=== PATIENT | female | born 1965 | race Caucasian/White ===

== ENCOUNTER 2019-10-27 09:45 | Emergency (ER) | payer MEDICARE, SELFPAY ==
--- NOTE | ~2019-10-27 | XR_ITS ---
EXAMINATION: XR hip LT 2V w AP pelvis DATE: 10/27/2019 11:31 INDICATION: Left hip pain TECHNIQUE: Anteroposterior view of the pelvis and anteroposterior, frog leg and cross-table lateral v iews of the left hip were obtained. COMPARISON: CT dated 04/16/2019 FINDINGS: Normal alignment and joint space at the bilateral hips. No fracture or suspected avascular necrosis. Bone island at the right femoral neck. Postoperative change of prior L4-S1 anterior and posterior spi nal fusion with interbody fusion devices at both levels anteriorly and with right-sided vertical diane and pedicle screw fixation. Severe bilateral sacroiliitis. Bowel anastomotic suture lines at the rect um in the central pelvis as well as in the right lower quadrant of the abdomen. IMPRESSION: 1. No acute osseous abnormality. Normal left hip. 2. Bilateral sacroiliitis as well as bowel anastomotic suture lines in the pelvis and right lower dyana drant likely related to given history of Crohn's disease. 3. Combined instrumented anterior and posterior L4-S1 spinal fusion. Reviewed, dictated and finalized at location A. PHONE CLEANER IMPRESSION: 1. No acute osseous abnormality. Normal left hip. 2. Bilateral sacroiliitis as well as bowel anastomotic suture lines in the pelv is and right lower quadrant likely related to given history of Crohn's disease. 3. Combined instrumented anterior and posterior L4-S1 spinal fusion.
--- NOTE | ~2019-10-27 | US_ITS ---
US venous doppler [facility] DATE: 10/27/2019 11:14 INDICATION: Left thigh pain. History of deep venous thrombosis. TECHNIQUE: Real-time and color flow imaging and Doppler analysis of the veins of the left lower extre mity COMPARISON: None FINDINGS: The left greater saphenous vein is patent. There is spontaneous and phasic flow and normal augmentation and color flow signal and normal compression of the deep veins of the left lower extremi ty. IMPRESSION: No evidence of deep venous thrombosis of the left leg Reviewed, dictated and finalized at Location [facility]. Reviewed, dictated and finalized at location B. UMED CHARACTER ENTERTAINER
--- NOTE | ~2019-10-27 | XR_ITS ---
EXAMINATION: XR knee LT min 4V EXAM DATE: 10/27/2019 11:31 INDICATION: No known recent injury provided at this time. Pain of the left knee. History of nerve da mage. TECHNIQUE: Left knee frontal, crosstable lateral, orthogonal oblique projections for interpretation. There is no prior study for comparison. FINDINGS: No evidence osteochondral defect or joint body in the left knee joint. No bony productive changes. There are no acute fractures or dislocations identified. There is no subcutaneous gas. The soft tissue is unremarkable. There are no radiopaque foreign bodies. No joint effusion. IMPRESSION: 1. Unremarkable XR knee LT min 4V exam. Reviewed, dictated and finalized at location A. IAL INSPECTOR
[2019-10-27 09:49] VITALS: BP 133/74; PULSE 72; RESP 18; TEMP 36.1; O2SAT 99
--- NOTE | 2019-10-27 10:24 | ED.LOWEXIN ---
HPI - Extremity Injury (Lower) General Chief Complaint: Extremity Injury, Lower Stated Complaint: left leg pain Time Seen by Provider: 10/27/19 10:23 Source: patient and RN notes reviewed Mode of arrival: other Limitations: no limitations History of Present Illness HPI Narrative: Pt is a 54 y/o female who presents to the ED with c/o constant achy left thigh pain. Patient states pain started in left hip and radiates to thigh and down her leg. Pt states that her pain began a week ago. She believes that her pain might be caused by sciatica. Pt has been taking Ibuprofen 600mg and Percocet, but with no relief. Pt has a hx of DVT in 2006. Pt denies a recent fall or injury. Pt also reports SOB intermittent, chest tightness pain intermittent, chronic vomiting, and chronic nausea, but denies lightheadedness, dizziness, and increased numbness. complaint: other (leg pain) Onset (ago): week(s) (1) Relieving factors: nothing Associated symptoms: other (achy) Other symptoms: chest pain (tightness), SOB and nausea/vomiting (chronic) Treatments prior to arrival: NSAIDS (Ibuprofen 600mg) and other (Percocet) Related Data Allergies Allergy/AdvReac Type Severity Reaction Status Date / Time Sulfa (Sulfonamide Allergy Unknown Verified 01/22/12 10:41 Antibiotics) prednisone AdvReac Unknown NOT TO Verified 12/13/18 12:46 TAKE R/T MEDS Review of Systems Review of Systems: All systems reviewed & are unremarkable except as noted in HPI and below Cardiovascular: Cardiovascular: Reports chest pain (tightness) and Denies lightheadedness Respiratory: Respiratory: Reports dyspnea Gastrointestinal: Gastrointestinal: Reports nausea (chronic) and Reports vomiting (chronic) Musculoskeletal: Musculoskeletal: Reports other (left thigh pain that radiates to her groin and into her lower leg) Neurologic: Denies dizziness and Denies numbness (increased) [facility] Past Medical History Medical History (Updated 10/27/19 @ 12:31 by Patience Rowell MD) Anxiety Bronchitis Carpal tunnel syndrome Cervical cancer CVA (cerebrovascular accident) DDD (degenerative disc disease) Depression DVT (deep venous thrombosis) 2007 Finger fracture GERD (gastroesophageal reflux disease) Glaucoma Headache History of angina HTN (hypertension) Hyperlipidemia Inguinal hernia Kidney stone Left ovarian cyst Osteopenia Pacemaker SSS Pancreatitis Peptic ulcer Peripheral neuropathy Pneumonia Seasonal allergies Thyroid nodule Tonsillitis Ulcerative colitis Surgical History Surgical History (Updated 10/27/19 @ 11:02 by Trice Austin) H/O cervical spine surgery H/O inguinal hernia repair H/O resection of large bowel History of carpal tunnel release History of hysterectomy History of orthopedic surgery bilateral feet History of removal of ovarian cyst left History of spinal surgery x2 Hx of cholecystectomy Hx of tonsillectomy Family History Family History (Updated 05/06/14 @ 07:13 by DOCTOR UNKNOWN) Grandparent Carcinoma of colon Family history of lung cancer Father Family history of lymphoma Social History Social History (Updated 10/27/19 @ 11:02 by Trice Austin) Smoking packs per day: 0.5 Smoking cigarettes per day: 10.0 Smoking status: Current every day smoker Tobacco type: cigarettes Alcohol intake: never Exam Narrative: Exam Narrative: GENERAL: Well-appearing, well-nourished, and in no acute distress. HEAD: Normocephalic, atraumatic EYES: PERRLA and EOMI, conjunctiva clear without discharge THROAT:Mucous membranes moist, Oropharynx normal without erythema, exudate, peritonsillar swelling or fluctuance NECK: Supple, without lymphadenopathy or mass RESPIRATORY: No respiratory distress, Airway patent, Respirations non-labored, Clear to auscultation without rales, rhonchi or wheeze, although diminished HEART: Regular rate and rhythm. No murmur heard. Normal peripheral pulses. ABDOMEN: Soft, n
--- NOTE | 2019-10-27 10:35 | ECG_ITS ---
Measurements Intervals [place] Rate: 63 P: 15 MT: 193 QRS: 46 QRSD: 88 T: 27 QT: 409 QTc: 420 Interpretive Statements SINUS RHYTHM NORMAL ECG Electronically Signed On 10-27-2019 11:03:38 DIRECTOR FEDERAL by Car Tirado D.O.
[2019-10-27 10:58] LABS: Basophils Absolute Auto 0.1 K/mm3 (0.0-0.1); Basophils Percent Auto 1.2 % (0.2-1.2); Eosinophils Absolute Auto 0.1 K/mm3 (0-0.3); Hematocrit 32.7 % (37.0-47.0); Hemoglobin 10.5 g/dL (12.0-15.0); Immature Granulocyte Absolute 0.01 K/mm3 (0.00-0.031); Immature Granulocyte Percent A 0.2 % (0-0.5); Immature Platelet Fraction Pct 3.6 % (0.9-11.2); Lymphocytes Absolute Auto 1.47 K/mm3 (0.9-3.2); Lymphocytes Percent Auto 36.4 % (18.3-44.2); Mean Corpuscular HGB Conc 32.1 g/dl (32-36); Mean Corpuscular Hemoglobin 29.7 pg (26-34); Mean Corpuscular Volume 92.4 fl (80-100); Mean Platelet Volume 10.7 fl (7.4-10.4); Monocytes Absolute Auto 0.5 K/mm3 (0.1-0.6); Monocytes Percent Auto 11.1 % (2.6-8.5); Neutrophils Absolute Auto 1.9 K/mm3 (1.3-6.7); Neutrophils Percent Auto 48.1 % (45.5-73.1); Platelet Count Result 208 k/mm3 (150-375); Red Blood Count 3.54 M/mm3 (4.2-5.4)
[2019-10-27] MEDS: ONDANSETRON INJ 4 MG/2 ML VIAL IV PUSH (10:59)
[2019-10-27] MEDS: HYDROMORPHONE HCL 1 MG/ML INJ 0.5 MG IV PUSH (11:02)
[2019-10-27 11:57] LABS: Prothrombin Time 12.6 Seconds (11.1-14.7)
[2019-10-27 11:58] LABS: Partial Thromboplastin Time 26.1 SECONDS (22.3-36.8)
[2019-10-27 12:01] LABS: Alanine Aminotransferase 10 U/L (4-35); Albumin Level 3.9 g/dL (3.5-5.1); Alkaline Phosphatase 65 U/L (38-126); Aspartate Amino Transferase 37 U/L (14-36); Bilirubin,Total 0.4 mg/dL (0.2-1.3); Blood Urea Nitrogen 22 mg/dL (7-17); Calcium 8.7 mg/dL (8.4-10.2); Carbon Dioxide 22 mmol/L (22-30); Chloride 107 mmol/L (98-107); D Dimer 0.27 ug/mL (<0.48); Estimated Glomerular Filt Rate 52; Glucose 96 mg/dL (65-105); Potassium 3.4 mmol/L (3.4-5.0); Sodium 139 mmol/L (137-145)
[2019-10-27 12:13] LABS: Troponin I < 0.012 ng/mL (0.000-0.034)
[2019-10-27 12:40] VITALS: BP 133/82; PULSE 68; RESP 16; O2SAT 97
== END 2019-10-27 12:43 | disposition home or self-care (01) ==
PROVIDERS: Emergency Provider General Practice; PCP Family Medicine Adolescent Medicine
DX: M46.1 Sacroiliitis, not elsewhere classified (principal); M79.652 Pain in left thigh; F41.9 Anxiety disorder, unspecified; F32.9 Major depressive disorder, single episode, unspecified; K21.9 Gastro-esophageal reflux disease without esophagitis; I10 Essential (primary) hypertension; E78.5 Hyperlipidemia, unspecified; Z98.1 Arthrodesis status
CPT/HCPCS: 36415; 73502; 73521; 73564; 80053; 84484; 85025; 85055; 85380; 85610; 85730; 93005; 93971; 96374; 96375; 99284; J1170; J2405

== ENCOUNTER → 2020-03-28 09:05 | Outpatient (CLI) | payer MEDICARE, SELFPAY ==
--- NOTE | ~2020-03-28 | CT_ITS ---
EXAMINATION: CT abdomen w con DATE: 03/28/2020 09:51 INDICATION: Chronic pancreatitis. Colon resection (history of ulcerative colitis), cholecystectomy an d hysterectomy TECHNIQUE: Computed tomography (CT) of the abdomen was performed with 100 cc Omnipaque 350 intravenou s contrast. Automated exposure control and iterative reconstruction technique were employed. Exam dos e: 223.65 mGy-cm total exam DLP. COMPARISON: 04/16/2019 CT abdomen pelvis 10/10/2018 CT abdomen pelvis 05/06/2018 CT abdomen pelvis FINDINGS: The lung bases are clear of infiltrate or consolidation. There is mild discoid atelectasis or scarring at the lung bases. Normal heart size. Right ventricular pacemaker lead. No pericardial or pleural effusion. Status post cholecystectomy. There is air within the intrahepatic and extrahepatic bile ducts. The co mmon bile duct measures up to approximately 12 mm maximal diameter, possibly due to post-cholecystect pedro state. The distal common bile duct measures approximately 6 mm diameter. Recommend correlation wi th serum bilirubin level. No hepatic, splenic, pancreatic, and adrenal space-occupying mass lesion is evident. No pancreatic ca lcification or ductal dilatation. 6 mm 9 mm left renal cortical cysts and 13 mm right renal cortical cyst. No renal calculus or hydroureteronephrosis. Normal caliber of the abdominal aorta. No intraperitoneal or retroperitoneal mass lesion or adenopath y or ascites. There is a small sliding hiatal hernia. There is borderline small bowel dilatation, measuring up to 3.1 cm diameter, with small bowel air-flu id levels. Status post colectomy. No pneumatosis or intraperitoneal free air. Leads are noted entering the thoracic spinal canal the upper images. Status post right posterior and interbody spinal fusion at L4-5 and L5-S1. No suspicious osteolytic or osteoblastic lesions are noted. IMPRESSION: Status post cholecystectomy; pneumobilia Common bile duct measures up to 12 mm; consider correlation with serum bilirubin level Bilateral renal cysts Small sliding hiatal hernia Status post colectomy; borderline small bowel dilatation with air-fluid levels. Clinical correlation is advised. Consider obstructive series as clinically appropriate. Reviewed, dictated and finalized at Location A. Reviewed, dictated and finalized at location B. IMPRESSION: Status post cholecystectomy; pneumobilia Common bile duct measures up to 12 mm; consider correlation with serum bilirubi n level Bilateral renal cysts Small sliding hiatal hernia Status post colectomy; borderline small bowel dilatation with air-fluid levels. Clinical correlation is advised. Consider obstructive series as clinically estephanie ropriate.
[2020-03-28 09:39] LABS: Estimated Glomerular Filt Rate 52
== END ==
DX: K86.0 Alcohol-induced chronic pancreatitis (principal); Z90.49 Acquired absence of other specified parts of digestive tract; N28.1 Cyst of kidney, acquired; K44.9 Diaphragmatic hernia without obstruction or gangrene
CPT/HCPCS: 36415; 74160; Q9967

== ENCOUNTER 2020-04-05 00:38 | Outpatient (CLI) | payer MEDICARE, SELFPAY ==
[2020-04-05 17:56] LABS: SARS-CoV-2 RNA PCR Negative
== END 2020-04-05 00:39 | disposition home or self-care (01) ==
LOC: ANHCOVIDDT 00:38
PROVIDERS: Visit Provider Internal Medicine Gastroenterology
DX: Z01.818 Encounter for other preprocedural examination (principal); Z11.59 Encounter for screening for other viral diseases
CPT/HCPCS: 87635; C9803; U0003

== ENCOUNTER 2020-04-07 02:08 | Day surgery (SDC) | payer MEDICARE, SELFPAY ==
[2020-03-31 12:42] VITALS: BMI 23.5
[2020-04-07] MEDS: LACTATED RINGERS 1,000 ML 150 ML IV CONT (09:06)
[2020-04-07 09:14] VITALS: BP 130/74; PULSE 65; RESP 16; O2SAT 100
--- NOTE | 2020-04-07 09:38 | WPDANESEPPF ---
Anes - Initial Pre Proc Eval Procedure: Operation Date: 04/07/20 09:30 Proposed Procedures p Flexible Sigmoidoscopy - Travis Mcgill DO Date/Time: 04/07/20 09:38 Surgeon: Travis Mcgill DO Pre Op Diagnosis: Hx Ulcerative Colitis/ Pouchitis Patient Data Age: 54 Gender: F Height: 5 ft 6 in Weight: 66 kg Last Vital Signs Pulse 65 04/07/20 09:14 Resp 16 04/07/20 09:14 BP 130/74 04/07/20 09:14 Pulse Ox 100 04/07/20 09:14 Allergies Allergy/AdvReac Type Severity Reaction Status Date / Time Sulfa (Sulfonamide Allergy Severe Swelling Verified 04/07/20 09:08 Antibiotics) of Lip/Tongue/Throat prednisone AdvReac Unknown NOT TO Verified 04/07/20 09:08 TAKE R/T MEDS Home Medications Medication Instructions Recorded Confirmed Type alendronate 70 mg PO DAILY 03/31/20 04/07/20 History amlodipine 5 mg PO AC 03/31/20 04/07/20 History atenolol 50 mg PO DAILY 03/31/20 04/07/20 History atorvastatin 40 mg PO DAILY 03/31/20 04/07/20 History ergocalciferol (vitamin D2) 1,250 mcg PO WEEKLY 03/31/20 04/07/20 History lansoprazole 30 mg PO BID 03/31/20 04/07/20 History lorazepam 2 mg PO DAILY 03/31/20 04/07/20 History pantoprazole 40 mg PO DAILY 03/31/20 04/07/20 History sertraline 100 mg PO DAILY 03/31/20 04/07/20 History Patient hx anesthesia problems: none Family hx anesthesia problems: none [facility] Past Medical History Medical History (Updated 10/28/19 @ 00:00 by Kiera Chino) Anxiety Bronchitis Carpal tunnel syndrome Cervical cancer CVA (cerebrovascular accident) DDD (degenerative disc disease) Depression DVT (deep venous thrombosis) 2007 Finger fracture GERD (gastroesophageal reflux disease) Glaucoma Headache History of angina HTN (hypertension) Hyperlipidemia Inguinal hernia Kidney stone Left ovarian cyst Osteopenia Pacemaker SSS Pancreatitis Peptic ulcer Peripheral neuropathy Pneumonia Seasonal allergies Thyroid nodule Tonsillitis Ulcerative colitis Surgical History Surgical History (Updated 10/27/19 @ 11:02 by Trice Austin) H/O cervical spine surgery H/O inguinal hernia repair H/O resection of large bowel History of carpal tunnel release History of hysterectomy History of orthopedic surgery bilateral feet History of removal of ovarian cyst left History of spinal surgery x2 Hx of cholecystectomy Hx of tonsillectomy Family History Family History (Updated 05/06/14 @ 07:13 by DOCTOR UNKNOWN) Grandparent Carcinoma of colon Family history of lung cancer Father Family history of lymphoma Social History Social History (Updated 10/27/19 @ 11:02 by Trice Austin) Smoking packs per day: 0.5 Smoking cigarettes per day: 10.0 Smoking status: Current every day smoker Tobacco type: cigarettes Alcohol intake: never Anes - Eval Final PreProcedure Day of Procedure 04/07/20 09:38 Patient weight: normal Heart: regular rate and rhythm Lungs: clear to auscultation Airway: Mallampati scale class II Neurological: alert and oriented Last oral intake: >/= 8 hours ASA classification: III Emergent: no Anesthetic plan: proceed Anesthesia type and monitoring: general GIVS and standard monitoring Informed Consent: The patient's anesthetic plan and its attendant risks and benefits were discussed with the patient/family/POA. Questions were solicited and answers provided to the satisfaction of the patient/family/POA.
--- NOTE | 2020-04-07 09:51 | PM.IMHP ---
H&P: HPI History of Present Illness Chief complaint: Hx Ulcerative Colitis/ Pouchitis Narrative: Reason for visit ileal pouch endoscopy. This very pleasant lady seen consultation at the request of the primary physician. Impression: Here we have a very pleasant lady with a history of ulcerative colitis. She is status post ileal anal anastomosis. She has had difficulty with chronic pouchitis. She is here for follow-up endoscopy to assess for healing. GERD. History peptic ulcer disease. History of Pancreatitis. Please refer to past medical history. Recommendation: Pouch endoscopy. History: This very pleasant lady has a history of ulcerative colitis. She is status post ileal anal anastomosis after total colectomy. The patient has developed recurrent and chronic pouchitis. She is on biological therapy. She is here for follow-up endoscopy to assess for healing. Patient does have chronic abdominal pain. She suffers from peripheral neuropathy and chronic back pain. Physical examination: General: very pleasant patient in no acute distress. HEENT: Head was normocephalic sclerae is clear mouth without masses neck was supple. Heart: Rate rhythm regular without S3 or S4. Lungs: CTA. Abdomen: Soft with no guarding or rigidity. Bowel sounds were active. Neurologic: Cranial nerves 2 through 12 intact. No focal defects. No clonus. Musculoskeletal system: Revealed no joint tenderness or swelling no muscle atrophy. Extremities: Reveal no significant edema. Skin: Warm and dry with normal turgor. Mental status: intact. Patient is alert and oriented. Review of Systems Review of Systems: All systems reviewed & are unremarkable except as noted in HPI and below PMFSH Past Medical History Medical History (Updated 04/07/20 @ 09:51 by Travis Mcgill DO) Anxiety Bronchitis Cervical cancer CVA (cerebrovascular accident) DDD (degenerative disc disease) Depression DVT (deep venous thrombosis) 2007 Finger fracture GERD (gastroesophageal reflux disease) Glaucoma HTN (hypertension) Hyperlipidemia Kidney stone Osteopenia Pacemaker SSS Pancreatitis Peptic ulcer Peripheral neuropathy Pneumonia Seasonal allergies Thyroid nodule Tonsillitis Ulcerative colitis Surgical History Surgical History (Updated 10/27/19 @ 11:02 by Trice Austin) H/O cervical spine surgery H/O inguinal hernia repair H/O resection of large bowel History of carpal tunnel release History of hysterectomy History of orthopedic surgery bilateral feet History of removal of ovarian cyst left History of spinal surgery x2 Hx of cholecystectomy Hx of tonsillectomy Family History Family History (Updated 08/28/14 @ 07:13 by DOCTOR UNKNOWN) Grandparent Carcinoma of colon Family history of lung cancer Father Family history of lymphoma Social History Social History (Updated 10/27/19 @ 11:02 by Trice Austin) Smoking packs per day: 0.5 Smoking cigarettes per day: 10.0 Smoking status: Current every day smoker Tobacco type: cigarettes Alcohol intake: never Meds Home Medications and Allergies Home Medications Medication Instructions Recorded Confirmed Type alendronate 70 mg PO DAILY 03/31/20 04/07/20 History amlodipine 5 mg PO AC 03/31/20 04/07/20 History atenolol 50 mg PO DAILY 03/31/20 04/07/20 History atorvastatin 40 mg PO DAILY 03/31/20 04/07/20 History ergocalciferol (vitamin D2) 1,250 mcg PO WEEKLY 03/31/20 04/07/20 History lansoprazole 30 mg PO BID 03/31/20 04/07/20 History lorazepam 2 mg PO DAILY 03/31/20 04/07/20 History pantoprazole 40 mg PO DAILY 03/31/20 04/07/20 History sertraline 100 mg PO DAILY 03/31/20 04/07/20 History Allergies Allergy/AdvReac Type Severity Reaction Status Date / Time Sulfa (Sulfonamide Allergy Severe Swelling Verified 04/07/20 09:08 Antibiotics) of Lip/Tongue/Throat prednisone AdvReac Unknown NOT TO Verified 04/07/20 09:08 TA
[2020-04-07 10:16] VITALS: BP 89/59; PULSE 64; RESP 11; O2SAT 97
[2020-04-07 10:26] VITALS: BP 97/70; PULSE 61; RESP 10; O2SAT 95
[2020-04-07 10:36] VITALS: BP 102/68; PULSE 60; RESP 11; O2SAT 97
== END 2020-04-07 10:55 | disposition home or self-care (01) ==
PROVIDERS: PCP Family Medicine Adolescent Medicine; Visit Provider Internal Medicine Gastroenterology
PROC: 0DJD8ZZ Inspection of Lower Intestinal Tract, Via Natural or Artificial Opening Endoscopic (ICD-10-PCS; CPT 45330; principal; 2020-04-07 09:30)
DX: Z09 Encounter for follow-up examination after completed treatment for conditions other than malignant neoplasm (principal); K51.90 Ulcerative colitis, unspecified, without complications; Z90.49 Acquired absence of other specified parts of digestive tract; Z98.0 Intestinal bypass and anastomosis status; I10 Essential (primary) hypertension; E78.5 Hyperlipidemia, unspecified; G62.9 Polyneuropathy, unspecified; K21.9 Gastro-esophageal reflux disease without esophagitis; F41.8 Other specified anxiety disorders; Z86.73 Personal history of transient ischemic attack (TIA), and cerebral infarction without residual deficits; Z95.0 Presence of cardiac pacemaker; Z85.41 Personal history of malignant neoplasm of cervix uteri; F17.210 Nicotine dependence, cigarettes, uncomplicated
CPT/HCPCS: 44386; 87635; 88305; C9803; J2704; J7120; U0003

== ENCOUNTER 2020-04-11 21:10 | Observation (INO) | payer MEDICARE, SELFPAY ==
--- NOTE | ~2020-04-11 | CT_ITS ---
EXAMINATION: CT abdomen pelvis w con EXAM DATE: 04/11/2020 22:43 INDICATION: Low abdominal pain, hematochezia. History of Crohn's disease. TECHNIQUE: Spiral CT of the abdomen and pelvis was performed following intravenous injection of 100 m L Omnipaque 350. Axial, coronal and sagittal images were reviewed. The dose-length product (DLP) fo r this examination was 349.92 mGy-cm. The exposure was tailored according to patient size (auto mA e xposure control), and iterative reconstruction (ASIR) was used as additional dose reduction technique . Comparison is made to prior examination from 03/28/2020. FINDINGS: The liver, spleen, adrenal glands and pancreas are unremarkable. Status post cholecystecto my with some pneumobilia, not uncommon following cholecystectomy. Portal and splenic veins are paten t. Kidneys enhance symmetrically. There is no hydronephrosis. Small bilateral renal cysts up to 1.4 cm on the right. The uterus is not identified and has likely been surgically resected. The bladder is unremarkable. There is no retroperitoneal or pelvic lymphadenopathy. There is right-sided ileocolic anastomosis site. There is a rectosigmoid anastomosis site, patient greer s had partial colectomy. Correlate with surgical history. No colonic wall thickening. The appendix is normal. Small paraesophageal hiatal hernia. No free intraperitoneal gas. The hea rt is normal in size. There are no pericardial or pleural effusions. The lung bases are unremarkabl e. There are no osteoblastic or osteolytic lesions identified. Spine stimulator device. Cardiac pac emaker leads. Lower lumbar fusion hardware. IMPRESSION: 1. No acute intra-abdominal findings. 2. Surgical changes. Reviewed, dictated and finalized at location G.
[2020-04-11 21:12] VITALS: BP 136/88; PULSE 85; RESP 16; TEMP 37.2; O2SAT 97
--- NOTE | 2020-04-11 21:23 | PC.NURSE ---
CROW Aguero at bedside for assessment.
--- NOTE | 2020-04-11 21:27 | ED.ABDPAIN ---
HPI - Abdominal Pain General Chief Complaint: Abdominal Pain <Ronny Aguero MD - Last Filed: 04/14/20 02:59> Stated Complaint: post op bleeding <Ronny Aguero MD - Last Filed: 04/14/20 02:59> Time Seen by Provider: 04/11/20 21:22 <Ronny Aguero MD - Last Filed: 04/14/20 02:59> History of Present Illness HPI narrative: 54 year old female with distant h/o large bowel resection present with abdominal pain. She reports that she had a sigmoidoscopy done by Dr. Mcgill on . She has been having lower abdominal pain since that time. Then more recnetly she began passing bright red blood per rectum . It is not clear exactly when this started. She also reported poor appetite, light headedness. She takes an aspirin daily. <Ronny Aguero MD - Last Filed: 04/14/20 02:59> Related Data Home Medications: Home Medications Medication Instructions Recorded Confirmed alendronate 70 mg PO WEEKLY 03/31/20 04/12/20 amlodipine 5 mg PO DAILY 03/31/20 04/12/20 atenolol 50 mg PO HS 03/31/20 04/12/20 atorvastatin 40 mg PO HS 03/31/20 04/12/20 ergocalciferol (vitamin D2) 1,250 mcg PO WEEKLY 03/31/20 04/12/20 lansoprazole 30 mg PO DAILY 03/31/20 04/12/20 lorazepam 2 mg PO TID PRN 03/31/20 04/12/20 sertraline 100 mg PO DAILY 03/31/20 04/12/20 Otezla 30 mg PO BID 04/12/20 04/12/20 aspirin 325 mg PO DAILY 04/12/20 04/12/20 mecobalamin (vitamin B12) 1,000 mcg SUBLINGUAL Q48H 04/12/20 04/12/20 oxycodone-acetaminophen 1 tablet PO Q4H PRN 04/12/20 04/12/20 <Ronny Aguero MD - Last Filed: 04/14/20 02:59> Allergies/Adverse Reactions: Allergies Allergy/AdvReac Type Severity Reaction Status Date / Time Sulfa (Sulfonamide Allergy Severe Swelling Verified 04/12/20 00:02 Antibiotics) of Lip/Tongue/Throat prednisone AdvReac Unknown NOT TO Verified 04/12/20 00:02 TAKE R/T MEDS <Ronny Aguero MD - Last Filed: 04/14/20 02:59> Review of Systems Review of Systems: All systems reviewed & are unremarkable except as noted in HPI and below <Ronny Aguero MD - Last Filed: 04/14/20 02:59> Constitutional: Constitutional: Denies chills and Denies fever(s) <Ronny Aguero MD - Last Filed: 04/14/20 02:59> ENT: Denies sore throat <Ronny Aguero MD - Last Filed: 04/14/20 02:59> Cardiovascular: Cardiovascular: Denies chest pain <Ronny Aguero MD - Last Filed: 04/14/20 02:59> Respiratory: Respiratory: Denies dyspnea <Ronny Aguero MD - Last Filed: 04/14/20 02:59> Gastrointestinal: Gastrointestinal: Reports abdominal pain, Reports diarrhea and Reports nausea <Ronny Aguero MD - Last Filed: 04/14/20 02:59> Neurologic: Reports dizziness and Denies numbness <Ronny Aguero MD - Last Filed: 04/14/20 02:59> PMF Past Medical History Medical History: Medical History (Updated 04/12/20 @ 17:47 by Eliana Cruz PA-C) Anxiety Cervical cancer S/p hysterectomy 1996 Chronic pancreatitis CVA (cerebrovascular accident) 2016, no residual deficits DDD (degenerative disc disease) Depression DVT (deep venous thrombosis) 2006 GERD (gastroesophageal reflux disease) HLD (hyperlipidemia) HTN (hypertension) Osteoporosis Pacemaker SSS - 2013 Peptic ulcer Peripheral neuropathy Seasonal allergies Thyroid nodule Ulcerative colitis <Ronny Aguero MD - Last Filed: 04/14/20 02:59> Surgical History Surgical History: Surgical History (Updated 04/12/20 @ 11:33 by Eliana Cruz PA-C) H/O cervical spine surgery H/O inguinal hernia repair H/O resection of large bowel 2000 History of carpal tunnel release History of hysterectomy History of orthopedic surgery bilateral feet History of removal of ovarian cyst left History of spinal fusion 2000 & 2001. L5-S1 Hx of cholecystectomy Hx of tonsillectomy <Ronny Aguero MD - Last Filed: 04/14/20 02:59> Family History Family History: Family Hi
[2020-04-11] MEDS: SODIUM CHLORIDE 0.9% IV 1,000 ML 999 ML IV CONT (21:54)
[2020-04-11 22:02] LABS: Basophils Percent Auto 0.7 % (0.2-1.2); Eosinophils Absolute Auto 0.1 K/mm3 (0-0.3); Eosinophils Percent Auto 1.8 % (0-4.4); Hematocrit 34.7 % (37.0-47.0); Hemoglobin 11.1 g/dL (12.0-15.0); Immature Granulocyte Absolute 0.02 K/mm3 (0.00-0.031); Immature Granulocyte Percent A 0.3 % (0-0.5); Lymphocytes Absolute Auto 1.24 K/mm3 (0.9-3.2); Lymphocytes Percent Auto 20.5 % (18.3-44.2); Mean Corpuscular Hemoglobin 28.9 pg (26-34); Mean Corpuscular Volume 90.4 fl (80-100); Mean Platelet Volume 9.8 fl (7.4-10.4); Monocytes Absolute Auto 0.7 K/mm3 (0.1-0.6); Monocytes Percent Auto 12.1 % (2.6-8.5); Neutrophils Absolute Auto 3.9 K/mm3 (1.3-6.7); Neutrophils Percent Auto 64.6 % (45.5-73.1); Platelet Count Result 279 k/mm3 (150-375); Red Blood Count 3.84 M/mm3 (4.2-5.4); Red Cell Distribution Width 15.6 % (11.5-14.5)
[2020-04-11 22:11] LABS: INR 0.9; Prothrombin Time 12.2 Seconds (11.1-14.7)
[2020-04-11 22:12] LABS: Partial Thromboplastin Time 28.9 SECONDS (22.3-36.8)
[2020-04-11 22:16] LABS: Alanine Aminotransferase 17 U/L (4-35); Albumin Level 4.3 g/dL (3.5-5.1); Alkaline Phosphatase 91 U/L (38-126); Anion Gap 15.4 mmol/L (7-16); Aspartate Amino Transferase 59 U/L (14-36); Bilirubin,Total 0.2 mg/dL (0.2-1.3); Blood Urea Nitrogen 31 mg/dL (7-17); Calcium 9.4 mg/dL (8.4-10.2); Carbon Dioxide 17 mmol/L (22-30); Chloride 109 mmol/L (98-107); Estimated CRCL calculation 49 ml/min; Estimated Glomerular Filt Rate 52; Glucose 106 mg/dL (65-105); Lipase 441 U/L (23-300); Potassium 3.4 mmol/L (3.4-5.0); Sodium 138 mmol/L (137-145)
[2020-04-11] MEDS: MORPHINE SULFATE 4 MG/ML INJ IV PUSH ×2 (22:23→23:40)
[2020-04-11] MEDS: ONDANSETRON INJ 4 MG/2 ML VIAL IV PUSH (22:23)
[2020-04-11 22:54] VITALS: BP 133/84; PULSE 101; RESP 22; O2SAT 94
--- NOTE | 2020-04-11 23:12 | PC.NURSE ---
RN Report given to Ambika.
[2020-04-11 23:50] LABS: Add Urine Microscopic? YES; Appearance Urine Clear (Clear); Bilirubin Urine Negative (Negative); Blood Urine Negative (Negative); Color Urine Straw (Yellow); Glucose Urine UA Negative (Negative); Ketones Urine Negative (Negative); Leukocyte Esterase Ur Trace LEU/UL (Negative); Mucus Urine Rare /lpf; Nitrate Urine Negative (Negative); Protein Urine 1+ mg/dL (Negative); RBC Urine 0-2 /hpf (0-2); Squamous Epithelial Cell Urine Many /hpf (Few); Urobilinogen Urine Negative mg/dL (<2.0); WBC Urine 0-3 /hpf
[2020-04-12 00:01] VITALS: BP 116/67; PULSE 87; RESP 18; O2SAT 95
[2020-04-12 00:35] VITALS: BMI 23.3
--- NOTE | 2020-04-12 00:35 | ADMGEN ---
This patient, Dior Roebrt, was admitted to Medical Room 341-01. Patient/family oriented to hospital policies and general routines including ID bracelet, bed and alarms, visiting hours, pain management, procedures, bathroom and other care routines, personal items, smoking policy, room service/diet, and visiting hours. Valuables list has been completed. Information on how to activate the Rapid Response Team has been discussed. Patient/Family are encouraged to report perceived risks to care and to ask questions if they do not understand what they are told or what they should do.
[2020-04-12 00:37] VITALS: BMI 23.3
[2020-04-12 00:38] VITALS: BP 116/65; PULSE 83; RESP 18; TEMP 37.2; O2SAT 92
[2020-04-12] MEDS: MORPHINE SULFATE 4 MG/ML INJ IV PUSH ×4 (01:13→14:26)
[2020-04-12] MEDS: SODIUM CHLORIDE 0.9% IV 1,000 ML 125 ML IV CONT ×3 (01:13→18:00)
[2020-04-12] MEDS: ONDANSETRON INJ 4 MG/2 ML VIAL IV PUSH ×5 (01:14→22:37)
[2020-04-12 05:10] VITALS: BP 102/56; PULSE 69; RESP 18; TEMP 36.7; O2SAT 92
[2020-04-12 09:30] LABS: Hematocrit 31.4 % (37.0-47.0); Hemoglobin 9.8 g/dL (12.0-15.0); Mean Corpuscular HGB Conc 31.2 g/dl (32-36); Mean Corpuscular Hemoglobin 28.8 pg (26-34); Mean Corpuscular Volume 92.4 fl (80-100); Mean Platelet Volume 10.1 fl (7.4-10.4); Platelet Count Result 229 k/mm3 (150-375); Red Cell Distribution Width 15.8 % (11.5-14.5); White Blood Count 4.7 K/mm3 (4.5-10.0)
[2020-04-12 09:44] LABS: Anion Gap 8.5 mmol/L (7-16); Blood Urea Nitrogen 26 mg/dL (7-17); Calcium 8.1 mg/dL (8.4-10.2); Carbon Dioxide 21 mmol/L (22-30); Chloride 114 mmol/L (98-107); Estimated CRCL calculation 53 ml/min; Estimated Glomerular Filt Rate 58; Glucose 81 mg/dL (65-105); Lipase 321 U/L (23-300); Potassium 3.5 mmol/L (3.4-5.0); Sodium 140 mmol/L (137-145)
[2020-04-12] MEDS: PANTOPRAZOLE SODIUM IV 40 MG VIAL IV PUSH (09:52)
--- NOTE | 2020-04-12 10:56 | PM.IMHP ---
H&P: HPI History of Present Illness Date/Time: 04/12/20 10:56 Chief complaint: lower abdominal pain, chronic pancreatitis Narrative: Date of admission: 04/11/2020 Date of service: 04/12/2020 Dior Robert is a 54 year old female with a history of chronic idiopathic pancreatitis established with specialist, peptic ulcers, ulcerative colitis s/p distant partial colon resection, and multiple medical comorbidites who presented to the emergency department via private vehicle on 04/11/2020 with complaints abdominal pain and rectal bleeding. Regarding her rectal bleeding, she underwent an annual sigmoidoscopy with biopsies for UC surveillance by Dr. Mcgill on 04/07. she tolerated it well but noticed that on 04/10 she began having very mild rectal bleeding. She was having bright red blood on her tissue paper and small drips of blood in the commode. She estimates that she had 3-4 episodes of rectal bleeding. This morning she again noted a small amount of bright red blood on her tissue. She had a loose stool at that time. Additionally, approximately 2 days ago, the same day that she began having rectal bleeding, she also noted abdominal tenderness in epigastric region that radiated to the back. She has a long history of pancreatitis and felt that this pain was similar. She felt nauseous but did not have any episodes of vomiting. She has not attempted to eat anything since the onset. She has been able to tolerate water intake. At this time, she rates her pain as 7/10. She would like to attempt to try clear liquids. She had a CT a/p on 04/11 that showed unremarkable pancreas and no other findings that correlate with the symptoms. She reports that she had a CT several weeks ago and was informed that she might require another ERCP. She feels weak but denies dizziness or lightheadedness. She denies any GERD symptoms or dysphagia. Review of Systems Review of Systems: Narrative: A 12 point review of systems was reviewed with pertinent positives and negatives as per HPI and below. She complains of occasional dry cough and shortness of breath. She is to have an echo soon ordered by her drag car racer for shortness of breath. She also complains of numbness and tingling in her lower extremities which is chronic. She has chronic back and neck pain. She denies any other myalgias or arthralgias. She denies headache or confusion. She has a history of anxiety and depression but her mood is stable currently. She denies any visual changes, speech changes, or difficulty hearing. No bleeding or bruising. [facility] Past Medical History Medical History (Updated 04/12/20 @ 17:47 by Eliana Cruz PA-C) Anxiety Cervical cancer S/p hysterectomy 1996 Chronic pancreatitis CVA (cerebrovascular accident) 2017, no residual deficits DDD (degenerative disc disease) Depression DVT (deep venous thrombosis) 2006 GERD (gastroesophageal reflux disease) HLD (hyperlipidemia) HTN (hypertension) Osteoporosis Pacemaker SSS - 2013 Peptic ulcer Peripheral neuropathy Seasonal allergies Thyroid nodule Ulcerative colitis Surgical History Surgical History (Updated 04/12/20 @ 11:33 by Eliana Cruz PA-C) H/O cervical spine surgery H/O inguinal hernia repair H/O resection of large bowel 1999 History of carpal tunnel release History of hysterectomy History of orthopedic surgery bilateral feet History of removal of ovarian cyst left History of spinal fusion 2000 & 2001. L5-S1 Hx of cholecystectomy Hx of tonsillectomy Family History Family History (Updated 04/12/20 @ 11:34 by Eliana Cruz PA-C) Grandparent Carcinoma of colon Father Family history of lymphoma Diabetes mellitus Hypertension Mother Hypertension Grandparent Family history of lung cancer Social History Social History (Updated 04/12/20 @ 11:39 by Eliana Cruz PA-C) Social History: Ms. Robert lives at home with her sister, Radha, whom she designates as her surrogat
[2020-04-12 14:00] VITALS: BP 112/66; PULSE 70; RESP 16; TEMP 36.8; O2SAT 92
[2020-04-12 18:40] LABS: Hematocrit 32.7 % (37.0-47.0); Hemoglobin 10.2 g/dL (12.0-15.0)
[2020-04-12] MEDS: MORPHINE SULFATE 2 MG/ML INJ IV PUSH (19:40)
[2020-04-12 20:06] VITALS: BP 128/60; PULSE 73; RESP 16; TEMP 36.8; O2SAT 95
[2020-04-13] MEDS: MORPHINE SULFATE 2 MG/ML INJ IV PUSH ×2 (00:10→05:35)
[2020-04-13] MEDS: SODIUM CHLORIDE 0.9% IV 1,000 ML 125 ML IV CONT ×2 (02:13→09:48)
[2020-04-13 05:30] LABS: Hematocrit 30.8 % (37.0-47.0); Hemoglobin 9.5 g/dL (12.0-15.0); Mean Corpuscular HGB Conc 30.8 g/dl (32-36); Mean Corpuscular Hemoglobin 28.6 pg (26-34); Mean Corpuscular Volume 92.8 fl (80-100); Mean Platelet Volume 9.5 fl (7.4-10.4); Platelet Count Result 225 k/mm3 (150-375); Red Blood Count 3.32 M/mm3 (4.2-5.4); Red Cell Distribution Width 15.7 % (11.5-14.5); White Blood Count 4.4 K/mm3 (4.5-10.0)
[2020-04-13] MEDS: ONDANSETRON INJ 4 MG/2 ML VIAL IV PUSH ×2 (05:35→09:49)
[2020-04-13 05:54] LABS: Iron 27 ug/dL (37-170)
[2020-04-13 05:58] LABS: Anion Gap 11.7 mmol/L (7-16); Blood Urea Nitrogen 15 mg/dL (7-17); Calcium 7.7 mg/dL (8.4-10.2); Carbon Dioxide 17 mmol/L (22-30); Chloride 115 mmol/L (98-107); Estimated CRCL calculation 59 ml/min; Estimated Glomerular Filt Rate > 60; Glucose 64 mg/dL (65-105); Lipase 206 U/L (23-300); Potassium 3.7 mmol/L (3.4-5.0); Sodium 140 mmol/L (137-145)
[2020-04-13 06:03] LABS: Percent Iron Saturation 7 % (20-50)
[2020-04-13 06:13] VITALS: BP 137/68; PULSE 78; RESP 18; TEMP 36.7; O2SAT 96
[2020-04-13] MEDS: ASPIRIN 325 MG TABLET PO (08:55)
[2020-04-13] MEDS: PANTOPRAZOLE SODIUM IV 40 MG VIAL IV PUSH (08:55)
[2020-04-13] MEDS: LIPASE/AMYLASE/PROTEASE 12,000 UNITS CAP 1 CAP PO (13:27)
[2020-04-13 14:34] VITALS: BP 130/65; PULSE 74; RESP 18; TEMP 36.7; O2SAT 98
--- NOTE | 2020-04-15 09:16 | PM.DS ---
DS: Admitting Diagnosis Admitting Diagnosis Admitting Diagnosis: Other chronic pancreatitis DS: Discharge Diagnosis Discharge Diagnosis (1) Chronic pancreatitis: Qualifiers: Pancreatitis type: idiopathic Qualified Code(s): K86.1 - Other chronic pancreatitis Code(s): K86.1 - Other chronic pancreatitis Status: Acute Assessment and Plan: Idiopathic. She is established with specialist in [place]. Her CT a/p showed unremarkable pancreas. Lipase was mildly elevated but declined to normal limits. She was given he had epigastric pain which improved and she was able to slowly advance from NPO to low fat diet. She has been instructed to follow up with her specialist in [place] for ERCP, which had been previously discussed with her by Dr. Mcgill. (2) Rectal bleeding: Code(s): K62.5 - Hemorrhage of anus and rectum Status: Acute Assessment and Plan: She underwent sigmoidoscopy on 04/[address] Mcgill and several biopsies were performed. She has had minimal bright red bleeding per rectum on tissue paper. Discussed case with Dr. Mcgill and bleeding was felt to be related to recent biopsies. Aspirin was held during her stay and her bleeding stopped. She will follow up with Dr. Mcgill as scheduled. (3) Normocytic anemia: Code(s): D64.9 - Anemia, unspecified Status: Acute Assessment and Plan: Appears chronic on review of prior labs. H&H declined from presentation but remained stable. Suspect this decline was related to rectal bleeding with dilutional component as well given IV fluids. Vitals remained stable and she was asymptomatic. H&H remained stable and she will repeat H&H in 5 days. Iron panel revealed iron deficiency and she was started on oral iron supplementation. (4) Ulcerative colitis: Qualifiers: Ulcerative colitis location: unspecified ulcerative colitis location Digestive disease complication type: unspecified complication Qualified Code(s): K51.919 - Ulcerative colitis, unspecified with unspecified complications Code(s): K51.90 - Ulcerative colitis, unspecified, without complications Status: Acute Assessment and Plan: S/p partial colon resection. She is established with Dr. Mcgill and recently underwent sigmoidoscopy with biopsies. She has recently been receiving Inflectra injections every 2 months. Follow up with Dr. Mcgill as scheduled. (5) HTN (hypertension): Qualifiers: Hypertension type: essential hypertension Qualified Code(s): I10 - Essential (primary) hypertension Code(s): I10 - Essential (primary) hypertension Status: Acute Assessment and Plan: Blood pressures remained well controlled. Antihypertensives were held while she was NPO but were resumed. Continue atenolol and amlodipine. (6) Nicotine abuse: Code(s): Z72.0 - Tobacco use Status: Acute Assessment and Plan: She smokes 6-7 cigarettes per day and has smoked for 30 years. She declined a nicotine patch during her stay. I counseled her on smoking cessation for 5 minutes, and she is not interested in quitting at this time. DS: Summary Hospital Course Reason for hospitalization: Abdominal pain and rectal bleeding Hospital Course: Date of admission: 04/11/2020 Date of discharge: 04/13/2020 Dior Robert is a 54 year old female with a history of chronic idiopathic pancreatitis established with specialist, peptic ulcers, ulcerative colitis s/p distant partial colon resection, and multiple medical comorbidites who presented to the emergency department via private vehicle on 04/11/2020 with complaints abdominal pain and rectal bleeding. Regarding her rectal bleeding, she underwent an annual sigmoidoscopy with biopsies for UC surveillance by Dr. Mcgill on 04/07. She tolerated it well but noticed that on 04/10 she began having very mild rectal bleeding. She also noted abdominal tenderness in epigastric region that r
== END 2020-04-13 17:03 | disposition home or self-care (01) ==
LOC: ANHED 23:29 → ANH3MED 23:51
PROVIDERS: Emergency Medicine; Physician Assistant; Admitting Provider Family Medicine; Emergency Provider Emergency Medicine; PCP Family Medicine Adolescent Medicine; Visit Provider Family Medicine
DX: K86.1 Other chronic pancreatitis (principal); K62.5 Hemorrhage of anus and rectum; Z98.890 Other specified postprocedural states; D64.9 Anemia, unspecified; K51.919 Ulcerative colitis, unspecified with unspecified complications; I10 Essential (primary) hypertension; F17.210 Nicotine dependence, cigarettes, uncomplicated; E87.2 Acidosis; K21.9 Gastro-esophageal reflux disease without esophagitis; E78.2 Mixed hyperlipidemia; Z79.82 Long term (current) use of aspirin; Z79.899 Other long term (current) drug therapy; Z95.0 Presence of cardiac pacemaker; Z86.73 Personal history of transient ischemic attack (TIA), and cerebral infarction without residual deficits
CPT/HCPCS: 36415; 74177; 80048; 80053; 81001; 82728; 83540; 83550; 83690; 85014; 85018; 85025; 85027; 85610; 85730; 86850; 86900; 86901; 96361; 96374; 96375; 96376; 99285; A9270; C9113; G0378; J2270; J2405; J7030; Q9967

== ENCOUNTER → 2020-11-24 09:49 | Outpatient (CLI) | payer MEDICARE, SELFPAY ==
--- NOTE | ~2020-11-24 | CT_ITS ---
EXAMINATION: CT abdomen pelvis w con DATE: 11/24/2020 10:27 INDICATION: Idiopathic chronic pancreatitis with left upper quadrant abdominal pain. TECHNIQUE: Computed tomography (CT) of the abdomen and pelvis was performed with 100 mL Omnipaque-350 intravenous contrast. Automated exposure control and iterative reconstruction technique were employe d. The dose-length product was 455.33 mGy-cm. COMPARISON: 04/11/2020 FINDINGS: Lung bases are clear. Heart size is normal. No pericardial or pleural effusion. Dual-lead cardiac pac emaker with lead tips at the right atrial appendage and at the apex of the right ventricle. Status po st Fercho fundoplication. Persistent pneumobilia in the nondependent left hepatic lobe likely related to prior cholecystectomy and sphincterotomy with surgical clips at the gallbladder fossa. A couple s ubcentimeter low-attenuation likely hepatic cysts, the larger measuring 5 mm. Spleen, pancreas and bi lateral adrenal glands are normal. Bilateral renal cysts, the largest measuring 1.3 similar at the [facility] kidney. Decompressed bladder is normal. The uterus is not identified and has likely been surgical ly resected. Postoperative changes along the bowels suggesting prior partial colectomy with ileocolic anastomosis in the deep pelvis as well as an additional likely small bowel anastomosis in the right abdomen. Ther e is wall thickening with fatty infiltration along portions of the remaining sigmoid colon likely rel ated to Crohn's disease and chronic inflammation. There is additional edematous-appearing wall thicke kat with mucosal enhancement in the small bowel proximal to the anastomosis suspicious for ileitis r elated to Crohn's flare. No bowel obstruction. Small amount of ascites in the pelvis. Likely reactive mild perirectal and mesenteric lymphadenopathy in the pelvis which appears improved compared to 2018. L4 S1. Instrumented anterior and posterior spinal fusion with interbody bone graft cages at bot h levels and with right-sided vertical diane and pedicle screw fixation. There is a disconnected spinal stimulator leads which extends cephalad into the posterior aspect of the lower thoracic central thea l with distal tip seen on the forge shop machine repairer topogram at the level of T9. IMPRESSION: 1. Status post partial colectomy with wall thickening and mucosal enhancement along a segment of smal l bowel proximal to a pelvic ileocolic anastomosis and small amount of likely reactive ascites in the pelvis which is suspicious for flare of known Crohn's disease. 2. Chronic pneumobilia likely related to prior cholecystectomy and sphincterotomy. 3. Additional postoperative change of prior Fercho fundoplication, hysterectomy and combined instrume nted anterior and posterior L4 S1 spinal fusion. Reviewed, dictated and finalized at location B. IMPRESSION: 1. Status post partial colectomy with wall thickening and mucosal enhancement a long a segment of small bowel proximal to a pelvic ileocolic anastomosis and sm all amount of likely reactive ascites in the pelvis which is suspicious for fla re of known Crohn's disease. 2. Chronic pneumobilia likely related to prior cholecystectomy and sphincteroto my. 3. Additional postoperative change of prior Fercho fundoplication, hysterectomy and combined instrumented anterior and posterior L4 S1 spinal fusion.
[2020-11-24 10:17] LABS: Estimated Glomerular Filt Rate 47
== END ==
PROVIDERS: PCP Family Medicine Adolescent Medicine; Visit Provider Physician Assistant Medical
DX: K86.1 Other chronic pancreatitis (principal); R10.12 Left upper quadrant pain; Z98.1 Arthrodesis status
CPT/HCPCS: 74177; Q9967

== ENCOUNTER → 2020-11-25 02:25 | Outpatient (CLI) | payer MEDICARE, SELFPAY ==
[2020-11-25 19:28] LABS: SARS-CoV-2 RNA PCR Negative
== END ==
PROVIDERS: PCP Family Medicine Adolescent Medicine; Visit Provider Internal Medicine Gastroenterology
DX: Z01.812 Encounter for preprocedural laboratory examination (principal); Z20.822 Contact with and (suspected) exposure to COVID-19
CPT/HCPCS: C9803; U0003; U0005

== ENCOUNTER 2020-11-28 02:09 | Day surgery (SDC) | payer MEDICARE, SELFPAY ==
[2020-11-15 09:06] VITALS: BMI 23.1
[2020-11-28] MEDS: LACTATED RINGERS 1,000 ML 150 ML IV CONT (12:24)
[2020-11-28 12:32] VITALS: BP 148/93; PULSE 63; RESP 18; TEMP 36.7; O2SAT 93
--- NOTE | 2020-11-28 13:05 | WPDGICN ---
GI Consult Note Consult date/time: 11/28/20 13:05 HPI: Reason for visit is Endoscopy of ileal anal pouch. This very pleasant lady's here for evaluation at the request of the family physician. Impression: Here have a very pleasant lady with a history of ulcerative colitis. She is status post colectomy with ileal anal pouch. She has had refractory pouchitis. She is here to assess for healing. Anxiety/depression. Cervical cancer. Chronic pancreatitis. CVA. DVT. GERD. HLD. HTN. Osteoporosis. Cardiac dysrhythmia status post pacemaker placement. Peripheral neuropathy. Thyroid nodule. Degenerative disc disease. Recommendation: Endoscopy of the ileal anal pouch. History: This very pleasant lady's well known to myself. She has a history of ulcerative colitis. She is status post total colectomy with ileoanal pouch. She had refractory pouchitis. She is here to assess for healing. She is presently being maintained on infliximab. Physical examination: General: very pleasant patient in no acute distress. HEENT: Head was normocephalic sclerae is clear mouth without masses neck was supple. Heart: Rate rhythm regular without S3 or S4. Lungs: CTA. Abdomen: Soft with no guarding or rigidity. Bowel sounds were active. Neurologic: Cranial nerves 2 through 12 intact. No focal defects. No clonus. Musculoskeletal system: Revealed no joint tenderness or swelling no muscle atrophy. Extremities: Reveal no significant edema. Skin: Warm and dry with normal turgor. Mental status: intact. Patient is alert and oriented. Review of Systems Review of Systems: All systems reviewed & are unremarkable except as noted in HPI and below PMFSH Past Medical History Medical History (Updated 04/15/20 @ 09:37 by Eliana Cruz PA-C) Anxiety Cervical cancer S/p hysterectomy 1996 Chronic pancreatitis CVA (cerebrovascular accident) 2017, no residual deficits DDD (degenerative disc disease) Depression DVT (deep venous thrombosis) 2006 GERD (gastroesophageal reflux disease) HLD (hyperlipidemia) HTN (hypertension) Osteoporosis Pacemaker - 2013 Peptic ulcer Peripheral neuropathy Seasonal allergies Thyroid nodule Ulcerative colitis Surgical History Surgical History (Updated 04/12/20 @ 11:33 by Eliana Cruz PA-C) H/O cervical spine surgery H/O inguinal hernia repair H/O resection of large bowel 1999 History of carpal tunnel release History of hysterectomy History of orthopedic surgery bilateral feet History of removal of ovarian cyst left History of spinal fusion 2000 & 2001. L5-S1 Hx of cholecystectomy Hx of tonsillectomy Family History Family History (Updated 04/12/20 @ 11:34 by Eliana Cruz PA-C) Grandparent Carcinoma of colon Father Family history of lymphoma Diabetes mellitus Hypertension Mother Hypertension Grandparent Family history of lung cancer Social History Social History (Updated 04/12/20 @ 11:39 by Eliana Cruz PA-C) Social History: Ms. Robert lives at home with her sister, Radha, whom she designates as her surrogate decision maker. She would like to be a full code. She is and has step-children. She has been on disability for about 20 years. Years smoked: 30 Smoking status: Current every day smoker Tobacco type: cigarettes Alcohol intake: current Substance use: current Substance use type: marijuana Other substance usage details: She has infrequently used edible THC for pain management Living arrangements: with family Gender identity (if verbalized by the patient): Female Spiritual care concerns: No Meds Home Medications and Allergies Home Medications Medication Instructions Recorded Confirmed Type alendronate 70 mg PO WEEKLY 03/31/20 11/15/20 History amlodipine 5 mg PO DAILY 03/31/20 11/15/20 History atenolol 25 mg PO HS 03/31/20 11/15/20 History atorvastatin 40 mg PO HS 0
[2020-11-28 14:45] VITALS: BP 88/50; PULSE 71; RESP 23; O2SAT 98
[2020-11-28 14:55] VITALS: BP 113/71; PULSE 63; RESP 19; O2SAT 100
[2020-11-28 15:05] VITALS: BP 109/62; PULSE 66; RESP 16; O2SAT 100
== END 2020-11-28 15:22 | disposition home or self-care (01) ==
PROVIDERS: PCP Family Medicine Adolescent Medicine; Visit Provider Internal Medicine Gastroenterology
PROC: 0DJD8ZZ Inspection of Lower Intestinal Tract, Via Natural or Artificial Opening Endoscopic (ICD-10-PCS; CPT 45330; principal; 2020-11-28 13:00)
DX: K91.850 Pouchitis (principal); K21.9 Gastro-esophageal reflux disease without esophagitis; E78.5 Hyperlipidemia, unspecified; I10 Essential (primary) hypertension; M81.0 Age-related osteoporosis without current pathological fracture; F41.9 Anxiety disorder, unspecified; F32.9 Major depressive disorder, single episode, unspecified; Z95.0 Presence of cardiac pacemaker; Z85.41 Personal history of malignant neoplasm of cervix uteri; Z90.710 Acquired absence of both cervix and uterus; Z86.73 Personal history of transient ischemic attack (TIA), and cerebral infarction without residual deficits; Z86.718 Personal history of other venous thrombosis and embolism; Z79.82 Long term (current) use of aspirin; Z90.49 Acquired absence of other specified parts of digestive tract; Z98.1 Arthrodesis status; Z87.11 Personal history of peptic ulcer disease; Z87.19 Personal history of other diseases of the digestive system
CPT/HCPCS: 44386; 88305; C9803; J2704; J7120; U0003; U0005

== ENCOUNTER → 2021-04-14 15:42 | Outpatient (CLI) | payer MEDICARE, SELFPAY ==
--- NOTE | ~2021-04-14 | XR_ITS ---
XR cervical spine 4-5V DATE: 04/14/2021 16:43 INDICATION: Fall. Neck pain, right shoulder and arm pain TECHNIQUE: AP, open-mouth, lateral, swimmer views COMPARISON: None FINDINGS: Status post anterior cervical spine fusion at C5-6. C1 and C2 are normally aligned and the odontoid process is intact. No fracture or dislocation or locked facet or prevertebral soft tissue swelling is detected. Moderate degenerative disease at C4-5 and C6-7. IMPRESSION: Status post anterior cervical spine fusion at C5-6 No fracture or dislocation Reviewed, dictated and finalized at location B.
--- NOTE | ~2021-04-14 | MM_ITS ---
EXAMINATION: MM screening [facility] BI w titi HISTORY: Screening TECHNIQUE: Craniocaudal and mediolateral oblique 3-D tomosynthesis images were obtained and synthetic 2-D images were generated. CAD analysis was submitted and interpreted. COMPARISON: 12/14/2011 BREAST PARENCHYMAL COMPOSITION: There are scattered areas of fibroglandular density. FINDINGS: There are 2 periareolar masses of the left breast, largest measuring 9 mm. The right breast is stable without evidence for malignancy. IMPRESSION: 1. Left periareolar breast masses, largest measuring 9 mm. 2. Additional mammographic views and possible breast ultrasound are recommended. BI-RADS Category 0: Incomplete: Needs additional imaging evaluation. Reviewed, dictated and finalized at location A. IMPRESSION: 1. Left periareolar breast masses, largest measuring 9 mm. 2. Additional mammographic views and possible breast ultrasound are recommended . BI-RADS Category 0: Incomplete: Needs additional imaging evaluation.
--- NOTE | ~2021-04-14 | XR_ITS ---
XR shoulder RT min 2V DATE: 04/14/2021 16:43 INDICATION: Fall. Right neck, shoulder and arm pain TECHNIQUE: 4 views COMPARISON: None FINDINGS: Status post anterior cervical spine fusion at C6-7. Dual-lead left-sided cardiac pacemaker device. 2 electrodes are noted overlying the thoracic spinal canal, terminating superiorly at approximately T 8-9. No fracture or dislocation, periosteal reaction or bone destruction or abnormal soft tissue calcifica tion. Normal alignment at the acromioclavicular and glenohumeral joints. IMPRESSION: Negative right shoulder Reviewed, dictated and finalized at location B. IMPRESSION: Negative right shoulder
== END ==
PROVIDERS: PCP Family Medicine Adolescent Medicine; Visit Provider Family Medicine Adolescent Medicine
DX: Z12.31 Encounter for screening mammogram for malignant neoplasm of breast (principal); R92.8 Other abnormal and inconclusive findings on diagnostic imaging of breast
CPT/HCPCS: 72050; 73030; 77063; 77067

== ENCOUNTER → 2021-07-06 08:53 | Outpatient (CLI) | payer MEDICARE, SELFPAY ==
--- NOTE | ~2021-07-06 | MMUS_ITS ---
EXAMINATION: MM diagnostic [facility] LT w titi, US breast LT complete HISTORY: Left periareolar breast masses measuring up to 9 mm on 04/14/2021 screening mammogram examinat ion TECHNIQUE: Additional 3-D tomosynthesis images of the left breast were performed and synthetic 2-D im ages were generated. CAD analysis was submitted and interpreted. High resolution complete left breast ultrasound including all 4 quadrants and subareolar area was performed. COMPARISON: 04/14/2021 bilateral screening mammogram 04/24/2012 diagnostic left mammogram 12/27/2011 diagnostic left mammogram and left breast ultrasound 12/14/2011 bilateral screening mammogram BREAST PARENCHYMAL COMPOSITION: There are scattered areas of fibroglandular density. FINDINGS: MAMMOGRAPHIC FINDINGS: There is a biopsy marker upper central left breast; history of prior benign left breast biopsy in 201 2. Nodular appearing fibroglandular stroma; small mass is not excluded. No interval suspicious mass, architectural distortion, malignant calcification, skin thickening or re traction is evident compared . ULTRASOUND: 12:00 2 cm from nipple: Parallel circumscribed 7.8 x 3.2 x 7.4 mm cyst 12:00 4 cm from nipple: 2.2 x 1.9 x 2.9 mm cyst 1:00 4 cm from nipple: 3 x 1.6 x 3.2 mm cyst 1:00 4 cm from nipple: 4 x 2.3 x 4.7 mm cyst No suspicious mass or shadowing is detected. IMPRESSION: 1. Benign cysts 2. Routine mammographic screening is recommended BI-RADS Category 2: Benign finding(s). Reviewed, dictated and finalized at location A. IMPRESSION: 1. Benign cysts 2. Routine mammographic screening is recommended BI-RADS Category 2: Benign finding(s).
== END ==
PROVIDERS: PCP Family Medicine Adolescent Medicine; Visit Provider Family Medicine Adolescent Medicine
DX: N60.02 Solitary cyst of left breast (principal)
CPT/HCPCS: 76641; 77061; 77065; G0279

== ENCOUNTER → 2021-07-18 12:01 | Outpatient (CLI) | payer MEDICARE, SELFPAY ==
--- NOTE | ~2021-07-18 | XR_ITS ---
XR chest 2V 07/18/2021 12:32 Indication: Ulcerative colitis. Dyspnea. Procedure: PA and lateral views of the chest Comparison: Comparison to multiple prior studies sequentially, with oldest reviewed study dated 01/2018. Findings: Heart size normal. Pacemaker leads in expected position. No focal air space disease, pulmon daisy edema, pleural effusion or suspected pneumothorax. Residual spinal stimulator leads are present. Impression: 1: No acute cardiopulmonary disease. Reviewed, dictated and finalized at location A. L FOOD SERVICE SUPERVISOR Impression: 1: No acute cardiopulmonary disease.
== END ==
PROVIDERS: PCP Family Medicine Adolescent Medicine; Visit Provider Physician Assistant Medical
DX: K51.911 Ulcerative colitis, unspecified with rectal bleeding (principal); K91.850 Pouchitis; Z79.899 Other long term (current) drug therapy
CPT/HCPCS: 71046

== ENCOUNTER 2021-08-23 10:14 | Outpatient (CLI) | payer MEDICARE, SELFPAY ==
--- NOTE | 2021-08-23 12:39 | WPDPFTINT ---
PFT Procedure Performed PFT Procedure Performed Plethysmography (Lung Vol) Diffusing Cap (DLCO) Flow Vol Loop Spirometry w/o Bronchodil PFT Interpretation This is a pulmonary function test with spirometry, plethysmography and diffusing capacity. The test was performed and results interpreted in accordance with the 2019 and 2005 ATS/ERS Task Force guidelines respectively using the Global Lung Function Initiative-2012 reference equations. Patient demonstrated good effort and cooperation. Reproducibility criteria were met. The quality of the spirometry maneuver was Grade A. Findings: Spirometry: There is decreased maximal expiratory airflow at all lung volumes with concave expiratory flow tracing. Contour the inspiratory flow tracing is normal. The FVC is 2.48 L, 70% predicted. The FEV1 is 1.52 L, 54% predicted. The FEV1: FVC ratio 61%. Plethysmography: The total lung capacity is 6.40 L, 119% predicted. Functional residual capacity is 3.77 L, 124% predicted. The residual volume is 3.75 L, 186% predicted. Diffusing capacity: The absolute diffusion capacity is 11.9, 52% predicted. The diffusing capacity corrected for alveolar volume is 3.21, 73% predicted. Impression: There is a moderately severe obstructive abnormality. The increase in residual volume is consistent with air trapping from an obstructive abnormality. The absolute diffusing capacity is moderately decreased and normalizes when corrected for alveolar volume. There are no prior studies for comparison
== END 2021-08-23 10:15 | disposition home or self-care (01) ==
LOC: ANHPFT 10:17
PROVIDERS: PCP Family Medicine Adolescent Medicine; Visit Provider Family Medicine Adolescent Medicine
DX: R06.00 Dyspnea, unspecified (principal)
CPT/HCPCS: 94375; 94726; 94729

== ENCOUNTER → 2022-02-23 14:51 | Outpatient (CLI) | payer MEDICARE, SELFPAY ==
--- NOTE | ~2022-02-23 | DEXA_ITS ---
Bone Density Report Name: JOSHUA TRENT Age: 56 Sex: Female Ethnicity: White Date of : 1965 Indication: osteopenia; height loss; inflammatory bowel disease; hysterectomy; postmenopausal Referring Provider: ANGEL, GWENDOLYN Sy Study: Bone densitometry was performed. Exam Date: February 23, 2022 Accession number: [id number] Bone Density: Region BMD T-score Z-score Classification AP Spine (L1, L2) 0.943 -0.3 0.8 Normal Femoral Neck (Left) 0.627 -2.0 -0.9 Osteopenia Total Hip (Left) 0.763 -1.5 -0.7 Osteopenia Femoral Neck (Right) 0.560 -2.6 -1.5 Osteoporosis Total Hip (Right) 0.723 -1.8 -1.0 Osteopenia Total Hip Mean 0.743 -1.7 -0.9 Osteopenia World Health Organization criteria for BMD impression classify patients as: Normal (T-score at or above -1.0), Osteopenia (T-score between -1.0 and -2.5), or Osteoporosis (T-score at or below -2.5). 10-year Fracture Risk: FRAX not reported because: Some T-score for Spine Total or Hip Total or Femoral Neck at or below -2.5 Previous Exams: Region Exam Age BMD T-score BMD Change BMD Change Date g/cm2 vs Baseline vs Previous AP Spine(L1, L2) 02/23/2022 56 0.943 -0.3 0.078* 0.049* 05/19/2019 54 0.894 -0.8 0.030* 0.030* 01/02/2016 50 0.865 -1.0 Total Hip(Left) 02/23/2022 56 0.763 -1.5 0.001 0.026 05/19/2019 54 0.737 -1.7 -0.025 -0.025 01/02/2016 50 0.763 -1.5 Total Hip(Right) 02/23/2022 56 0.723 -1.8 0.026 0.030* 05/19/2019 54 0.694 -2.0 -0.003 -0.003 01/02/2016 50 0.697 -2.0 *Denotes significance at 95% confidence level, LSC for AP Spine = 0.022 g/cm2, LSC for Total Hip = 0.027 g/cm2 Clinical Information Provided by Patient: Smokes Has used the following medications: Vitamin D Has the following medical conditions: Inflammatory bowel diseases, Hysterectomy, COLITIS, COPD Patient maximum height was 67 Menopause Age: 30 No regular weight bearing exercise Does not regularly consume dairy products Drinks caffeinated beverages Onset of menses at age 15 Number of children 0 Impression: The patient has osteoporosis, based on the Right Femoral Neck T-score. The patient has risk factors, including: smoking. No significant bone loss was observed. Discussion: INCREASED RISK OF FRACTURE. BONE DENSITY IS UNDESIRABLY LOW AT ONE OR MORE SKELETAL SITES, CONSISTENT WITH POSTMENOPA
== END ==
PROVIDERS: PCP Family Medicine Adolescent Medicine; Visit Provider Physician Assistant Medical
DX: Z78.0 Asymptomatic menopausal state (principal); M85.89 Other specified disorders of bone density and structure, multiple sites; M81.0 Age-related osteoporosis without current pathological fracture
CPT/HCPCS: 77080

== ENCOUNTER 2022-09-04 19:29 | Inpatient (IN) | payer MEDICARE, SELFPAY ==
[2022-09-04] VITALS (26 sets, daily range): BP systolic 101–125; BP diastolic 64–87; PULSE 82–91; RESP 10–20; TEMP 37; O2SAT 81–100
--- NOTE | ~2022-09-04 | NM_ITS ---
EXAMINATION: NM pulmonary perfusion DATE: 09/05/2022 11:53 INDICATION: Shortness of breath TECHNIQUE: 5.5 mCi Tc-99m MAA by intravenous route. Scintigraphic images of the chest were obtained. COMPARISON: Chest radiograph dated 09/04/2022 FINDINGS: Moderate-sized perfusion defect involving the anterior segment of the right upper lobe. Small perfusi on defect at the apical posterior segment of the left upper lobe. Both perfusion defects are without correlate on the chest radiograph. IMPRESSION: 1. Nondiagnostic (low or intermediate probability) for pulmonary embolism. Reviewed, dictated and finalized at location A. NG CHANGER
--- NOTE | ~2022-09-04 | XR_ITS ---
EXAMINATION: XR abdomen/kub 1V DATE: 09/08/2022 14:07 INDICATION: Abdominal pain. TECHNIQUE: A supine view of the abdomen was obtained. COMPARISON: CT abdomen and pelvis 11/24/2020 FINDINGS: There are no dilated loops of bowel. There is a paucity of stool in the colon. Surgical cli ps in the right upper quadrant are likely from cholecystectomy. There are changes of anterior and pos terior fusion procedures in lumbosacral spine. IMPRESSION: 1. Normal bowel gas pattern. Reviewed, dictated and finalized at location A. Y PLAN SALES CONSULTANT
--- NOTE | ~2022-09-04 | NM_ITS ---
EXAM: NM gastric emptying study DATE: 09/18/2022 12:20 INDICATION: Early satiety and bloating TECHNIQUE: A gastric emptying study was performed using the methodology of Hollie CRONIN, et al. J Nucl Med 2007; 48:568-572. The patient was given a meal consisting of 2 scrambled eggs labeled with 0.944 mCi Tc-99m sulfur colloid, 2 slices of toast, two packages of jam, and approximately 120 mL of water . Simultaneous anterior and posterior 1-min images of the abdomen were obtained with the patient supi ne at multiple time points over a total period of 4 hours. The geometric mean of anterior and posteri or views was determined, and the percentage retention was calculated for each time point. COMPARISON: None. FINDINGS: Gastric retention of the radiotracer-labeled meal was 39%, 8%, and 5% at the 1-hour, 2-hour, and 4-ho ur time points, respectively. With this technique, apparent rapid gastric emptying is suggested by <3 0% gastric retention at 1 hour. Delayed gastric emptying is defined by gastric retention of >90% at 1 hour, >60% retention at 2 hours, or >10% retention at 4 hours. IMPRESSION: 1. Normal gastric emptying. Reviewed, dictated and finalized at location A. ETING PROJECT COORDINATOR IMPRESSION: 1. Normal gastric emptying.
--- NOTE | ~2022-09-04 | XR_ITS ---
EXAM: XR abdomen/kub 1V DATE: 09/11/2022 21:05 HISTORY: abdomen distention . COMPARISON: 09/08/[address] abdomen and pelvis 09/09/2022. FINDINGS: Clear lung bases. Incompletely visualized pacing wires. Cholecystectomy clips. Pneumobilia . Abandoned stimulator wires over the lower thoracic spine. Lumbar fusion hardware. Increased degree of gaseous distention of the large bowel. No organomegaly. No abnormal abdominal calcification. Regio nal bones and soft tissues normal for age. IMPRESSION: Increased gaseous distention of large bowel. Reviewed, dictated and finalized at location K. GER ECONOMIC
--- NOTE | ~2022-09-04 | CT_ITS ---
EXAMINATION: CT abdomen pelvis wo con DATE: 09/09/2022 15:31 INDICATION: abdominal pain and distention TECHNIQUE: Computed tomography (CT) of the abdomen and pelvis was performed without intravenous contr ast. Automated exposure control and iterative reconstruction technique were employed. The dose-length product was 479.07 mGy-cm. COMPARISON: 11/24/2020. FINDINGS: Lower thorax: Dependent atelectasis. Incompletely visualized pacing wires. Disconnected stimulator le ads project over the upper thoracic spinal canal. Liver: Normal. Biliary/Gallbladder: Gallbladder is absent. Expected mild extrahepatic duct dilation postcholecystect pedro. Pneumobilia. Pancreas: No mass or duct dilation. Spleen: Normal. Adrenals:No mass. Kidneys: Mild perinephric stranding. Left upper pole scarring. Mild bilateral cortical thinning. Simp le right midpole cyst. Left lower pole hypodensity, too small to characterize but most likely represe nts a cyst. Nonobstructing punctate left upper pole calcification. No hydronephrosis. GI tract: Status post Fercho fundoplication. Rectal anastomosis. Presumed ileocolic anastomosis in th e deep pelvis. Small bowel anastomosis in the right upper quadrant. Increased distention of the dista l small bowel with persistent wall thickening. Normal appendix. Mesentery/Peritoneum: No ascites, mass, or free air. Retroperitoneum: No mass. Pelvis: Small volume free pelvic fluid. Surgically absent uterus. Decompressed urinary bladder. Soft Tissues: Soft tissues and body wall unremarkable. Bones: No acute osseous finding. Uncomplicated posterior lumbar fusion hardware. IMPRESSION: Increased distal bowel dilation with wall thickening and increased free pelvic fluid, which may repre sent an acute Crohn's flare. Reviewed, dictated and finalized at location K. ICATION EDITOR IMPRESSION: Increased distal bowel dilation with wall thickening and increased free pelvic fluid, which may represent an acute Crohn's flare.
--- NOTE | ~2022-09-04 | XR_ITS ---
XR abdomen/kub 1V 09/13/2022 16:52 Indication: Abdominal distention Procedure: KUB Comparison: 09/11/2022 Findings: There are dilated small bowel loops and colon without significant change from prior study a llowing for differences of technique. No abnormal calcifications. There are surgical changes of the l ower lumbar spine, consistent with fusion. Impression: 1: Persistently dilated small bowel and colon, most likely adynamic ileus. Reviewed, dictated and finalized at location A. VERER Impression: 1: Persistently dilated small bowel and colon, most likely adynamic ileus.
--- NOTE | ~2022-09-04 | XR_ITS ---
EXAMINATION: XR chest 2V Exam Date/Time: 09/04/2022 20:15 SKI EDGE PAINTER HISTORY: SOB Comparison: 07/18/2021. RESULT: Lines, tubes, and devices: ACDF hardware. Left chest pacer with intact leads. Stimulator leads proje ct over the mid thoracic spine. Lungs and pleura: Peripheral reticular opacities. Bronchovascular cuffing. Cardiomediastinal silhouette: Stable. Other: No acute osseous or upper abdominal finding. IMPRESSION: Mild interstitial edema. Reviewed, dictated and finalized at location K. EDGE PAINTER IMPRESSION: Mild interstitial edema.
--- NOTE | ~2022-09-04 | CT_ITS ---
EXAMINATION: CTA chest PE protocol DATE: 09/07/2022 12:08 INDICATION: Shortness of breath, abnormal VQ scan, COVID 19 TECHNIQUE: Computed tomography angiography (CTA) of the chest was performed with 100 mL Omnipaque-350 intravenous contrast timed to evaluate the pulmonary arteries. Coronal maximum intensity projection 3D-reconstructions were created by the technologist. The dose-length product (DLP) was 286.32 mGy-cm. Automated exposure control and iterative reconstruction technique were employed. COMPARISON: 09/05/2022 FINDINGS: The pulmonary arteries are well-opacified. No pulmonary embolism is identified. A few scatt ered nodular and airspace opacities have developed. No pneumothorax is identified. There are trace pl eural effusions. The heart size is normal. There is mild bilateral hilar lymphadenopathy, likely reac tive. A dual-lead cardiac pacemaker of the left chest wall ends with leads in expected locations. The re is a 1.9 cm nodule of the right thyroid having undergone previous benign biopsy. Pneumobilia is no meliza. There is moderate thoracic spondylosis. There are changes of anterior fusion procedure in the lo wer cervical spine. Neurostimulator leads end in the central spinal canal at the level of T9-10. There is a small sliding hiatal hernia. There is wall thickening in the anterior aspect of the distal esophagus/hiatal hernia with a focus of linear hyperenhancement (axial images 162 through 182). IMPRESSION: 1. No pulmonary embolism identified. 2. Scattered nodular and airspace opacities, consistent with infection/inflammation. 3. Wall thickening the anterior aspect of the distal esophagus/hiatal hernia with focus of linear hyp erenhancement concerning for active bleeding. Recommend GI evaluation for endoscopy. These findings and recommendations were discussed with Cherri Sparks APRN at 1246 hours on 09/07 12:46 BINDERY MACHINE SETTER/SET UP OPERATOR. Reviewed, dictated and finalized at location B. ERY MACHINE SETTER/SET UP OPERATOR IMPRESSION: 1. No pulmonary embolism identified. 2. Scattered nodular and airspace opacities, consistent with infection/inflamma tion. 3. Wall thickening the anterior aspect of the distal esophagus/hiatal hernia wi th focus of linear hyperenhancement concerning for active bleeding. Recommend G I evaluation for endoscopy. These findings and recommendations were discussed with Cherri Sparks APRN at 1246 hours on 09/07/2022 12:46 BINDERY MACHINE SETTER/SET UP OPERATOR.
--- NOTE | ~2022-09-04 | XR_ITS ---
EXAMINATION: [id number]_[id number] Exam Date/Time: 09/17/2022 17:00 DANCE ENTERTAINER HISTORY: rib tenderness Comparison: CTPA 09/07/2022. RESULT: Lines, tubes, and devices: Left chest pacer with intact leads. Possibly abandoned stimulator pad pro jecting over the lower thoracic spine. Cholecystectomy clips. Cervical fusion hardware. Surgical clip s over the GE junction. Stable line over the right mid abdomen. Partially visualized lumbar fusion greer rdware. Lungs and pleura: Clear. Cardiothymic silhouette: Unremarkable. Other: No acute osseous or upper abdominal finding. IMPRESSION: No acute cardiopulmonary process. No acute right rib fracture detected. Reviewed, dictated and finalized at location K. E ENTERTAINER
--- NOTE | ~2022-09-04 | CT_ITS ---
CT Scan of the Chest without Contrast: Clinical Indication: Shortness of breath, Covid 19 positive Technique: Contiguous sections were acquired throughout the chest without intravenous contrast. Dose reduction technique was used on this scan by utilizing automated exposure control and iterative recon struction technique. The dose-length product (DLP) was 257.78 mGy-cm. COMPARISON: 05/31/2013 Findings: There is no evidence of any significant mediastinal, hilar or axillary lymphadenopathy. Small hiatal hernia noted. Pacemaker device in place. The mediastinal soft tissues otherwise appear normal. There is no evidence of pleural or pericardial effusion. The lungs are clear. No pulmonary nodules or infiltrates are noted. Images through the upper abdomen reveal pneumobilia. Impression: Clear lungs. Small hiatal hernia. Pacemaker device. Reviewed, dictated and finalized at [facility]. L CUTTER Impression: Clear lungs. Small hiatal hernia. Pacemaker device.
--- NOTE | ~2022-09-04 | US_ITS ---
EXAMINATION: US renal BI DATE: 09/08/2022 13:02 INDICATION: Acute kidney injury. TECHNIQUE: Multiple ultrasound grayscale images of the kidneys were obtained. COMPARISON: CT abdomen and pelvis 11/24/2020 FINDINGS: The right kidney measures 9.9 x 3.9 x 4.3 cm. The left kidney measures 10.4 x 4.6 x 4.8 cm. The kidne ys demonstrate normal parenchymal echogenicity. There is no hydronephrosis. The bladder is not well d istended. IMPRESSION: 1. Normal kidney sizes. No hydronephrosis. Reviewed, dictated and finalized at location A. ITION MAKING MACHINE OPERATOR
--- NOTE | ~2022-09-04 | XR_ITS ---
EXAMINATION: XR abdomen/kub 1V DATE: 09/17/2022 14:20 INDICATION: Adynamic ileus. TECHNIQUE: A supine view of the abdomen on 2 radiographs was obtained. COMPARISON: CT abdomen and pelvis 09/09/2022 FINDINGS: There are multiple dilated loops of small bowel. There are changes of anterior and posterio r fusion procedures in lumbar spine. Epidural electrodes are noted. Pacer wires overlie right atrium and right ventricle of the heart. There are surgical clips in the abdomen. IMPRESSION: 1. Dilated small bowel, likely adynamic ileus. Reviewed, dictated and finalized at location A. SHIP
--- NOTE | ~2022-09-04 | CT_ITS ---
EXAMINATION: CT brain wo con DATE: 09/11/2022 21:11 INDICATION: stroke like symptoms . TECHNIQUE: Computed tomography (CT) of the head was performed without intravenous contrast. The mA wa s adjusted according to patient size. Iterative reconstruction technique was employed. The dose-lengt h product was 756.67 mGy-cm. COMPARISON: 10/12/2018. FINDINGS: No acute intracranial hemorrhage or extra-axial fluid collection. No hydrocephalus, mass, or herniation. No acute ischemic infarct. Unremarkable dural venous sinus attenuation. No acute osseous abnormality. Small air-fluid levels in the posterior and mid ethmoid air cells and sphenoid sinuses, the remaining aerated spaces are clear. Mild atrophy and chronic white matter change. Small focal old bilateral basal ganglia lacunar infarct s. Mild atherosclerotic intracranial calcifications. IMPRESSION: No acute intracranial process. Reviewed, dictated and finalized at location K. L OPPORTUNITY OFFICER
--- NOTE | 2022-09-04 19:41 | ECG_ITS ---
Measurements Intervals [place] Rate: 90 P: 3 MN: 181 QRS: 107 QRSD: 93 T: 132 QT: 350 QTc: 429 Interpretive Statements SINUS RHYTHM MARKED RIGHT AXIS DEVIATION [QRS AXIS > 100] NONSPECIFIC T-WAVE ABNORMALITY COMPARED TO ECG 10/27/2019 10:47:09 T-WAVE ABNORMALITY NOW PRESENT Electronically Signed On 09-05-2022 13:15:28 INSTRUMENT REPAIR SPECIALIST by Jabier Witt M.D.
[2022-09-04 20:10] LABS: Basophils Percent Auto 0.2 % (0.2-1.2); Eosinophils Absolute Auto 0.1 K/mm3 (0-0.3); Eosinophils Percent Auto 1.6 % (0-4.4); Hematocrit 31.2 % (37.0-47.0); Hemoglobin 9.1 g/dL (12.0-15.0); Immature Granulocyte Absolute 0.02 K/mm3 (0.00-0.031); Immature Granulocyte Percent A 0.3 % (0-0.5); Lymphocytes Absolute Auto 0.83 K/mm3 (0.9-3.2); Lymphocytes Percent Auto 13.4 % (18.3-44.2); Mean Corpuscular HGB Conc 29.2 g/dl (32-36); Mean Corpuscular Hemoglobin 22.4 pg (26-34); Mean Corpuscular Volume 76.8 fl (80-100); Mean Platelet Volume 9.3 fl (7.4-10.4); Monocytes Absolute Auto 0.4 K/mm3 (0.1-0.6); Monocytes Percent Auto 6.5 % (2.6-8.5); Neutrophils Absolute Auto 4.8 K/mm3 (1.3-6.7); Platelet Count Result 396 k/mm3 (150-375); Red Blood Count 4.06 M/mm3 (4.2-5.4); Red Cell Distribution Width 20.8 % (11.5-14.5); White Blood Count 6.2 K/mm3 (4.5-10.0)
[2022-09-04 20:23] LABS: Alanine Aminotransferase 14 U/L (6-35); Albumin Level 4.5 g/dL (3.5-5.1); Alkaline Phosphatase 123 U/L (38-126); Anion Gap 15 mmol/L (8-16); Aspartate Amino Transferase 34 U/L (14-36); Bilirubin,Total 0.2 mg/dL (0.2-1.3); Blood Urea Nitrogen 51 mg/dL (7-17); Carbon Dioxide 20 mmol/L (22-30); Chloride 102 mmol/L (98-107); Estimated CRCL calculation 18 ml/min; Estimated Glomerular Filt Rate 17; Glucose 117 mg/dL (65-110); Potassium 3.3 mmol/L (3.4-5.0); Sodium 137 mmol/L (137-145)
[2022-09-04 21:04] LABS: Anisocytosis 1+ (NORMAL); Hypochromasia 1+ (NORMAL); Schistocytes None Seen (NORMAL)
[2022-09-04] MEDS: SODIUM CHLORIDE 0.9% IV 1,000 ML 999 ML IV CONT (22:17)
[2022-09-04 22:36] LABS: NT Pro B Type Natriuretic Pept 272 pg/mL (5-100)
--- NOTE | 2022-09-04 23:00 | PM.IMHP ---
H&P: HPI History of Present Illness Date/Time: 09/04/22 23:00 Chief Complaint: Shortness of breath Narrative: This is a 57-year-old female with past medical history significant for hypertension, dyslipidemia, osteoporosis, GERD, ulcerative colitis, chronic pain, depression, peripheral neuropathy. Patient presents to the emergency room due to generalized malaise, loss of appetite, shortness of breath, cough, fevers, chills, for the last few days or so. Preliminary workup was significant for patient tested negative for influenza type A, type B tested positive for COVID-19. BMP showed a creatinine of 2.9 BUN 51. Patient is been admitted for further evaluation management and treatment. Review of Systems Review of Systems: Shortness of breath, generalized malaise, body aches and pains Constitutional: Constitutional: Reports body ache(s), Reports chills, Reports fatigue, Reports fever(s), Reports lethargy, Reports malaise, Reports night sweats, Reports poor appetite and Reports weakness Eyes: Eyes: Denies change in vision ENT: Denies dysphagia and Denies odynophagia Cardiovascular: Cardiovascular: Denies chest pain, Denies leg edema and Denies palpitations Respiratory: Respiratory: Denies chest congestion, Reports cough, Denies excessive phlegm production, Reports pain on inspiration, Reports dyspnea and Reports wheezing Gastrointestinal: Gastrointestinal: Denies abdominal pain, Denies dyspepsia, Denies heartburn, Denies diarrhea, Denies nausea and Denies vomiting Genitourinary: Genitourinary: Denies dysuria Musculoskeletal: Musculoskeletal: Reports myalgias and Reports muscle weakness Integumentary/Breasts: Skin/Breast: Denies rash Neurologic: Denies focal weakness and Denies Sensory deficit (Neuro) Psychiatric: Psychiatric: Reports no additional psychiatric complaints and Reports as per HPI Endocrine: Endocrine: Denies cold intolerance, Denies flushing, Denies heat intolerance, Denies polyphagia, Denies polydipsia and Denies palpitations Hematologic/Lymphatic: Hematologic/Lymphatic: Reports no additional hematologic/lymphatic complaints and Reports as per HPI Allergic/Immunologic: Allergic/Immunologic: Reports no additional allergic/immunologic complaints and Reports as per HPI PMFSH Past Medical History Medical History (Updated 09/05/22 @ 03:44 by Ernesto Hathaway MD) Anxiety Cervical cancer S/p hysterectomy 1996 CVA (cerebrovascular accident) 2017, no residual deficits DDD (degenerative disc disease) Depression DVT (deep venous thrombosis) 2007 GERD (gastroesophageal reflux disease) HLD (hyperlipidemia) Osteoporosis Pacemaker - 2013 Peptic ulcer Peripheral neuropathy Seasonal allergies Thyroid nodule Surgical History Surgical History H/O cervical spine surgery 2002 H/O inguinal hernia repair H/O resection of large bowel 1999 History of carpal tunnel release History of hysterectomy History of orthopedic surgery bilateral feet History of removal of ovarian cyst left 1997 History of spinal fusion 2000 & 2001. L5-S1 Hx of cholecystectomy (1999) Hx of tonsillectomy Family History Family History Grandparent Carcinoma of colon Father Diabetes mellitus Hypertension Lymphoma Mother Hypertension Hypercholesterolemia Grandparent Family history of lung cancer Social History Social History (Updated 02/20/22 @ 14:24 by Erika Carolina MA) Social History: Ms. Robert lives at home with her sister, Radha, whom she designates as her surrogate decision maker. She would like to be a full code. She is and has step-children. She has been on disability for about 20 years. Years smoked: 30 Smoking status: Former smoker Tobacco type: cigarettes Second hand tobacco smoke exposure: No Smoking end date: 09/07/21 Alcohol intake: never Alcohol use details: Appr
--- NOTE | 2022-09-04 23:09 | ED.GENADULT ---
HPI - General Adult General Chief complaint: Shortness of Breath/Dyspnea Stated complaint: shortness of breath, +COVID 1 week ago, COPD Time Seen by Provider: 09/04/22 21:02 History of Present Illness HPI narrative: Patient is a 47-year-old female who presents ER with weakness and shortness of breath. Reports increasing shortness of breath over the last week. Mom wasdiagnosed with COVID. 2 days before that she had been having symptoms. Denies fevers or chills at this time. Patient reports poor oral intake of food and water due to fatigue and illness. No chest pain or chest pressure. Patient does have some pain in her back that is worse with deep breaths. Ongoing for couple days. Has history of DVT in the past. Not currently anticoagulated. Related Data Home Medications Medication Instructions Recorded Confirmed alendronate 70 mg tablet 70 mg PO WEEKLY 03/31/20 09/05/22 apremilast 30 mg tablet (Otezla) 30 mg PO BID 04/12/20 09/05/22 aspirin 325 mg tablet 325 mg PO DAILY 04/12/20 09/05/22 infliximab-dyyb 100 mg intravenous 100 mg IV MONTHLY 11/15/20 06/04/22 solution (Inflectra) lansoprazole 30 mg capsule,delayed 30 mg PO QAM 11/15/20 09/05/22 release (Prevacid) vitamin B complex (B 1 tablet PO WEEKLY 02/20/22 09/05/22 Complex-Vitamin B12 tablet) amlodipine 5 mg tablet 5 mg PO QAM 09/05/22 09/05/22 atorvastatin 40 mg tablet 40 mg PO QHS 09/05/22 09/05/22 sertraline 100 mg tablet 100 mg PO QAM 09/05/22 09/05/22 Allergies Allergy/AdvReac Type Severity Reaction Status Date / Time Sulfa (Sulfonamide Allergy Severe Swelling Verified 09/04/22 23:10 Antibiotics) of Lip/Tongue/Throat lidocaine AdvReac Unknown Chest Pain Verified 09/04/22 23:10 prednisone AdvReac Unknown NOT TO Verified 09/04/22 23:10 TAKE R/T MEDS triamcinolone [From Kenalog] AdvReac Unknown Unknown Verified 09/04/22 23:10 Review of Systems Review of Systems: All systems reviewed & are unremarkable except as noted in HPI and below Constitutional: Constitutional: Denies chills, Reports fatigue and Denies fever(s) ENT: Denies nasal congestion and Denies sore throat Cardiovascular: Cardiovascular: Denies chest pain, Denies rapid heart rate and Denies radiating jaw, neck or arm pain Respiratory: Respiratory: Reports cough and Reports dyspnea Gastrointestinal: Gastrointestinal: Denies abdominal pain, Denies nausea and Denies vomiting Musculoskeletal: Musculoskeletal: Denies myalgias PMFSH Past Medical History Medical History (Updated 09/05/22 @ 05:22 by Rickey Stafford MD) Anxiety Cervical cancer S/p hysterectomy 1996 CVA (cerebrovascular accident) 2016, no residual deficits DDD (degenerative disc disease) Depression DVT (deep venous thrombosis) 2006 GERD (gastroesophageal reflux disease) HLD (hyperlipidemia) Osteoporosis Pacemaker - 2012 Peptic ulcer Peripheral neuropathy Seasonal allergies Thyroid nodule Surgical History Surgical History H/O cervical spine surgery 2002 H/O inguinal hernia repair H/O resection of large bowel 1999 History of carpal tunnel release History of hysterectomy History of orthopedic surgery bilateral feet History of removal of ovarian cyst left 1997 History of spinal fusion 2000 & 2001. L5-S1 Hx of cholecystectomy (1999) Hx of tonsillectomy Family History Family History Grandparent Carcinoma of colon Father Diabetes mellitus Hypertension Lymphoma Mother Hypertension Hypercholesterolemia Grandparent Family history of lung cancer Social History Social History (Updated 02/20/22 @ 14:24 by Erika Carolina MA) Social History: Ms. Robert lives at home with her sister, Radha, whom she designates as her surrogate decision maker. She would like to be a full code. She is and has step-children. She has been on disability for about 20 yea
[2022-09-04] MEDS: ENOXAPARIN 80 MG/0.8 ML SYRINGE 72 MG SUB-Q (23:12)
[2022-09-04] MEDS: ONDANSETRON INJ 4 MG/2 ML VIAL IV PUSH (23:22)
[2022-09-04] MEDS: MORPHINE SULFATE (*CRX) 4 MG/ML INJ IV PUSH (23:22)
[2022-09-04 23:45] LABS: Influenza A QL RT-PCR Negative (Negative); Influenza B QL RT-PCR Negative (Negative); RSV RNA, RT-PCR Negative (Negative); SARS-CoV-2 RNA PCR Positive
[2022-09-05] VITALS (13 sets, daily range): BP systolic 92–126; BP diastolic 64–87; PULSE 59–92; RESP 13–22; TEMP 36.1–37.9; O2SAT 95–99; BMI 22.1
[2022-09-05] MEDS: HYDROcodone/acetaminophen (*CRX) 5-325 MG TABLET 1 TAB PO (00:58)
[2022-09-05] MEDS: MORPHINE SULFATE (*CRX) 4 MG/ML INJ IV PUSH ×3 (01:41→09:11)
[2022-09-05] MEDS: ONDANSETRON INJ 4 MG/2 ML VIAL IV PUSH ×2 (04:01→21:45)
[2022-09-05] MEDS: oxyCODONE/ACETAMINOPHEN (*CRX) 10-325 MG TABLET 1 TAB PO ×2 (06:52→14:28)
[2022-09-05] MEDS: ERGOCALCIFEROL 50,000 UNITS CAPSULE 50000 UNITS PO (08:22)
[2022-09-05] MEDS: ASPIRIN 325 MG TABLET PO (08:22)
[2022-09-05] MEDS: PANTOPRAZOLE 40 MG TABLET PO (08:22)
--- NOTE | 2022-09-05 08:54 | PC.NURSE ---
PATIENT C/O 8/10 BACK PAIN AFTER HOME PERCOCET DOSE GIVEN. CHELITA GIFFORD NOTIFIED NEW ORDERS RECEIVED
[2022-09-05] MEDS: SODIUM CHLORIDE 0.9% IV 1,000 ML 70 ML IV CONT ×2 (10:25→21:46)
[2022-09-05 11:16] LABS: Creatinine Urine 181.4 mg/dL
[2022-09-05 11:20] LABS: Sodium Urine Random 17 meq/L
[2022-09-05 11:33] LABS: Iron 13 ug/dL (37-170)
[2022-09-05 11:42] LABS: Percent Iron Saturation 3 % (20-50)
[2022-09-05] MEDS: fentaNYL CITRATE INJ (*CRX) 100 MCG/2 ML VIAL 12.5 MCG IV PUSH ×3 (12:43→21:45)
--- NOTE | 2022-09-05 12:57 | PM.CNNEP ---
Assessment and Plan Assessment and plan (1) KRISTEN (acute kidney injury): Code(s): N17.9 - Acute kidney failure, unspecified Status: Acute Assessment and Plan: normal baseline renal function suspect volume depletion/prerenal azotemia based on her history check renal ultrasound follow-up on urine electroltyes trial of IVFs follow trend of repeat labs (2) COVID-19: Code(s): U07.1 - COVID-19 Status: Acute Assessment and Plan: preumable cause of some of admission symptoms not hypoxic or requiring supplemental oxygen would hold -- would hold dexamethasone and/or remdesivir follow respiratory status closely (3) Essential (primary) hypertension: Code(s): I10 - Essential (primary) hypertension Status: Chronic Assessment and Plan: reasonable control at this time follow trend of hemodynamics (4) Paroxysmal atrial fibrillation: Code(s): I48.0 - Paroxysmal atrial fibrillation Status: Chronic Assessment and Plan: rate control strategy not on systemic anticoagulation (5) Anemia: Code(s): D64.9 - Anemia, unspecified Status: Acute Assessment and Plan: somewhat of a chronic issue known history of iron deficiency - on iron supplements follow H/H Will continue to follow. History of Present Illness Reason for Consult Consult date: 09/05/22 Reason for consult: acute renal failure Chief Complaint Chief complaint: covid, kristen, r/o PE History of Present Illness Narrative: The patient is a 47-year-old female with a past medical history as outlined below who presented to [facility] Emergency room with complaints of weakness and shortness of breath. The patient reports generalized malaise and weakness as well as shortness of breath for the past few days. Other associated symptoms included poor appetite as well as some nonproductive cough. She seems to think that the shortness of breath seems to worsen over the last week and seemed worse in the past few days as already mentioned. She does report some back pain that seems to be somewhat worse with deep inspirations but otherwise denies any overt fevers, chills, nausea, or vomiting. Given the persistence of the symptoms, she presented to the emergency room for further assessment. Workup and evaluation emergency room demonstrated patient be hemodynamically stable and routine blood tests were significant for acute kidney injury/ acute renal failure with a creatinine of 2.9 and a BUN of 51. Furthermore, she tested positive for COVID-19 as well but was negative for influenza A and B. given her constellation of symptoms as well as her laboratory findings, she was admitted the hospital for further evaluation and therapy. Renal consultation was requested due to her acute kidney injury/acute renal failure. From review of her records, the patient has a normal creatinine/normal renal function at baseline. Her only real major risk factors for kidney disease or that of hypertension as well as vascular disease although her history of ulcerative colitis does put her at risk for possible autoimmune disorders. Her history would suggest volume depletion/ prerenal azotemia as her etiology of her KRISTEN and she is currently on IV fluids based on this assumption. Currently, at the time my evaluation, she does not appear to be any acute distress. Review of Systems Review of Systems: As per HPI. [facility] Past Medical History Medical History (Updated 09/07/22 @ 18:53 by Rodney San MD) Anxiety Cervical cancer S/p hysterectomy 1996 CVA (cerebrovascular accident) 2017, no residual deficits DDD (degenerative disc disease) Depression DVT (deep venous thrombosis) 2006 GERD (gastroesophageal reflux disease) HLD (hyperlipidemia) Osteoporosis Pacemaker SSS - 2013 Peptic ulcer Peripheral neuropathy Seasonal allergies Thyroid nodule Surgical History Surgical History
[2022-09-05] MEDS: ENOXAPARIN 60 MG/0.6 ML SYRINGE SUB-Q (14:27)
[2022-09-05] MEDS: SERTRALINE HCL 50 MG TABLET 100 MG PO (16:35)
--- NOTE | 2022-09-05 19:41 | PM.IMPN ---
Progress Note: A&P Assessment and Plan (1) KRISTEN (acute kidney injury): Code(s): N17.9 - Acute kidney failure, unspecified Status: Acute Assessment and Plan: BUN 51, creatinine 2.9, GFR 17; previously labs 2020 show normal renal function, however, she reports episodes of imaging having to be deferred to due to not being able to have contrast dye. Consult nephrology and appreciate recommendations. Check urine sodium and creatinine. Continue Taveras catheter for now. Monitor strict I/O and daily weights. Avoid nephrotoxins NS@75 mL/hour. Trend BMP (2) COVID-19: Code(s): U07.1 - COVID-19 Status: Acute Assessment and Plan: Patient tested positive for COVID19 5-7 days prior to admission. No supplemental O2 needs. Hold dexamethasone or remdesivir. Continue supportive care R/O PE - VQ scan low/intermediate risk PE. Unable to perform CTA chest. Continue lovenox 1 mg/kg renal dosed. (3) Chronic obstructive pulmonary disease, unspecified: Onset Date: ~08/2021 Qualifiers: COPD type: unspecified COPD Qualified Code(s): J44.9 - Chronic obstructive pulmonary disease, unspecified Code(s): J44.9 - Chronic obstructive pulmonary disease, unspecified Status: Chronic Assessment and Plan: Chronic, not in acute exacerbation, no active wheezing on physical exam. Continue home inhalers (4) Ulcerative colitis, unspecified, without complications: Qualifiers: Ulcerative colitis location: unspecified ulcerative colitis location Qualified Code(s): K51.90 - Ulcerative colitis, unspecified, without complications Code(s): K51.90 - Ulcerative colitis, unspecified, without complications Status: Chronic Assessment and Plan: Chronic, H/o prior hemicolectomy. Continue Otezla (5) Essential (primary) hypertension: Code(s): I10 - Essential (primary) hypertension Status: Chronic Assessment and Plan: BP soft, continue amlodipine as BP allows. (6) Gastro-esophageal reflux disease with esophagitis, without bleeding: Code(s): K21.00 - Gastro-esophageal reflux disease with esophagitis, without bleeding Status: Chronic Assessment and Plan: Continue PPI (7) Paroxysmal atrial fibrillation: Code(s): I48.0 - Paroxysmal atrial fibrillation Status: Chronic Assessment and Plan: Rate controlled, not currently on anticoagulation Monitor telemetry (8) DDD (degenerative disc disease): Status: Chronic Assessment and Plan: Chronic, continue home [place] Time Spent With Patient Time with patient: 25 - 35 minutes Subjective Date/time seen: 09/05/22 19:41 Exam Narrative: GENERAL: no acute distress, Tired appearing adult female. HEENT: Normocephalic. Atraumatic. Pupils equal and round. moist mucous membranes NECK: no lymphadenopathy or JVD. RESPIRATORY: Respirations unlabored. lung sounds clear to auscultation bilateral upper lobes, diminished RLL. No wheezing or rales CARDIO: Normal S1 and S2 regular rate and rhythm. no murmurs, gallops or rubs. GI: soft, round, nontender, bowel sounds present SKIN: no rashes, fair, warm & dry. Fair, normal color for ethnicity. EXTREMITIES: No edema, erythema, or calf tenderness. Grossly normal ROM with generalized weakness. Dorsalis pedis pulses +2 bilaterally. NEURO: AOx3, neutral mood and affect. Objective Data Vital Signs Vital Signs: Vital Signs - 24 hr 09/04/22 21:00 09/04/22 21:01 09/04/22 21:04 Temperature Pulse Rate 86 Respiratory Rate 15 Blood Pressure 114/64 Pulse Oximetry 81 L 100 Oxygen Delivery Room Air 09/04/22 21:15 09/04/22 21:16 09/04/22 21:30 Temperature Pulse Rate 82 82 84 Respiratory Rate 14 12 12 Blood Pressure 111/72 112/71 Pulse Oximetry 97 97 96 Oxygen Delivery 09/04/22 21:31 09/04/22 21:45 09/04/22 21:46 Temperature Pulse Rate 84 84 85 Respiratory Rate 12 12 11
[2022-09-05] MEDS: atenoloL 25 MG TABLET PO (21:36)
[2022-09-05] MEDS: LORazepam (*CRX) 1 MG TABLET 2 MG PO (21:42)
[2022-09-06] VITALS (10 sets, daily range): BP systolic 110–149; BP diastolic 69–82; PULSE 62–86; RESP 14–20; TEMP 35.9–36.4; O2SAT 94–99
[2022-09-06] MEDS: fentaNYL CITRATE INJ (*CRX) 100 MCG/2 ML VIAL 12.5 MCG IV PUSH ×4 (06:16→21:08)
[2022-09-06] MEDS: amLODIPine BESYLATE 5 MG TABLET PO (08:29)
[2022-09-06] MEDS: ASPIRIN 325 MG TABLET PO (08:30)
[2022-09-06] MEDS: VITAMIN B COMPLEX CAPSULE 1 CAP PO (08:30)
[2022-09-06 08:32] LABS: Folic Acid 2.7 ng/mL (2.76->20)
[2022-09-06] MEDS: PANTOPRAZOLE 40 MG TABLET PO (08:32)
[2022-09-06] MEDS: oxyCODONE/ACETAMINOPHEN (*CRX) 10-325 MG TABLET 1 TAB PO ×4 (08:45→20:54)
[2022-09-06] MEDS: ONDANSETRON INJ 4 MG/2 ML VIAL IV PUSH ×2 (08:51→17:45)
[2022-09-06] MEDS: UMECLIDINIUM/VILANTEROL 62.5-25 MCG ELLIPTA 1 PUFF INHALATION (09:18)
[2022-09-06 09:30] LABS: Hematocrit 26.3 % (37.0-47.0); Hemoglobin 7.5 g/dL (12.0-15.0); Mean Corpuscular HGB Conc 28.5 g/dl (32-36); Mean Corpuscular Hemoglobin 21.7 pg (26-34); Mean Corpuscular Volume 76.2 fl (80-100); Mean Platelet Volume 9.8 fl (7.4-10.4); Platelet Count Result 399 k/mm3 (150-375); Red Blood Count 3.45 M/mm3 (4.2-5.4); Red Cell Distribution Width 20.8 % (11.5-14.5); White Blood Count 6.2 K/mm3 (4.5-10.0)
[2022-09-06 09:44] LABS: Anion Gap 8 mmol/L (8-16); Blood Urea Nitrogen 46 mg/dL (7-17); Calcium 8.8 mg/dL (8.4-10.2); Carbon Dioxide 23 mmol/L (22-30); Chloride 114 mmol/L (98-107); Estimated CRCL calculation 32 ml/min; Estimated Glomerular Filt Rate 33; Glucose 110 mg/dL (65-110); Magnesium 2.2 mg/dL (1.6-2.3); Phosphorus 3.1 mg/dL (2.5-4.5); Sodium 145 mmol/L (137-145)
[2022-09-06] MEDS: FERROUS SULFATE 324 MG TABLET PO (10:59)
[2022-09-06] MEDS: IRON SUCROSE COMPLEX 200 MG in SODIUM CHLORIDE 0.9% IV 50 ML 120 MG IVPB (10:59)
[2022-09-06] MEDS: ASPIRIN 81 MG ENTERIC TABLET PO (11:00)
[2022-09-06] MEDS: FOLIC ACID 1 MG TABLET PO (11:00)
[2022-09-06] MEDS: guaiFENesin/CODEINE (*CRX) 200/20 MG 10 ML SYRUP PO ×2 (12:44→16:19)
--- NOTE | 2022-09-06 12:54 | P.PNNP_ITS ---
Progress Note: A&P Assessment and Plan (1) KRISTEN (acute kidney injury): Code(s): N17.9 - Acute kidney failure, unspecified Status: Acute Assessment and Plan: * improvement noted * normal baseline renal function * suspect volume depletion/prerenal azotemia based on her history * evaluation to date: * urine electrolytes are pre-renal * renal ultrasound pending * continue IVFs for now * follow trend of repeat labs (2) COVID-19: Code(s): U07.1 - COVID-19 Status: Acute Assessment and Plan: * preumable cause of some of her admission symptoms * not hypoxic or requiring supplemental oxygen * holding dexamethasone and/or remdesivir * follow respiratory status closely (3) Essential (primary) hypertension: Code(s): I10 - Essential (primary) hypertension Status: Chronic Assessment and Plan: * reasonable control at this time * follow trend of hemodynamics (4) Paroxysmal atrial fibrillation: Code(s): I48.0 - Paroxysmal atrial fibrillation Status: Chronic Assessment and Plan: * rate control strategy * not on systemic anticoagulation (5) Anemia: Code(s): D64.9 - Anemia, unspecified Status: Acute Assessment and Plan: * somewhat of a chronic issue * known history of iron deficiency - on iron supplements * follow H/H Will continue to follow. Subjective Date/time seen: 09/06/22 12:54 Major complaint is that of upper back pain that seems worse with any cough/coughing; no other acute issues/events overnight or earlier this AM; renal function better by AM labs; no apparent distress noted at the time of my visit. Exam Narrative: General: WD/WN female in NAD Heart: normal S1 and S2; no rub Lungs: clear bit with few crackles in RLL Abdomen: soft, nontender, nondistended, positive bowel sounds Extremities: no cyanosis or clubbing; no edema Skin: warm and dry Objective Data Vital Signs Vital Signs: Vital Signs Temp Pulse Resp BP Pulse Ox O2 Del Method 09/06/22 08:30 94 Room Air 09/06/22 08:00 96.7 F L 71 20 149/82 H 98 09/06/22 09:19 95 Room Air 09/06/22 04:00 97.3 F L 72 14 141/75 H 96 09/06/22 04:00 86 09/06/22 00:00 68 09/05/22 20:00 74 09/05/22 20:00 Room Air 09/06/22 00:00 97.2 F L 69 14 110/69 95 09/05/22 20:00 98.0 F 73 14 119/78 95 09/05/22 21:36 82 09/05/22 16:00 96.9 F L 73 20 92/64 L 99 09/05/22 16:00 77 Intake/Output Intake/Output: Intake & Output 09/03/22 09/04/22 09/05/22 09/06/22 23:59 23:59 23:59 23:59 Intake Total 1000 1995 1110 Output Total 650 Balance 1000 1345 1110 Meds/Results Medications: Active Medications Generic Name Dose Route Start Last Admin Trade Name Freq PRN Reason Stop Dose Admin Acetaminophen 650 mg 09/04/22 23:10 Acetaminophen 325 Mg Tablet PO Q4H PRN Mild Pain (1-3) or Fever Amlodipine Besylate 5 mg 09/05/22 09:00 09/06/22 08:29 Amlodipine Besylate 5 Mg Tablet PO 5 mg QAM BENJI Administration Aspiri
--- NOTE | 2022-09-06 12:54 | PM.PNNEP ---
Progress Note: A&P Assessment and Plan (1) KRISTEN (acute kidney injury): Code(s): N17.9 - Acute kidney failure, unspecified Status: Acute Assessment and Plan: improvement noted normal baseline renal function suspect volume depletion/prerenal azotemia based on her history evaluation to date: urine electrolytes are pre-renal renal ultrasound pending continue IVFs for now follow trend of repeat labs (2) COVID-19: Code(s): U07.1 - COVID-19 Status: Acute Assessment and Plan: preumable cause of some of her admission symptoms not hypoxic or requiring supplemental oxygen holding dexamethasone and/or remdesivir follow respiratory status closely (3) Essential (primary) hypertension: Code(s): I10 - Essential (primary) hypertension Status: Chronic Assessment and Plan: reasonable control at this time follow trend of hemodynamics (4) Paroxysmal atrial fibrillation: Code(s): I48.0 - Paroxysmal atrial fibrillation Status: Chronic Assessment and Plan: rate control strategy not on systemic anticoagulation (5) Anemia: Code(s): D64.9 - Anemia, unspecified Status: Acute Assessment and Plan: somewhat of a chronic issue known history of iron deficiency - on iron supplements follow H/H Will continue to follow. Subjective Date/time seen: 09/06/22 12:54 Major complaint is that of upper back pain that seems worse with any cough/coughing; no other acute issues/events overnight or earlier this AM; renal function better by AM labs; no apparent distress noted at the time of my visit. Exam Narrative: General: WD/WN female in NAD Heart: normal S1 and S2; no rub Lungs: clear bit with few crackles in RLL Abdomen: soft, nontender, nondistended, positive bowel sounds Extremities: no cyanosis or clubbing; no edema Skin: warm and dry Objective Data Vital Signs Vital Signs: Vital Signs Temp Pulse Resp BP Pulse Ox O2 Del Method 09/06/22 08:30 94 Room Air 09/06/22 08:00 96.7 F L 71 20 149/82 H 98 09/06/22 09:19 95 Room Air 09/06/22 04:00 97.3 F L 72 14 141/75 H 96 09/06/22 04:00 86 09/06/22 00:00 68 09/05/22 20:00 74 09/05/22 20:00 Room Air 09/06/22 00:00 97.2 F L 69 14 110/69 95 09/05/22 20:00 98.0 F 73 14 119/78 95 09/05/22 21:36 82 09/05/22 16:00 96.9 F L 73 20 92/64 L 99 09/05/22 16:00 77 Intake/Output Intake/Output: Intake & Output 09/03/22 09/04/22 09/05/22 09/06/22 23:59 23:59 23:59 23:59 Intake Total 1000 1995 1110 Output Total 650 Balance 1000 1345 1110 Meds/Results Medications: Active Medications Generic Name Dose Route Start Last Admin Trade Name Freq PRN Reason Stop Dose Admin Acetaminophen 650 mg 09/04/22 23:10 Acetaminophen 325 Mg Tablet PO Q4H PRN Mild Pain (1-3) or Fever Amlodipine Besylate 5 mg 09/05/22 09:00 09/06/22 08:29 Amlodipine Besylate 5 Mg Tablet PO 5 mg QAM BENJI Administration Aspirin 81 mg 09/06/22 09:00 09/06/22 11:00 Aspirin 81 Mg Enteric Tablet PO 81 mg QAM BENJI Administration Atenolol 25 mg 09/05/22 21:00 09/05/22 21:36 Atenolol 25 Mg Tablet PO 25 mg HS BENJI Administration Dexamethasone Sodium Phosphate 6 mg 09/06/22 09:00 09/06/22 08:32 Dexamethasone Sod Phos Inj 10 Mg/Ml 1 Ml Vial IV PUSH 09/14/22 09:01 6 mg DAILY BENJI Administration Enoxaparin Sodium 60 mg 09/05/22 13:00 09/05/22 14:27 Enoxaparin 60 Mg/0.6 Ml Syringe SUB-Q 60 mg Q24H BENJI Administration Ergocalciferol 50,000 units 09/05/22 09:00 09/05/22 08:22 Ergocalciferol 50,000 Units Capsule PO 50,000 units We BENJI Administration Fentanyl Citrate 12.5 mcg 09/05/22 09:27 09/06/22 10:58 Fentanyl Citrate Inj (*Crx) 100 Mcg/2 Ml Vial IV PUSH 12.5 mcg Q4H PRN Administration Breakthrough Pain Ferrous
[2022-09-06 14:50] LABS: Hematocrit 32.1 % (37.0-47.0); Hemoglobin 9.1 g/dL (12.0-15.0)
--- NOTE | 2022-09-06 15:27 | PM.IMPN ---
Progress Note: A&P Assessment and Plan (1) KRISTEN (acute kidney injury): Code(s): N17.9 - Acute kidney failure, unspecified Status: Acute Assessment and Plan: BUN 51, creatinine 2.9, GFR 17; previously labs 2020 show normal renal function, however, she reports episodes of imaging having to be deferred to due to not being able to have contrast dye. Consult nephrology and appreciate recommendations. Check urine sodium and creatinine - FENa 0.2% suggesting pre-renal cause. Continue Taveras catheter for strict I/O monitoring. Monitor strict I/O and daily weights. Avoid nephrotoxins Continue NS@75 mL/hour. Trend BMP - improving. (2) COVID-19: Code(s): U07.1 - COVID-19 Status: Acute Assessment and Plan: Patient tested positive for COVID19 5-7 days prior to admission. No supplemental O2 needs. Hold dexamethasone or remdesivir. Continue supportive care R/O PE - VQ scan low/intermediate risk PE. Unable to perform CTA chest. Continue lovenox 1 mg/kg renal dosed. Will attempt to obtain CTA chest if GFR >35 tomorrow. (3) Chronic obstructive pulmonary disease, unspecified: Onset Date: ~08/2021 Qualifiers: COPD type: unspecified COPD Qualified Code(s): J44.9 - Chronic obstructive pulmonary disease, unspecified Code(s): J44.9 - Chronic obstructive pulmonary disease, unspecified Status: Chronic Assessment and Plan: Chronic, not in acute exacerbation, no active wheezing on physical exam. Continue home inhalers (4) Ulcerative colitis, unspecified, without complications: Qualifiers: Ulcerative colitis location: unspecified ulcerative colitis location Qualified Code(s): K51.90 - Ulcerative colitis, unspecified, without complications Code(s): K51.90 - Ulcerative colitis, unspecified, without complications Status: Chronic Assessment and Plan: Chronic, H/o prior hemicolectomy. Continue Otezla (5) Essential (primary) hypertension: Code(s): I10 - Essential (primary) hypertension Status: Chronic Assessment and Plan: BP stable, continue amlodipine as BP allows. (6) Gastro-esophageal reflux disease with esophagitis, without bleeding: Code(s): K21.00 - Gastro-esophageal reflux disease with esophagitis, without bleeding Status: Chronic Assessment and Plan: Continue PPI (7) Paroxysmal atrial fibrillation: Code(s): I48.0 - Paroxysmal atrial fibrillation Status: Chronic Assessment and Plan: Rate controlled, not currently on anticoagulation at home continued lovenox as above DC telemetry (8) DDD (degenerative disc disease): Status: Chronic Assessment and Plan: Chronic, continue home norco Time Spent With Patient Time with patient: 15 - 25 minutes Subjective Date/time seen: 09/06/22 15:27 Interval history: She continues to have bilateral upper back pain that is worse with coughing. She denies hemoptysis, SOB, chest pain, palpitations or dizziness. No sputum. She thinks her urine is still dark. Review of Systems Review of Systems: All systems reviewed & are unremarkable except as noted in HPI and below Exam Narrative: GENERAL: no acute distress, lying in bed. HEENT: Normocephalic. Pupils equal and round. moist mucous membranes NECK: no JVD. RESPIRATORY: Respirations unlabored. lung sounds clear to auscultation bilateral upper lobes, diminished RLL with fine crackles. No wheezing or rales CARDIO: Normal S1 and S2 regular rate and rhythm. no murmurs, gallops or rubs. GI: soft, round, nontender, bowel sounds present SKIN: no rashes, fair, warm & dry. Fair, normal color for ethnicity. EXTREMITIES: No edema, erythema, or calf tenderness. Grossly normal ROM with generalized weakness. Dorsalis pedis pulses +2 bilaterally. NEURO: AOx3, neutral mood and affect. Objective Data Vital Signs Vital Signs: Vital Signs - 24 hr 09/05/22 16:00 08/10
[2022-09-06] MEDS: SODIUM CHLORIDE 0.9% IV 1,000 ML 70 ML IV CONT (15:37)
[2022-09-06] MEDS: LIDOCAINE 5% PATCH 1 PATCH TRANSDERM (16:18)
[2022-09-06] MEDS: MENTHOL 10% / METHYL SALICYLATE 15% 57 GM TUBE 1 APPLIC TOPICAL (16:19)
[2022-09-06] MEDS: SERTRALINE HCL 50 MG TABLET 100 MG PO (17:44)
[2022-09-06] MEDS: PANTOPRAZOLE SODIUM IV 40 MG VIAL IV PUSH (20:54)
[2022-09-06] MEDS: atenoloL 25 MG TABLET PO (20:54)
[2022-09-07] VITALS (7 sets, daily range): BP systolic 111–142; BP diastolic 65–78; PULSE 58–65; RESP 16–20; TEMP 36.1–36.6; O2SAT 95–99
[2022-09-07] MEDS: oxyCODONE/ACETAMINOPHEN (*CRX) 10-325 MG TABLET 1 TAB PO ×5 (00:14→17:33)
[2022-09-07] MEDS: guaiFENesin/CODEINE (*CRX) 200/20 MG 10 ML SYRUP PO ×2 (00:14→09:29)
[2022-09-07 01:14] LABS: IFOB Positive Control Positive; Immunochemical Fecal Occult Bl Positive (N)
[2022-09-07] MEDS: fentaNYL CITRATE INJ (*CRX) 100 MCG/2 ML VIAL 12.5 MCG IV PUSH ×2 (02:43→18:28)
[2022-09-07] MEDS: SODIUM CHLORIDE 0.9% IV 1,000 ML 70 ML IV CONT (06:00)
[2022-09-07 07:05] LABS: Basophils Percent Auto 0.2 % (0.2-1.2); Eosinophils Percent Auto 0.4 % (0-4.4); Hematocrit 25.6 % (37.0-47.0); Hemoglobin 7.4 g/dL (12.0-15.0); Immature Granulocyte Absolute 0.04 K/mm3 (0.00-0.031); Immature Granulocyte Percent A 0.9 % (0-0.5); Lymphocytes Absolute Auto 1.33 K/mm3 (0.9-3.2); Lymphocytes Percent Auto 28.3 % (18.3-44.2); Mean Corpuscular HGB Conc 28.9 g/dl (32-36); Mean Corpuscular Hemoglobin 22.1 pg (26-34); Mean Corpuscular Volume 76.4 fl (80-100); Mean Platelet Volume 9.4 fl (7.4-10.4); Monocytes Absolute Auto 0.3 K/mm3 (0.1-0.6); Neutrophils Percent Auto 63.2 % (45.5-73.1); Platelet Count Result 385 k/mm3 (150-375); Red Blood Count 3.35 M/mm3 (4.2-5.4); Red Cell Distribution Width 20.9 % (11.5-14.5); White Blood Count 4.7 K/mm3 (4.5-10.0)
[2022-09-07 07:11] LABS: Alanine Aminotransferase 12 U/L (6-35); Albumin Level 3.4 g/dL (3.5-5.1); Alkaline Phosphatase 83 U/L (38-126); Anion Gap 5 mmol/L (8-16); Aspartate Amino Transferase 30 U/L (14-36); Bilirubin,Total 0.2 mg/dL (0.2-1.3); Blood Urea Nitrogen 37 mg/dL (7-17); Calcium 8.8 mg/dL (8.4-10.2); Carbon Dioxide 24 mmol/L (22-30); Chloride 112 mmol/L (98-107); Estimated CRCL calculation 36 ml/min; Estimated Glomerular Filt Rate 39; Glucose 87 mg/dL (65-110); Potassium 3.6 mmol/L (3.4-5.0); Sodium 141 mmol/L (137-145)
[2022-09-07 08:10] LABS: Hypochromasia 1+ (NORMAL); Ovalocytes 1+ (NORMAL)
[2022-09-07 08:11] LABS: Microcytosis 1+ (NORMAL); Schistocytes None Seen (NORMAL)
[2022-09-07] MEDS: UMECLIDINIUM/VILANTEROL 62.5-25 MCG ELLIPTA 1 PUFF INHALATION (08:47)
[2022-09-07] MEDS: LIDOCAINE 5% PATCH 1 PATCH TRANSDERM (09:27)
[2022-09-07] MEDS: FOLIC ACID 1 MG TABLET PO (09:28)
[2022-09-07] MEDS: PANTOPRAZOLE SODIUM IV 40 MG VIAL IV PUSH ×2 (09:28→21:09)
[2022-09-07] MEDS: ASPIRIN 81 MG ENTERIC TABLET PO (09:28)
[2022-09-07] MEDS: FERROUS SULFATE 324 MG TABLET PO (09:28)
[2022-09-07] MEDS: amLODIPine BESYLATE 5 MG TABLET PO (09:28)
[2022-09-07] MEDS: ONDANSETRON INJ 4 MG/2 ML VIAL IV PUSH ×2 (12:40→17:32)
--- NOTE | 2022-09-07 12:55 | PM.IMPN ---
Progress Note: A&P Assessment and Plan (1) KRISTEN (acute kidney injury): Code(s): N17.9 - Acute kidney failure, unspecified Status: Acute Assessment and Plan: BUN 51, creatinine 2.9, GFR 17; previously labs 2019 show normal renal function, however, she reports episodes of imaging having to be deferred to due to not being able to have contrast dye. Consulted nephrology and appreciate recommendations. Check urine sodium and creatinine - FENa 0.2% suggesting pre-renal cause. DC douglass catheter 09/07/22 Monitor strict I/O and daily weights. Avoid nephrotoxins Continue NS@100 mL/hour following contrast CTA. BMP in am. Improving. (2) COVID-19: Code(s): U07.1 - COVID-19 Status: Acute Assessment and Plan: Patient tested positive for COVID19 5-7 days prior to admission. No supplemental O2 needs. Hold dexamethasone or remdesivir. Continue supportive care R/O PE - VQ scan low/intermediate risk PE. Treated with lovenox 1 mg/kg renal dosed- held starting 09/06 due to anemia Hgb 7.4. 09/07 Renal function improved. GFR >35. CTA chest negative for PE. Lovenox stopped. (3) Upper GI bleed: Code(s): K92.2 - Gastrointestinal hemorrhage, unspecified Status: Acute Assessment and Plan: CTA chest obtained for PE protocol. Patient noted to have possible distal esophageal bleeding. She takes full strength aspirin 325 mg daily for afib and previous stroke. This was changed to 81 mg while treated for possible PE. Hgb 7.4. Was 9.1 on admission, previous labs from 2019 shows baseline 9-10. Iron panel suggests iron deficiency anemia Fecal occult blood positive Consult GI for evaluation and possible endoscopy. NPO until evaluated by GI Lovenox and aspirin stopped. continue protonix 40 mg IV BID (4) Iron deficiency anemia due to chronic blood loss: Code(s): D50.0 - Iron deficiency anemia secondary to blood loss (chronic) Status: Acute Assessment and Plan: H/H 7.4/26%, RDW 20.9, serum iron 13, TIBC 375 (high normal), saturation 3%, ferritin 25.5 (low normal). Given Venofer 200 mg IV x1 Started on iron supplement daily. She does have ulcerative colitis with majority of colon removed. CT concerning for esophageal bleeding. (5) Chronic obstructive pulmonary disease, unspecified: Onset Date: ~08/2021 Qualifiers: COPD type: unspecified COPD Qualified Code(s): J44.9 - Chronic obstructive pulmonary disease, unspecified Code(s): J44.9 - Chronic obstructive pulmonary disease, unspecified Status: Chronic Assessment and Plan: Chronic, not in acute exacerbation, no active wheezing on physical exam. Continue home inhalers (6) Ulcerative colitis, unspecified, without complications: Qualifiers: Ulcerative colitis location: unspecified ulcerative colitis location Qualified Code(s): K51.90 - Ulcerative colitis, unspecified, without complications Code(s): K51.90 - Ulcerative colitis, unspecified, without complications Status: Chronic Assessment and Plan: Chronic, H/o prior hemicolectomy. On Otezla infusions (7) Essential (primary) hypertension: Code(s): I10 - Essential (primary) hypertension Status: Chronic Assessment and Plan: BP stable, continue amlodipine as BP allows. (8) Gastro-esophageal reflux disease with esophagitis, without bleeding: Code(s): K21.00 - Gastro-esophageal reflux disease with esophagitis, without bleeding Status: Chronic Assessment and Plan: On PPI (9) Paroxysmal atrial fibrillation: Code(s): I48.0 - Paroxysmal atrial fibrillation Status: Chronic Assessment and Plan: Rate controlled, not currently on anticoagulation at home DC telemetry (10) DDD (degenerative disc disease): Status: Chronic Assessment and Plan: Chronic, continue home norco and PRN fentanyl for breakthrough pain. Patient has acu
--- NOTE | 2022-09-07 13:27 | P.PNNP_ITS ---
Progress Note: A&P Assessment and Plan (1) KRISTEN (acute kidney injury): Code(s): N17.9 - Acute kidney failure, unspecified Status: Acute Assessment and Plan: * improvement noted * normal baseline renal function * suspect volume depletion/prerenal azotemia based on her history * evaluation to date: * urine electrolytes are pre-renal * renal ultrasound pending * continue IVFs for now * follow trend of repeat labs (2) COVID-19: Code(s): U07.1 - COVID-19 Status: Acute Assessment and Plan: * preumable cause of some of her admission symptoms * not hypoxic or requiring supplemental oxygen * holding dexamethasone and/or remdesivir * follow respiratory status closely (3) Essential (primary) hypertension: Code(s): I10 - Essential (primary) hypertension Status: Chronic Assessment and Plan: * reasonable control at this time * follow trend of hemodynamics (4) Paroxysmal atrial fibrillation: Code(s): I48.0 - Paroxysmal atrial fibrillation Status: Chronic Assessment and Plan: * rate control strategy * not on systemic anticoagulation (5) Anemia: Code(s): D64.9 - Anemia, unspecified Status: Acute Assessment and Plan: * somewhat of a chronic issue * known history of iron deficiency - on iron supplements * Given CTA findings, GI consulted * follow H/H Will continue to follow. Subjective Date/time seen: 09/07/22 13:27 Renal function continues to improve; due to ongoing back pain with coughing, CTA of chest done earlier today with results noted; no other acute issues/concerns voiced at this time; no apparent distress noted at the time of my visit. Exam Narrative: General: WD/WN female in NAD Heart: normal S1 and S2; no rub Lungs: clear bit with few crackles in RLL Abdomen: soft, nontender, nondistended, positive bowel sounds Extremities: no cyanosis or clubbing; no edema Skin: warm and intact Objective Data Vital Signs Vital Signs: Vital Signs Temp Pulse Resp BP Pulse Ox O2 Del Method 09/07/22 12:00 97.5 F L 58 L 18 114/69 95 09/07/22 09:30 Room Air 09/07/22 08:00 97.0 F L 60 18 112/71 95 09/06/22 23:58 96 Room Air 09/07/22 04:00 97.2 F L 65 18 133/78 98 09/07/22 00:00 97.7 F 60 18 129/72 96 09/06/22 20:00 Room Air 09/06/22 20:00 97.6 F 62 18 138/77 95 Intake/Output Intake/Output: Intake & Output 09/04/22 09/05/22 09/06/22 09/07/22 23:59 23:59 23:59 23:59 Intake Total 1000 1995 2530 1490 Output Total 650 200 Balance 1000 1345 2530 1290 Meds/Results Medications: Active Medications Generic Name Dose Route Start Last Admin Trade Name Freq PRN Reason Stop Dose Admin Acetaminophen 650 mg 09/04/22 23:10 Acetaminophen 325 Mg Tablet PO Q4H PRN Mild Pain (1-3) or Fever Al Hydrox/Mg Hydrox/Simethicone 30 ml 09/07/22 13:37 09/07/22 14:19 Mag Hydrox/Al Hydrox/Simeth 30 Ml Udc PO 30 ml Q6H PRN Administration Indigestion Amlodipine Besylate 5 mg 09/05/22 09:00 09/07/22 09:28 Amlodipine Besylate 5 Mg
--- NOTE | 2022-09-07 13:27 | PM.PNNEP ---
Progress Note: A&P Assessment and Plan (1) KRISTEN (acute kidney injury): Code(s): N17.9 - Acute kidney failure, unspecified Status: Acute Assessment and Plan: improvement noted normal baseline renal function suspect volume depletion/prerenal azotemia based on her history evaluation to date: urine electrolytes are pre-renal renal ultrasound pending continue IVFs for now follow trend of repeat labs (2) COVID-19: Code(s): U07.1 - COVID-19 Status: Acute Assessment and Plan: preumable cause of some of her admission symptoms not hypoxic or requiring supplemental oxygen holding dexamethasone and/or remdesivir follow respiratory status closely (3) Essential (primary) hypertension: Code(s): I10 - Essential (primary) hypertension Status: Chronic Assessment and Plan: reasonable control at this time follow trend of hemodynamics (4) Paroxysmal atrial fibrillation: Code(s): I48.0 - Paroxysmal atrial fibrillation Status: Chronic Assessment and Plan: rate control strategy not on systemic anticoagulation (5) Anemia: Code(s): D64.9 - Anemia, unspecified Status: Acute Assessment and Plan: somewhat of a chronic issue known history of iron deficiency - on iron supplements Given CTA findings, GI consulted follow H/H Will continue to follow. Subjective Date/time seen: 09/07/22 13:27 Renal function continues to improve; due to ongoing back pain with coughing, CTA of chest done earlier today with results noted; no other acute issues/concerns voiced at this time; no apparent distress noted at the time of my visit. Exam Narrative: General: WD/WN female in NAD Heart: normal S1 and S2; no rub Lungs: clear bit with few crackles in RLL Abdomen: soft, nontender, nondistended, positive bowel sounds Extremities: no cyanosis or clubbing; no edema Skin: warm and intact Objective Data Vital Signs Vital Signs: Vital Signs Temp Pulse Resp BP Pulse Ox O2 Del Method 09/07/22 12:00 97.5 F L 58 L 18 114/69 95 09/07/22 09:30 Room Air 09/07/22 08:00 97.0 F L 60 18 112/71 95 09/06/22 23:58 96 Room Air 09/07/22 04:00 97.2 F L 65 18 133/78 98 09/07/22 00:00 97.7 F 60 18 129/72 96 12/29/22 20:00 Room Air 09/06/22 20:00 97.6 F 62 18 138/77 95 Intake/Output Intake/Output: Intake & Output 09/04/22 09/05/22 09/06/22 09/07/22 23:59 23:59 23:59 23:59 Intake Total 1000 1995 2530 1490 Output Total 650 200 Balance 1000 1345 2530 1290 Meds/Results Medications: Active Medications Generic Name Dose Route Start Last Admin Trade Name Freq PRN Reason Stop Dose Admin Acetaminophen 650 mg 09/04/22 23:10 Acetaminophen 325 Mg Tablet PO Q4H PRN Mild Pain (1-3) or Fever Al Hydrox/Mg Hydrox/Simethicone 30 ml 09/07/22 13:37 09/07/22 14:19 Mag Hydrox/Al Hydrox/Simeth 30 Ml Udc PO 30 ml Q6H PRN Administration Indigestion Amlodipine Besylate 5 mg 09/05/22 09:00 09/07/22 09:28 Amlodipine Besylate 5 Mg Tablet PO 5 mg QAM BENJI Administration Atenolol 25 mg 09/05/22 21:00 09/06/22 20:54 Atenolol 25 Mg Tablet PO 25 mg HS BENJI Administration Ergocalciferol 50,000 units 09/05/22 09:00 09/05/22 08:22 Ergocalciferol 50,000 Units Capsule PO 50,000 units We BENJI Administration Fentanyl Citrate 12.5 mcg 09/05/22 09:27 09/07/22 02:43 Fentanyl Citrate Inj (*Crx) 100 Mcg/2 Ml Vial IV PUSH 12.5 mcg Q4H PRN Administration Breakthrough Pain Ferrous Sulfate 324 mg 09/06/22 08:00 09/07/22 09:28 Ferrous Sulfate 324 Mg Tablet PO 324 mg DAILY@0800 BENJI Administration Folic Acid 1 mg 09/06/22 09:00 09/07/22 09:28 Folic Acid 1 Mg Tablet PO 1 mg DAILY BENJI Administration Guaifenesin/Codeine Phosphate 10 ml 09/06/22 12:13 09/07/22 09:29 Guaifenesin/Codeine (*Crx) 200/20
[2022-09-07 13:28] LABS: Hematocrit 26.1 % (37.0-47.0); Hemoglobin 7.4 g/dL (12.0-15.0)
[2022-09-07] MEDS: MAG HYDROX/AL HYDROX/SIMETH 30 ML UDC PO (14:19)
[2022-09-07] MEDS: SERTRALINE HCL 50 MG TABLET 100 MG PO (17:33)
[2022-09-07] MEDS: SODIUM CHLORIDE 0.9% IV 1,000 ML 100 ML IV CONT (18:27)
[2022-09-07 19:34] LABS: Hematocrit 28.8 % (37.0-47.0); Hemoglobin 8.3 g/dL (12.0-15.0)
[2022-09-07] MEDS: fentaNYL CITRATE INJ (*CRX) 100 MCG/2 ML VIAL 25 MCG IV PUSH (21:10)
[2022-09-08] VITALS (7 sets, daily range): BP systolic 115–146; BP diastolic 59–82; PULSE 73–80; RESP 16–20; TEMP 36.5–37; O2SAT 94–100
[2022-09-08] MEDS: fentaNYL CITRATE INJ (*CRX) 100 MCG/2 ML VIAL 25 MCG IV PUSH ×5 (01:31→22:04)
[2022-09-08] MEDS: SODIUM CHLORIDE 0.9% IV 1,000 ML 100 ML IV CONT ×2 (03:00→15:31)
[2022-09-08 08:28] LABS: Hematocrit 28.9 % (37.0-47.0); Hemoglobin 8.3 g/dL (12.0-15.0); Mean Corpuscular HGB Conc 28.7 g/dl (32-36); Mean Corpuscular Hemoglobin 22.3 pg (26-34); Mean Corpuscular Volume 77.7 fl (80-100); Mean Platelet Volume 9.3 fl (7.4-10.4); Platelet Count Result 429 k/mm3 (150-375); Red Blood Count 3.72 M/mm3 (4.2-5.4); Red Cell Distribution Width 21.4 % (11.5-14.5); White Blood Count 3.4 K/mm3 (4.5-10.0)
[2022-09-08 08:44] LABS: Albumin Level 3.6 g/dL (3.5-5.1); Anion Gap 8 mmol/L (8-16); Blood Urea Nitrogen 25 mg/dL (7-17); Calcium 8.8 mg/dL (8.4-10.2); Carbon Dioxide 21 mmol/L (22-30); Chloride 111 mmol/L (98-107); Estimated CRCL calculation 36 ml/min; Estimated Glomerular Filt Rate 39; Glucose 95 mg/dL (65-110); Phosphorus 4.4 mg/dL (2.5-4.5); Potassium 3.9 mmol/L (3.4-5.0); Sodium 140 mmol/L (137-145)
[2022-09-08] MEDS: PANTOPRAZOLE SODIUM IV 40 MG VIAL IV PUSH ×2 (08:48→22:07)
[2022-09-08] MEDS: LIDOCAINE 5% PATCH 1 PATCH TRANSDERM (08:49)
[2022-09-08] MEDS: UMECLIDINIUM/VILANTEROL 62.5-25 MCG ELLIPTA 1 PUFF INHALATION (09:02)
--- NOTE | 2022-09-08 12:47 | PM.PNNEP ---
Progress Note: A&P Assessment and Plan (1) KRISTEN (acute kidney injury): Code(s): N17.9 - Acute kidney failure, unspecified Status: Acute Assessment and Plan: improvement noted normal baseline renal function suspect volume depletion/prerenal azotemia based on her history evaluation to date: urine electrolytes are pre-renal renal ultrasound pending continue IVFs for now follow trend of repeat labs (2) COVID-19: Code(s): U07.1 - COVID-19 Status: Acute Assessment and Plan: preumable cause of some of her admission symptoms not hypoxic or requiring supplemental oxygen holding dexamethasone and/or remdesivir follow respiratory status closely (3) Essential (primary) hypertension: Code(s): I10 - Essential (primary) hypertension Status: Chronic Assessment and Plan: reasonable control at this time follow trend of hemodynamics (4) Paroxysmal atrial fibrillation: Code(s): I48.0 - Paroxysmal atrial fibrillation Status: Chronic Assessment and Plan: rate control strategy not on systemic anticoagulation (5) Anemia: Code(s): D64.9 - Anemia, unspecified Status: Acute Assessment and Plan: somewhat of a chronic issue known history of iron deficiency - on iron supplements Given CTA findings, GI consulted follow H/H Will continue to follow. Subjective Date/time seen: 09/08/22 12:47 S/P CTA yesterday with relative stability in creatinine; continues to have on/off issues with bloating and indigestion; no other acute issues/events at this time. Exam Narrative: General: WD/WN female in NAD Heart: normal S1 and S2; no rub Lungs: clear bit with few crackles in RLL Abdomen: soft, nontender, nondistended, positive bowel sounds Extremities: no cyanosis or clubbing; no edema Skin: no rash Objective Data Vital Signs Vital Signs: Vital Signs Temp Pulse Resp BP Pulse Ox O2 Del Method 09/08/22 12:00 97.8 F 78 18 125/73 95 09/08/22 08:00 97.8 F 75 20 115/71 95 09/08/22 09:02 94 Room Air 09/08/22 04:00 97.9 F 73 18 130/74 98 09/07/22 23:48 97.1 F L 65 20 142/74 H 98 09/07/22 20:00 Room Air 09/07/22 20:00 97.4 F L 60 18 134/77 99 09/07/22 16:00 97.9 F 61 16 111/65 95 Intake/Output Intake/Output: Intake & Output 09/05/22 09/06/22 09/07/22 09/08/22 23:59 23:59 23:59 23:59 Intake Total 1994 2530 2610 1250 Output Total 650 700 350 Balance 1345 2530 1910 900 Meds/Results Medications: Active Medications Generic Name Dose Route Start Last Admin Trade Name Freq PRN Reason Stop Dose Admin Acetaminophen 650 mg 09/04/22 23:10 Acetaminophen 325 Mg Tablet PO Q4H PRN Mild Pain (1-3) or Fever Al Hydrox/Mg Hydrox/Simethicone 30 ml 09/07/22 13:37 09/07/22 14:19 Mag Hydrox/Al Hydrox/Simeth 30 Ml Udc PO 30 ml Q6H PRN Administration Indigestion Amlodipine Besylate 5 mg 09/05/22 09:00 09/07/22 09:28 Amlodipine Besylate 5 Mg Tablet PO 5 mg QAM BENJI Administration Atenolol 25 mg 09/05/22 21:00 09/06/22 20:54 Atenolol 25 Mg Tablet PO 25 mg HS BENJI Administration Ergocalciferol 50,000 units 09/05/22 09:00 09/05/22 08:22 Ergocalciferol 50,000 Units Capsule PO 50,000 units We BENJI Administration Fentanyl Citrate 25 mcg 09/07/22 19:00 09/08/22 13:01 Fentanyl Citrate Inj (*Crx) 100 Mcg/2 Ml Vial IV PUSH 25 mcg Q3HR PRN Administration Pain Rated 6 or Greater Ferrous Sulfate 324 mg 09/06/22 08:00 09/07/22 09:28 Ferrous Sulfate 324 Mg Tablet PO 324 mg DAILY@0800 BENJI Administration Folic Acid 1 mg 09/06/22 09:00 09/07/22 09:28 Folic Acid 1 Mg Tablet PO 1 mg DAILY BENJI Administration Guaifenesin/Codeine Phosphate 10 ml 09/06/22 12:13 09/07/22 09:29 Guaifenesin/Codeine (*Crx) 200/20 Mg 10 Ml Syrup PO 10 ml Q4H PRN Administration Co
--- NOTE | 2022-09-08 12:47 | P.PNNP_ITS ---
Progress Note: A&P Assessment and Plan (1) KRISTEN (acute kidney injury): Code(s): N17.9 - Acute kidney failure, unspecified Status: Acute Assessment and Plan: * improvement noted * normal baseline renal function * suspect volume depletion/prerenal azotemia based on her history * evaluation to date: * urine electrolytes are pre-renal * renal ultrasound pending * continue IVFs for now * follow trend of repeat labs (2) COVID-19: Code(s): U07.1 - COVID-19 Status: Acute Assessment and Plan: * preumable cause of some of her admission symptoms * not hypoxic or requiring supplemental oxygen * holding dexamethasone and/or remdesivir * follow respiratory status closely (3) Essential (primary) hypertension: Code(s): I10 - Essential (primary) hypertension Status: Chronic Assessment and Plan: * reasonable control at this time * follow trend of hemodynamics (4) Paroxysmal atrial fibrillation: Code(s): I48.0 - Paroxysmal atrial fibrillation Status: Chronic Assessment and Plan: * rate control strategy * not on systemic anticoagulation (5) Anemia: Code(s): D64.9 - Anemia, unspecified Status: Acute Assessment and Plan: * somewhat of a chronic issue * known history of iron deficiency - on iron supplements * Given CTA findings, GI consulted * follow H/H Will continue to follow. Subjective Date/time seen: 09/08/22 12:47 S/P CTA yesterday with relative stability in creatinine; continues to have on/off issues with bloating and indigestion; no other acute issues/events at this time. Exam Narrative: General: WD/WN female in NAD Heart: normal S1 and S2; no rub Lungs: clear bit with few crackles in RLL Abdomen: soft, nontender, nondistended, positive bowel sounds Extremities: no cyanosis or clubbing; no edema Skin: no rash Objective Data Vital Signs Vital Signs: Vital Signs Temp Pulse Resp BP Pulse Ox O2 Del Method 09/08/22 12:00 97.8 F 78 18 125/73 95 09/08/22 08:00 97.8 F 75 20 115/71 95 09/08/22 09:02 94 Room Air 09/08/22 04:00 97.9 F 73 18 130/74 98 09/07/22 23:48 97.1 F L 65 20 142/74 H 98 09/07/22 20:00 Room Air 09/07/22 20:00 97.4 F L 60 18 134/77 99 09/07/22 16:00 97.9 F 61 16 111/65 95 Intake/Output Intake/Output: Intake & Output 09/05/22 09/06/22 09/07/22 09/08/22 23:59 23:59 23:59 23:59 Intake Total 1995 2530 2610 1250 Output Total 650 700 350 Balance 1345 2530 1910 900 Meds/Results Medications: Active Medications Generic Name Dose Route Start Last Admin Trade Name Freq PRN Reason Stop Dose Admin Acetaminophen 650 mg 09/04/22 23:10 Acetaminophen 325 Mg Tablet PO Q4H PRN Mild Pain (1-3) or Fever Al Hydrox/Mg Hydrox/Simethicone 30 ml 09/07/22 13:37 09/07/22 14:19 Mag Hydrox/Al Hydrox/Simeth 30 Ml Udc PO 30 ml Q6H PRN Administration Indigestion Amlodipine Besylate 5 mg 09/05/22 09:00 09/07/22 09:28 Amlodipine Besylate 5 Mg Tablet PO 5 mg QAM BENJI Administration
[2022-09-08] MEDS: ONDANSETRON INJ 4 MG/2 ML VIAL IV PUSH (13:01)
--- NOTE | 2022-09-08 13:45 | PM.IMPN ---
Progress Note: A&P Assessment and Plan (1) KRISTEN (acute kidney injury): Code(s): N17.9 - Acute kidney failure, unspecified Status: Acute Assessment and Plan: BUN 51, creatinine 2.9, GFR 17; previously labs 2019 show normal renal function, however, she reports episodes of imaging having to be deferred to due to not being able to have contrast dye. Consulted nephrology and appreciate recommendations. Check urine sodium and creatinine - FENa 0.2% suggesting pre-renal cause. DC douglass catheter 09/07/22 Monitor strict I/O and daily weights. Avoid nephrotoxins Continue NS@100 mL/hour following contrast CTA. 09/08- BUN 25, creatinine 1.4, GFR 39. continues to improve. continue IV fluids due to GI symptoms and NPO status. Renal function stable after IV contrast. Renal US negative (2) COVID-19: Code(s): U07.1 - COVID-19 Status: Acute Assessment and Plan: Patient tested positive for COVID19 5-7 days prior to admission. No supplemental O2 needs. Hold dexamethasone or remdesivir. Continue supportive care R/O PE - VQ scan low/intermediate risk PE. Treated with lovenox 1 mg/kg renal dosed- held starting 09/06 due to anemia Hgb 7.4. 09/07 Renal function improved. GFR >35. CTA chest negative for PE. Lovenox stopped. (3) Upper GI bleed: Code(s): K92.2 - Gastrointestinal hemorrhage, unspecified Status: Acute Assessment and Plan: CTA chest obtained for PE protocol. Patient noted to have possible distal esophageal bleeding. She takes full strength aspirin 325 mg daily for afib and previous stroke. This was changed to 81 mg while treated for possible PE. Hgb 7.4. Was 9.1 on admission, previous labs from 2019 shows baseline 9-10. Iron panel suggests iron deficiency anemia Fecal occult blood positive Consult GI for evaluation and possible endoscopy. Trialed clear liquid diet, however, patient c/o increased bloating. Return to NPO. Carafate 1000 mg x1 for GERD symptoms. Lovenox and aspirin stopped. continue protonix 40 mg IV BID 09/08- Continue to trend H/H. Hgb increased 8.3 without infusion today. Continue to monitor. She does report bloating today after eating and reports symptoms intermittent since March. she was changed to NPO for now. (4) Iron deficiency anemia due to chronic blood loss: Code(s): D50.0 - Iron deficiency anemia secondary to blood loss (chronic) Status: Acute Assessment and Plan: H/H 7.4/26%, RDW 20.9, serum iron 13, TIBC 375 (high normal), saturation 3%, ferritin 25.5 (low normal). Given Venofer 200 mg IV x1 Started on iron supplement daily. She does have ulcerative colitis with majority of colon removed. CT concerning for esophageal bleeding. Trend H/H- Hgb 8.3 today. (5) Chronic obstructive pulmonary disease, unspecified: Onset Date: ~08/2021 Qualifiers: COPD type: unspecified COPD Qualified Code(s): J44.9 - Chronic obstructive pulmonary disease, unspecified Code(s): J44.9 - Chronic obstructive pulmonary disease, unspecified Status: Chronic Assessment and Plan: Chronic, not in acute exacerbation, no active wheezing on physical exam. Continue home inhalers (6) Ulcerative colitis, unspecified, without complications: Qualifiers: Ulcerative colitis location: unspecified ulcerative colitis location Qualified Code(s): K51.90 - Ulcerative colitis, unspecified, without complications Code(s): K51.90 - Ulcerative colitis, unspecified, without complications Status: Chronic Assessment and Plan: Chronic, H/o prior hemicolectomy. On Otezla infusions (7) Essential (primary) hypertension: Code(s): I10 - Essential (primary) hypertension Status: Chronic Assessment and Plan: BP stable, continue amlodipine as BP allows. (8) Gastro-esophageal reflux disease with esophagitis, without bleeding: Code(s): K21.00 - Gastro-esophageal reflux disease wi
[2022-09-08] MEDS: SUCRALFATE SUSP 100 MG/ML 10 ML UDC 1000 MG PO (15:31)
[2022-09-08] MEDS: METOCLOPRAMIDE HCL INJ 10 MG/2 ML VIAL 5 MG IV PUSH (17:33)
[2022-09-08 17:40] LABS: Hematocrit 26.9 % (37.0-47.0); Hemoglobin 7.8 g/dL (12.0-15.0)
[2022-09-08] MEDS: LORazepam INJ (*CRX) 2 MG/ML VIAL 1 MG IV PUSH (22:03)
[2022-09-09] VITALS (7 sets, daily range): BP systolic 131–157; BP diastolic 76–89; PULSE 67–78; RESP 16–20; TEMP 36.2–36.7; O2SAT 95–100
[2022-09-09] MEDS: fentaNYL CITRATE INJ (*CRX) 100 MCG/2 ML VIAL 25 MCG IV PUSH ×6 (01:18→21:37)
[2022-09-09] MEDS: SODIUM CHLORIDE 0.9% IV 1,000 ML 100 ML IV CONT ×2 (01:20→12:11)
[2022-09-09] MEDS: METOCLOPRAMIDE HCL INJ 10 MG/2 ML VIAL 5 MG IV PUSH ×3 (05:45→12:12)
[2022-09-09 06:47] LABS: Hemoglobin 7.8 g/dL (12.0-15.0); Mean Corpuscular HGB Conc 28.9 g/dl (32-36); Mean Corpuscular Volume 76.3 fl (80-100); Mean Platelet Volume 9.2 fl (7.4-10.4); Platelet Count Result 386 k/mm3 (150-375); Red Blood Count 3.54 M/mm3 (4.2-5.4); Red Cell Distribution Width 20.8 % (11.5-14.5); White Blood Count 3.1 K/mm3 (4.5-10.0)
[2022-09-09 07:31] LABS: Anion Gap 7 mmol/L (8-16); Blood Urea Nitrogen 20 mg/dL (7-17); Calcium 8.4 mg/dL (8.4-10.2); Carbon Dioxide 22 mmol/L (22-30); Chloride 110 mmol/L (98-107); Estimated CRCL calculation 42 ml/min; Estimated Glomerular Filt Rate 46; Glucose 93 mg/dL (65-110); Potassium 3.4 mmol/L (3.4-5.0); Sodium 139 mmol/L (137-145)
[2022-09-09] MEDS: PANTOPRAZOLE SODIUM IV 40 MG VIAL IV PUSH ×2 (09:00→21:37)
[2022-09-09] MEDS: LIDOCAINE 5% PATCH 1 PATCH TRANSDERM (09:00)
[2022-09-09] MEDS: ONDANSETRON INJ 4 MG/2 ML VIAL IV PUSH (09:01)
[2022-09-09] MEDS: UMECLIDINIUM/VILANTEROL 62.5-25 MCG ELLIPTA 1 PUFF INHALATION (10:17)
[2022-09-09] MEDS: LORazepam INJ (*CRX) 2 MG/ML VIAL 1 MG IV PUSH (12:11)
[2022-09-09 12:21] LABS: Hematocrit 28.6 % (37.0-47.0); Hemoglobin 8.2 g/dL (12.0-15.0)
--- NOTE | 2022-09-09 12:52 | P.PNNP_ITS ---
Progress Note: A&P Assessment and Plan (1) KRISTEN (acute kidney injury): Code(s): N17.9 - Acute kidney failure, unspecified Status: Acute Assessment and Plan: * improvement noted * normal baseline renal function * suspect volume depletion/prerenal azotemia based on her history * evaluation to date: * urine electrolytes are pre-renal * renal ultrasound normal * continue IVFs for now (given NPO status) * follow trend of repeat labs (2) COVID-19: Code(s): U07.1 - COVID-19 Status: Acute Assessment and Plan: * preumable cause of some of her admission symptoms * not hypoxic or requiring supplemental oxygen * holding dexamethasone and/or remdesivir * follow respiratory status closely (3) Essential (primary) hypertension: Code(s): I10 - Essential (primary) hypertension Status: Chronic Assessment and Plan: * reasonable control at this time * follow trend of hemodynamics (4) Paroxysmal atrial fibrillation: Code(s): I48.0 - Paroxysmal atrial fibrillation Status: Chronic Assessment and Plan: * rate control strategy * not on systemic anticoagulation (5) Anemia: Code(s): D64.9 - Anemia, unspecified Status: Acute Assessment and Plan: * somewhat of a chronic issue * known history of iron deficiency - on iron supplements * Given CTA findings, GI consulted * follow H/H Will continue to follow. Subjective Date/time seen: 09/09/22 12:52 Still with on/off bloating with oral intake necessitating NPO status; H/H low but stable by trend of labs; renal function continues to improve with conservative therapy; no other issues/events overnight or earlier this morning. Exam Narrative: General: WD/WN female in NAD Heart: normal S1 and S2; no rub Lungs: clear but decreased at bases Abdomen: soft, nontender, nondistended, positive bowel sounds Extremities: no cyanosis or clubbing; no edema Skin: no nodules Objective Data Vital Signs Vital Signs: Vital Signs Temp Pulse Resp BP Pulse Ox O2 Del Method 09/09/22 11:49 98.0 F 70 20 131/77 98 09/09/22 08:00 Room Air 09/09/22 10:17 78 16 09/09/22 08:00 97.6 F 73 20 136/77 98 09/09/22 04:00 97.2 F L 67 18 133/76 95 09/08/22 23:52 97.7 F 80 20 130/82 94 09/08/22 20:00 97.9 F 77 16 128/59 L 96 09/08/22 16:00 98.6 F 78 16 146/78 H 100 Intake/Output Intake/Output: Intake & Output 09/06/22 09/07/22 09/08/22 09/09/22 23:59 23:59 23:59 23:59 Intake Total 2530 2610 2600 2120 Output Total 700 750 800 Balance 2530 1910 1850 1320 Meds/Results Medications: Active Medications Generic Name Dose Route Start Last Admin Trade Name Freq PRN Reason Stop Dose Admin Acetaminophen 650 mg 09/04/22 23:10 Acetaminophen 325 Mg Tablet PO Q4H PRN Mild Pain (1-3) or Fever Al Hydrox/Mg Hydrox/Simethicone 30 ml 09/07/22 13:37 09/07/22 14:19 Mag Hydrox/Al Hydrox/Simeth 30 Ml Udc PO 30 ml Q6H PRN Administration Indigestion Amlodipine Besylate 5 mg 09/05/22 09:00 09/07/22 09:28 Amlodipine
--- NOTE | 2022-09-09 12:52 | PM.PNNEP ---
Progress Note: A&P Assessment and Plan (1) KRISTEN (acute kidney injury): Code(s): N17.9 - Acute kidney failure, unspecified Status: Acute Assessment and Plan: improvement noted normal baseline renal function suspect volume depletion/prerenal azotemia based on her history evaluation to date: urine electrolytes are pre-renal renal ultrasound normal continue IVFs for now (given NPO status) follow trend of repeat labs (2) COVID-19: Code(s): U07.1 - COVID-19 Status: Acute Assessment and Plan: preumable cause of some of her admission symptoms not hypoxic or requiring supplemental oxygen holding dexamethasone and/or remdesivir follow respiratory status closely (3) Essential (primary) hypertension: Code(s): I10 - Essential (primary) hypertension Status: Chronic Assessment and Plan: reasonable control at this time follow trend of hemodynamics (4) Paroxysmal atrial fibrillation: Code(s): I48.0 - Paroxysmal atrial fibrillation Status: Chronic Assessment and Plan: rate control strategy not on systemic anticoagulation (5) Anemia: Code(s): D64.9 - Anemia, unspecified Status: Acute Assessment and Plan: somewhat of a chronic issue known history of iron deficiency - on iron supplements Given CTA findings, GI consulted follow H/H Will continue to follow. Subjective Date/time seen: 09/09/22 12:52 Still with on/off bloating with oral intake necessitating NPO status; H/H low but stable by trend of labs; renal function continues to improve with conservative therapy; no other issues/events overnight or earlier this morning. Exam Narrative: General: WD/WN female in NAD Heart: normal S1 and S2; no rub Lungs: clear but decreased at bases Abdomen: soft, nontender, nondistended, positive bowel sounds Extremities: no cyanosis or clubbing; no edema Skin: no nodules Objective Data Vital Signs Vital Signs: Vital Signs Temp Pulse Resp BP Pulse Ox O2 Del Method 09/09/22 11:49 98.0 F 70 20 131/77 98 09/09/22 08:00 Room Air 09/09/22 10:17 78 16 09/09/22 08:00 97.6 F 73 20 136/77 98 09/09/22 04:00 97.2 F L 67 18 133/76 95 09/08/22 23:52 97.7 F 80 20 130/82 94 09/08/22 20:00 97.9 F 77 16 128/59 L 96 09/08/22 16:00 98.6 F 78 16 146/78 H 100 Intake/Output Intake/Output: Intake & Output 09/06/22 09/07/22 09/08/22 09/09/22 23:59 23:59 23:59 23:59 Intake Total 2530 2610 2600 2120 Output Total 700 750 800 Balance 2530 1910 1850 1320 Meds/Results Medications: Active Medications Generic Name Dose Route Start Last Admin Trade Name Freq PRN Reason Stop Dose Admin Acetaminophen 650 mg 09/04/22 23:10 Acetaminophen 325 Mg Tablet PO Q4H PRN Mild Pain (1-3) or Fever Al Hydrox/Mg Hydrox/Simethicone 30 ml 09/07/22 13:37 09/07/22 14:19 Mag Hydrox/Al Hydrox/Simeth 30 Ml Udc PO 30 ml Q6H PRN Administration Indigestion Amlodipine Besylate 5 mg 09/05/22 09:00 09/07/22 09:28 Amlodipine Besylate 5 Mg Tablet PO 5 mg QAM BENJI Administration Atenolol 25 mg 09/05/22 21:00 09/06/22 20:54 Atenolol 25 Mg Tablet PO 25 mg HS BENJI Administration Ergocalciferol 50,000 units 09/05/22 09:00 09/05/22 08:22 Ergocalciferol 50,000 Units Capsule PO 50,000 units We BENJI Administration Fentanyl Citrate 25 mcg 09/07/22 19:00 09/09/22 14:01 Fentanyl Citrate Inj (*Crx) 100 Mcg/2 Ml Vial IV PUSH 25 mcg Q3HR PRN Administration Pain Rated 6 or Greater Ferrous Sulfate 324 mg 09/06/22 08:00 09/07/22 09:28 Ferrous Sulfate 324 Mg Tablet PO 324 mg DAILY@0800 BENJI Administration Folic Acid 1 mg 09/06/22 09:00 09/07/22 09:28 Folic Acid 1 Mg Tablet PO 1 mg DAILY BENJI Administration Guaifenesin/Codeine Phosphate 10 ml 09/06/22 12:13 09/07/22 09:29 Guaifenesin/Codein
--- NOTE | 2022-09-09 13:31 | PM.IMPN ---
Progress Note: A&P Assessment and Plan (1) KRISTEN (acute kidney injury): Code(s): N17.9 - Acute kidney failure, unspecified Status: Acute Assessment and Plan: BUN 51, creatinine 2.9, GFR 17; previously labs 2019 show normal renal function, however, she reports episodes of imaging having to be deferred to due to not being able to have contrast dye. Consulted nephrology and appreciate recommendations. Check urine sodium and creatinine - FENa 0.2% suggesting pre-renal cause. DC douglass catheter 09/07/22 Monitor strict I/O and daily weights. Avoid nephrotoxins Continue NS@100 mL/hour following contrast CTA. 09/08- BUN 25, creatinine 1.4, GFR 39. continues to improve. continue IV fluids due to GI symptoms and NPO status. Renal function stable after IV contrast. Renal US negative 09/09/22 continues to improve. Continue IV fluids until able to take PO. (2) COVID-19: Code(s): U07.1 - COVID-19 Status: Acute Assessment and Plan: Patient tested positive for COVID19 5-7 days prior to admission. No supplemental O2 needs. Hold dexamethasone or remdesivir. Continue supportive care R/O PE - VQ scan low/intermediate risk PE. Treated with lovenox 1 mg/kg renal dosed- held starting 09/06 due to anemia Hgb 7.4. 09/07 Renal function improved. GFR >35. CTA chest negative for PE. Lovenox stopped. 09/09/22 No respiratory symptoms, except cough which is improving. Positive test day 09/01/22. Day 8 of quarantine. (3) Upper GI bleed: Code(s): K92.2 - Gastrointestinal hemorrhage, unspecified Status: Acute Assessment and Plan: CTA chest obtained for PE protocol. Patient noted to have possible distal esophageal bleeding. She takes full strength aspirin 325 mg daily for afib and previous stroke. This was changed to 81 mg while treated for possible PE. Hgb 7.4. Was 9.1 on admission, previous labs from 2019 shows baseline 9-10. Iron panel suggests iron deficiency anemia Fecal occult blood positive Consult GI for evaluation and possible endoscopy. Trialed clear liquid diet, however, patient c/o increased bloating. Return to NPO. Carafate 1000 mg Q6 hours Lovenox and aspirin stopped 09/07. continue protonix 40 mg IV BID 09/08- Continue to trend H/H. Hgb increased 8.3 without infusion today. Continue to monitor. She does report bloating today after eating and reports symptoms intermittent since March. she was changed to NPO for now. 09/09/22 - Hgb 7.8-8.2, unchanged. CT abd/pelvis with increased distal bowel dilation w/wall thickening and increased free pelvic fluid concerning for IBD flare (4) Iron deficiency anemia due to chronic blood loss: Code(s): D50.0 - Iron deficiency anemia secondary to blood loss (chronic) Status: Acute Assessment and Plan: H/H 7.4/26%, RDW 20.9, serum iron 13, TIBC 375 (high normal), saturation 3%, ferritin 25.5 (low normal). Given Venofer 200 mg IV x1 Started on iron supplement daily. She does have ulcerative colitis with majority of colon removed. CT concerning for esophageal bleeding. Trend H/H- Hgb 8.2 today. (5) Chronic obstructive pulmonary disease, unspecified: Onset Date: ~08/2021 Qualifiers: COPD type: unspecified COPD Qualified Code(s): J44.9 - Chronic obstructive pulmonary disease, unspecified Code(s): J44.9 - Chronic obstructive pulmonary disease, unspecified Status: Chronic Assessment and Plan: Chronic, not in acute exacerbation, no active wheezing on physical exam. Continue home inhalers (6) Ulcerative colitis, unspecified, without complications: Qualifiers: Ulcerative colitis location: unspecified ulcerative colitis location Qualified Code(s): K51.90 - Ulcerative colitis, unspecified, without complications Code(s): K51.90 - Ulcerative colitis, unspecified, without complications Status: Chronic Assessment and Plan: Chronic, H/o prior hemicolectomy. On Remicade in
[2022-09-09] MEDS: SIMETHICONE 80 MG TAB.CHEW PO ×3 (14:01→21:37)
[2022-09-09] MEDS: SUCRALFATE SUSP 100 MG/ML 10 ML UDC 1000 MG PO (17:29)
[2022-09-09] MEDS: methylPREDNISolone SOD SUCC 40 MG VIAL 20 MG IV PUSH (22:16)
[2022-09-10] VITALS (8 sets, daily range): BP systolic 121–159; BP diastolic 78–91; PULSE 63–88; RESP 14–20; TEMP 36.2–36.6; O2SAT 96–99
[2022-09-10] MEDS: SODIUM CHLORIDE 0.9% IV 1,000 ML 100 ML IV CONT (00:38)
[2022-09-10] MEDS: SUCRALFATE SUSP 100 MG/ML 10 ML UDC 1000 MG PO ×4 (00:39→17:44)
[2022-09-10] MEDS: LORazepam INJ (*CRX) 2 MG/ML VIAL 1 MG IV PUSH (00:44)
[2022-09-10] MEDS: methylPREDNISolone SOD SUCC 40 MG VIAL 20 MG IV PUSH ×3 (05:59→21:05)
[2022-09-10 07:33] LABS: Anion Gap 10 mmol/L (8-16); Blood Urea Nitrogen 16 mg/dL (7-17); Calcium 7.9 mg/dL (8.4-10.2); Carbon Dioxide 14 mmol/L (22-30); Chloride 115 mmol/L (98-107); Estimated CRCL calculation 49 ml/min; Estimated Glomerular Filt Rate 57; Glucose 95 mg/dL (65-110); Lipase 321 U/L (23-300); Potassium 4.2 mmol/L (3.4-5.0); Sodium 139 mmol/L (137-145)
[2022-09-10] MEDS: UMECLIDINIUM/VILANTEROL 62.5-25 MCG ELLIPTA 1 PUFF INHALATION (08:17)
[2022-09-10] MEDS: PANTOPRAZOLE SODIUM IV 40 MG VIAL IV PUSH ×2 (09:14→20:58)
[2022-09-10] MEDS: LIDOCAINE 5% PATCH 1 PATCH TRANSDERM (09:14)
[2022-09-10] MEDS: SIMETHICONE 80 MG TAB.CHEW PO ×2 (09:14→12:34)
[2022-09-10] MEDS: fentaNYL CITRATE INJ (*CRX) 100 MCG/2 ML VIAL 25 MCG IV PUSH ×2 (09:16→12:41)
[2022-09-10 09:41] LABS: Hematocrit 28.2 % (37.0-47.0); Hemoglobin 8.1 g/dL (12.0-15.0); Mean Corpuscular HGB Conc 28.7 g/dl (32-36); Mean Corpuscular Hemoglobin 21.9 pg (26-34); Mean Corpuscular Volume 76.2 fl (80-100); Mean Platelet Volume 8.9 fl (7.4-10.4); Platelet Count Result 417 k/mm3 (150-375); Red Cell Distribution Width 21.7 % (11.5-14.5); White Blood Count 3.3 K/mm3 (4.5-10.0)
--- NOTE | 2022-09-10 10:02 | PM.IMPN ---
Progress Note: A&P Assessment and Plan (1) KRISTEN (acute kidney injury): Code(s): N17.9 - Acute kidney failure, unspecified Status: Acute Assessment and Plan: BUN 51, creatinine 2.9, GFR 17; previously labs 2019 show normal renal function, however, she reports episodes of imaging having to be deferred to due to not being able to have contrast dye. Consulted nephrology and appreciate recommendations. Check urine sodium and creatinine - FENa 0.2% suggesting pre-renal cause. DC douglass catheter 09/07/22 Monitor strict I/O and daily weights. Avoid nephrotoxins Continue NS@100 mL/hour following contrast CTA. 09/08- BUN 25, creatinine 1.4, GFR 39. continues to improve. continue IV fluids due to GI symptoms and NPO status. Renal function stable after IV contrast. Renal US negative 09/09/22 continues to improve. Continue IV fluids until able to take PO. 09/10/22 returned to baseline. Continue IV fluids while NPO. (2) COVID-19: Code(s): U07.1 - COVID-19 Status: Acute Assessment and Plan: Patient tested positive for COVID19 5-7 days prior to admission. No supplemental O2 needs. Hold dexamethasone or remdesivir. Continue supportive care R/O PE - VQ scan low/intermediate risk PE. Treated with lovenox 1 mg/kg renal dosed- held starting 09/06 due to anemia Hgb 7.4. 09/07 Renal function improved. GFR >35. CTA chest negative for PE. Lovenox stopped. 09/09/22 No respiratory symptoms, except cough which is improving. Positive test day 09/01/22. Day 8 of quarantine. 09/10/22 stable. No O2 requirement or fevers. Day 9 quarantine (3) Upper GI bleed: Code(s): K92.2 - Gastrointestinal hemorrhage, unspecified Status: Acute Assessment and Plan: CTA chest obtained for PE protocol. Patient noted to have possible distal esophageal bleeding. She takes full strength aspirin 325 mg daily for afib and previous stroke. This was changed to 81 mg while treated for possible PE. Hgb 7.4. Was 9.1 on admission, previous labs from 2019 shows baseline 9-10. Iron panel suggests iron deficiency anemia Fecal occult blood positive Consult GI for evaluation and possible endoscopy. Trialed clear liquid diet, however, patient c/o increased bloating. Return to NPO. Carafate 1000 mg Q6 hours Lovenox and aspirin stopped 09/07. continue protonix 40 mg IV BID 09/08- Continue to trend H/H. Hgb increased 8.3 without infusion today. Continue to monitor. She does report bloating today after eating and reports symptoms intermittent since March. she was changed to NPO for now. 09/09/22 - Hgb 7.8-8.2, unchanged. CT abd/pelvis with increased distal bowel dilation w/wall thickening and increased free pelvic fluid concerning for IBD flare 09/10/22 unchanged. EGD in am. (4) Iron deficiency anemia due to chronic blood loss: Code(s): D50.0 - Iron deficiency anemia secondary to blood loss (chronic) Status: Acute Assessment and Plan: H/H 7.4/26%, RDW 20.9, serum iron 13, TIBC 375 (high normal), saturation 3%, ferritin 25.5 (low normal). Given Venofer 200 mg IV x1 Started on iron supplement daily. She does have ulcerative colitis with majority of colon removed. CT concerning for esophageal bleeding. Trend H/H- Hgb unchanged 8 mg/dL (5) Chronic obstructive pulmonary disease, unspecified: Onset Date: ~08/2021 Qualifiers: COPD type: unspecified COPD Qualified Code(s): J44.9 - Chronic obstructive pulmonary disease, unspecified Code(s): J44.9 - Chronic obstructive pulmonary disease, unspecified Status: Chronic Assessment and Plan: Chronic, not in acute exacerbation, no active wheezing on physical exam. Continue home inhalers (6) Ulcerative colitis, unspecified, without complications: Qualifiers: Ulcerative colitis location: unspecified ulcerative colitis location Qualified Code(s): K51.90 - Ulcerative colitis, unspecified, without complications Code(s): K51.9
--- NOTE | 2022-09-10 12:03 | P.PNNP_ITS ---
Progress Note: A&P Assessment and Plan (1) KRISTEN (acute kidney injury): Code(s): N17.9 - Acute kidney failure, unspecified Status: Acute Assessment and Plan: * improvement noted * normal baseline renal function * suspect volume depletion/prerenal azotemia based on her history * evaluation to date: * urine electrolytes are pre-renal * renal ultrasound normal * continue IVFs for now (given NPO status) * follow trend of repeat labs (2) COVID-19: Code(s): U07.1 - COVID-19 Status: Acute Assessment and Plan: * preumable cause of some of her admission symptoms * not hypoxic or requiring supplemental oxygen * holding dexamethasone and/or remdesivir * follow respiratory status closely (3) Essential (primary) hypertension: Code(s): I10 - Essential (primary) hypertension Status: Chronic Assessment and Plan: * reasonable control at this time * follow trend of hemodynamics (4) Paroxysmal atrial fibrillation: Code(s): I48.0 - Paroxysmal atrial fibrillation Status: Chronic Assessment and Plan: * rate control strategy * not on systemic anticoagulation (5) Anemia: Code(s): D64.9 - Anemia, unspecified Status: Acute Assessment and Plan: * somewhat of a chronic issue * known history of iron deficiency - on iron supplements * Given CTA findings, GI consulted * follow H/H Given improvement in renal function, will continue to follow intermittently. Subjective Date/time seen: 09/10/22 12:03 Renal function continues to improve with supportive measures/interventions; unfortunately, she continues to have on/off abdominal distension and tenderness. Exam Narrative: General: WD/WN female in NAD Heart: normal S1 and S2; no rub Lungs: clear but decreased at bases Abdomen: soft, nontender, nondistended, positive bowel sounds Extremities: no cyanosis or clubbing; no edema Skin: warm and dry Objective Data Vital Signs Vital Signs: Vital Signs Temp Pulse Resp BP Pulse Ox O2 Del Method 09/10/22 10:33 97.2 F L 74 18 144/89 H 99 09/10/22 08:00 Room Air 09/10/22 08:17 96 Room Air 09/10/22 04:00 97.6 F 63 20 121/82 99 09/10/22 01:10 138/78 09/10/22 00:00 98 F 88 20 156/86 H 98 09/09/22 20:42 140/89 09/09/22 20:00 97.9 F 67 20 157/77 H 99 09/09/22 19:40 Room Air 09/09/22 16:00 97.4 F L 70 20 139/79 100 Intake/Output Intake/Output: Intake & Output 09/07/22 09/08/22 09/09/22 09/10/22 23:59 23:59 23:59 23:59 Intake Total 2610 2600 3120 240 Output Total 842 002 1800 600 Balance 1910 1850 2020 -360 Meds/Results Medications: Active Medications Generic Name Dose Route Start Last Admin Trade Name Freq PRN Reason Stop Dose Admin Acetaminophen 650 mg 09/04/22 23:10 Acetaminophen 325 Mg Tablet PO Q4H PRN Mild Pain (1-3) or Fever Al Hydrox/Mg Hydrox/Simethicone 30 ml 09/07/22 13:37 09/07/22 14:19 Mag Hydrox/Al Hydrox/Simeth 30 Ml Udc PO 30 ml Q6H PRN Administration Indigestion Amlodipine Besylate 5 m
--- NOTE | 2022-09-10 12:03 | PM.PNNEP ---
Progress Note: A&P Assessment and Plan (1) KRISTEN (acute kidney injury): Code(s): N17.9 - Acute kidney failure, unspecified Status: Acute Assessment and Plan: improvement noted normal baseline renal function suspect volume depletion/prerenal azotemia based on her history evaluation to date: urine electrolytes are pre-renal renal ultrasound normal continue IVFs for now (given NPO status) follow trend of repeat labs (2) COVID-19: Code(s): U07.1 - COVID-19 Status: Acute Assessment and Plan: preumable cause of some of her admission symptoms not hypoxic or requiring supplemental oxygen holding dexamethasone and/or remdesivir follow respiratory status closely (3) Essential (primary) hypertension: Code(s): I10 - Essential (primary) hypertension Status: Chronic Assessment and Plan: reasonable control at this time follow trend of hemodynamics (4) Paroxysmal atrial fibrillation: Code(s): I48.0 - Paroxysmal atrial fibrillation Status: Chronic Assessment and Plan: rate control strategy not on systemic anticoagulation (5) Anemia: Code(s): D64.9 - Anemia, unspecified Status: Acute Assessment and Plan: somewhat of a chronic issue known history of iron deficiency - on iron supplements Given CTA findings, GI consulted follow H/H Given improvement in renal function, will continue to follow intermittently. Subjective Date/time seen: 09/10/22 12:03 Renal function continues to improve with supportive measures/interventions; unfortunately, she continues to have on/off abdominal distension and tenderness. Exam Narrative: General: WD/WN female in NAD Heart: normal S1 and S2; no rub Lungs: clear but decreased at bases Abdomen: soft, nontender, nondistended, positive bowel sounds Extremities: no cyanosis or clubbing; no edema Skin: warm and dry Objective Data Vital Signs Vital Signs: Vital Signs Temp Pulse Resp BP Pulse Ox O2 Del Method 09/10/22 10:33 97.2 F L 74 18 144/89 H 99 09/10/22 08:00 Room Air 09/10/22 08:17 96 Room Air 09/10/22 04:00 97.6 F 63 20 121/82 99 09/10/22 01:10 138/78 09/10/22 00:00 98 F 88 20 156/86 H 98 09/09/22 20:42 140/89 09/09/22 20:00 97.9 F 67 20 157/77 H 99 09/09/22 19:40 Room Air 09/09/22 16:00 97.4 F L 70 20 139/79 100 Intake/Output Intake/Output: Intake & Output 09/07/22 09/08/22 09/09/22 09/10/22 23:59 23:59 23:59 23:59 Intake Total 2610 2600 3120 240 Output Total 847 134 4950 600 Balance 1910 1850 2019 -360 Meds/Results Medications: Active Medications Generic Name Dose Route Start Last Admin Trade Name Freq PRN Reason Stop Dose Admin Acetaminophen 650 mg 09/04/22 23:10 Acetaminophen 325 Mg Tablet PO Q4H PRN Mild Pain (1-3) or Fever Al Hydrox/Mg Hydrox/Simethicone 30 ml 09/07/22 13:37 09/07/22 14:19 Mag Hydrox/Al Hydrox/Simeth 30 Ml Udc PO 30 ml Q6H PRN Administration Indigestion Amlodipine Besylate 5 mg 09/05/22 09:00 09/07/22 09:28 Amlodipine Besylate 5 Mg Tablet PO 5 mg QAM BENJI Administration Atenolol 25 mg 09/05/22 21:00 09/06/22 20:54 Atenolol 25 Mg Tablet PO 25 mg HS BENJI Administration Ergocalciferol 50,000 units 09/05/22 09:00 09/05/22 08:22 Ergocalciferol 50,000 Units Capsule PO 50,000 units We BENJI Administration Fentanyl Citrate 25 mcg 09/07/22 19:00 09/10/22 12:41 Fentanyl Citrate Inj (*Crx) 100 Mcg/2 Ml Vial IV PUSH 25 mcg Q3HR PRN Administration Pain Rated 6 or Greater Ferrous Sulfate 324 mg 09/06/22 08:00 09/07/22 09:28 Ferrous Sulfate 324 Mg Tablet PO 324 mg DAILY@0800 BENJI Administration Folic Acid 1 mg 09/06/22 09:00 09/07/22 09:28 Folic Acid 1 Mg Tablet PO 1 mg DAILY BENJI Administration Guaifenesin/Codeine Phosphate 10 ml 09/06/22 12:
[2022-09-10] MEDS: DEXTROSE 5%/0.45% SOD CHL 1,000 ML 75 ML IV CONT (12:33)
--- NOTE | 2022-09-10 15:31 | WPDGICN ---
Assessment and Plan Assessment and plan (1) Iron deficiency anemia due to chronic blood loss: Code(s): D50.0 - Iron deficiency anemia secondary to blood loss (chronic) Status: Acute Assessment and Plan: she has not seen evidence of bleeding but her iron levels are low. She has microcytic indices as well suggestive of chronic gastrointestinal blood loss. This will be investigated. She has received venofir. We will continue to monitor her blood counts. (2) Upper GI bleed: Code(s): K92.2 - Gastrointestinal hemorrhage, unspecified Status: Acute Assessment and Plan: CT scan suggest upper gastrointestinal bleeding from the distal esophagus. This would be consistent with esophagitis and fits her symptoms. She has been started on a proton pump inhibitor. I will schedule her for endoscopy to be done Saturday. (3) COVID: Code(s): U07.1 - COVID-19 Status: Acute Assessment and Plan: this was found On September 01 She is being isolated . At this point dexamethasone and remdesivir are being held. He had some cough but this is improving. (4) Ulcerative colitis, unspecified, without complications: Qualifiers: Ulcerative colitis location: unspecified ulcerative colitis location Qualified Code(s): K51.90 - Ulcerative colitis, unspecified, without complications Code(s): K51.90 - Ulcerative colitis, unspecified, without complications Status: Chronic Assessment and Plan: she has subtotal colectomy at [facility] by Dr. Castillo in 2003. 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 She had been maintained on a biologic but that was discontinued in December of this past year because of issues with coverage. (5) Chronic obstructive pulmonary disease, unspecified: Onset Date: ~08/2021 Qualifiers: COPD type: unspecified COPD Qualified Code(s): J44.9 - Chronic obstructive pulmonary disease, unspecified Code(s): J44.9 - Chronic obstructive pulmonary disease, unspecified Status: Chronic Assessment and Plan: She denies being short of breath at this time. (6) H/O of biological therapy treatment: Code(s): Z92.89 - Personal history of other medical treatment Status: Acute Assessment and Plan: Infliximab was being given intravenously every 8 weeks until December 2021 (7) Epigastric pain: Code(s): R10.13 - Epigastric pain Status: Acute Assessment and Plan: she is tender on palpation and has constant discomfort in this area. Peptic ulcer disease is suspected. She will be scheduled for endoscopy to be done tomorrow GI Consult Note Consult date/time: 09/10/22 15:31 HPI: Dior Robert is a 57 year old female with past medical history significant for hypertension, dyslipidemia, osteoporosis, GERD, ulcerative colitis, chronic pain, depression, peripheral neuropathy.? Patient presents to the emergency room due to generalized malaise, loss of appetite, shortness of breath, cough, fevers, chills, for the last few days or so.? Preliminary workup was significant for patient tested negative for influenza type A, type B tested positive for COVID-19.? She has been found to be quite anemic. A few days ago her hemoglobin was 9.1 it dropped to 7.8. Now is 8.1. She has been given Bentyl fair. She has been found to be low in iron with an iron level of only 13. She also had a positive stool Hemoccult. She has not seen blood in her stools. I should add that she has had subtotal colectomy in the past about 18 years ago, for ulcerative colitis. She has been treated on and off for pouchitis. 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 She had been on infusions of infliximab until about 8 months ago when insurance was not covering it and there was some problem getting it reinstated. She has been
[2022-09-10 16:06] LABS: CRP 1.5 mg/dL (<1.0)
[2022-09-10] MEDS: oxyCODONE (*CRX) 5 MG/5 ML ORAL SOLN IR 10 MG PO (17:44)
[2022-09-11] VITALS (8 sets, daily range): BP systolic 114–174; BP diastolic 58–87; PULSE 62–75; RESP 14–21; TEMP 36.1–36.6; O2SAT 98–100
[2022-09-11] MEDS: DEXTROSE 5%/0.45% SOD CHL 1,000 ML 75 ML IV CONT ×2 (00:01→15:44)
[2022-09-11 07:15] LABS: Anion Gap 9 mmol/L (8-16); Blood Urea Nitrogen 16 mg/dL (7-17); Calcium 8.3 mg/dL (8.4-10.2); Carbon Dioxide 21 mmol/L (22-30); Chloride 109 mmol/L (98-107); Estimated CRCL calculation 54 ml/min; Estimated Glomerular Filt Rate > 60; Glucose 128 mg/dL (65-110); Potassium 3.9 mmol/L (3.4-5.0); Sodium 139 mmol/L (137-145)
[2022-09-11] MEDS: oxyCODONE (*CRX) 5 MG/5 ML ORAL SOLN IR 10 MG PO ×3 (07:20→17:39)
[2022-09-11 07:21] LABS: Hematocrit 27.1 % (37.0-47.0); Hemoglobin 7.8 g/dL (12.0-15.0); Mean Corpuscular HGB Conc 28.8 g/dl (32-36); Mean Corpuscular Volume 76.6 fl (80-100); Mean Platelet Volume 9.6 fl (7.4-10.4); Platelet Count Result 437 k/mm3 (150-375); Red Blood Count 3.54 M/mm3 (4.2-5.4); Red Cell Distribution Width 21.7 % (11.5-14.5); White Blood Count 3.8 K/mm3 (4.5-10.0)
[2022-09-11] MEDS: SUCRALFATE SUSP 100 MG/ML 10 ML UDC 1000 MG PO ×3 (07:21→17:39)
[2022-09-11] MEDS: LIDOCAINE 5% PATCH 1 PATCH TRANSDERM (09:24)
[2022-09-11] MEDS: PANTOPRAZOLE SODIUM IV 40 MG VIAL IV PUSH ×2 (09:25→21:54)
--- NOTE | 2022-09-11 11:04 | WPDANESEPPF ---
Anes - Initial Pre Proc Eval Procedure: Operation Date: 09/11/22 13:30 Proposed Procedures p Esophagogastroduodenoscopy - Kip Zuñiga MD Date/Time: 09/11/22 11:04 Surgeon: Ernesto Hathaway MD Pre Op Diagnosis: covid, gloria, r/o PE Patient Data Age: 57 Gender: F Height: 1.65 m Weight: 60.3 kg Last Vital Signs Temp 97.3 F L 09/11/22 10:00 Pulse 70 09/11/22 10:00 Resp 16 09/11/22 10:00 BP 139/78 09/11/22 10:00 Pulse Ox 98 09/11/22 10:00 O2 Del Method Room Air 09/10/22 08:17 Allergies Allergy/AdvReac Type Severity Reaction Status Date / Time Sulfa (Sulfonamide Allergy Severe Swelling Verified 09/04/22 23:10 Antibiotics) of Lip/Tongue/Throat lidocaine AdvReac Unknown Chest Pain Verified 09/04/22 23:10 prednisone AdvReac Unknown NOT TO Verified 09/04/22 23:10 TAKE R/T MEDS triamcinolone [From Kenalog] AdvReac Unknown Unknown Verified 09/04/22 23:10 Home Medications Medication Instructions Recorded Confirmed Type alendronate 70 mg tablet 70 mg PO WEEKLY 03/31/20 09/05/22 History apremilast 30 mg tablet (Otezla) 30 mg PO BID 04/12/20 09/05/22 History aspirin 325 mg tablet 325 mg PO DAILY 04/12/20 09/05/22 History infliximab-dyyb 100 mg intravenous 100 mg IV MONTHLY 11/15/20 06/04/22 History solution (Inflectra) lansoprazole 30 mg capsule,delayed 30 mg PO QAM 11/15/20 09/05/22 History release (Prevacid) vitamin B complex (B 1 tablet PO WEEKLY 02/20/22 09/05/22 History Complex-Vitamin B12 tablet) atenolol 50 mg tablet 25 mg PO HS #45 tabs 04/17/22 09/05/22 Rx ergocalciferol (vitamin D2) 1,250 1,250 mcg PO WEEKLY #13 caps 06/12/22 09/05/22 Rx mcg (50,000 unit) capsule lorazepam 2 mg tablet 2 mg PO TID PRN anxiety #90 tabs 06/13/22 09/05/22 Rx oxycodone-acetaminophen 10 mg-325 1 tablet PO Q4H PRN Pain #180 tabs 08/23/22 09/05/22 Rx mg tablet amlodipine 5 mg tablet 5 mg PO QAM 09/05/22 09/05/22 History atorvastatin 40 mg tablet 40 mg PO QHS 09/05/22 09/05/22 History sertraline 100 mg tablet 100 mg PO QAM 09/05/22 09/05/22 History tiotropium 2.5 mcg-olodaterol 2.5 2 puff inhalation DAILY 09/05/22 09/05/22 History mcg/actuation mist for inhalation (Stiolto Respimat) Laboratory Tests 09/10/22 09/10/22 09/11/22 06:29 22:37 06:34 WBC 3.8 K/mm3 L K/mm3 (4.5-10.0) RBC 3.54 M/mm3 L M/mm3 (4.2-5.4) Hgb 7.8 g/dL L g/dL (12.0-15.0) Hct 27.1 % L % (37.0-47.0) MCV 76.6 fl L fl (80-100) MCH 22.0 pg L pg (26-34) MCHC 28.8 g/dl L g/dl (32-36) RDW 21.7 % H % (11.5-14.5) Plt Count 437 k/mm3 H k/mm3 (150-375) MPV 9.6 fl fl (7.4-10.4) Sodium Potassium Chloride Carbon Dioxide Anion Gap BUN Creatinine Estim Creat Clear Calc Estimated GFR Glucose Calcium C-Reactive Protein 1.5 mg/dL H mg/dL (<1.0) Stool Calprotectin Pending 09/11/22 06:34 WBC RBC Hgb Hct MCV MCH MCHC RDW Plt Count MPV Sodium 139 mmol/L mmol/L (137-145) Potassium 3.9 mmol/L mmol/L (3.4-5.0) Chloride 109 mmol/L H mmol/L (98-107) Carbon Dioxide 21 mmol/L L mmol/L (22-30) Anion Gap 9 mmol/L mmol/L (8-16) BUN 16 mg/dL mg/dL (7-17) Creatinine 0.90 mg/dL mg/dL (0.7-1.0) Estim Creat Clear Calc 54 ml/min ml/min Estimated GFR > 60 (59 - ) Glucose 128 mg/dL H mg/dL (65-110) Calcium 8.3 mg/dL L mg/dL (8.4-10.2) C-Reactive Protein Stool Calprotectin Patient hx anesthesia problems: none Family hx anesthesia problems: none Results Review: All pre-operative results and documents have been reviewed as part of the pre-operative evaluation. [facility] Past Medical History Med
--- NOTE | 2022-09-11 12:13 | PM.IMPN ---
Progress Note: A&P Assessment and Plan (1) KRISTEN (acute kidney injury): Code(s): N17.9 - Acute kidney failure, unspecified Status: Acute Assessment and Plan: BUN 51, creatinine 2.9, GFR 17; previously labs 2019 show normal renal function, however, she reports episodes of imaging having to be deferred to due to not being able to have contrast dye. Consulted nephrology and appreciate recommendations. Check urine sodium and creatinine - FENa 0.2% suggesting pre-renal cause. DC douglass catheter 09/07/22 Monitor strict I/O and daily weights. Avoid nephrotoxins Continue NS@100 mL/hour following contrast CTA. 09/08- BUN 25, creatinine 1.4, GFR 39. continues to improve. continue IV fluids due to GI symptoms and NPO status. Renal function stable after IV contrast. Renal US negative 09/09/22 continues to improve. Continue IV fluids until able to take PO. 09/10/22 returned to baseline. Continue IV fluids while NPO. stable (2) COVID-19: Code(s): U07.1 - COVID-19 Status: Acute Assessment and Plan: Patient tested positive for COVID19 5-7 days prior to admission. No supplemental O2 needs. Hold dexamethasone or remdesivir. Continue supportive care R/O PE - VQ scan low/intermediate risk PE. Treated with lovenox 1 mg/kg renal dosed- held starting 09/06 due to anemia Hgb 7.4. 09/07 Renal function improved. GFR >35. CTA chest negative for PE. Lovenox stopped. 09/09/22 No respiratory symptoms, except cough which is improving. Positive test day 09/01/22. Day 8 of quarantine. 09/10/22 stable. No O2 requirement or fevers. Day 9 quarantine 09/11/22 asymptomatic. Patient may be removed from quarantine tomorrow. (3) Upper GI bleed: Code(s): K92.2 - Gastrointestinal hemorrhage, unspecified Status: Acute Assessment and Plan: CTA chest obtained for PE protocol. Patient noted to have possible distal esophageal bleeding. She takes full strength aspirin 325 mg daily for afib and previous stroke. This was changed to 81 mg while treated for possible PE. Hgb 7.4. Was 9.1 on admission, previous labs from 2019 shows baseline 9-10. Iron panel suggests iron deficiency anemia Fecal occult blood positive Consult GI for evaluation and possible endoscopy. Trialed clear liquid diet, however, patient c/o increased bloating. Return to NPO. Carafate 1000 mg Q6 hours Lovenox and aspirin stopped 09/07. continue protonix 40 mg IV BID 09/08- Continue to trend H/H. Hgb increased 8.3 without infusion today. Continue to monitor. She does report bloating today after eating and reports symptoms intermittent since March. she was changed to NPO for now. 09/09/22 - Hgb 7.8-8.2, unchanged. CT abd/pelvis with increased distal bowel dilation w/wall thickening and increased free pelvic fluid concerning for IBD flare 09/10/22 unchanged. EGD in am. 09/11/22 awaiting EGD. Hgb 7.7 today. Vitals stable. (4) Iron deficiency anemia due to chronic blood loss: Code(s): D50.0 - Iron deficiency anemia secondary to blood loss (chronic) Status: Acute Assessment and Plan: H/H 7.4/26%, RDW 20.9, serum iron 13, TIBC 375 (high normal), saturation 3%, ferritin 25.5 (low normal). Given Venofer 200 mg IV x1 Started on iron supplement daily. She does have ulcerative colitis with majority of colon removed. CT concerning for esophageal bleeding. Trend H/H Hgb 7.5-8 (5) Chronic obstructive pulmonary disease, unspecified: Onset Date: ~08/2021 Qualifiers: COPD type: unspecified COPD Qualified Code(s): J44.9 - Chronic obstructive pulmonary disease, unspecified Code(s): J44.9 - Chronic obstructive pulmonary disease, unspecified Status: Chronic Assessment and Plan: Chronic, not in acute exacerbation, no active wheezing on physical exam. Continue home inhalers (6) Ulcerative colitis, unspecified, without complications: Qualifiers: Ulcerative colitis location: unspecified ulcerative coli
[2022-09-11] MEDS: LACTATED RINGERS 1,000 ML 150 ML IV CONT (13:48)
[2022-09-11] MEDS: SERTRALINE HCL 50 MG TABLET 100 MG PO (17:39)
[2022-09-11] MEDS: FUROSEMIDE INJ 40 MG/4 ML VIAL IV PUSH (21:42)
[2022-09-11] MEDS: LORazepam INJ (*CRX) 2 MG/ML VIAL 1 MG IV PUSH (21:53)
[2022-09-11] MEDS: hydrALAZINE HCL 20 MG/ML VIAL 10 MG IV PUSH (21:54)
[2022-09-12 00:30] VITALS: BP 126/74; PULSE 95; RESP 19; TEMP 36.4; O2SAT 96
[2022-09-12] MEDS: fentaNYL CITRATE INJ (*CRX) 100 MCG/2 ML VIAL 25 MCG IV PUSH ×2 (00:36→05:30)
[2022-09-12] MEDS: SUCRALFATE SUSP 100 MG/ML 10 ML UDC 1000 MG PO ×3 (05:30→17:28)
[2022-09-12 06:00] VITALS: BP 122/76; PULSE 108; RESP 18; TEMP 36.8; O2SAT 94
--- NOTE | 2022-09-12 07:18 | WPDGIPROGNO ---
Progress Note: A&P Assessment and Plan (1) Iron deficiency anemia due to chronic blood loss: Code(s): D50.0 - Iron deficiency anemia secondary to blood loss (chronic) Status: Acute Assessment and Plan: she has not seen evidence of bleeding but her iron levels are low. She has microcytic indices as well suggestive of chronic gastrointestinal blood loss. This will be investigated. She has received venofir. We will continue to monitor her blood counts. (2) Upper GI bleed: Code(s): K92.2 - Gastrointestinal hemorrhage, unspecified Status: Acute Assessment and Plan: CT scan suggest upper gastrointestinal bleeding from the distal esophagus. This would be consistent with esophagitis and fits her symptoms. She has been started on a proton pump inhibitor. I will schedule her for endoscopy to be done Saturday. 09/12/2022 EGD was negative for any bleeding in the esophagus. There was no esophagitis. Her Fercho fundoplication appeared to be intact. Biopsies of the antrum with a was mild focal gastritis are pending. If H.pylori is present we will treat accordingly. (3) COVID: Code(s): U07.1 - COVID-19 Status: Acute Assessment and Plan: this was found On September 01 She is being isolated . At this point dexamethasone and remdesivir are being held. She had some cough but this is improving. 09/12/2022 she has been taken off isolation (4) Ulcerative colitis, unspecified, without complications: Qualifiers: Ulcerative colitis location: unspecified ulcerative colitis location Qualified Code(s): K51.90 - Ulcerative colitis, unspecified, without complications Code(s): K51.90 - Ulcerative colitis, unspecified, without complications Status: Chronic Assessment and Plan: she has subtotal colectomy at [facility] by Dr. Castillo in 2003. 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 She had been maintained on a biologic but that was discontinued in December of this past year because of issues with coverage. 09/12/2022 fecal calprotectin is pending. Serology for Crohn's and colitis were negative. The findings on CT scan are suggestive of possible small-bowel inflammatory bowel disease. After discharge we will refer her back to her providers in [place] to allow them to determine if she should go back on a biologic. (5) Chronic obstructive pulmonary disease, unspecified: Onset Date: ~08/2021 Qualifiers: COPD type: unspecified COPD Qualified Code(s): J44.9 - Chronic obstructive pulmonary disease, unspecified Code(s): J44.9 - Chronic obstructive pulmonary disease, unspecified Status: Chronic Assessment and Plan: She denies being short of breath at this time. (6) H/O of biological therapy treatment: Code(s): Z92.89 - Personal history of other medical treatment Status: Acute Assessment and Plan: Infliximab was being given intravenously every 8 weeks until December 2021 I discussed her therapy in more detail. 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 This has not given her much difficulty lately. I question whether she needs biologic therapy at this point but we are awaiting fecal calprotectin (7) Epigastric pain: Code(s): R10.13 - Epigastric pain Status: Acute Assessment and Plan: she is tender on palpation and has constant discomfort in this area. Peptic ulcer disease is suspected. 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 There was no evidence of bleeding in the esophagus as was suggested on her C
--- NOTE | 2022-09-12 08:15 | P.PNIM_ITS ---
Progress Note: A&P Assessment and Plan (1) KRISTEN (acute kidney injury): Code(s): N17.9 - Acute kidney failure, unspecified Status: Acute Assessment and Plan: BUN 51, creatinine 2.9, GFR 17; previously labs 2020 show normal renal function, however, she reports episodes of imaging having to be deferred to due to not being able to have contrast dye. * Consulted nephrology and appreciate recommendations. * Check urine sodium and creatinine - FENa 0.2% suggesting pre-renal cause. * DC douglass catheter 09/07/22 * Monitor strict I/O and daily weights. * Avoid nephrotoxins * Continue NS@100 mL/hour following contrast CTA. * 09/08- BUN 25, creatinine 1.4, GFR 39. continues to improve. continue IV fluids due to GI symptoms and NPO status. Renal function stable after IV contrast. * Renal US negative * 09/09/22 continues to improve. Continue IV fluids until able to take PO. * 09/10/22 returned to baseline. Continue IV fluids while NPO. * 09/12/22 creatinine increased to 1.3 today. Patient states that she has not been consuming much by mouth. Encouraged patient to continue drinking. Patient states that she has not been able to eat much due to abdominal distension and pain associated with food. Patient states that she is unable to eat a regular diet. Change patient's diet to liquid diet and will assess how she tolerates this in the morning. (2) COVID-19: Code(s): U07.1 - COVID-19 Status: Acute Assessment and Plan: Patient tested positive for COVID19 5-7 days prior to admission. * No supplemental O2 needs. * Hold dexamethasone or remdesivir. * Continue supportive care * R/O PE - VQ scan low/intermediate risk PE. * Treated with lovenox 1 mg/kg renal dosed- held starting 09/06 due to anemia Hgb 7.4. * 09/07 Renal function improved. GFR >35. CTA chest negative for PE. Lovenox stopped. * 09/09/22 No respiratory symptoms, except cough which is improving. Positive test day 09/01/22. Day 8 of quarantine. * 09/10/22 stable. No O2 requirement or fevers. Day 9 quarantine * 09/11/22 asymptomatic. Patient may be removed from quarantine tomorrow. * 09/12/22 no longer requiring quarantine (3) Upper GI bleed: Code(s): K92.2 - Gastrointestinal hemorrhage, unspecified Status: Acute Assessment and Plan: CTA chest obtained for PE protocol. Patient noted to have possible distal esophageal bleeding. She takes full strength aspirin 325 mg daily for afib and previous stroke. This was changed to 81 mg while treated for possible PE. * Hgb 7.4. Was 9.1 on admission, previous labs from 2019 shows baseline 9-10. * Iron panel suggests iron deficiency anemia * Fecal occult blood positive * Consult GI for evaluation and possible endoscopy. * Trialed clear liquid diet, however, patient c/o increased bloating. Return to NPO. * Carafate 1000 mg Q6 hours * Lovenox and aspirin stopped 09/07. * continue protonix 40 mg IV BID * 09/08- Continue to trend H/H. Hgb increased 8.3 without infusion today. Continue to monitor. She does report bloating today after eating and reports symptoms intermittent since March. she was changed to NPO for now. * 09/09/22 - Hgb 7.8-8.2, unchanged. CT abd/pelvis with increased distal bowel dil ation w/wall thickening and increased free pelvic fluid concerning for IBD flare * 09/10/22 unchanged. EGD in am. * 09/11/22 awaiting EGD. Hgb 7.7 today. Vitals stable. * 09/12/22 EGD negative for bleeding/ulcer. Hemoglobin today 9.4. (4) Iron deficiency anemia due to chronic blood loss: Code(s): D50.0 - Iron deficiency anemia secondary to blood loss (chronic) Status: Acute
--- NOTE | 2022-09-12 08:15 | PM.IMPN ---
Progress Note: A&P Assessment and Plan (1) KRISTEN (acute kidney injury): Code(s): N17.9 - Acute kidney failure, unspecified Status: Acute Assessment and Plan: BUN 51, creatinine 2.9, GFR 17; previously labs 2020 show normal renal function, however, she reports episodes of imaging having to be deferred to due to not being able to have contrast dye. Consulted nephrology and appreciate recommendations. Check urine sodium and creatinine - FENa 0.2% suggesting pre-renal cause. DC douglass catheter 09/07/22 Monitor strict I/O and daily weights. Avoid nephrotoxins Continue NS@100 mL/hour following contrast CTA. 09/08- BUN 25, creatinine 1.4, GFR 39. continues to improve. continue IV fluids due to GI symptoms and NPO status. Renal function stable after IV contrast. Renal US negative 09/09/22 continues to improve. Continue IV fluids until able to take PO. 09/10/22 returned to baseline. Continue IV fluids while NPO. 09/12/22 creatinine increased to 1.3 today. Patient states that she has not been consuming much by mouth. Encouraged patient to continue drinking. Patient states that she has not been able to eat much due to abdominal distension and pain associated with food. Patient states that she is unable to eat a regular diet. Change patient's diet to liquid diet and will assess how she tolerates this in the morning. (2) COVID-19: Code(s): U07.1 - COVID-19 Status: Acute Assessment and Plan: Patient tested positive for COVID19 5-7 days prior to admission. No supplemental O2 needs. Hold dexamethasone or remdesivir. Continue supportive care R/O PE - VQ scan low/intermediate risk PE. Treated with lovenox 1 mg/kg renal dosed- held starting 09/06 due to anemia Hgb 7.4. 09/07 Renal function improved. GFR >35. CTA chest negative for PE. Lovenox stopped. 09/09/22 No respiratory symptoms, except cough which is improving. Positive test day 09/01/22. Day 8 of quarantine. 09/10/22 stable. No O2 requirement or fevers. Day 9 quarantine 09/11/22 asymptomatic. Patient may be removed from quarantine tomorrow. 09/12/22 no longer requiring quarantine (3) Upper GI bleed: Code(s): K92.2 - Gastrointestinal hemorrhage, unspecified Status: Acute Assessment and Plan: CTA chest obtained for PE protocol. Patient noted to have possible distal esophageal bleeding. She takes full strength aspirin 325 mg daily for afib and previous stroke. This was changed to 81 mg while treated for possible PE. Hgb 7.4. Was 9.1 on admission, previous labs from 2019 shows baseline 9-10. Iron panel suggests iron deficiency anemia Fecal occult blood positive Consult GI for evaluation and possible endoscopy. Trialed clear liquid diet, however, patient c/o increased bloating. Return to NPO. Carafate 1000 mg Q6 hours Lovenox and aspirin stopped 09/07. continue protonix 40 mg IV BID 09/08- Continue to trend H/H. Hgb increased 8.3 without infusion today. Continue to monitor. She does report bloating today after eating and reports symptoms intermittent since March. she was changed to NPO for now. 09/09/22 - Hgb 7.8-8.2, unchanged. CT abd/pelvis with increased distal bowel dilation w/wall thickening and increased free pelvic fluid concerning for IBD flare 09/10/22 unchanged. EGD in am. 09/11/22 awaiting EGD. Hgb 7.7 today. Vitals stable. 09/12/22 EGD negative for bleeding/ulcer. Hemoglobin today 9.4. (4) Iron deficiency anemia due to chronic blood loss: Code(s): D50.0 - Iron deficiency anemia secondary to blood loss (chronic) Status: Acute Assessment and Plan: H/H 7.4/26%, RDW 20.9, serum iron 13, TIBC 375 (high normal), saturation 3%, ferritin 25.5 (low normal). Given Venofer 200 mg IV x1 Started on iron supplement daily. She does have ulcerative colitis with majority of colon removed. CT concerning for esophageal bleeding. Trend H/H Hgb 7.5-8 (5) Chronic obstructive pulmonary disease, unspe
[2022-09-12 08:36] VITALS: O2SAT 98
[2022-09-12] MEDS: UMECLIDINIUM/VILANTEROL 62.5-25 MCG ELLIPTA 1 PUFF INHALATION (08:36)
[2022-09-12 09:24] LABS: Hematocrit 31.4 % (37.0-47.0); Hemoglobin 9.4 g/dL (12.0-15.0); Mean Corpuscular HGB Conc 29.9 g/dl (32-36); Mean Corpuscular Hemoglobin 22.5 pg (26-34); Mean Corpuscular Volume 75.3 fl (80-100); Mean Platelet Volume 8.9 fl (7.4-10.4); Platelet Count Result 437 k/mm3 (150-375); Red Blood Count 4.17 M/mm3 (4.2-5.4); Red Cell Distribution Width 22.8 % (11.5-14.5); White Blood Count 3.4 K/mm3 (4.5-10.0)
[2022-09-12] MEDS: LIDOCAINE 5% PATCH 1 PATCH TRANSDERM (09:24)
[2022-09-12] MEDS: FERROUS SULFATE 324 MG TABLET PO (09:25)
[2022-09-12] MEDS: PANTOPRAZOLE SODIUM IV 40 MG VIAL IV PUSH ×2 (09:25→22:13)
[2022-09-12] MEDS: FOLIC ACID 1 MG TABLET PO (09:25)
[2022-09-12] MEDS: amLODIPine BESYLATE 5 MG TABLET PO (09:25)
[2022-09-12] MEDS: ERGOCALCIFEROL 50,000 UNITS CAPSULE 50000 UNITS PO (09:25)
[2022-09-12] MEDS: LORazepam INJ (*CRX) 2 MG/ML VIAL 1 MG IV PUSH ×2 (09:32→22:18)
[2022-09-12 09:50] LABS: Anion Gap 12 mmol/L (8-16); Blood Urea Nitrogen 13 mg/dL (7-17); Calcium 8.9 mg/dL (8.4-10.2); Carbon Dioxide 22 mmol/L (22-30); Chloride 106 mmol/L (98-107); Estimated CRCL calculation 38 ml/min; Estimated Glomerular Filt Rate 42; Glucose 90 mg/dL (65-110); Potassium 3.1 mmol/L (3.4-5.0); Sodium 140 mmol/L (137-145)
[2022-09-12] MEDS: oxyCODONE (*CRX) 5 MG/5 ML ORAL SOLN IR 10 MG PO ×2 (12:00→18:47)
[2022-09-12] MEDS: ONDANSETRON INJ 4 MG/2 ML VIAL IV PUSH (12:01)
[2022-09-12 13:52] VITALS: BP 116/77; PULSE 115; RESP 20; TEMP 36.7; O2SAT 95
[2022-09-12] MEDS: SERTRALINE HCL 50 MG TABLET 100 MG PO (17:28)
[2022-09-12] MEDS: POTASSIUM CHLORIDE 20 MEQ PACKET (FOR LIQUID) 40 MEQ PO (17:30)
[2022-09-12 22:00] VITALS: BP 134/80; PULSE 99; RESP 20; TEMP 36.3; O2SAT 99
[2022-09-13] MEDS: SUCRALFATE SUSP 100 MG/ML 10 ML UDC 1000 MG PO ×5 (00:08→23:22)
[2022-09-13] MEDS: oxyCODONE (*CRX) 5 MG/5 ML ORAL SOLN IR 10 MG PO ×5 (00:08→23:22)
[2022-09-13 06:00] VITALS: BP 104/71; PULSE 84; RESP 18; TEMP 36.2; O2SAT 95
[2022-09-13 06:48] LABS: Hematocrit 31.8 % (37.0-47.0); Hemoglobin 9.3 g/dL (12.0-15.0); Mean Corpuscular HGB Conc 29.2 g/dl (32-36); Mean Corpuscular Hemoglobin 22.8 pg (26-34); Mean Corpuscular Volume 77.9 fl (80-100); Mean Platelet Volume 9.4 fl (7.4-10.4); Platelet Count Result 407 k/mm3 (150-375); Red Blood Count 4.08 M/mm3 (4.2-5.4); Red Cell Distribution Width 23.4 % (11.5-14.5); White Blood Count 3.3 K/mm3 (4.5-10.0)
[2022-09-13 07:04] LABS: Alanine Aminotransferase 14 U/L (6-35); Alkaline Phosphatase 98 U/L (38-126); Anion Gap 10 mmol/L (8-16); Aspartate Amino Transferase 40 U/L (14-36); Bilirubin,Total 0.6 mg/dL (0.2-1.3); Blood Urea Nitrogen 12 mg/dL (7-17); Calcium 8.9 mg/dL (8.4-10.2); Carbon Dioxide 24 mmol/L (22-30); Chloride 107 mmol/L (98-107); Estimated CRCL calculation 34 ml/min; Estimated Glomerular Filt Rate 36; Glucose 92 mg/dL (65-110); Sodium 141 mmol/L (137-145)
--- NOTE | 2022-09-13 08:57 | P.PNIM_ITS ---
Progress Note: A&P Assessment and Plan (1) KRISTEN (acute kidney injury): Code(s): N17.9 - Acute kidney failure, unspecified Status: Acute Assessment and Plan: BUN 51, creatinine 2.9, GFR 17; previously labs 2020 show normal renal function, however, she reports episodes of imaging having to be deferred to due to not being able to have contrast dye. * Consulted nephrology and appreciate recommendations. * Check urine sodium and creatinine - FENa 0.2% suggesting pre-renal cause. * DC douglass catheter 09/07/22 * Monitor strict I/O and daily weights. * Avoid nephrotoxins * Continue NS@100 mL/hour following contrast CTA. * 09/08- BUN 25, creatinine 1.4, GFR 39. continues to improve. continue IV fluids due to GI symptoms and NPO status. Renal function stable after IV contrast. * Renal US negative * 09/09/22 continues to improve. Continue IV fluids until able to take PO. * 09/10/22 returned to baseline. Continue IV fluids while NPO. * 09/12/22 creatinine increased to 1.3 today. Patient states that she has not been consuming much by mouth. Encouraged patient to continue drinking. Patient states that she has not been able to eat much due to abdominal distension and pain associated with food. Patient states that she is unable to eat a regular diet. Change patient's diet to liquid diet and will assess how she tolerates this in the morning. * 09/13/22 Patient unable to consume fluids and food by mouth due to abdominal pain and distention. Order urine Na and Cr. Patient venous score of 0.1% indicating prerenal. Patient has had mildly low potassium. Potassium chloride/D5/sodium chloride started on patient. * Recheck labs in the morning. (2) COVID-19: Code(s): U07.1 - COVID-19 Status: Acute Assessment and Plan: Patient tested positive for COVID19 5-7 days prior to admission. * No supplemental O2 needs. * Hold dexamethasone or remdesivir. * Continue supportive care * R/O PE - VQ scan low/intermediate risk PE. * Treated with lovenox 1 mg/kg renal dosed- held starting 09/06 due to anemia Hgb 7.4. * 09/07 Renal function improved. GFR >35. CTA chest negative for PE. Lovenox stopped. * 09/09/22 No respiratory symptoms, except cough which is improving. Positive test day 09/01/22. Day 8 of quarantine. * 09/10/22 stable. No O2 requirement or fevers. Day 9 quarantine * 09/11/22 asymptomatic. Patient may be removed from quarantine tomorrow. * 09/12/22 no longer requiring quarantine (3) Upper GI bleed: Code(s): K92.2 - Gastrointestinal hemorrhage, unspecified Status: Acute Assessment and Plan: CTA chest obtained for PE protocol. Patient noted to have possible distal esophageal bleeding. She takes full strength aspirin 325 mg daily for afib and previous stroke. This was changed to 81 mg while treated for possible PE. * Hgb 7.4. Was 9.1 on admission, previous labs from 2019 shows baseline 9-10. * Iron panel suggests iron deficiency anemia * Fecal occult blood positive * Consult GI for evaluation and possible endoscopy. * Trialed clear liquid diet, however, patient c/o increased bloating. Return to NPO. * Carafate 1000 mg Q6 hours * Lovenox and aspirin stopped 09/07. * continue protonix 40 mg IV BID * 09/08- Continue to trend H/H. Hgb increased 8.3 without infusion today. Continue to monitor. She does report bloating today after eating and reports symptoms intermittent since March. she was changed to NPO for now. * 09/09/22 - Hgb 7.8-8.2, unchanged. CT abd/pelvis with increased distal bowel dilation w/wall thickening and increased free pelvic fluid concerning for IBD flare * 09/10/22 unchanged.
--- NOTE | 2022-09-13 08:57 | PM.IMPN ---
Progress Note: A&P Assessment and Plan (1) KRISTEN (acute kidney injury): Code(s): N17.9 - Acute kidney failure, unspecified Status: Acute Assessment and Plan: BUN 51, creatinine 2.9, GFR 17; previously labs 2020 show normal renal function, however, she reports episodes of imaging having to be deferred to due to not being able to have contrast dye. Consulted nephrology and appreciate recommendations. Check urine sodium and creatinine - FENa 0.2% suggesting pre-renal cause. DC douglass catheter 09/07/22 Monitor strict I/O and daily weights. Avoid nephrotoxins Continue NS@100 mL/hour following contrast CTA. 09/08- BUN 25, creatinine 1.4, GFR 39. continues to improve. continue IV fluids due to GI symptoms and NPO status. Renal function stable after IV contrast. Renal US negative 09/09/22 continues to improve. Continue IV fluids until able to take PO. 09/10/22 returned to baseline. Continue IV fluids while NPO. 09/12/22 creatinine increased to 1.3 today. Patient states that she has not been consuming much by mouth. Encouraged patient to continue drinking. Patient states that she has not been able to eat much due to abdominal distension and pain associated with food. Patient states that she is unable to eat a regular diet. Change patient's diet to liquid diet and will assess how she tolerates this in the morning. 09/13/22 Patient unable to consume fluids and food by mouth due to abdominal pain and distention. Order urine Na and Cr. Patient venous score of 0.1% indicating prerenal. Patient has had mildly low potassium. Potassium chloride/D5/sodium chloride started on patient. Recheck labs in the morning. (2) COVID-19: Code(s): U07.1 - COVID-19 Status: Acute Assessment and Plan: Patient tested positive for COVID19 5-7 days prior to admission. No supplemental O2 needs. Hold dexamethasone or remdesivir. Continue supportive care R/O PE - VQ scan low/intermediate risk PE. Treated with lovenox 1 mg/kg renal dosed- held starting 09/06 due to anemia Hgb 7.4. 09/07 Renal function improved. GFR >35. CTA chest negative for PE. Lovenox stopped. 09/09/22 No respiratory symptoms, except cough which is improving. Positive test day 09/01/22. Day 8 of quarantine. 09/10/22 stable. No O2 requirement or fevers. Day 9 quarantine 09/11/22 asymptomatic. Patient may be removed from quarantine tomorrow. 09/12/22 no longer requiring quarantine (3) Upper GI bleed: Code(s): K92.2 - Gastrointestinal hemorrhage, unspecified Status: Acute Assessment and Plan: CTA chest obtained for PE protocol. Patient noted to have possible distal esophageal bleeding. She takes full strength aspirin 325 mg daily for afib and previous stroke. This was changed to 81 mg while treated for possible PE. Hgb 7.4. Was 9.1 on admission, previous labs from 2019 shows baseline 9-10. Iron panel suggests iron deficiency anemia Fecal occult blood positive Consult GI for evaluation and possible endoscopy. Trialed clear liquid diet, however, patient c/o increased bloating. Return to NPO. Carafate 1000 mg Q6 hours Lovenox and aspirin stopped 09/07. continue protonix 40 mg IV BID 09/08- Continue to trend H/H. Hgb increased 8.3 without infusion today. Continue to monitor. She does report bloating today after eating and reports symptoms intermittent since March. she was changed to NPO for now. 09/09/22 - Hgb 7.8-8.2, unchanged. CT abd/pelvis with increased distal bowel dilation w/wall thickening and increased free pelvic fluid concerning for IBD flare 09/10/22 unchanged. EGD in am. 09/11/22 awaiting EGD. Hgb 7.7 today. Vitals stable. 09/12/22 EGD negative for bleeding/ulcer. Hemoglobin today 9.4. 09/13/22 hemoglobin stable. Patient still having abdominal distension with food. Order KUB, patient could have gastroparesis. (4) Iron deficiency anemia due to chronic blood loss: Code(s): D50.0 - Iron deficiency anemia secondar
[2022-09-13] MEDS: amLODIPine BESYLATE 5 MG TABLET PO (09:40)
[2022-09-13] MEDS: PANTOPRAZOLE SODIUM IV 40 MG VIAL IV PUSH ×2 (09:41→21:02)
[2022-09-13] MEDS: FOLIC ACID 1 MG TABLET PO (09:41)
[2022-09-13] MEDS: VITAMIN B COMPLEX CAPSULE 1 CAP PO (09:42)
[2022-09-13] MEDS: FERROUS SULFATE 324 MG TABLET PO (09:42)
[2022-09-13] MEDS: LORazepam INJ (*CRX) 2 MG/ML VIAL 1 MG IV PUSH ×3 (09:59→23:28)
[2022-09-13] MEDS: UMECLIDINIUM/VILANTEROL 62.5-25 MCG ELLIPTA 1 PUFF INHALATION ×2 (10:35→10:37)
[2022-09-13 12:02] LABS: Sodium Urine Random 12 meq/L
[2022-09-13 14:08] VITALS: BP 104/71; PULSE 95; RESP 16; TEMP 36.6; O2SAT 96
[2022-09-13] MEDS: fentaNYL CITRATE INJ (*CRX) 100 MCG/2 ML VIAL 25 MCG IV PUSH ×3 (14:17→21:08)
[2022-09-13] MEDS: POTASSIUM CHLORIDE 20 MEQ PACKET (FOR LIQUID) 40 MEQ PO (16:37)
[2022-09-13] MEDS: KCL 40 MEQ/D5/0.9% SOD CHL 1,000 ML 100 ML IV CONT (16:38)
[2022-09-13] MEDS: SERTRALINE HCL 50 MG TABLET 100 MG PO (17:47)
[2022-09-13 22:00] VITALS: BP 103/71; PULSE 97; RESP 18; TEMP 36.3; O2SAT 99
[2022-09-14] MEDS: fentaNYL CITRATE INJ (*CRX) 100 MCG/2 ML VIAL 25 MCG IV PUSH ×7 (00:38→21:09)
[2022-09-14] MEDS: KCL 40 MEQ/D5/0.9% SOD CHL 1,000 ML 100 ML IV CONT ×2 (03:38→14:23)
[2022-09-14 06:00] VITALS: BP 95/62; PULSE 104; RESP 18; TEMP 36.6; O2SAT 94
[2022-09-14 07:12] LABS: Basophils Percent Auto 0.6 % (0.2-1.2); Eosinophils Absolute Auto 0.1 K/mm3 (0-0.3); Eosinophils Percent Auto 2.9 % (0-4.4); Hematocrit 31.3 % (37.0-47.0); Hemoglobin 9.2 g/dL (12.0-15.0); Immature Granulocyte Absolute 0.02 K/mm3 (0.00-0.031); Immature Granulocyte Percent A 0.6 % (0-0.5); Lymphocytes Absolute Auto 0.77 K/mm3 (0.9-3.2); Lymphocytes Percent Auto 22.7 % (18.3-44.2); Mean Corpuscular HGB Conc 29.4 g/dl (32-36); Mean Corpuscular Hemoglobin 22.7 pg (26-34); Mean Corpuscular Volume 77.1 fl (80-100); Mean Platelet Volume 9.5 fl (7.4-10.4); Monocytes Absolute Auto 0.6 K/mm3 (0.1-0.6); Monocytes Percent Auto 17.1 % (2.6-8.5); Neutrophils Absolute Auto 1.9 K/mm3 (1.3-6.7); Neutrophils Percent Auto 56.1 % (45.5-73.1); Platelet Count Result 401 k/mm3 (150-375); Red Blood Count 4.06 M/mm3 (4.2-5.4); Red Cell Distribution Width 23.6 % (11.5-14.5); White Blood Count 3.4 K/mm3 (4.5-10.0)
[2022-09-14 07:26] LABS: Alanine Aminotransferase 14 U/L (6-35); Albumin Level 3.9 g/dL (3.5-5.1); Alkaline Phosphatase 95 U/L (38-126); Anion Gap 7 mmol/L (8-16); Aspartate Amino Transferase 34 U/L (14-36); Bilirubin,Total 0.6 mg/dL (0.2-1.3); Blood Urea Nitrogen 11 mg/dL (7-17); Calcium 8.7 mg/dL (8.4-10.2); Carbon Dioxide 25 mmol/L (22-30); Chloride 109 mmol/L (98-107); Estimated CRCL calculation 30 ml/min; Estimated Glomerular Filt Rate 31; Glucose 114 mg/dL (65-110); Potassium 4.1 mmol/L (3.4-5.0); Sodium 141 mmol/L (137-145)
[2022-09-14 07:50] LABS: Platelet Estimate Adequate (Adequate); Schistocytes Rare (NORMAL)
[2022-09-14 07:51] LABS: Anisocytosis 2+ (NORMAL); Hypochromasia 2+ (NORMAL); Macrocytosis 1+ (NORMAL); Microcytosis 1+ (NORMAL); Target Cells 1+ (NORMAL)
[2022-09-14 07:52] LABS: Atypical Lymphocytes Present
[2022-09-14] MEDS: PANTOPRAZOLE SODIUM IV 40 MG VIAL IV PUSH ×2 (08:12→21:25)
[2022-09-14] MEDS: amLODIPine BESYLATE 5 MG TABLET PO (08:12)
[2022-09-14] MEDS: FOLIC ACID 1 MG TABLET PO (08:12)
[2022-09-14] MEDS: FERROUS SULFATE 324 MG TABLET PO (08:12)
[2022-09-14 11:27] VITALS: BMI 22.1
[2022-09-14] MEDS: LORazepam INJ (*CRX) 2 MG/ML VIAL 1 MG IV PUSH ×2 (11:38→18:25)
--- NOTE | 2022-09-14 12:52 | PM.PNNEP ---
Progress Note: A&P Assessment and Plan (1) KRISTEN (acute kidney injury): Code(s): N17.9 - Acute kidney failure, unspecified Status: Acute Assessment and Plan: noted again by labs in the last few days normal baseline renal function HOWEVER, she states contrast studies have been deferred at times due to her kidney function suspect her creatinine fluctuates event at baseline still suspect volume depletion/prerenal azotemia based on her history and ongoing testing evaluation to date: initial urine electrolytes (on 09/05) are pre-renal repeat urine electrolytes (on 09/13/22) are still prerenal renal ultrasound normal perhaps relative hypotension partly to blame... had been running in the 150s - 160s systolic on admission several days with 90s - 120s systolic BPs consider holding or reducing BP medications use of narcotics maybe artificially keeping BP on the lower end as well continue IVFs for now (given poor oral intake) not opposed to increasing IVF rate follow trend of repeat labs (2) COVID-19: Code(s): U07.1 - COVID-19 Status: Acute Assessment and Plan: preumable cause of some of her admission symptoms not hypoxic or requiring supplemental oxygen holding dexamethasone and/or remdesivir follow respiratory status closely is this playing a role with #1(?) (3) Essential (primary) hypertension: Code(s): I10 - Essential (primary) hypertension Status: Chronic Assessment and Plan: reasonable control at this time perhaps too well controlled consider backing off on BP medications or place parameters follow trend of hemodynamics (4) Paroxysmal atrial fibrillation: Code(s): I48.0 - Paroxysmal atrial fibrillation Status: Chronic Assessment and Plan: rate control strategy not on systemic anticoagulation (5) Anemia: Code(s): D64.9 - Anemia, unspecified Status: Acute Assessment and Plan: somewhat of a chronic issue known history of iron deficiency - on iron supplements Given CTA findings, GI following s/p EGD with findings noted follow H/H Discussed case with ISIAH Cali. Will continue to follow. Subjective Date/time seen: 09/14/22 12:52 Renal function deteriorating as noted by labs in the last 24 - 48 hours; she reports that still has not been able to eat and drink well in general due to abdominal discomfort and bloating; concerning this worsening of kidney function occured despite ongoing IVFs. Exam Narrative: General: WD/WN female in NAD Heart: normal S1 and S2; no rub Lungs: clear anteriorly Abdomen: soft, nontender, positive bowel sounds Extremities: no cyanosis or clubbing; no edema Skin: warm and intat Objective Data Vital Signs Vital Signs: Vital Signs Temp Pulse Resp BP Pulse Ox O2 Del Method 09/14/22 08:00 Room Air 09/14/22 06:00 97.8 F 104 H 18 95/62 L 94 09/13/22 22:00 97.4 F L 97 18 103/71 99 09/13/22 20:00 Room Air Intake/Output Intake/Output: Intake & Output 09/11/22 09/12/22 09/13/22 09/14/22 23:59 23:59 23:59 23:59 Intake Total 2300 840 1160 2622 Output Total 1300 1600 1100 500 Balance 1000 -697 28 5568 Meds/Results Medications: Active Medications Generic Name Dose Route Start Last Admin Trade Name Freq PRN Reason Stop Dose Admin Acetaminophen 650 mg 09/04/22 23:10 Acetaminophen 325 Mg Tablet PO Q4H PRN Mild Pain (1-3) or Fever Al Hydrox/Mg Hydrox/Simethicone 30 ml 09/07/22 13:37 09/07/22 14:19 Mag Hydrox/Al Hydrox/Simeth 30 Ml Udc PO 30 ml Q6H PRN Administration Indigestion Amlodipine Besylate 5 mg 09/05/22 09:00 09/14/22 08:12 Amlodipine Besylate 5 Mg Tablet PO 5 mg QAM BENJI Administration Atenolol 25 mg 09/05/22 21:00 09/06/22 20:54 Atenolol 25 Mg Tablet PO 25 mg HS BENJI Administration Ergocalciferol 50,000 units 09/12/22
--- NOTE | 2022-09-14 12:52 | P.PNNP_ITS ---
Progress Note: A&P Assessment and Plan (1) KRISTEN (acute kidney injury): Code(s): N17.9 - Acute kidney failure, unspecified Status: Acute Assessment and Plan: * noted again by labs in the last few days * normal baseline renal function * HOWEVER, she states contrast studies have been deferred at times due to her kidney function * suspect her creatinine fluctuates event at baseline * still suspect volume depletion/prerenal azotemia based on her history and ongoing testing * evaluation to date: * initial urine electrolytes (on 09/05) are pre-renal * repeat urine electrolytes (on 09/13/22) are still prerenal * renal ultrasound normal * perhaps relative hypotension partly to blame... * had been running in the 150s - 160s systolic on admission * several days with 90s - 120s systolic BPs * consider holding or reducing BP medications * use of narcotics maybe artificially keeping BP on the lower end as well * continue IVFs for now (given poor oral intake) * not opposed to increasing IVF rate * follow trend of repeat labs (2) COVID-19: Code(s): U07.1 - COVID-19 Status: Acute Assessment and Plan: * preumable cause of some of her admission symptoms * not hypoxic or requiring supplemental oxygen * holding dexamethasone and/or remdesivir * follow respiratory status closely * is this playing a role with #1(?) (3) Essential (primary) hypertension: Code(s): I10 - Essential (primary) hypertension Status: Chronic Assessment and Plan: * reasonable control at this time * perhaps too well controlled * consider backing off on BP medications or place parameters * follow trend of hemodynamics (4) Paroxysmal atrial fibrillation: Code(s): I48.0 - Paroxysmal atrial fibrillation Status: Chronic Assessment and Plan: * rate control strategy * not on systemic anticoagulation (5) Anemia: Code(s): D64.9 - Anemia, unspecified Status: Acute Assessment and Plan: * somewhat of a chronic issue * known history of iron deficiency - on iron supplements * Given CTA findings, GI following * s/p EGD with findings noted * follow H/H Discussed case with ISIAH Cali. Will continue to follow. Subjective Date/time seen: 09/14/22 12:52 Renal function deteriorating as noted by labs in the last 24 - 48 hours; she reports that still has not been able to eat and drink well in general due to abdominal discomfort and bloating; concerning this worsening of kidney function occured despite ongoing IVFs. Exam Narrative: General: WD/WN female in NAD Heart: normal S1 and S2; no rub Lungs: clear anteriorly Abdomen: soft, nontender, positive bowel sounds Extremities: no cyanosis or clubbing; no edema Skin: warm and intat Objective Data Vital Signs Vital Signs: Vital Signs Temp Pulse Resp BP Pulse Ox O2 Del Method 09/14/22 08:00 Room Air 09/14/22 06:00 97.8 F 104 H 18 95/62 L 94 09/13/22 22:00 97.4 F L 97 18 103/71 99 09/13/22 20:00 Room Air Intake/Output Intake/Output: Intake & Output 09/11/22 09/12/22 09/13/22 09/14/22 23:59 23:59 23:59 23:59 Intake Total 2300 840 1160 2622 Output Total 1300 1600 1100 500 Balance 1000 -760 60 2
--- NOTE | 2022-09-14 13:53 | P.PNIM_ITS ---
Progress Note: A&P Assessment and Plan (1) KRISTEN (acute kidney injury): Code(s): N17.9 - Acute kidney failure, unspecified Status: Acute Assessment and Plan: BUN 51, creatinine 2.9, GFR 17; previously labs 2020 show normal renal function, however, she reports episodes of imaging having to be deferred to due to not being able to have contrast dye. * Consulted nephrology and appreciate recommendations. * Check urine sodium and creatinine - FENa 0.2% suggesting pre-renal cause. * DC douglass catheter 09/07/22 * Monitor strict I/O and daily weights. * Avoid nephrotoxins * Continue NS@100 mL/hour following contrast CTA. * 09/08- BUN 25, creatinine 1.4, GFR 39. continues to improve. continue IV fluids due to GI symptoms and NPO status. Renal function stable after IV contrast. * Renal US negative * 09/09/22 continues to improve. Continue IV fluids until able to take PO. * 09/10/22 returned to baseline. Continue IV fluids while NPO. * 09/12/22 creatinine increased to 1.3 today. Patient states that she has not been consuming much by mouth. Encouraged patient to continue drinking. Patient states that she has not been able to eat much due to abdominal distension and pain associated with food. Patient states that she is unable to eat a regular diet. Change patient's diet to liquid diet and will assess how she tolerates this in the morning. * 09/13/22 Patient unable to consume fluids and food by mouth due to abdominal pain and distention. Order urine Na and Cr. Patient venous score of 0.1% indicating prerenal. Patient has had mildly low potassium. Potassium chloride/D5/sodium chloride started on patient. * Recheck labs in the morning. * 09/14/22 discussed patients renal function with Dr. San and he advised keeping her on fluids for now and rechecking tomorrow. (2) COVID-19: Code(s): U07.1 - COVID-19 Status: Acute Assessment and Plan: Patient tested positive for COVID19 5-7 days prior to admission. * No supplemental O2 needs. * Hold dexamethasone or remdesivir. * Continue supportive care * R/O PE - VQ scan low/intermediate risk PE. * Treated with lovenox 1 mg/kg renal dosed- held starting 09/06 due to anemia Hgb 7.4. * 09/07 Renal function improved. GFR >35. CTA chest negative for PE. Lovenox stopped. * 09/09/22 No respiratory symptoms, except cough which is improving. Positive test day 09/01/22. Day 8 of quarantine. * 09/10/22 stable. No O2 requirement or fevers. Day 9 quarantine * 09/11/22 asymptomatic. Patient may be removed from quarantine tomorrow. * 09/12/22 no longer requiring quarantine (3) Upper GI bleed: Code(s): K92.2 - Gastrointestinal hemorrhage, unspecified Status: Acute Assessment and Plan: CTA chest obtained for PE protocol. Patient noted to have possible distal esophageal bleeding. She takes full strength aspirin 325 mg daily for afib and previous stroke. This was changed to 81 mg while treated for possible PE. * Hgb 7.4. Was 9.1 on admission, previous labs from 2019 shows baseline 9-10. * Iron panel suggests iron deficiency anemia * Fecal occult blood positive * Consult GI for evaluation and possible endoscopy. * Trialed clear liquid diet, however, patient c/o increased bloating. Return to NPO. * Carafate 1000 mg Q6 hours * Lovenox and aspirin stopped 09/07. * continue protonix 40 mg IV BID * 09/08- Continue to trend H/H. Hgb increased 8.3 without infusion today. Continue to monitor. She does report bloating today after eating and reports symptoms intermittent since March. she was changed to NPO for now. * 09/09/22 - Hgb 7.8-8.2, unchanged. CT abd/pelvis with inc
--- NOTE | 2022-09-14 13:53 | PM.IMPN ---
Progress Note: A&P Assessment and Plan (1) KRISTEN (acute kidney injury): Code(s): N17.9 - Acute kidney failure, unspecified Status: Acute Assessment and Plan: BUN 51, creatinine 2.9, GFR 17; previously labs 2020 show normal renal function, however, she reports episodes of imaging having to be deferred to due to not being able to have contrast dye. Consulted nephrology and appreciate recommendations. Check urine sodium and creatinine - FENa 0.2% suggesting pre-renal cause. DC douglass catheter 09/07/22 Monitor strict I/O and daily weights. Avoid nephrotoxins Continue NS@100 mL/hour following contrast CTA. 09/08- BUN 25, creatinine 1.4, GFR 39. continues to improve. continue IV fluids due to GI symptoms and NPO status. Renal function stable after IV contrast. Renal US negative 09/09/22 continues to improve. Continue IV fluids until able to take PO. 09/10/22 returned to baseline. Continue IV fluids while NPO. 09/12/22 creatinine increased to 1.3 today. Patient states that she has not been consuming much by mouth. Encouraged patient to continue drinking. Patient states that she has not been able to eat much due to abdominal distension and pain associated with food. Patient states that she is unable to eat a regular diet. Change patient's diet to liquid diet and will assess how she tolerates this in the morning. 09/13/22 Patient unable to consume fluids and food by mouth due to abdominal pain and distention. Order urine Na and Cr. Patient venous score of 0.1% indicating prerenal. Patient has had mildly low potassium. Potassium chloride/D5/sodium chloride started on patient. Recheck labs in the morning. 09/14/22 discussed patients renal function with Dr. San and he advised keeping her on fluids for now and rechecking tomorrow. (2) COVID-19: Code(s): U07.1 - COVID-19 Status: Acute Assessment and Plan: Patient tested positive for COVID19 5-7 days prior to admission. No supplemental O2 needs. Hold dexamethasone or remdesivir. Continue supportive care R/O PE - VQ scan low/intermediate risk PE. Treated with lovenox 1 mg/kg renal dosed- held starting 09/06 due to anemia Hgb 7.4. 09/07 Renal function improved. GFR >35. CTA chest negative for PE. Lovenox stopped. 09/09/22 No respiratory symptoms, except cough which is improving. Positive test day 09/01/22. Day 8 of quarantine. 09/10/22 stable. No O2 requirement or fevers. Day 9 quarantine 09/11/22 asymptomatic. Patient may be removed from quarantine tomorrow. 09/12/22 no longer requiring quarantine (3) Upper GI bleed: Code(s): K92.2 - Gastrointestinal hemorrhage, unspecified Status: Acute Assessment and Plan: CTA chest obtained for PE protocol. Patient noted to have possible distal esophageal bleeding. She takes full strength aspirin 325 mg daily for afib and previous stroke. This was changed to 81 mg while treated for possible PE. Hgb 7.4. Was 9.1 on admission, previous labs from 2019 shows baseline 9-10. Iron panel suggests iron deficiency anemia Fecal occult blood positive Consult GI for evaluation and possible endoscopy. Trialed clear liquid diet, however, patient c/o increased bloating. Return to NPO. Carafate 1000 mg Q6 hours Lovenox and aspirin stopped 09/07. continue protonix 40 mg IV BID 09/08- Continue to trend H/H. Hgb increased 8.3 without infusion today. Continue to monitor. She does report bloating today after eating and reports symptoms intermittent since March. she was changed to NPO for now. 09/09/22 - Hgb 7.8-8.2, unchanged. CT abd/pelvis with increased distal bowel dilation w/wall thickening and increased free pelvic fluid concerning for IBD flare 09/10/22 unchanged. EGD in am. 09/11/22 awaiting EGD. Hgb 7.7 today. Vitals stable. 09/12/22 EGD negative for bleeding/ulcer. Hemoglobin today 9.4. 09/13/22 hemoglobin stable. Patient still having abdominal distension with food. Order KUB, patient could hav
[2022-09-14 14:00] VITALS: BP 119/79; PULSE 119; RESP 20; TEMP 36.1; O2SAT 100
[2022-09-14] MEDS: oxyCODONE (*CRX) 5 MG/5 ML ORAL SOLN IR 10 MG PO (18:25)
[2022-09-14] MEDS: SERTRALINE HCL 50 MG TABLET 100 MG PO (18:26)
[2022-09-14 22:00] VITALS: BP 95/69; PULSE 91; RESP 18; TEMP 36.5; O2SAT 96
[2022-09-15] MEDS: oxyCODONE (*CRX) 5 MG/5 ML ORAL SOLN IR 10 MG PO ×3 (00:11→17:11)
[2022-09-15] MEDS: LORazepam INJ (*CRX) 2 MG/ML VIAL 1 MG IV PUSH ×3 (00:11→21:24)
[2022-09-15] MEDS: fentaNYL CITRATE INJ (*CRX) 100 MCG/2 ML VIAL 25 MCG IV PUSH ×7 (00:26→23:21)
[2022-09-15] MEDS: KCL 40 MEQ/D5/0.9% SOD CHL 1,000 ML 100 ML IV CONT (01:10)
[2022-09-15] MEDS: SUCRALFATE SUSP 100 MG/ML 10 ML UDC 1000 MG PO ×4 (01:56→17:11)
[2022-09-15 06:00] VITALS: BP 117/78; PULSE 88; RESP 18; TEMP 36.4; O2SAT 98
[2022-09-15 07:29] LABS: Hematocrit 27.2 % (37.0-47.0); Hemoglobin 7.7 g/dL (12.0-15.0); Mean Corpuscular HGB Conc 28.3 g/dl (32-36); Mean Corpuscular Volume 81.2 fl (80-100); Mean Platelet Volume 10.1 fl (7.4-10.4); Platelet Count Result 347 k/mm3 (150-375); Red Blood Count 3.35 M/mm3 (4.2-5.4); Red Cell Distribution Width 23.9 % (11.5-14.5); White Blood Count 3.3 K/mm3 (4.5-10.0)
--- NOTE | 2022-09-15 07:29 | P.PNIM_ITS ---
Progress Note: A&P Assessment and Plan (1) KRISTEN (acute kidney injury): Code(s): N17.9 - Acute kidney failure, unspecified Status: Acute Assessment and Plan: BUN 51, creatinine 2.9, GFR 17; previously labs 2019 show normal renal function, however, she reports episodes of imaging having to be deferred to due to not being able to have contrast dye. * Consulted nephrology and appreciate recommendations. * Check urine sodium and creatinine - FENa 0.2% suggesting pre-renal cause. * DC douglass catheter 09/07/22 * Monitor strict I/O and daily weights. * Avoid nephrotoxins * Continue NS@100 mL/hour following contrast CTA. * 09/08- BUN 25, creatinine 1.4, GFR 39. continues to improve. continue IV fluids due to GI symptoms and NPO status. Renal function stable after IV contrast. * Renal US negative * 09/09/22 continues to improve. Continue IV fluids until able to take PO. * 09/10/22 returned to baseline. Continue IV fluids while NPO. * 09/12/22 creatinine increased to 1.3 today. Patient states that she has not been consuming much by mouth. Encouraged patient to continue drinking. Patient states that she has not been able to eat much due to abdominal distension and pain associated with food. Patient states that she is unable to eat a regular diet. Change patient's diet to liquid diet and will assess how she tolerates this in the morning. * 09/13/22 Patient unable to consume fluids and food by mouth due to abdominal pain and distention. Order urine Na and Cr. Patient venous score of 0.1% indicating prerenal. Patient has had mildly low potassium. Potassium chloride/D5/sodium chloride started on patient. * Recheck labs in the morning. * 09/14/22 discussed patients renal function with Dr. San and he advised keeping her on fluids for now and rechecking tomorrow. * 09/15/2022 patient's creatinine this morning is 1.5, this is decreased from yesterday when it was 1.7. Continue fluids. (2) Upper GI bleed: Code(s): K92.2 - Gastrointestinal hemorrhage, unspecified Status: Acute Assessment and Plan: CTA chest obtained for PE protocol. Patient noted to have possible distal esophageal bleeding. She takes full strength aspirin 325 mg daily for afib and previous stroke. This was changed to 81 mg while treated for possible PE. * Hgb 7.4. Was 9.1 on admission, previous labs from 2019 shows baseline 9-10. * Iron panel suggests iron deficiency anemia * Fecal occult blood positive * Consult GI for evaluation and possible endoscopy. * Trialed clear liquid diet, however, patient c/o increased bloating. Return to NPO. * Carafate 1000 mg Q6 hours * Lovenox and aspirin stopped 09/07. * continue protonix 40 mg IV BID * 09/08- Continue to trend H/H. Hgb increased 8.3 without infusion today. Continue to monitor. She does report bloating today after eating and reports symptoms intermittent since March. she was changed to NPO for now. * 09/09/22 - Hgb 7.8-8.2, unchanged. CT abd/pelvis with increased distal bowel dilation w/wall thickening and increased free pelvic fluid concerning for IBD flare * 09/10/22 unchanged. EGD in am. * 09/11/22 awaiting EGD. Hgb 7.7 today. Vitals stable. * 09/12/22 EGD negative for bleeding/ulcer. Hemoglobin today 9.4. * 09/13/22 hemoglobin stable. Patient still having abdominal distension with food. Order KUB, patient could have gastroparesis. * 09/14/20 x ray showed dilated small bowel and colon, most likely adynamic ileus. (3) Epigastric pain: Code(s): R10.13 - Epigastric pain Status: Acute Assessment and Plan: Patient reported poor oral intake on presentation to E
--- NOTE | 2022-09-15 07:29 | PM.IMPN ---
Progress Note: A&P Assessment and Plan (1) KRISTEN (acute kidney injury): Code(s): N17.9 - Acute kidney failure, unspecified Status: Acute Assessment and Plan: BUN 51, creatinine 2.9, GFR 17; previously labs 2020 show normal renal function, however, she reports episodes of imaging having to be deferred to due to not being able to have contrast dye. Consulted nephrology and appreciate recommendations. Check urine sodium and creatinine - FENa 0.2% suggesting pre-renal cause. DC douglass catheter 09/07/22 Monitor strict I/O and daily weights. Avoid nephrotoxins Continue NS@100 mL/hour following contrast CTA. 09/08- BUN 25, creatinine 1.4, GFR 39. continues to improve. continue IV fluids due to GI symptoms and NPO status. Renal function stable after IV contrast. Renal US negative 09/09/22 continues to improve. Continue IV fluids until able to take PO. 09/10/22 returned to baseline. Continue IV fluids while NPO. 09/12/22 creatinine increased to 1.3 today. Patient states that she has not been consuming much by mouth. Encouraged patient to continue drinking. Patient states that she has not been able to eat much due to abdominal distension and pain associated with food. Patient states that she is unable to eat a regular diet. Change patient's diet to liquid diet and will assess how she tolerates this in the morning. 09/13/22 Patient unable to consume fluids and food by mouth due to abdominal pain and distention. Order urine Na and Cr. Patient venous score of 0.1% indicating prerenal. Patient has had mildly low potassium. Potassium chloride/D5/sodium chloride started on patient. Recheck labs in the morning. 09/14/22 discussed patients renal function with Dr. San and he advised keeping her on fluids for now and rechecking tomorrow. 09/15/2022 patient's creatinine this morning is 1.5, this is decreased from yesterday when it was 1.7. Continue fluids. (2) Upper GI bleed: Code(s): K92.2 - Gastrointestinal hemorrhage, unspecified Status: Acute Assessment and Plan: CTA chest obtained for PE protocol. Patient noted to have possible distal esophageal bleeding. She takes full strength aspirin 325 mg daily for afib and previous stroke. This was changed to 81 mg while treated for possible PE. Hgb 7.4. Was 9.1 on admission, previous labs from 2019 shows baseline 9-10. Iron panel suggests iron deficiency anemia Fecal occult blood positive Consult GI for evaluation and possible endoscopy. Trialed clear liquid diet, however, patient c/o increased bloating. Return to NPO. Carafate 1000 mg Q6 hours Lovenox and aspirin stopped 09/07. continue protonix 40 mg IV BID 09/08- Continue to trend H/H. Hgb increased 8.3 without infusion today. Continue to monitor. She does report bloating today after eating and reports symptoms intermittent since March. she was changed to NPO for now. 09/09/22 - Hgb 7.8-8.2, unchanged. CT abd/pelvis with increased distal bowel dilation w/wall thickening and increased free pelvic fluid concerning for IBD flare 09/10/22 unchanged. EGD in am. 09/11/22 awaiting EGD. Hgb 7.7 today. Vitals stable. 09/12/22 EGD negative for bleeding/ulcer. Hemoglobin today 9.4. 09/13/22 hemoglobin stable. Patient still having abdominal distension with food. Order KUB, patient could have gastroparesis. 09/14/20 x ray showed dilated small bowel and colon, most likely adynamic ileus. (3) Epigastric pain: Code(s): R10.13 - Epigastric pain Status: Acute Assessment and Plan: Patient reported poor oral intake on presentation to ED. Has hx of US. 09/12/22 EGD negative for bleeding/ulcer. Hemoglobin today 9.4. 09/13/22 hemoglobin stable. Patient still having abdominal distension with food. Order KUB, patient could have gastroparesis. 09/14/20 x ray showed dilated small bowel and colon, most likely adynamic ileus. Unable to reach oncall GI. will try again tomorrow. 09/15/22 patient having early
[2022-09-15 07:54] LABS: Alanine Aminotransferase 15 U/L (6-35); Albumin Level 3.4 g/dL (3.5-5.1); Alkaline Phosphatase 86 U/L (38-126); Anion Gap 5 mmol/L (8-16); Aspartate Amino Transferase 37 U/L (14-36); Bilirubin,Total 0.5 mg/dL (0.2-1.3); Blood Urea Nitrogen 9 mg/dL (7-17); Calcium 8.6 mg/dL (8.4-10.2); Carbon Dioxide 22 mmol/L (22-30); Chloride 116 mmol/L (98-107); Estimated CRCL calculation 34 ml/min; Estimated Glomerular Filt Rate 36; Glucose 98 mg/dL (65-110); Potassium 4.3 mmol/L (3.4-5.0); Sodium 143 mmol/L (137-145)
[2022-09-15] MEDS: PANTOPRAZOLE SODIUM IV 40 MG VIAL IV PUSH ×2 (09:00→20:17)
[2022-09-15] MEDS: FOLIC ACID 1 MG TABLET PO (09:01)
[2022-09-15] MEDS: amLODIPine BESYLATE 5 MG TABLET PO (09:01)
[2022-09-15] MEDS: FERROUS SULFATE 324 MG TABLET PO (09:01)
--- NOTE | 2022-09-15 12:00 | WPDGIPROGNO ---
Progress Note: A&P Assessment and Plan (1) Upper GI bleed: Code(s): K92.2 - Gastrointestinal hemorrhage, unspecified Status: Acute Assessment and Plan: endoscopy was negative for upper gastrointestinal bleeding (2) H/O of biological therapy treatment: Code(s): Z92.89 - Personal history of other medical treatment Status: Acute Assessment and Plan: she had been on biologic therapy in [place] until there was a problem with insurance due to paperwork not being done properly. Consequently she has been off it for several months. Given the fact that she had remained on it, I suspect that she may have had Crohn's disease rather than ulcerative colitis. Her CT shows evidence of surgery in the right upper quadrant, probably a loop of small bowel. We will need to investigate this. I will obtain serology for inflammatory bowel disease as well as calprotectin. She would benefit at some point from MRE which cannot be done here. (3) Ileus: Code(s): K56.7 - Ileus, unspecified Status: Acute Assessment and Plan: KUB shows: Findings: There are dilated small bowel loops and colon without significant change from prior study allowing for differences of technique. No abnormal calcifications. There are surgical changes of the lower lumbar spine, consistent with fusion. Impression: 1: Persistently dilated small bowel and colon, most likely adynamic ileus. Gastric emptying scan has been ordered. . The patient tells me that she gets this from time to time at home but usually subsides fairly quickly. (4) Ulcerative colitis, unspecified, without complications: Qualifiers: Ulcerative colitis location: unspecified ulcerative colitis location Qualified Code(s): K51.90 - Ulcerative colitis, unspecified, without complications Code(s): K51.90 - Ulcerative colitis, unspecified, without complications Status: Chronic Assessment and Plan: Although she has had a total colectomy and ileorectal anastomosis, I am still concerned that she may have residual IBD. Because she had been on biologic therapy, her previous marketing operations assistant must have felt so. the question is does she have Crohn's disease versus UC. I will obtain IBD serology. The patient asked if she could follow up with us after discharge I told her she certainly could. Subjective Date/time seen: 09/15/22 12:00 Review of Systems Review of Systems: All systems reviewed & are unremarkable except as noted in HPI and below Exam Const: General: alert Orientation/consciousness: patient oriented x3 Resp: Auscultation: clear to auscultation bilaterally Cardio: Rhythm: regular rhythm GI: Inspection: distended GI Palp: Yes Tenderness to palpation present (GI) ( tender throughout especially right lower quadrant) and Yes No hepatosplenomegaly present Percussion: Yes tympanic to percussion Auscultation: High-pitched bowel sounds present ( tinkling) Neuro: General: patient oriented x3 Objective Data Vital Signs Vital Signs: Vital Signs - 24 hr 09/14/22 14:00 09/14/22 22:00 09/15/22 06:00 Temperature 36.1 C L 36.5 C 36.4 C Pulse Rate 119 H 91 88 Respiratory Rate 20 18 18 Blood Pressure 119/79 95/69 L 117/78 Pulse Oximetry 100 96 98 Oxygen Delivery 09/15/22 08:50 Temperature Pulse Rate Respiratory Rate Blood Pressure Pulse Oximetry Oxygen Delivery Room Air Intake/Output Intake/Output: Intake & Output 09/12/22 09/13/22 09/14/22 09/15/22 23:59 23:59 23:59 23:59 Intake Total 840 1160 2862 2145 Output Total 1600 1100 900 Balance -119 58 7855 2145 Meds/Results Medications: Active Medications Generic Name Dose Route Start Last Admin Trade Name Rodneyq PRN Reason Stop Dose Admin Acetaminophen 650 mg 09/04/22 23:10 Acetaminophen 325 Mg Tablet PO Q4H PRN Mild Pain (1-3) or Fever Al Hydrox/Mg Hydrox/Simethicone 30 ml 09/07/22 13:37 09/07/22 14:19
[2022-09-15 12:43] LABS: CRP 2.7 mg/dL (<1.0)
[2022-09-15] MEDS: SIMETHICONE 80 MG TAB.CHEW PO ×2 (12:45→20:22)
--- NOTE | 2022-09-15 13:59 | P.PNNP_ITS ---
Progress Note: A&P Assessment and Plan (1) KRISTEN (acute kidney injury): Code(s): N17.9 - Acute kidney failure, unspecified Status: Acute Assessment and Plan: * a tad better today * normal baseline renal function * HOWEVER, she states contrast studies have been deferred at times due to her kidney function * suspect her creatinine fluctuates event at baseline * still suspect volume depletion/prerenal azotemia based on her history and ongoing testing * evaluation to date: * initial urine electrolytes (on 09/05) are pre-renal * repeat urine electrolytes (on 09/13/22) are still prerenal * renal ultrasound normal * perhaps relative hypotension partly to blame... * had been running in the 150s - 160s systolic on admission * several days with 90s - 120s systolic BPs * holding amlodipine with parameters * use of narcotics maybe artificially keeping BP on the lower end as well * continue IVFs for now (given poor oral intake) * not opposed to increasing IVF rate * follow trend of repeat labs (2) COVID-19: Code(s): U07.1 - COVID-19 Status: Acute Assessment and Plan: * preumable cause of some of her admission symptoms * not hypoxic or requiring supplemental oxygen * holding dexamethasone and/or remdesivir * follow respiratory status closely * is this playing a role with #1(?) (3) Essential (primary) hypertension: Code(s): I10 - Essential (primary) hypertension Status: Chronic Assessment and Plan: * reasonable control at this time * perhaps too well controlled * BP medications adjusted * continue atenolol due to #4 * follow trend of hemodynamics (4) Paroxysmal atrial fibrillation: Code(s): I48.0 - Paroxysmal atrial fibrillation Status: Chronic Assessment and Plan: * rate control strategy (with atenolol) * not on systemic anticoagulation (5) Anemia: Code(s): D64.9 - Anemia, unspecified Status: Acute Assessment and Plan: * somewhat of a chronic issue * known history of iron deficiency - on iron supplements * Given CTA findings, GI following * s/p EGD with findings noted * follow H/H Will continue to follow. Subjective Date/time seen: 09/15/22 13:59 Some improvement in renal function with ongoing IVFs; however, she continues to have issues/problems with oral intake; report abdominal pain/bloating with any type of significant oral intake; no other significant issues to report. Exam Narrative: General: WD/WN female in NAD Heart: normal S1 and S2; no rub Lungs: clear anteriorly Abdomen: soft, nontender, positive bowel sounds Extremities: no cyanosis or clubbing; no edema Skin: warm and dry Objective Data Vital Signs Vital Signs: Vital Signs Temp Pulse Resp BP Pulse Ox O2 Del Method 09/15/22 14:00 97.3 F L 104 H 14 97/74 L 98 09/15/22 08:50 Room Air 09/15/22 06:00 97.6 F 88 18 117/78 98 09/14/22 22:00 97.7 F 91 18 95/69 L 96 Intake/Output Intake/Output: Intake & Output 09/12/22 09/13/22 09/14/22 09/15/22 23:59 23:59 23:59 23:59 Intake Total 840 1160 2862 3195 Output Total 1600 1100 900 Balance -865 99 8596 3195 Meds/Results Medications:
--- NOTE | 2022-09-15 13:59 | PM.PNNEP ---
Progress Note: A&P Assessment and Plan (1) KRISTEN (acute kidney injury): Code(s): N17.9 - Acute kidney failure, unspecified Status: Acute Assessment and Plan: a tad better today normal baseline renal function HOWEVER, she states contrast studies have been deferred at times due to her kidney function suspect her creatinine fluctuates event at baseline still suspect volume depletion/prerenal azotemia based on her history and ongoing testing evaluation to date: initial urine electrolytes (on 09/05) are pre-renal repeat urine electrolytes (on 09/13/22) are still prerenal renal ultrasound normal perhaps relative hypotension partly to blame... had been running in the 150s - 160s systolic on admission several days with 90s - 120s systolic BPs holding amlodipine with parameters use of narcotics maybe artificially keeping BP on the lower end as well continue IVFs for now (given poor oral intake) not opposed to increasing IVF rate follow trend of repeat labs (2) COVID-19: Code(s): U07.1 - COVID-19 Status: Acute Assessment and Plan: preumable cause of some of her admission symptoms not hypoxic or requiring supplemental oxygen holding dexamethasone and/or remdesivir follow respiratory status closely is this playing a role with #1(?) (3) Essential (primary) hypertension: Code(s): I10 - Essential (primary) hypertension Status: Chronic Assessment and Plan: reasonable control at this time perhaps too well controlled BP medications adjusted continue atenolol due to #4 follow trend of hemodynamics (4) Paroxysmal atrial fibrillation: Code(s): I48.0 - Paroxysmal atrial fibrillation Status: Chronic Assessment and Plan: rate control strategy (with atenolol) not on systemic anticoagulation (5) Anemia: Code(s): D64.9 - Anemia, unspecified Status: Acute Assessment and Plan: somewhat of a chronic issue known history of iron deficiency - on iron supplements Given CTA findings, GI following s/p EGD with findings noted follow H/H Will continue to follow. Subjective Date/time seen: 09/15/22 13:59 Some improvement in renal function with ongoing IVFs; however, she continues to have issues/problems with oral intake; report abdominal pain/bloating with any type of significant oral intake; no other significant issues to report. Exam Narrative: General: WD/WN female in NAD Heart: normal S1 and S2; no rub Lungs: clear anteriorly Abdomen: soft, nontender, positive bowel sounds Extremities: no cyanosis or clubbing; no edema Skin: warm and dry Objective Data Vital Signs Vital Signs: Vital Signs Temp Pulse Resp BP Pulse Ox O2 Del Method 09/15/22 14:00 97.3 F L 104 H 14 97/74 L 98 09/15/22 08:50 Room Air 09/15/22 06:00 97.6 F 88 18 117/78 98 09/14/22 22:00 97.7 F 91 18 95/69 L 96 Intake/Output Intake/Output: Intake & Output 09/12/22 09/13/22 09/14/22 09/15/22 23:59 23:59 23:59 23:59 Intake Total 840 1160 2862 3195 Output Total 1600 1100 900 Balance -338 71 9954 3195 Meds/Results Medications: Active Medications Generic Name Dose Route Start Last Admin Trade Name Freq PRN Reason Stop Dose Admin Acetaminophen 650 mg 09/04/22 23:10 Acetaminophen 325 Mg Tablet PO Q4H PRN Mild Pain (1-3) or Fever Al Hydrox/Mg Hydrox/Simethicone 30 ml 09/07/22 13:37 09/07/22 14:19 Mag Hydrox/Al Hydrox/Simeth 30 Ml Udc PO 30 ml Q6H PRN Administration Indigestion Amlodipine Besylate 5 mg 09/05/22 09:00 09/15/22 09:01 Amlodipine Besylate 5 Mg Tablet PO 5 mg QAM BENJI Administration Atenolol 25 mg 09/05/22 21:00 09/06/22 20:54 Atenolol 25 Mg Tablet PO 25 mg HS BENJI Administration Ergocalciferol 50,000 units 09/12/22 09:00 09/12/22 09:25 Ergocalciferol 50,000 Units Capsule PO 50,000 units
[2022-09-15 14:00] VITALS: BP 97/74; PULSE 104; RESP 14; TEMP 36.3; O2SAT 98
[2022-09-15] MEDS: KCL 40 MEQ/D5/0.9% SOD CHL 1,000 ML 65 ML IV CONT (14:41)
[2022-09-15] MEDS: SERTRALINE HCL 50 MG TABLET 100 MG PO (17:11)
[2022-09-15 22:00] VITALS: BP 137/81; PULSE 94; RESP 18; TEMP 36.6; O2SAT 100
[2022-09-16] MEDS: LORazepam INJ (*CRX) 2 MG/ML VIAL 1 MG IV PUSH ×3 (03:30→20:57)
[2022-09-16] MEDS: fentaNYL CITRATE INJ (*CRX) 100 MCG/2 ML VIAL 25 MCG IV PUSH ×6 (03:30→20:56)
[2022-09-16 06:00] VITALS: BP 127/85; PULSE 92; RESP 18; TEMP 36.9; O2SAT 98
[2022-09-16 06:33] LABS: Hematocrit 31.2 % (37.0-47.0); Mean Corpuscular HGB Conc 28.8 g/dl (32-36); Mean Corpuscular Hemoglobin 22.8 pg (26-34); Mean Corpuscular Volume 79.2 fl (80-100); Mean Platelet Volume 9.8 fl (7.4-10.4); Platelet Count Result 420 k/mm3 (150-375); Red Blood Count 3.94 M/mm3 (4.2-5.4); White Blood Count 4.8 K/mm3 (4.5-10.0)
[2022-09-16] MEDS: KCL 40 MEQ/D5/0.9% SOD CHL 1,000 ML 65 ML IV CONT ×2 (06:33→20:58)
[2022-09-16 06:51] LABS: Alanine Aminotransferase 20 U/L (6-35); Albumin Level 3.9 g/dL (3.5-5.1); Alkaline Phosphatase 92 U/L (38-126); Anion Gap 11 mmol/L (8-16); Aspartate Amino Transferase 40 U/L (14-36); Bilirubin,Total 0.9 mg/dL (0.2-1.3); Blood Urea Nitrogen 11 mg/dL (7-17); Calcium 8.2 mg/dL (8.4-10.2); Carbon Dioxide 19 mmol/L (22-30); Chloride 112 mmol/L (98-107); Estimated CRCL calculation 36 ml/min; Estimated Glomerular Filt Rate 39; Glucose 93 mg/dL (65-110); Sodium 142 mmol/L (137-145)
--- NOTE | 2022-09-16 07:50 | WPDGIPROGNO ---
Progress Note: A&P Assessment and Plan (1) Upper GI bleed: Code(s): K92.2 - Gastrointestinal hemorrhage, unspecified Status: Acute Assessment and Plan: endoscopy was negative for upper gastrointestinal bleeding (2) H/O of biological therapy treatment: Code(s): Z92.89 - Personal history of other medical treatment Status: Acute Assessment and Plan: she had been on biologic therapy in [place] until there was a problem with insurance due to paperwork not being done properly. Consequently she has been off it for several months. Given the fact that she had remained on it, I suspect that she may have had Crohn's disease rather than ulcerative colitis. Her CT shows evidence of surgery in the right upper quadrant, probably a loop of small bowel. We will need to investigate this. I will obtain serology for inflammatory bowel disease as well as calprotectin. She would benefit at some point from MRE which cannot be done here. she is scheduled for gastric emptying scan to be done tomorrow (3) Ileus: Code(s): K56.7 - Ileus, unspecified Status: Acute Assessment and Plan: KUB shows: Findings: There are dilated small bowel loops and colon without significant change from prior study allowing for differences of technique. No abnormal calcifications. There are surgical changes of the lower lumbar spine, consistent with fusion. Impression: 1: Persistently dilated small bowel and colon, most likely adynamic ileus. Gastric emptying scan has been ordered. . The patient tells me that she gets The current symptomatology from time to time at home but usually subsides fairly quickly. in discussing this with the patient and explaining why I ordered simethicone, she mentioned that she has taken it from time to time the past for this problem it seems upset her stomach. She went on to state that her abdominal bloating and discomfort is very common and frequent but this is about the longest it has lasted. (4) Ulcerative colitis, unspecified, without complications: Qualifiers: Ulcerative colitis location: unspecified ulcerative colitis location Qualified Code(s): K51.90 - Ulcerative colitis, unspecified, without complications Code(s): K51.90 - Ulcerative colitis, unspecified, without complications Status: Chronic Assessment and Plan: Although she has had a total colectomy and ileorectal anastomosis, I am still concerned that she may have residual IBD. Because she had been on biologic therapy, her previous export agent must have felt so. the question is does she have Crohn's disease versus UC. I will obtain IBD serology. The patient asked if she could follow up with us after discharge I told her she certainly could. IBD studies are still pending Subjective Date/time seen: 09/16/22 07:50 She has been having bowel movements and passing gas. She thinks her belly is not as tight today. Most of the pain now is at the lower right costal margin and towards the right lower quadrant. No emesis Review of Systems Review of Systems: All systems reviewed & are unremarkable except as noted in HPI and below Exam Const: General: alert Orientation/consciousness: patient oriented x3 Resp: Auscultation: clear to auscultation bilaterally Cardio: Rhythm: regular rhythm GI: Inspection: distended GI Palp: Yes abdominal tenderness ( primarily just below right costal margin and laterally at that point) and Yes No hepatosplenomegaly present Percussion: Yes tympanic to percussion Auscultation: normal bowel sounds and High-pitched bowel sounds present ( rarely, improved over yesterday) Neuro: General: patient oriented x3 Objective Data Vital Signs Vital Signs: Vital Signs - 24 hr 09/15/22 08:50 09/15/22 14:00 09/15/22 20:00 Temperature 36.3 C L Pulse Rate 104 H Respiratory Rate 14 Blood Pressure 97/74 L Pulse Oximetry 98 Oxygen Delivery
[2022-09-16] MEDS: amLODIPine BESYLATE 5 MG TABLET PO (08:24)
[2022-09-16] MEDS: FOLIC ACID 1 MG TABLET PO (08:24)
[2022-09-16] MEDS: PANTOPRAZOLE SODIUM IV 40 MG VIAL IV PUSH ×2 (08:24→21:01)
[2022-09-16] MEDS: FERROUS SULFATE 324 MG TABLET PO (08:24)
[2022-09-16] MEDS: SIMETHICONE 80 MG TAB.CHEW PO (08:26)
[2022-09-16] MEDS: ONDANSETRON INJ 4 MG/2 ML VIAL IV PUSH ×2 (09:00→21:24)
--- NOTE | 2022-09-16 09:39 | P.PNNP_ITS ---
Progress Note: A&P Assessment and Plan (1) KRISTEN (acute kidney injury): Code(s): N17.9 - Acute kidney failure, unspecified Status: Acute Assessment and Plan: * slow improvement noted again * normal baseline renal function * HOWEVER, she states contrast studies have been deferred at times due to her kidney function * suspect her creatinine fluctuates event at baseline * still suspect volume depletion/prerenal azotemia based on her history and ongoing testing * evaluation to date: * initial urine electrolytes (on 09/05) are pre-renal * repeat urine electrolytes (on 09/13/22) are still prerenal * renal ultrasound normal * perhaps relative hypotension partly to blame... * had been running in the 150s - 160s systolic on admission * several days with 90s - 120s systolic BPs * holding amlodipine with parameters * use of narcotics maybe artificially keeping BP on the lower end as well * continue IVFs for now (given poor oral intake) * follow trend of repeat labs (2) Decreased oral intake: Code(s): R63.8 - Other symptoms and signs concerning food and fluid intake Status: Acute Assessment and Plan: * persistent issue/problem since admission * this is likely precipitating issues with #1 * not sure what other interventions to do... * GI following (3) COVID-19: Code(s): U07.1 - COVID-19 Status: Acute Assessment and Plan: * preumable cause of some of her admission symptoms * not hypoxic or requiring supplemental oxygen * holding dexamethasone and/or remdesivir * follow respiratory status closely * is this playing a role with #1(?) (4) Essential (primary) hypertension: Code(s): I10 - Essential (primary) hypertension Status: Chronic Assessment and Plan: * reasonable control at this time * perhaps too well controlled * BP medications adjusted - amlodipine with parameters * continue atenolol due to #4 * follow trend of hemodynamics (5) Paroxysmal atrial fibrillation: Code(s): I48.0 - Paroxysmal atrial fibrillation Status: Chronic Assessment and Plan: * rate control strategy (with atenolol) * not on systemic anticoagulation (6) Anemia: Code(s): D64.9 - Anemia, unspecified Status: Acute Assessment and Plan: * somewhat of a chronic issue * known history of iron deficiency - on iron supplements * Given CTA findings, GI following * s/p EGD with findings noted * follow H/H Will continue to follow. Subjective Date/time seen: 09/16/22 09:39 Renal function/creatinine doing a bit better with ongoing IVFs given her inability to take oral intake at this time; GI recommendations/testing noted; no other acute issues/problems voiced at ths time. Exam Narrative: General: WD/WN female in NAD Heart: normal S1 and S2; no rub Lungs: clear anteriorly Abdomen: soft, nontender, positive bowel sounds Extremities: no cyanosis or clubbing; no edema Skin: warm and intact Objective Data Vital Signs Vital Signs: Vital Signs Temp Pulse Resp BP Pulse Ox O2 Del Method 09/16/22 06:00 98.5 F 92 18 127/85 98 09/15/22 22:00 97.8 F 94 18 137/81 100 09/15/22 20:00 Room Air 09/15/22 14:00 97.3 F L 104 H 14 97/74 L 98 Intake/Output Intake/Output:
--- NOTE | 2022-09-16 09:39 | PM.PNNEP ---
Progress Note: A&P Assessment and Plan (1) KRISTEN (acute kidney injury): Code(s): N17.9 - Acute kidney failure, unspecified Status: Acute Assessment and Plan: slow improvement noted again normal baseline renal function HOWEVER, she states contrast studies have been deferred at times due to her kidney function suspect her creatinine fluctuates event at baseline still suspect volume depletion/prerenal azotemia based on her history and ongoing testing evaluation to date: initial urine electrolytes (on 09/05) are pre-renal repeat urine electrolytes (on 09/13/22) are still prerenal renal ultrasound normal perhaps relative hypotension partly to blame... had been running in the 150s - 160s systolic on admission several days with 90s - 120s systolic BPs holding amlodipine with parameters use of narcotics maybe artificially keeping BP on the lower end as well continue IVFs for now (given poor oral intake) follow trend of repeat labs (2) Decreased oral intake: Code(s): R63.8 - Other symptoms and signs concerning food and fluid intake Status: Acute Assessment and Plan: persistent issue/problem since admission this is likely precipitating issues with #1 not sure what other interventions to do... GI following (3) COVID-19: Code(s): U07.1 - COVID-19 Status: Acute Assessment and Plan: preumable cause of some of her admission symptoms not hypoxic or requiring supplemental oxygen holding dexamethasone and/or remdesivir follow respiratory status closely is this playing a role with #1(?) (4) Essential (primary) hypertension: Code(s): I10 - Essential (primary) hypertension Status: Chronic Assessment and Plan: reasonable control at this time perhaps too well controlled BP medications adjusted - amlodipine with parameters continue atenolol due to #4 follow trend of hemodynamics (5) Paroxysmal atrial fibrillation: Code(s): I48.0 - Paroxysmal atrial fibrillation Status: Chronic Assessment and Plan: rate control strategy (with atenolol) not on systemic anticoagulation (6) Anemia: Code(s): D64.9 - Anemia, unspecified Status: Acute Assessment and Plan: somewhat of a chronic issue known history of iron deficiency - on iron supplements Given CTA findings, GI following s/p EGD with findings noted follow H/H Will continue to follow. Subjective Date/time seen: 09/16/22 09:39 Renal function/creatinine doing a bit better with ongoing IVFs given her inability to take oral intake at this time; GI recommendations/testing noted; no other acute issues/problems voiced at ths time. Exam Narrative: General: WD/WN female in NAD Heart: normal S1 and S2; no rub Lungs: clear anteriorly Abdomen: soft, nontender, positive bowel sounds Extremities: no cyanosis or clubbing; no edema Skin: warm and intact Objective Data Vital Signs Vital Signs: Vital Signs Temp Pulse Resp BP Pulse Ox O2 Del Method 09/16/22 06:00 98.5 F 92 18 127/85 98 09/15/22 22:00 97.8 F 94 18 137/81 100 09/15/22 20:00 Room Air 09/15/22 14:00 97.3 F L 104 H 14 97/74 L 98 Intake/Output Intake/Output: Intake & Output 09/13/22 09/14/22 09/15/22 09/16/22 23:59 23:59 23:59 23:59 Intake Total 1160 2862 3967 1550 Output Total 1100 900 500 500 Balance 60 1962 3467 1050 Meds/Results Medications: Active Medications Generic Name Dose Route Start Last Admin Trade Name Freq PRN Reason Stop Dose Admin Acetaminophen 650 mg 09/04/22 23:10 Acetaminophen 325 Mg Tablet PO Q4H PRN Mild Pain (1-3) or Fever Al Hydrox/Mg Hydrox/Simethicone 30 ml 09/07/22 13:37 09/07/22 14:19 Mag Hydrox/Al Hydrox/Simeth 30 Ml Udc PO 30 ml Q6H PRN Administration Indigestion Amlodipine Besylate 5 mg 09/05/22 09:00 09/16/22 08:24 Amlodipine Besyl
[2022-09-16 13:40] VITALS: BP 113/71; PULSE 93; RESP 14; TEMP 36.6; O2SAT 97
[2022-09-16] MEDS: SERTRALINE HCL 50 MG TABLET 100 MG PO (17:09)
[2022-09-16 17:26] LABS: Calprotectin, Stool 398 mcg/g
[2022-09-16 22:00] VITALS: BP 114/73; PULSE 87; RESP 14; TEMP 37.1; O2SAT 97
[2022-09-17] MEDS: fentaNYL CITRATE INJ (*CRX) 100 MCG/2 ML VIAL 25 MCG IV PUSH ×5 (00:49→17:57)
[2022-09-17] MEDS: LORazepam INJ (*CRX) 2 MG/ML VIAL 1 MG IV PUSH ×2 (05:22→17:57)
[2022-09-17 05:31] VITALS: BP 123/75; PULSE 87; RESP 14; TEMP 36.7; O2SAT 100
--- NOTE | 2022-09-17 06:13 | PC.NURSE ---
Pt stayed in bed all shift 1899 to present time. Sleeps on and off couple hours at a time. Encourage increased activity, po intake . Pt states her abdomen hurts too much for any po intake at all or any activity. States was asleep during dinner- missed tray. Requests pain medication and ativan exactly how the order is written . Pt requests to be woken up to receive the PRN medication. Pt refuses many meds as well. Order for ativan IVP and fentanyl IVP to today around 1849 as per pharmacy. Plan to have gastric emptying scan today.Pt aware of the plan care as explained. Continue to monitor for pain, abdominal distention.
[2022-09-17 06:38] LABS: Hematocrit 29.7 % (37.0-47.0); Hemoglobin 8.3 g/dL (12.0-15.0); Mean Corpuscular HGB Conc 27.9 g/dl (32-36); Mean Corpuscular Volume 82.3 fl (80-100); Mean Platelet Volume 10.2 fl (7.4-10.4); Platelet Count Result 362 k/mm3 (150-375); Red Blood Count 3.61 M/mm3 (4.2-5.4); Red Cell Distribution Width 23.8 % (11.5-14.5)
[2022-09-17 06:43] LABS: Alanine Aminotransferase 17 U/L (6-35); Albumin Level 3.4 g/dL (3.5-5.1); Alkaline Phosphatase 92 U/L (38-126); Anion Gap 5 mmol/L (8-16); Aspartate Amino Transferase 32 U/L (14-36); Bilirubin,Total 0.6 mg/dL (0.2-1.3); Blood Urea Nitrogen 11 mg/dL (7-17); Calcium 8.6 mg/dL (8.4-10.2); Carbon Dioxide 23 mmol/L (22-30); Chloride 110 mmol/L (98-107); Estimated CRCL calculation 38 ml/min; Estimated Glomerular Filt Rate 42; Glucose 102 mg/dL (65-110); Potassium 4.5 mmol/L (3.4-5.0); Sodium 138 mmol/L (137-145)
[2022-09-17] MEDS: FOLIC ACID 1 MG TABLET PO (09:09)
[2022-09-17] MEDS: PANTOPRAZOLE SODIUM IV 40 MG VIAL IV PUSH ×2 (09:09→21:30)
[2022-09-17] MEDS: amLODIPine BESYLATE 5 MG TABLET PO (09:09)
[2022-09-17] MEDS: FERROUS SULFATE 324 MG TABLET PO (09:09)
[2022-09-17] MEDS: SIMETHICONE 80 MG TAB.CHEW PO ×4 (09:11→21:30)
[2022-09-17] MEDS: UMECLIDINIUM/VILANTEROL 62.5-25 MCG ELLIPTA 1 PUFF INHALATION (09:25)
[2022-09-17 09:26] VITALS: O2SAT 98
--- NOTE | 2022-09-17 10:35 | PM.PNNEP ---
Progress Note: A&P Assessment and Plan (1) KRISTEN (acute kidney injury): Code(s): N17.9 - Acute kidney failure, unspecified Status: Acute Assessment and Plan: slow improvement noted again normal baseline renal function prior to admission HOWEVER, she states contrast studies have been deferred in the past/at times due to her kidney function suspect her creatinine fluctuates even at baseline still suspect volume depletion/prerenal azotemia based on her history and ongoing testing evaluation to date: initial urine electrolytes (on 09/05) are pre-renal repeat urine electrolytes (on 09/13/22) are still prerenal renal ultrasound normal perhaps relative hypotension partly to blame... had been running in the 150s - 160s systolic on admission several days with 90s - 120s systolic BPs holding amlodipine with parameters use of narcotics maybe artificially keeping BP on the lower end as well continue IVFs for now (given poor oral intake) follow trend of repeat labs (2) Decreased oral intake: Code(s): R63.8 - Other symptoms and signs concerning food and fluid intake Status: Acute Assessment and Plan: persistent issue/problem since admission this is likely precipitating issues with #1 not sure what other interventions to do... GI following (3) COVID-19: Code(s): U07.1 - COVID-19 Status: Acute Assessment and Plan: preumable cause of some of her admission symptoms not hypoxic or requiring supplemental oxygen holding dexamethasone and/or remdesivir follow respiratory status closely is this playing a role with #1(?) (4) Essential (primary) hypertension: Code(s): I10 - Essential (primary) hypertension Status: Chronic Assessment and Plan: reasonable control at this time perhaps too well controlled BP medications adjusted - amlodipine with parameters continue atenolol due to #4 follow trend of hemodynamics (5) Paroxysmal atrial fibrillation: Code(s): I48.0 - Paroxysmal atrial fibrillation Status: Chronic Assessment and Plan: rate control strategy (with atenolol) not on systemic anticoagulation (6) Anemia: Code(s): D64.9 - Anemia, unspecified Status: Acute Assessment and Plan: somewhat of a chronic issue known history of iron deficiency - on iron supplements Given CTA findings, GI following s/p EGD with findings noted follow H/H Will continue to follow. Subjective Date/time seen: 09/17/22 12:35 Major complaint is that of generalized pain (current pain medications do not seem to be helping) and persistence of abdominal discomfort along with continued inability to eat/drink in general. Exam Narrative: General: WD/WN female in NAD Heart: normal S1 and S2; no rub Lungs: clear anteriorly Abdomen: soft, nontender, positive bowel sounds Extremities: no cyanosis or clubbing; no edema Skin: no rash Objective Data Vital Signs Vital Signs: Vital Signs Temp Pulse Resp BP Pulse Ox O2 Del Method 09/17/22 09:26 98 Room Air 09/17/22 05:31 98.0 F 87 14 123/75 100 09/16/22 22:00 98.8 F 87 14 114/73 97 09/16/22 13:40 97.9 F 93 14 113/71 97 Intake/Output Intake/Output: Intake & Output 09/14/22 09/15/22 09/16/22 09/17/22 23:59 23:59 23:59 23:59 Intake Total 2862 3967 2550 1570 Output Total 315 821 5967 300 Balance 1962 3467 1400 1270 Meds/Results Medications: Active Medications Generic Name Dose Route Start Last Admin Trade Name Freq PRN Reason Stop Dose Admin Acetaminophen 650 mg 09/04/22 23:10 Acetaminophen 325 Mg Tablet PO Q4H PRN Mild Pain (1-3) or Fever Al Hydrox/Mg Hydrox/Simethicone 30 ml 09/07/22 13:37 09/07/22 14:19 Mag Hydrox/Al Hydrox/Simeth 30 Ml Udc PO 30 ml Q6H PRN Administration Indigestion Amlodipine Besylate 5 mg 09/05/22 09:00 09/17/22 09:09 Am
--- NOTE | 2022-09-17 10:35 | P.PNNP_ITS ---
Progress Note: A&P Assessment and Plan (1) KRISTEN (acute kidney injury): Code(s): N17.9 - Acute kidney failure, unspecified Status: Acute Assessment and Plan: * slow improvement noted again * normal baseline renal function prior to admission * HOWEVER, she states contrast studies have been deferred in the past/at times due to her kidney function * suspect her creatinine fluctuates even at baseline * still suspect volume depletion/prerenal azotemia based on her history and ongoing testing * evaluation to date: * initial urine electrolytes (on 09/05) are pre-renal * repeat urine electrolytes (on 09/13/22) are still prerenal * renal ultrasound normal * perhaps relative hypotension partly to blame... * had been running in the 150s - 160s systolic on admission * several days with 90s - 120s systolic BPs * holding amlodipine with parameters * use of narcotics maybe artificially keeping BP on the lower end as well * continue IVFs for now (given poor oral intake) * follow trend of repeat labs (2) Decreased oral intake: Code(s): R63.8 - Other symptoms and signs concerning food and fluid intake Status: Acute Assessment and Plan: * persistent issue/problem since admission * this is likely precipitating issues with #1 * not sure what other interventions to do... * GI following (3) COVID-19: Code(s): U07.1 - COVID-19 Status: Acute Assessment and Plan: * preumable cause of some of her admission symptoms * not hypoxic or requiring supplemental oxygen * holding dexamethasone and/or remdesivir * follow respiratory status closely * is this playing a role with #1(?) (4) Essential (primary) hypertension: Code(s): I10 - Essential (primary) hypertension Status: Chronic Assessment and Plan: * reasonable control at this time * perhaps too well controlled * BP medications adjusted - amlodipine with parameters * continue atenolol due to #4 * follow trend of hemodynamics (5) Paroxysmal atrial fibrillation: Code(s): I48.0 - Paroxysmal atrial fibrillation Status: Chronic Assessment and Plan: * rate control strategy (with atenolol) * not on systemic anticoagulation (6) Anemia: Code(s): D64.9 - Anemia, unspecified Status: Acute Assessment and Plan: * somewhat of a chronic issue * known history of iron deficiency - on iron supplements * Given CTA findings, GI following * s/p EGD with findings noted * follow H/H Will continue to follow. Subjective Date/time seen: 09/17/22 12:35 Major complaint is that of generalized pain (current pain medications do not se em to be helping) and persistence of abdominal discomfort along with continued inability to eat/drink in general. Exam Narrative: General: WD/WN female in NAD Heart: normal S1 and S2; no rub Lungs: clear anteriorly Abdomen: soft, nontender, positive bowel sounds Extremities: no cyanosis or clubbing; no edema Skin: no rash Objective Data Vital Signs Vital Signs: Vital Signs Temp Pulse Resp BP Pulse Ox O2 Del Method 09/17/22 09:26 98 Room Air 09/17/22 05:31 98.0 F 87 14 123/75 100 09/16/22 22:00 98.8 F 87 14 114/73 97 09/16/22 13:40 97.9 F 93 14 113/71 97 Intake/Output Intake/Output:
[2022-09-17 14:00] VITALS: BP 112/67; PULSE 85; RESP 22; TEMP 36.9; O2SAT 100
--- NOTE | 2022-09-17 14:05 | WPDGIPROGNO ---
Progress Note: A&P Assessment and Plan (1) Upper GI bleed: Code(s): K92.2 - Gastrointestinal hemorrhage, unspecified Status: Acute Assessment and Plan: endoscopy was negative for upper gastrointestinal bleeding Hemoglobin has been stable (2) H/O of biological therapy treatment: Code(s): Z92.89 - Personal history of other medical treatment Status: Acute Assessment and Plan: she had been on biologic therapy in [place] until there was a problem with insurance due to paperwork not being done properly. Consequently she has been off it for several months. Given the fact that she had remained on it, I suspect that she may have had Crohn's disease rather than ulcerative colitis. Her CT shows evidence of surgery in the right upper quadrant, probably a loop of small bowel. We will need to investigate this. I will obtain serology for inflammatory bowel disease as well as calprotectin. She would benefit at some point from MRE which cannot be done here. she is scheduled for gastric emptying scan to be done tomorrow (3) Ileus: Code(s): K56.7 - Ileus, unspecified Status: Acute Assessment and Plan: KUB shows: Findings: There are dilated small bowel loops and colon without significant change from prior study allowing for differences of technique. No abnormal calcifications. There are surgical changes of the lower lumbar spine, consistent with fusion. Impression: 1: Persistently dilated small bowel and colon, most likely adynamic ileus. Gastric emptying scan has been ordered. . The patient tells me that she gets The current symptomatology from time to time at home but usually subsides fairly quickly. in discussing this with the patient and explaining why I ordered simethicone, she mentioned that she has taken it from time to time the past for this problem it seems upset her stomach. She went on to state that her abdominal bloating and discomfort is very common and frequent but this is about the longest it has lasted. 09/17/2022 her abdomen is softer, bowel sounds more normal and there is less tympany. I suspect that her ileus may be resolving. Given the fact that she states that she needs her oxycodone every 3 hours, I am suspecting that the colonic and small bowel ileus is secondary to narcotics, not a gastrointestinal disease process. (4) Ulcerative colitis, unspecified, without complications: Qualifiers: Ulcerative colitis location: unspecified ulcerative colitis location Qualified Code(s): K51.90 - Ulcerative colitis, unspecified, without complications Code(s): K51.90 - Ulcerative colitis, unspecified, without complications Status: Chronic Assessment and Plan: Although she has had a total colectomy and ileorectal anastomosis, I am still concerned that she may have residual IBD. 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 the question is does she have Crohn's disease versus UC. I will obtain IBD serology. The patient asked if she could follow up with us after discharge I told her she certainly could. IBD studies are still pending , but calprotectin level is back and is elevated. Consequently there is likely some inflammatory bowel disease. (5) Chest wall tenderness: Code(s): R07.89 - Other chest pain Status: Acute Assessment and Plan: she is tender on palpation of the right anterior thorax, the lower 3 or 4 ribs. I will obtain an x-ray. She also states that the pain is worse if she raises her arm, hence, this could be musculoskeletal rather than due to rib injury. Subjective Date/time seen: 09/17/22 14:05 today she states that her main discomfort is in her lower right chest. She states that ever since she got into the hospital, her lower chest is sore anteriorly and worse if she raises her arm. She does not recall injuring it. She also states that she is disappoint
[2022-09-17] MEDS: KCL 40 MEQ/D5/0.9% SOD CHL 1,000 ML 65 ML IV CONT (15:22)
--- NOTE | 2022-09-17 16:22 | P.PNIM_ITS ---
Progress Note: A&P Assessment and Plan (1) KRISTEN (acute kidney injury): Code(s): N17.9 - Acute kidney failure, unspecified Status: Acute Assessment and Plan: BUN 51, creatinine 2.9, GFR 17; previously labs 2020 show normal renal function, however, she reports episodes of imaging having to be deferred to due to not being able to have contrast dye. * Consulted nephrology and appreciate recommendations. * Check urine sodium and creatinine - FENa 0.2% suggesting pre-renal cause. * DC douglass catheter 09/07/22 * Monitor strict I/O and daily weights. * Avoid nephrotoxins * Continue NS@100 mL/hour following contrast CTA. 09/08 * BUN 25, creatinine 1.4, GFR 39. continues to improve. continue IV fluids due to GI symptoms and NPO status. Renal function stable after IV contrast. * Renal US negative 09/09/22 * continues to improve. Continue IV fluids until able to take PO. 09/10/22 * returned to baseline. Continue IV fluids while NPO. 09/12/22 * creatinine increased to 1.3 today. Patient states that she has not been consuming much by mouth. Encouraged patient to continue drinking. Patient states that she has not been able to eat much due to abdominal distension and pain associated with food. Patient states that she is unable to eat a regular diet. Change patient's diet to liquid diet and will assess how she tolerates this in the morning. 09/13/22 * Patient unable to consume fluids and food by mouth due to abdominal pain and distention. Order urine Na and Cr. Patient venous score of 0.1% indicating prerenal. Patient has had mildly low potassium. Potassium chloride/D5/sodium chloride started on patient. * Recheck labs in the morning. 09/14/22 * discussed patients renal function with Dr. San and he advised keeping her on fluids for now and rechecking tomorrow. 09/15/2022 * Patient's creatinine this morning is 1.5, this is decreased from yesterday when it was 1.7. Continue fluids. 09/16/22 * patient's creatinine continues to trend down. Continue fluids 09/17/22 * Creatinine improving (2) Upper GI bleed: Code(s): K92.2 - Gastrointestinal hemorrhage, unspecified Status: Acute Assessment and Plan: CTA chest obtained for PE protocol. Patient noted to have possible distal esophageal bleeding. She takes full strength aspirin 325 mg daily for afib and previous stroke. This was changed to 81 mg while treated for possible PE. * Hgb 7.4. Was 9.1 on admission, previous labs from 2019 shows baseline 9-10. * Iron panel suggests iron deficiency anemia * Fecal occult blood positive * Consult GI for evaluation and possible endoscopy. * Trialed clear liquid diet, however, patient c/o increased bloating. Return to NPO. * Carafate 1000 mg Q6 hours * Lovenox and aspirin stopped 09/07. * continue protonix 40 mg IV BID 09/08 * Continue to trend H/H. Hgb increased 8.3 without infusion today. Continue to monitor. She does report bloating today after eating and reports symptoms intermittent since March. she was changed to NPO for now. 09/09/22 * Hgb 7.8-8.2, unchanged. CT abd/pelvis with increased distal bowel dilation w/wall thickening and increased free pelvic fluid concerning for IBD flare 09/10/22 * unchanged. EGD in am. 09/11/22 * awaiting EGD. Hgb 7.7 today. Vitals stable. 09/12/22 * EGD negative for bleeding/ulcer. Hemoglobin today 9.4. 09/13/22 * hemoglobin stable. Patient still having abdominal distension with food. Order KUB, patient could have gastroparesis. 09/14/20 * x ray showed dilated small bowel and colon, most likely adynamic ileus.
--- NOTE | 2022-09-17 16:22 | PM.IMPN ---
Progress Note: A&P Assessment and Plan (1) KRISTEN (acute kidney injury): Code(s): N17.9 - Acute kidney failure, unspecified Status: Acute Assessment and Plan: BUN 51, creatinine 2.9, GFR 17; previously labs 2019 show normal renal function, however, she reports episodes of imaging having to be deferred to due to not being able to have contrast dye. Consulted nephrology and appreciate recommendations. Check urine sodium and creatinine - FENa 0.2% suggesting pre-renal cause. DC douglass catheter 09/07/22 Monitor strict I/O and daily weights. Avoid nephrotoxins Continue NS@100 mL/hour following contrast CTA. 09/08 BUN 25, creatinine 1.4, GFR 39. continues to improve. continue IV fluids due to GI symptoms and NPO status. Renal function stable after IV contrast. Renal US negative 09/09/22 continues to improve. Continue IV fluids until able to take PO. 09/10/22 returned to baseline. Continue IV fluids while NPO. 09/12/22 creatinine increased to 1.3 today. Patient states that she has not been consuming much by mouth. Encouraged patient to continue drinking. Patient states that she has not been able to eat much due to abdominal distension and pain associated with food. Patient states that she is unable to eat a regular diet. Change patient's diet to liquid diet and will assess how she tolerates this in the morning. 09/13/22 Patient unable to consume fluids and food by mouth due to abdominal pain and distention. Order urine Na and Cr. Patient venous score of 0.1% indicating prerenal. Patient has had mildly low potassium. Potassium chloride/D5/sodium chloride started on patient. Recheck labs in the morning. 09/14/22 discussed patients renal function with Dr. San and he advised keeping her on fluids for now and rechecking tomorrow. 09/15/2022 Patient's creatinine this morning is 1.5, this is decreased from yesterday when it was 1.7. Continue fluids. 09/16/22 patient's creatinine continues to trend down. Continue fluids 09/17/22 Creatinine improving (2) Upper GI bleed: Code(s): K92.2 - Gastrointestinal hemorrhage, unspecified Status: Acute Assessment and Plan: CTA chest obtained for PE protocol. Patient noted to have possible distal esophageal bleeding. She takes full strength aspirin 325 mg daily for afib and previous stroke. This was changed to 81 mg while treated for possible PE. Hgb 7.4. Was 9.1 on admission, previous labs from 2019 shows baseline 9-10. Iron panel suggests iron deficiency anemia Fecal occult blood positive Consult GI for evaluation and possible endoscopy. Trialed clear liquid diet, however, patient c/o increased bloating. Return to NPO. Carafate 1000 mg Q6 hours Lovenox and aspirin stopped 09/07. continue protonix 40 mg IV BID 09/08 Continue to trend H/H. Hgb increased 8.3 without infusion today. Continue to monitor. She does report bloating today after eating and reports symptoms intermittent since March. she was changed to NPO for now. 09/09/22 Hgb 7.8-8.2, unchanged. CT abd/pelvis with increased distal bowel dilation w/wall thickening and increased free pelvic fluid concerning for IBD flare 09/10/22 unchanged. EGD in am. 09/11/22 awaiting EGD. Hgb 7.7 today. Vitals stable. 09/12/22 EGD negative for bleeding/ulcer. Hemoglobin today 9.4. 09/13/22 hemoglobin stable. Patient still having abdominal distension with food. Order KUB, patient could have gastroparesis. 09/14/20 x ray showed dilated small bowel and colon, most likely adynamic ileus. (3) Epigastric pain: Code(s): R10.13 - Epigastric pain Status: Acute Assessment and Plan: Patient reported poor oral intake on presentation to ED. Has hx of US. 09/12/22 EGD negative for bleeding/ulcer. Hemoglobin today 9.4. 09/13/22 hemoglobin stable. Patient still having abdominal distension with food. Order KUB, patient could have gastroparesis. 09/14/20 x ray showed d
[2022-09-17] MEDS: SERTRALINE HCL 50 MG TABLET 100 MG PO (17:58)
[2022-09-17] MEDS: oxyCODONE/ACETAMINOPHEN (*CRX) 10-325 MG TABLET 1 TAB PO (21:30)
[2022-09-17] MEDS: LORazepam (*CRX) 1 MG TABLET 2 MG PO (21:43)
[2022-09-17 22:00] VITALS: BP 115/81; PULSE 87; RESP 18; TEMP 36.8; O2SAT 98
[2022-09-18] MEDS: oxyCODONE/ACETAMINOPHEN (*CRX) 10-325 MG TABLET 1 TAB PO ×3 (01:10→12:42)
[2022-09-18] MEDS: diphenhydrAMINE HCl INJ 50 MG/ML VIAL 25 MG IV PUSH (01:33)
[2022-09-18] MEDS: ONDANSETRON INJ 4 MG/2 ML VIAL IV PUSH (01:33)
[2022-09-18] MEDS: KCL 40 MEQ/D5/0.9% SOD CHL 1,000 ML 65 ML IV CONT (05:59)
[2022-09-18 06:00] VITALS: BP 101/69; PULSE 70; RESP 18; TEMP 36.6; O2SAT 99
[2022-09-18 07:35] LABS: Hematocrit 31.4 % (37.0-47.0); Hemoglobin 8.9 g/dL (12.0-15.0); Mean Corpuscular HGB Conc 28.3 g/dl (32-36); Mean Corpuscular Hemoglobin 23.2 pg (26-34); Mean Platelet Volume 10.4 fl (7.4-10.4); Platelet Count Result 302 k/mm3 (150-375); Red Blood Count 3.83 M/mm3 (4.2-5.4); Red Cell Distribution Width 23.6 % (11.5-14.5); White Blood Count 3.4 K/mm3 (4.5-10.0)
[2022-09-18 07:47] LABS: Alanine Aminotransferase 16 U/L (6-35); Albumin Level 3.6 g/dL (3.5-5.1); Alkaline Phosphatase 97 U/L (38-126); Anion Gap 8 mmol/L (8-16); Aspartate Amino Transferase 31 U/L (14-36); Bilirubin,Total 0.4 mg/dL (0.2-1.3); Blood Urea Nitrogen 11 mg/dL (7-17); Calcium 8.7 mg/dL (8.4-10.2); Carbon Dioxide 21 mmol/L (22-30); Chloride 112 mmol/L (98-107); Estimated CRCL calculation 36 ml/min; Estimated Glomerular Filt Rate 39; Glucose 90 mg/dL (65-110); Potassium 4.1 mmol/L (3.4-5.0); Sodium 141 mmol/L (137-145)
--- NOTE | 2022-09-18 07:56 | WPDGIPROGNO ---
Progress Note: A&P Assessment and Plan (1) Upper GI bleed: Code(s): K92.2 - Gastrointestinal hemorrhage, unspecified Status: Acute Assessment and Plan: endoscopy was negative for upper gastrointestinal bleeding Hemoglobin has been stable (2) H/O of biological therapy treatment: Code(s): Z92.89 - Personal history of other medical treatment Status: Acute Assessment and Plan: she had been on biologic therapy in [place] until there was a problem with insurance due to paperwork not being done properly. Consequently she has been off it for several months. Given the fact that she had remained on it, I suspect that she may have had Crohn's disease rather than ulcerative colitis. Her CT shows evidence of surgery in the right upper quadrant, probably a loop of small bowel. We will need to investigate this. I will obtain serology for inflammatory bowel disease as well as calprotectin. She would benefit at some point from MRE which cannot be done here. I reviewed her colitis history in detail. Obtain records from [facility] where she had been followed by a nurse practitioner over the last year to. She had started taking Remicade infusions 2 years ago after a sigmoidoscopy revealed that her disease was beginning to involve the terminal ileum. I was performed of sigmoidoscopy on her later today or in the morning she try to determine whether she needs biologic therapy and if there is active disease present. (3) Ileus: Code(s): K56.7 - Ileus, unspecified Status: Acute Assessment and Plan: KUB shows: Findings: There are dilated small bowel loops and colon without significant change from prior study allowing for differences of technique. No abnormal calcifications. There are surgical changes of the lower lumbar spine, consistent with fusion. Impression: 1: Persistently dilated small bowel and colon, most likely adynamic ileus. Gastric emptying scan has been ordered. . The patient tells me that she gets The current symptomatology from time to time at home but usually subsides fairly quickly. in discussing this with the patient and explaining why I ordered simethicone, she mentioned that she has taken it from time to time the past for this problem it seems upset her stomach. She went on to state that her abdominal bloating and discomfort is very common and frequent but this is about the longest it has lasted. 09/17/2022 her abdomen is softer, bowel sounds more normal and there is less tympany. I suspect that her ileus may be resolving. Given the fact that she states that she needs her oxycodone every 3 hours, I am suspecting that the colonic and small bowel ileus is secondary to narcotics, not a gastrointestinal disease process. 09/18/2022 although I believe that her ileus is primarily related to her narcotic use, I will just do a sigmoidoscopy to rule out obstruction at the ileal rectal anastomosis. (4) Ulcerative colitis, unspecified, without complications: Qualifiers: Ulcerative colitis location: unspecified ulcerative colitis location Qualified Code(s): K51.90 - Ulcerative colitis, unspecified, without complications Code(s): K51.90 - Ulcerative colitis, unspecified, without complications Status: Chronic Assessment and Plan: Although she has had a total colectomy and ileorectal anastomosis, I am still concerned that she may have residual IBD. 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 the question is does she have Crohn's disease versus UC. I will obtain IBD serology. The patient asked if she could follow up with us after discharge I told her she certainly could. IBD studies are still pending , but calprotectin level is back and is elevated. Consequently there is likely some inflammatory bowel disease. Believe that we will need to start some anti-inflammatory, not sure whether adore
[2022-09-18 08:00] VITALS: PULSE 87; RESP 18; O2SAT 97
--- NOTE | 2022-09-18 09:46 | P.PNNP_ITS ---
Progress Note: A&P Assessment and Plan (1) KRISTEN (acute kidney injury): Code(s): N17.9 - Acute kidney failure, unspecified Status: Acute Assessment and Plan: * slow improvement noted again * normal baseline renal function prior to admission * HOWEVER, she states contrast studies have been deferred in the past/at times due to her kidney function * suspect her creatinine fluctuates even at baseline * still suspect volume depletion/prerenal azotemia based on her history and ongoing testing * evaluation to date: * initial urine electrolytes (on 09/05) are pre-renal * repeat urine electrolytes (on 09/13/22) are still prerenal * renal ultrasound normal * perhaps relative hypotension partly to blame... * had been running in the 150s - 160s systolic on admission * several days with 90s - 120s systolic BPs * holding amlodipine with parameters * use of narcotics maybe artificially keeping BP on the lower end as well * continue IVFs for now (given poor oral intake) * follow trend of repeat labs (2) Decreased oral intake: Code(s): R63.8 - Other symptoms and signs concerning food and fluid intake Status: Acute Assessment and Plan: * persistent issue/problem since admission * this is likely precipitating issues with #1 * not sure what other interventions to do... * GI following (3) COVID-19: Code(s): U07.1 - COVID-19 Status: Acute Assessment and Plan: * preumable cause of some of her admission symptoms * not hypoxic or requiring supplemental oxygen * holding dexamethasone and/or remdesivir * follow respiratory status closely * is this playing a role with #1(?) (4) Essential (primary) hypertension: Code(s): I10 - Essential (primary) hypertension Status: Chronic Assessment and Plan: * reasonable control at this time * perhaps too well controlled * BP medications adjusted - amlodipine with parameters * continue atenolol due to #4 * follow trend of hemodynamics (5) Paroxysmal atrial fibrillation: Code(s): I48.0 - Paroxysmal atrial fibrillation Status: Chronic Assessment and Plan: * rate control strategy (with atenolol) * not on systemic anticoagulation (6) Anemia: Code(s): D64.9 - Anemia, unspecified Status: Acute Assessment and Plan: * somewhat of a chronic issue * known history of iron deficiency - on iron supplements * Given CTA findings, GI following * s/p EGD with findings noted * follow H/H Will continue to follow. Subjective Date/time seen: 09/18/22 09:46 No real significant change -- still with ongoing discomfort/pain and seemed more fixated on the fact she is not getting the pain medications she was getting before; no other issues/events overnight or earlier this AM. Exam Narrative: General: WD/WN female in NAD Heart: normal S1 and S2; no rub Lungs: clear anteriorly Abdomen: soft, nontender, positive bowel sounds Extremities: no cyanosis or clubbing; no edema Skin: no rash Objective Data Vital Signs Vital Signs: Vital Signs Temp Pulse Resp BP Pulse Ox O2 Del Method 09/18/22 06:00 97.8 F 70 18 101/69 99 09/17/22 22:00 98.2 F 87 18 115/81 98 09/17/22 20:00 Room Air 09/17/22 14:00 98.5 F 85 22 H 112/67 100 Intake/Output Intake/Ou
--- NOTE | 2022-09-18 09:46 | PM.PNNEP ---
Progress Note: A&P Assessment and Plan (1) KRISTEN (acute kidney injury): Code(s): N17.9 - Acute kidney failure, unspecified Status: Acute Assessment and Plan: slow improvement noted again normal baseline renal function prior to admission HOWEVER, she states contrast studies have been deferred in the past/at times due to her kidney function suspect her creatinine fluctuates even at baseline still suspect volume depletion/prerenal azotemia based on her history and ongoing testing evaluation to date: initial urine electrolytes (on 09/05) are pre-renal repeat urine electrolytes (on 09/13/22) are still prerenal renal ultrasound normal perhaps relative hypotension partly to blame... had been running in the 150s - 160s systolic on admission several days with 90s - 120s systolic BPs holding amlodipine with parameters use of narcotics maybe artificially keeping BP on the lower end as well continue IVFs for now (given poor oral intake) follow trend of repeat labs (2) Decreased oral intake: Code(s): R63.8 - Other symptoms and signs concerning food and fluid intake Status: Acute Assessment and Plan: persistent issue/problem since admission this is likely precipitating issues with #1 not sure what other interventions to do... GI following (3) COVID-19: Code(s): U07.1 - COVID-19 Status: Acute Assessment and Plan: preumable cause of some of her admission symptoms not hypoxic or requiring supplemental oxygen holding dexamethasone and/or remdesivir follow respiratory status closely is this playing a role with #1(?) (4) Essential (primary) hypertension: Code(s): I10 - Essential (primary) hypertension Status: Chronic Assessment and Plan: reasonable control at this time perhaps too well controlled BP medications adjusted - amlodipine with parameters continue atenolol due to #4 follow trend of hemodynamics (5) Paroxysmal atrial fibrillation: Code(s): I48.0 - Paroxysmal atrial fibrillation Status: Chronic Assessment and Plan: rate control strategy (with atenolol) not on systemic anticoagulation (6) Anemia: Code(s): D64.9 - Anemia, unspecified Status: Acute Assessment and Plan: somewhat of a chronic issue known history of iron deficiency - on iron supplements Given CTA findings, GI following s/p EGD with findings noted follow H/H Will continue to follow. Subjective Date/time seen: 09/18/22 09:46 No real significant change -- still with ongoing discomfort/pain and seemed more fixated on the fact she is not getting the pain medications she was getting before; no other issues/events overnight or earlier this AM. Exam Narrative: General: WD/WN female in NAD Heart: normal S1 and S2; no rub Lungs: clear anteriorly Abdomen: soft, nontender, positive bowel sounds Extremities: no cyanosis or clubbing; no edema Skin: no rash Objective Data Vital Signs Vital Signs: Vital Signs Temp Pulse Resp BP Pulse Ox O2 Del Method 09/18/22 06:00 97.8 F 70 18 101/69 99 09/17/22 22:00 98.2 F 87 18 115/81 98 09/17/22 20:00 Room Air 09/17/22 14:00 98.5 F 85 22 H 112/67 100 Intake/Output Intake/Output: Intake & Output 09/15/22 09/16/22 09/17/22 09/18/22 23:59 23:59 23:59 23:59 Intake Total 3967 2550 3550 1000 Output Total 500 1150 800 400 Balance 3467 1400 2750 600 Meds/Results Medications: Active Medications Generic Name Dose Route Start Last Admin Trade Name Freq PRN Reason Stop Dose Admin Acetaminophen 650 mg 09/04/22 23:10 Acetaminophen 325 Mg Tablet PO Q4H PRN Mild Pain (1-3) or Fever Al Hydrox/Mg Hydrox/Simethicone 30 ml 09/07/22 13:37 09/07/22 14:19 Mag Hydrox/Al Hydrox/Simeth 30 Ml Udc PO 30 ml Q6H PRN Administration Indigestion Amlodipine Besylate 5 mg 09/05/22 09:0
[2022-09-18 10:45] VITALS: BP 114/71; PULSE 81; RESP 18; TEMP 36.3; O2SAT 100
[2022-09-18] MEDS: LACTATED RINGERS 1,000 ML 150 ML IV CONT (10:50)
--- NOTE | 2022-09-18 10:55 | SUR.PREOP ---
Fleets enema administered in GI lab per Dr Zuñiga's order.
--- NOTE | 2022-09-18 11:20 | WPDANESEPPF ---
Anes - Initial Pre Proc Eval Procedure: Operation Date: 09/11/22 13:30 Proposed Procedures p Esophagogastroduodenoscopy - Kip Zuñiga MD Operation Date: 09/18/22 11:30 Proposed Procedures p Flexible Sigmoidoscopy - Kip Zuñiga MD Date/Time: 09/18/22 11:20 Surgeon: Ernesto Hathaway MD Pre Op Diagnosis: covid, gloria, r/o PE Patient Data Age: 57 Gender: F Height: 1.65 m Weight: 60.3 kg Last Vital Signs Temp 97.4 F L 09/18/22 10:45 Pulse 81 09/18/22 10:45 Resp 18 09/18/22 10:45 BP 114/71 09/18/22 10:45 Pulse Ox 100 09/18/22 10:45 O2 Del Method Room Air 09/18/22 10:45 Allergies Allergy/AdvReac Type Severity Reaction Status Date / Time Sulfa (Sulfonamide Allergy Severe Swelling Verified 09/04/22 23:10 Antibiotics) of Lip/Tongue/Throat lidocaine AdvReac Unknown Chest Pain Verified 09/04/22 23:10 prednisone AdvReac Unknown NOT TO Verified 09/04/22 23:10 TAKE R/T MEDS triamcinolone [From Kenalog] AdvReac Unknown Unknown Verified 09/04/22 23:10 Home Medications Medication Instructions Recorded Confirmed Type alendronate 70 mg tablet 70 mg PO WEEKLY 03/31/20 09/05/22 History apremilast 30 mg tablet (Otezla) 30 mg PO BID 04/12/20 09/05/22 History aspirin 325 mg tablet 325 mg PO DAILY 04/12/20 09/05/22 History infliximab-dyyb 100 mg intravenous 100 mg IV MONTHLY 11/15/20 09/11/22 History solution (Inflectra) lansoprazole 30 mg capsule,delayed 30 mg PO QAM 11/15/20 09/05/22 History release (Prevacid) vitamin B complex (B 1 tablet PO WEEKLY 02/20/22 09/05/22 History Complex-Vitamin B12 tablet) atenolol 50 mg tablet 25 mg PO HS #45 tabs 04/17/22 09/05/22 Rx ergocalciferol (vitamin D2) 1,250 1,250 mcg PO WEEKLY #13 caps 06/12/22 09/05/22 Rx mcg (50,000 unit) capsule lorazepam 2 mg tablet 2 mg PO TID PRN anxiety #90 tabs 06/13/22 09/05/22 Rx oxycodone-acetaminophen 10 mg-325 1 tablet PO Q4H PRN Pain #180 tabs 08/23/22 09/05/22 Rx mg tablet amlodipine 5 mg tablet 5 mg PO QAM 09/05/22 09/05/22 History atorvastatin 40 mg tablet 40 mg PO QHS 09/05/22 09/05/22 History sertraline 100 mg tablet 100 mg PO QAM 09/05/22 09/05/22 History tiotropium 2.5 mcg-olodaterol 2.5 2 puff inhalation DAILY 09/05/22 09/05/22 History mcg/actuation mist for inhalation (Stiolto Respimat) Laboratory Tests 09/18/22 09/18/22 07:16 07:16 WBC 3.4 K/mm3 L K/mm3 (4.5-10.0) RBC 3.83 M/mm3 L M/mm3 (4.2-5.4) Hgb 8.9 g/dL L g/dL (12.0-15.0) Hct 31.4 % L % (37.0-47.0) MCV 82.0 fl fl (80-100) MCH 23.2 pg L pg (26-34) MCHC 28.3 g/dl L g/dl (32-36) RDW 23.6 % H % (11.5-14.5) Plt Count 302 k/mm3 k/mm3 (150-375) MPV 10.4 fl fl (7.4-10.4) Sodium 141 mmol/L mmol/L (137-145) Potassium 4.1 mmol/L mmol/L (3.4-5.0) Chloride 112 mmol/L H mmol/L (98-107) Carbon Dioxide 21 mmol/L L mmol/L (22-30) Anion Gap 8 mmol/L mmol/L (8-16) BUN 11 mg/dL mg/dL (7-17) Creatinine 1.40 mg/dL H mg/dL (0.7-1.0) Estim Creat Clear Calc 36 ml/min ml/min Estimated GFR 39 L (59 - ) Glucose 90 mg/dL mg/dL (65-110) Calcium 8.7 mg/dL mg/dL (8.4-10.2) Total Bilirubin 0.4 mg/dL mg/dL (0.2-1.3) AST 31 U/L U/L (14-36) ALT 16 U/L U/L (6-35) Alkaline Phosphatase 97 U/L U/L (38-126) Total Protein 7.0 g/dL g/dL (6.3-8.2) Albumin 3.6 g/dL g/dL (3.5-5.1) Patient hx anesthesia problems: none Family hx anesthesia problems: none Results Review: All pre-operative results and documents have been reviewed as part of the pre-operative evaluation. [facility] Past Medical History Medical History Anxiety Cervical cancer S/p hysterectomy 1996 CVA (cerebrovascular accident) 2017, no residual deficits DDD (degenerative disc disea
[2022-09-18 11:43] VITALS: BP 123/74; PULSE 78; RESP 18; O2SAT 99
[2022-09-18 11:48] VITALS: BP 122/79; PULSE 87; RESP 18; O2SAT 97
[2022-09-18] MEDS: FERROUS SULFATE 324 MG TABLET PO (12:42)
[2022-09-18] MEDS: amLODIPine BESYLATE 5 MG TABLET PO (12:42)
[2022-09-18] MEDS: SIMETHICONE 80 MG TAB.CHEW PO (12:42)
[2022-09-18] MEDS: PANTOPRAZOLE SODIUM IV 40 MG VIAL IV PUSH (12:43)
[2022-09-18] MEDS: FOLIC ACID 1 MG TABLET PO (12:43)
--- NOTE | 2022-09-18 13:47 | P.DS_ITS ---
DS: Admitting Diagnosis Discharge Date 09/18/22 Admitting Diagnosis KRISTEN, anemia, gastritis DS: Discharge Diagnosis Discharge Diagnosis (1) KRISTEN (acute kidney injury): Code(s): N17.9 - Acute kidney failure, unspecified Status: Acute Assessment and Plan: BUN 51, creatinine 2.9, GFR 17; previously labs 2020 show normal renal function, however, she reports episodes of imaging having to be deferred to due to not being able to have contrast dye. * Consulted nephrology and appreciate recommendations. * Check urine sodium and creatinine - FENa 0.2% suggesting pre-renal cause. * DC douglass catheter 09/07/22 * Monitor strict I/O and daily weights. * Avoid nephrotoxins * Continue NS@100 mL/hour following contrast CTA. 09/08 * BUN 25, creatinine 1.4, GFR 39. continues to improve. continue IV fluids due to GI symptoms and NPO status. Renal function stable after IV contrast. * Renal US negative 09/09/22 * continues to improve. Continue IV fluids until able to take PO. 09/10/22 * returned to baseline. Continue IV fluids while NPO. 09/12/22 * creatinine increased to 1.3 today. Patient states that she has not been consuming much by mouth. Encouraged patient to continue drinking. Patient states that she has not been able to eat much due to abdominal distension and pain associated with food. Patient states that she is unable to eat a regular diet. Change patient's diet to liquid diet and will assess how she tolerates this in the morning. 09/13/22 * Patient unable to consume fluids and food by mouth due to abdominal pain and distention. Order urine Na and Cr. Patient venous score of 0.1% indicating prerenal. Patient has had mildly low potassium. Potassium chloride/D5/sodium chloride started on patient. * Recheck labs in the morning. 09/14/22 * discussed patients renal function with Dr. San and he advised keeping her on fluids for now and rechecking tomorrow. 09/15/2022 * Patient's creatinine this morning is 1.5, this is decreased from yesterday when it was 1.7. Continue fluids. 09/16/22 * patient's creatinine continues to trend down. Continue fluids 09/17/22 * Creatinine improving (2) Upper GI bleed: Code(s): K92.2 - Gastrointestinal hemorrhage, unspecified Status: Acute Assessment and Plan: CTA chest obtained for PE protocol. Patient noted to have possible distal esophageal bleeding. She takes full strength aspirin 325 mg daily for afib and previous stroke. This was changed to 81 mg while treated for possible PE. * Hgb 7.4. Was 9.1 on admission, previous labs from 2019 shows baseline 9-10. * Iron panel suggests iron deficiency anemia * Fecal occult blood positive * Consult GI for evaluation and possible endoscopy. * Trialed clear liquid diet, however, patient c/o increased bloating. Return to NPO. * Carafate 1000 mg Q6 hours * Lovenox and aspirin stopped 09/07. * continue protonix 40 mg IV BID 09/08 * Continue to trend H/H. Hgb increased 8.3 without infusion today. Continue to monitor. She does report bloating today after eating and reports symptoms intermittent since March. she was changed to NPO for now. 09/09/22 * Hgb 7.8-8.2, unchanged. CT abd/pelvis with increased distal bowel dilation w/w all thickening and increased free pelvic fluid concerning for IBD flare 09/10/22 * unchanged. EGD in am. 09/11/22 * awaiting EGD. Hgb 7.7 today. Vitals stable. 09/12/22 * EGD negative for bleeding/ulcer. Hemoglobin today 9.4. 09/13/22 * hemoglobin stable. Patient still having abdominal distension with food. Order KUB, patient could hav
--- NOTE | 2022-09-18 13:47 | PM.DS ---
DS: Admitting Diagnosis Discharge Date 09/18/22 Admitting Diagnosis KRISTEN, anemia, gastritis DS: Discharge Diagnosis Discharge Diagnosis (1) KRISTEN (acute kidney injury): Code(s): N17.9 - Acute kidney failure, unspecified Status: Acute Assessment and Plan: BUN 51, creatinine 2.9, GFR 17; previously labs 2019 show normal renal function, however, she reports episodes of imaging having to be deferred to due to not being able to have contrast dye. Consulted nephrology and appreciate recommendations. Check urine sodium and creatinine - FENa 0.2% suggesting pre-renal cause. DC douglass catheter 09/07/22 Monitor strict I/O and daily weights. Avoid nephrotoxins Continue NS@100 mL/hour following contrast CTA. 09/08 BUN 25, creatinine 1.4, GFR 39. continues to improve. continue IV fluids due to GI symptoms and NPO status. Renal function stable after IV contrast. Renal US negative 09/09/22 continues to improve. Continue IV fluids until able to take PO. 09/10/22 returned to baseline. Continue IV fluids while NPO. 09/12/22 creatinine increased to 1.3 today. Patient states that she has not been consuming much by mouth. Encouraged patient to continue drinking. Patient states that she has not been able to eat much due to abdominal distension and pain associated with food. Patient states that she is unable to eat a regular diet. Change patient's diet to liquid diet and will assess how she tolerates this in the morning. 09/13/22 Patient unable to consume fluids and food by mouth due to abdominal pain and distention. Order urine Na and Cr. Patient venous score of 0.1% indicating prerenal. Patient has had mildly low potassium. Potassium chloride/D5/sodium chloride started on patient. Recheck labs in the morning. 09/14/22 discussed patients renal function with Dr. San and he advised keeping her on fluids for now and rechecking tomorrow. 09/15/2022 Patient's creatinine this morning is 1.5, this is decreased from yesterday when it was 1.7. Continue fluids. 09/16/22 patient's creatinine continues to trend down. Continue fluids 09/17/22 Creatinine improving (2) Upper GI bleed: Code(s): K92.2 - Gastrointestinal hemorrhage, unspecified Status: Acute Assessment and Plan: CTA chest obtained for PE protocol. Patient noted to have possible distal esophageal bleeding. She takes full strength aspirin 325 mg daily for afib and previous stroke. This was changed to 81 mg while treated for possible PE. Hgb 7.4. Was 9.1 on admission, previous labs from 2019 shows baseline 9-10. Iron panel suggests iron deficiency anemia Fecal occult blood positive Consult GI for evaluation and possible endoscopy. Trialed clear liquid diet, however, patient c/o increased bloating. Return to NPO. Carafate 1000 mg Q6 hours Lovenox and aspirin stopped 09/07. continue protonix 40 mg IV BID 09/08 Continue to trend H/H. Hgb increased 8.3 without infusion today. Continue to monitor. She does report bloating today after eating and reports symptoms intermittent since March. she was changed to NPO for now. 09/09/22 Hgb 7.8-8.2, unchanged. CT abd/pelvis with increased distal bowel dilation w/wall thickening and increased free pelvic fluid concerning for IBD flare 09/10/22 unchanged. EGD in am. 09/11/22 awaiting EGD. Hgb 7.7 today. Vitals stable. 09/12/22 EGD negative for bleeding/ulcer. Hemoglobin today 9.4. 09/13/22 hemoglobin stable. Patient still having abdominal distension with food. Order KUB, patient could have gastroparesis. 09/14/20 x ray showed dilated small bowel and colon, most likely adynamic ileus. 09/18/22 Discussed with GI and they believe that a dynamic ileus is most likely due to opioid use. Additional pain meds the patient received in the hospital were discontinued. (3) Epigastric pain: Code(s): R10.13 - Epigastric pain Status: Acute Assessment and Plan: Patient
[2022-09-18 14:00] VITALS: BP 149/79; PULSE 86; RESP 20; TEMP 36.4; O2SAT 98
[2022-09-21 01:33] LABS: ANCA Screen Negative (Negative); Myeloperoxidase Ab <1.0 AI (<1.0); Proteinase-3 Ab <1.0 AI (<1.0); S cerevisiae Ab (IgA) 36.4 U (<=20.0); S cerevisiae Ab (IgG) 9.8 U (<=20.0)
[2022-09-22 16:37] LABS: Calprotectin, Stool 38 mcg/g
== END 2022-09-18 16:00 | disposition home or self-care (01) | DRG 682 ==
LOC: ANHED 22:29 → ANH3MEDSUR 09-05 00:02
PROVIDERS: Internal Medicine Gastroenterology; Nurse Practitioner Family; Admitting Provider Internal Medicine; Emergency Provider Emergency Medicine; PCP Family Medicine Adolescent Medicine; Visit Provider Internal Medicine Critical Care Medicine
PROC: 0DJ08ZZ Inspection of Upper Intestinal Tract, Via Natural or Artificial Opening Endoscopic (ICD-10-PCS; CPT 43235; principal; 2022-09-11 13:30)
PROC: 0DJD8ZZ Inspection of Lower Intestinal Tract, Via Natural or Artificial Opening Endoscopic (ICD-10-PCS; CPT 45330; principal; 2022-09-18 11:30)
DX: N17.9 Acute kidney failure, unspecified (principal); U07.1 COVID-19; K51.90 Ulcerative colitis, unspecified, without complications; J44.9 Chronic obstructive pulmonary disease, unspecified; I10 Essential (primary) hypertension; K21.00 Gastro-esophageal reflux disease with esophagitis, without bleeding; I48.0 Paroxysmal atrial fibrillation; D50.0 Iron deficiency anemia secondary to blood loss (chronic); M81.0 Age-related osteoporosis without current pathological fracture; K52.9 Noninfective gastroenteritis and colitis, unspecified; G62.9 Polyneuropathy, unspecified; F32.A Depression, unspecified; Z95.0 Presence of cardiac pacemaker; Z86.73 Personal history of transient ischemic attack (TIA), and cerebral infarction without residual deficits; Z87.891 Personal history of nicotine dependence; Z79.82 Long term (current) use of aspirin; Z79.899 Other long term (current) drug therapy; Z83.3 Family history of diabetes mellitus; Z88.2 Allergy status to sulfonamides; Z82.49 Family history of ischemic heart disease and other diseases of the circulatory system; Z80.0 Family history of malignant neoplasm of digestive organs; Z80.1 Family history of malignant neoplasm of trachea, bronchus and lung
CPT/HCPCS: 36415; 70450; 71046; 71101; 71250; 71275; 74018; 74176; 76775; 78264; 78580; 80048; 80053; 80069; 82274; 82570; 82607; 82728; 82746; 83540; 83550; 83605; 83690; 83735; 83880; 83993; 84100; 84300; 85014; 85018; 85025; 85027; 86036; 86140; 86671; 87637; 88305; 93005; 94640; 94667; 94668; 96361; 96365; 96372; 96374; 96375; 96376; 99285; A9270; A9540; A9541; C9113; G0378; J0360; J1100; J1200; J1650; J1756; J1940; J2060; J2270; J2405; J2704; J2765; J2920; J3010; J3480; J7030; J7120; Q9967

== ENCOUNTER 2022-10-28 23:40 | Emergency (ER) | payer MEDICARE, SELFPAY ==
--- NOTE | ~2022-10-28 | CT_ITS ---
Non-contrast Head CT History: Head trauma COMPARISON: 09/11/2022 Technique: Axial non-contrast imaging of the brain was performed. Dose reduction technique was used on this scan by utilizing automated exposure control and iterative reconstruction technique. The dose -length product (DLP) was 605.33 mGy-cm. Findings: There is no evidence of intracranial hemorrhage, mass lesion, or acute infarct. Brain par enchyma appears normal. The ventricles and subarachnoid spaces are normal in size. The calvarium ap pears normal. The visualized paranasal sinuses and mastoid air cells are clear. Impression: No significant abnormality seen. Reviewed, dictated and finalized at location . [employer] Impression: No significant abnormality seen.
--- NOTE | ~2022-10-28 | CT_ITS ---
CT Facial Bones and Cervical Spine Clinical Indication: Trauma Technique: Contiguous axial scans were obtained through the facial bones and cervical spine followed by coronal and sagittal reconstructions. Dose reduction technique was used on this scan by utilizing automated exposure control and iterative reconstruction technique. The dose-length product (DLP) was 265.42 mGy-cm. Findings: CT facial bones: No fractures are identified. Small retention cyst or polyp present in the right maxi llary sinus. The remaining visualized paranasal sinuses are clear. Intraorbital soft tissues appear n ormal. CT cervical spine: There is anterior fusion extending from C5 to C6, fusion across the C5-C6 disc spa ce. No fractures or subluxation. There is moderate degenerative disc narrowing at C4-C5. There is adv anced right-sided facet joint degenerative change at C3-C4. No definite spinal canal stenosis or neur al foraminal narrowing. No prevertebral soft tissue swelling. Impression: No fracture is seen in the facial bones. No fracture or subluxation of the cervical spine. Anterior fusion from C5 to C6. Mild degenerative spondylosis in the cervical spine, as detailed above. Reviewed, dictated and finalized at [facility]. [employer] Impression: No fracture is seen in the facial bones. No fracture or subluxation of the cervical spine. Anterior fusion from C5 to C6. Mild degenerative spondylosis in the cervical spine, as detailed above.
--- NOTE | ~2022-10-28 | XR_ITS ---
Left Knee Technique: AP, lateral, and sunrise views were obtained. Clinical History: Pain Findings: No fracture or dislocation is seen. Osseous alignment is anatomic. Joint spaces are preserv ed without degenerative or erosive change. Soft tissues are unremarkable. No joint effusion is seen. Impression: Unremarkable left knee radiographs. Reviewed, dictated and finalized at location . [employer] Impression: Unremarkable left knee radiographs.
[2022-10-28 23:55] VITALS: BP 146/90; PULSE 76; RESP 14; TEMP 36.6; O2SAT 97
[2022-10-29] MEDS: HYDROcodone/acetaminophen (*CRX) 10-325 MG TABLET 1 TAB PO (03:13)
--- NOTE | 2022-10-29 03:28 | ED.FALL ---
HPI - Fall General Chief Complaint: Fall <Davina Nunes PA-C - Last Filed: 10/29/22 03:45> Stated Complaint: fell off step and has a laceration to her eyebrow <Davina Nunes PA-C - Last Filed: 10/29/22 03:45> Time Seen by Provider: 10/29/22 02:41 <Davina Nunes PA-C - Last Filed: 10/29/22 03:45> History of Present Illness HPI Narrative: 57-year-old female with a history of CVA, cervical cancer, DDD, DVT reports to the emergency department after she fell 5 hours ago. Patient states she was on a deck, slipped and fell catching herself on her face. Denies loss of consciousness. Denies prodromal symptoms. She is complaining of headache, neck pain, laceration to her left eyebrow, scattered abrasions on her hands, left knee pain with ecchymosis and edema. Patient states the only residual stroke symptoms she has from her CVA in 2017 and is right foot drop. She states she supposed to ambulate with a cane but was not ambulating with a cane at the time of fall. Patient reports she takes 325 mg of aspirin daily. Denies taking anticoagulants. Denies vision changes, chest pain, shortness of breath, focal weakness or numbness. NIH Stroke Scale/Score (NIHSS) from [email or web address] on 10/29/2022 All calculations should be rechecked by clinician prior to use RESULT SUMMARY: 2 points NIH Stroke Scale INPUTS: 1A: Level of consciousness ?> 0 = Alert; keenly responsive 1B: Ask month and age ?> 0 = Both questions right 1C: 'Blink eyes' & 'squeeze hands' ?> 0 = Performs both tasks 2: Horizontal extraocular movements ?> 0 = Normal 3: Visual duenas ?> 0 = No visual loss 4: Facial palsy ?> 1 = Minor paralysis (flat nasolabial fold, smile asymmetry) 5A: Left arm motor drift ?> 0 = No drift for 10 seconds 5B: Right arm motor drift ?> 0 = No drift for 10 seconds 6A: Left leg motor drift ?> 0 = No drift for 5 seconds 6B: Right leg motor drift ?> 0 = No drift for 5 seconds 7: Limb Ataxia ?> 0 = No ataxia 8: Sensation ?> 0 = Normal; no sensory loss 9: Language/aphasia ?> 0 = Normal; no aphasia 10: Dysarthria ?> 1 = Mild-moderate dysarthria: slurring but can be understood 11: Extinction/inattention ?> 0 = No abnormality <JOANA Tripp Last Filed: 10/29/22 03:45> Related Data Home Medications: Home Medications Medication Instructions Recorded Confirmed alendronate 70 mg tablet 70 mg PO WEEKLY 03/31/20 10/02/22 apremilast 30 mg tablet (Otezla) 30 mg PO BID 04/12/20 10/02/22 aspirin 325 mg tablet 325 mg PO DAILY 04/12/20 10/02/22 vitamin B complex (B 1 tablet PO WEEKLY 02/20/22 10/02/22 Complex-Vitamin B12 tablet) amlodipine 5 mg tablet 5 mg PO QAM 09/05/22 10/02/22 atorvastatin 40 mg tablet 40 mg PO QHS 09/05/22 10/02/22 sertraline 100 mg tablet 100 mg PO QAM 09/05/22 10/02/22 <JOANA Tripp Last Filed: 10/29/22 03:45> Allergies/Adverse Reactions: Allergies Allergy/AdvReac Type Severity Reaction Status Date / Time Sulfa (Sulfonamide Allergy Severe Swelling Verified 10/28/22 23:41 Antibiotics) of Lip/Tongue/Throat lidocaine AdvReac Unknown Chest Pain Verified 10/28/22 23:41 prednisone AdvReac Unknown NOT TO Verified 10/28/22 23:41 TAKE R/T MEDS triamcinolone [From Kenalog] AdvReac Unknown Unknown Verified 10/28/22 23:41 <JOANA Tripp Last Filed: 10/29/22 03:45> Review of Systems Review of Systems: CONSTITUTIONAL: Denies fever, chills EYES: Denies visual changes, redness, or discharge. ENT: Denies rhinorrhea, congestion, sore throat, or otalgia. CARDIOVASCULAR: Denies chest pain, palpitations, or edema. RESPIRATORY: Denies cough or dyspnea. GASTROINTESTINAL: Denies abdominal pain, nausea, vomiting, or diarrhea. GENITOURINARY: Denies dysuria or hematuria. SKIN: Denies rash or itching. MUSCULOSKELETAL: Denies back pain, joint pain, or myalgia. NEUROLOGIC: Denies numbness, dizziness, or weakness. PSYCHIATRIC: Denies anxiety or depression.
[2022-10-29] MEDS: MORPHINE SULFATE INJ (*CRX) 10 MG/ML AMP 4 MG IM (04:22)
[2022-10-29 06:08] VITALS: BP 144/69; PULSE 84; RESP 18; TEMP 36.6; O2SAT 99
[2022-10-29 07:10] VITALS: BP 111/69; PULSE 69; RESP 18; TEMP 36.6; O2SAT 99
== END 2022-10-29 07:11 | disposition home or self-care (01) ==
PROVIDERS: Emergency Provider Emergency Medicine; PCP Family Medicine Adolescent Medicine
DX: S01.112A Laceration without foreign body of left eyelid and periocular area, initial encounter (principal); S80.02XA Contusion of left knee, initial encounter; I69.998 Other sequelae following unspecified cerebrovascular disease; M21.371 Foot drop, right foot; Z90.710 Acquired absence of both cervix and uterus; E78.5 Hyperlipidemia, unspecified; K21.9 Gastro-esophageal reflux disease without esophagitis; M81.0 Age-related osteoporosis without current pathological fracture; G62.9 Polyneuropathy, unspecified; F41.9 Anxiety disorder, unspecified; Z95.0 Presence of cardiac pacemaker; Z98.1 Arthrodesis status; Z90.49 Acquired absence of other specified parts of digestive tract; Z85.41 Personal history of malignant neoplasm of cervix uteri; Z86.718 Personal history of other venous thrombosis and embolism; Z87.891 Personal history of nicotine dependence; Z79.82 Long term (current) use of aspirin; W01.0XXA Fall on same level from slipping, tripping and stumbling without subsequent striking against object, initial encounter
CPT/HCPCS: 12011; 70450; 70486; 72125; 73562; 96372; 99284; A9270; J2270

== ENCOUNTER 2023-07-15 00:26 | Day surgery (SDC) | payer MEDICARE, SELFPAY ==
[2023-07-12 18:18] VITALS: BMI 26.6
--- NOTE | 2023-07-15 08:30 | ECG_ITS ---
Measurements Intervals Brant Rate: 77 P: 51 PA: 196 QRS: 52 QRSD: 87 T: 44 QT: 361 QTc: 411 Interpretive Statements SINUS RHYTHM BASELINE ARTIFACT- I, II, III, AVL, AVF NORMAL ECG COMPARED TO ECG 09/04/2022 19:57:39 NO SIGNIFICANT CHANGES Electronically Signed On 07-15-2023 10:03:36 [employer] SUPERINTENDENT by Car Tirado D.O.
[2023-07-15 08:37] VITALS: BP 136/83; PULSE 77; RESP 16; TEMP 37.2; O2SAT 95; BMI 26.6
[2023-07-15 08:49] LABS: Basophils Percent Auto 0.9 % (0.2-1.2); Eosinophils Absolute Auto 0.1 K/mm3 (0-0.3); Eosinophils Percent Auto 1.7 % (0-4.4); Hematocrit 30.1 % (37.0-47.0); Hemoglobin 8.6 g/dL (12.0-15.0); Immature Granulocyte Absolute 0.01 K/mm3 (0.00-0.031); Immature Granulocyte Percent A 0.2 % (0-0.5); Lymphocytes Absolute Auto 1.42 K/mm3 (0.9-3.2); Lymphocytes Percent Auto 30.6 % (18.3-44.2); Mean Corpuscular HGB Conc 28.6 g/dl (32-36); Mean Corpuscular Volume 84.1 fl (80-100); Mean Platelet Volume 8.8 fl (7.4-10.4); Monocytes Absolute Auto 0.5 K/mm3 (0.1-0.6); Monocytes Percent Auto 11.4 % (2.6-8.5); Neutrophils Absolute Auto 2.6 K/mm3 (1.3-6.7); Neutrophils Percent Auto 55.2 % (45.5-73.1); Platelet Count Result 230 k/mm3 (150-375); Red Blood Count 3.58 M/mm3 (4.2-5.4); Red Cell Distribution Width 18.8 % (11.5-14.5); White Blood Count 4.6 K/mm3 (4.5-10.0)
[2023-07-15 08:59] LABS: Anion Gap 8 mmol/L (8-16); Blood Urea Nitrogen 41 mg/dL (7-17); Calcium 8.9 mg/dL (8.4-10.2); Carbon Dioxide 21 mmol/L (22-30); Chloride 109 mmol/L (98-107); Estimated CRCL calculation 37 ml/min; Estimated Glomerular Filt Rate 39; Glucose 98 mg/dL (65-110); Potassium 4.1 mmol/L (3.4-5.0); Prothrombin Time 13.5 Seconds (11.1-14.7); Sodium 138 mmol/L (137-145)
--- NOTE | 2023-07-15 09:34 | WPDMODSED ---
Moderate Sedation Note-Pt Data Patient Data Diagnosis: permanently implanted dual-chamber pacemaker at [facility] Present Complaint: no complaint Procedure to be performed/Plan: pacemaker generator change Allergies Allergy/AdvReac Type Severity Reaction Status Date / Time Sulfa (Sulfonamide Allergy Severe Swelling Verified 07/15/23 08:33 Antibiotics) of Lip/Tongue/Throat prednisone AdvReac Unknown NOT TO Verified 07/15/23 08:33 TAKE R/T MEDS triamcinolone [From Kenalog] AdvReac Unknown Unknown Verified 07/15/23 08:33 Home Medications Medication Instructions Recorded Confirmed Type alendronate 70 mg tablet 70 mg PO WEEKLY 03/31/20 07/12/23 History apremilast 30 mg tablet (Otezla) 30 mg PO BID 04/12/20 07/12/23 History aspirin 325 mg tablet 325 mg PO DAILY 04/12/20 07/12/23 History vitamin B complex (B 1 tablet PO WEEKLY 02/20/22 07/12/23 History Complex-Vitamin B12 tablet) amlodipine 5 mg tablet 5 mg PO QAM #90 tabs 02/26/23 07/12/23 Rx sertraline 100 mg tablet 100 mg PO QAM #90 tabs 02/26/23 07/12/23 Rx atorvastatin 40 mg tablet 40 mg PO QHS #90 tabs 03/24/23 07/12/23 Rx albuterol sulfate 90 mcg/actuation 2 inh inhalation Q4H PRN shortness 04/10/23 07/12/23 Rx aerosol inhaler of breath or wheezing #25.5 grams lansoprazole 30 mg capsule,delayed 30 mg PO QAM #90 caps 05/23/23 07/12/23 Rx release (Prevacid) lorazepam 2 mg tablet 2 mg PO TID PRN anxiety #90 tabs 05/28/23 07/12/23 Rx oxycodone-acetaminophen 10 mg-325 1 tablet PO Q4H PRN Pain #180 tabs 06/13/23 07/12/23 Rx mg tablet ergocalciferol (vitamin D2) 1,250 See Rx Instructions .Route 06/30/23 07/12/23 Rx mcg (50,000 unit) capsule .COMPLEX #13 caps atenolol 50 mg tablet 50 mg PO HS 07/12/23 07/12/23 History budesonide 3 mg 6 mg PO DAILY 07/12/23 07/12/23 History capsule,delayed,extended release Sedation/Anesthesia: No previous sedation/anesthesia problems (including family history). [facility] Past Medical History Medical History Anxiety Cervical cancer S/p hysterectomy 1996 COVID-19 CVA (cerebrovascular accident) 2017, no residual deficits DDD (degenerative disc disease) Depression DVT (deep venous thrombosis) 2006 GERD (gastroesophageal reflux disease) HLD (hyperlipidemia) Osteoporosis Pacemaker SSS - 2013 Peptic ulcer Peripheral neuropathy Seasonal allergies Thyroid nodule Surgical History Surgical History H/O cervical spine surgery 2002 H/O inguinal hernia repair H/O resection of large bowel 1999 History of carpal tunnel release History of hysterectomy History of orthopedic surgery bilateral feet History of removal of ovarian cyst left 1998 History of spinal fusion 2000 & 2001. L5-S1 Hx of cholecystectomy (1999) Hx of tonsillectomy Family History Family History Grandparent Carcinoma of colon Father Diabetes mellitus Hypertension Lymphoma Mother Hypertension Hypercholesterolemia Grandparent Family history of lung cancer Social History Social History Social History: Ms. Robert lives at home with her sister, Radha, whom she designates as her surrogate decision maker. She would like to be a full code. She is and has step-children. She has been on disability for about 20 years. Smoking packs per day: 1 Smoking cigarettes per day: 20.0 Years smoked: 30 Smoking pack-years: 30.00 Smoking status: Light tobacco smoker Tobacco type: cigarettes Second hand tobacco smoke exposure: Yes Smoking end date: 07/10/22 Additional smoking assessment comments: SMOKES OCCASIONALLY 1 CIGARETTE A DAY. Alcohol intake: current Drinks per week: 5 Alcohol use details: LIQUOR. Substance use: former Substance use type: marijuana Other substance usage details: She has
--- NOTE | 2023-07-15 09:42 | PM.IMHP ---
H&P: HPI History of Present Illness Date/Time: 07/15/23 09:42 Chief Complaint: no complaints, elective admission for generator change Narrative: this is a 58-year-old woman who received a dual-chamber pacemaker 10 years ago for treatment of sick sinus syndrome. Her device has been functioning normally. On routine office follow-up it has been found to be at [facility] and is admitted today for elective pacemaker generator change. She has no active cardiovascular complaints today. Review of Systems Constitutional: Constitutional: Reports no additional constitutional complaints Eyes: Eyes: Reports no additional eye complaints ENT: Reports system reviewed and no additional complaints, except as documented Cardiovascular: Cardiovascular: Reports as per HPI Respiratory: Respiratory: Reports no additional respiratory complaints Gastrointestinal: Gastrointestinal: Reports no additional gastrointestinal complaints Musculoskeletal: Musculoskeletal: Reports no additional musculoskeletal complaints Integumentary/Breasts: Skin/Breast: Reports system reviewed and no additional complaints, except as docu Neurologic: Reports system reviewed and no additional complaints, except as documented PMFSH Past Medical History Medical History Anxiety Cervical cancer S/p hysterectomy 1996 COVID-19 CVA (cerebrovascular accident) 2017, no residual deficits DDD (degenerative disc disease) Depression DVT (deep venous thrombosis) 2006 GERD (gastroesophageal reflux disease) HLD (hyperlipidemia) Osteoporosis Pacemaker - 2013 Peptic ulcer Peripheral neuropathy Seasonal allergies Thyroid nodule Surgical History Surgical History H/O cervical spine surgery 2002 H/O inguinal hernia repair H/O resection of large bowel 1999 History of carpal tunnel release History of hysterectomy History of orthopedic surgery bilateral feet History of removal of ovarian cyst left 1997 History of spinal fusion 2000 & 2001. L5-S1 Hx of cholecystectomy (1999) Hx of tonsillectomy Family History Family History Grandparent Carcinoma of colon Father Diabetes mellitus Hypertension Lymphoma Mother Hypertension Hypercholesterolemia Grandparent Family history of lung cancer Social History Social History Social History: Ms. Robert lives at home with her sister, Radha, whom she designates as her surrogate decision maker. She would like to be a full code. She is and has step-children. She has been on disability for about 20 years. Smoking packs per day: 1 Smoking cigarettes per day: 20.0 Years smoked: 30 Smoking pack-years: 30.00 Smoking status: Light tobacco smoker Tobacco type: cigarettes Second hand tobacco smoke exposure: Yes Smoking end date: 07/10/22 Additional smoking assessment comments: SMOKES OCCASIONALLY 1 CIGARETTE A DAY. Alcohol intake: current Drinks per week: 5 Alcohol use details: LIQUOR. Substance use: former Substance use type: marijuana Other substance usage details: She has infrequently used edible THC for pain management Last use: 06/23/2022 Lack of Transportation: No Lack of Food: Never True Current Housing: I Have Housing Concerned About Future Housing: No Difficulty Paying Gas/Electric Bills: No Difficulty Paying for Meds: No Currently Unemployed: No Education: High School Diploma/GED Difficulty w/ Childcare or Family Care: No Living arrangements: with family Additional living arrangements comments: LIVES WITH SIGNIFICANT OTHER Additional occupation/education comments: Disability Gender identity (if verbalized by the patient): Female Spiritual care concerns: No Agree to blood products: Yes Meds Home Medications and Allergies Home
--- NOTE | 2023-07-15 10:34 | P.PCNCC_ITS ---
Cardiac Cath Procedure Note Date of procedure:: 07/15/23 Performing physician:: Rito Ambrocio MD Indication:: permanently implanted pacemaker at [facility] Brief clinical history:: this is a 58-year-old woman who has a permanently implanted dual-chamber pacemaker for the last 10 years for treatment of sick sinus syndrome. In routine follow-up the device was found to be at [facility] she is admitted for elective generator change Procedure Procedure performed:: explant deplete pacemaker implant new dual-chamber pulse generator with existing leads for ongoing treatment of sick sinus syndrome Sedation/Medication given:: fentanyl 50 mg Versed 4 mg case start time 1003 a.m. case end time 10:30 a.m. sedation provided by Dee Dee Justice RN, trained observer Access site:: chronically implanted left anterior chest wall pocket Estimated blood loss:: minimal Procedure note:: patient was brought to the cardiac catheterization lab in the postabsorptive state the left anterior chest wall was prepped and draped in the usual sterile fashion. Anesthesia was provided with 20 cc of lidocaine infiltrated at the site of the chronically implanted pocket. The PlasmaBlade was then used to make an incision above the pocket and to incise the subcutaneous tissue down to the fibrous capsule. Electrocautery was used to provide cutaneous hemostasis. The pocket was then opened using the Metzenbaum scissors and the entire pacemaker and the test leads were removed and found to be visually unremarkable in appearance. Following this the torque wrench was used to disconnect the leads from the depleted generator which was then removed from the field. The pocket was irrigated with vancomycin infused saline. The leads were then connected to the new generator using the torque wrench in the tight entire assembly was placed back into the pocket. This was then closed in layers using 3-0 Vicryl in interrupted fashion for the subcutaneous tissue and 4-0 4-0 Vicryl in a running subcuticular fashion for the skin. The wound was then dressed with bio glue as well as an Aquacel dressing. The patient was taken to the holding area for postprocedural recovery the procedure was well tolerated and uncomplicated. Findings:: the explanted device is a [employer] dual-chamber pacemaker [id number] serial number [id number]. Date of implant January 01, 2013 the new pacemaker is a epicurio MRI 2272 serial number [id number] device is programmed in the DDD mode lower rate limit 60 upper rate limit 130 av delay 250/225 milliseconds. The atrial lead is a [employer] Optisense 1998/46cm serial number [id number]. the P-waves are sensed at 1.5 mV threshold 0.625 volt at 1 m illisecond impedance 330 Ohms. The ventricular lead is a [employer] Tendril STS 2088TC/ 52cm serial [id number]. R waves are sensed at 11.5 mV threshold 1.4 volts at 1 milliseconds impedance 680 Ohms. Conclusion:: 1. Successful uncomplicated explantation of depleted permanent dual-chamber pulse generator 2. successful uncomplicated implantation of new dual-chamber pulse generator detailed above for ongoing treatment of sick sinus syndrome in this 58-year-old lady Rito Ambrocio MD FACC
[2023-07-15 10:45] VITALS: BP 131/84; PULSE 74; RESP 14; O2SAT 94
[2023-07-15 11:00] VITALS: BP 135/87; PULSE 76; RESP 16; O2SAT 96
[2023-07-15 11:15] VITALS: BP 147/82; PULSE 71; RESP 14; O2SAT 96
[2023-07-15 11:30] VITALS: BP 145/90; PULSE 73; RESP 16; O2SAT 96
[2023-07-15 11:40] VITALS: BP 122/89; PULSE 73; RESP 16; O2SAT 94
== END 2023-07-15 11:45 | disposition home or self-care (01) ==
PROVIDERS: PCP Family Medicine Adolescent Medicine; Visit Provider Specialist
PROC: 0JPT0PZ Removal of Cardiac Rhythm Related Device from Trunk Subcutaneous Tissue and Fascia, Open Approach (ICD-10-PCS; CPT 33228; principal; 2023-07-15 10:00)
DX: Z45.010 Encounter for checking and testing of cardiac pacemaker pulse generator [battery] (principal); F41.9 Anxiety disorder, unspecified; Z86.718 Personal history of other venous thrombosis and embolism; F32.A Depression, unspecified; K21.9 Gastro-esophageal reflux disease without esophagitis; E78.5 Hyperlipidemia, unspecified; J30.2 Other seasonal allergic rhinitis; F17.210 Nicotine dependence, cigarettes, uncomplicated; Z79.82 Long term (current) use of aspirin; Z79.51 Long term (current) use of inhaled steroids; Z79.891 Long term (current) use of opiate analgesic; F12.90 Cannabis use, unspecified, uncomplicated; Z85.41 Personal history of malignant neoplasm of cervix uteri; Z86.73 Personal history of transient ischemic attack (TIA), and cerebral infarction without residual deficits; Z80.0 Family history of malignant neoplasm of digestive organs; Z80.1 Family history of malignant neoplasm of trachea, bronchus and lung
CPT/HCPCS: 33228; 36415; 80048; 85025; 85610; 93005; C1785; J2250; J3010; J3370; J7040

== ENCOUNTER 2023-10-11 14:45 | Outpatient (CLI) | payer MEDICARE, SELFPAY ==
[2023-10-19 00:23] LABS: Calprotectin, Stool 685 mcg/g
== END 2023-10-11 14:46 | disposition home or self-care (01) ==
PROVIDERS: PCP Family Medicine Adolescent Medicine; Visit Provider Internal Medicine Gastroenterology
DX: K50.90 Crohn's disease, unspecified, without complications (principal)
CPT/HCPCS: 83993

== ENCOUNTER 2024-06-05 08:14 | Outpatient (CLI) | payer MEDICARE, SELFPAY ==
--- NOTE | ~2024-06-05 | XR_ITS ---
MODIFIED ESOPHAGRAM HISTORY: Dysphagia. Epigastric pain and GERD TECHNIQUE: Modified barium esophagram was performed on 06/05/2024. I administered fluoroscopy and perf ormed the exam with speech pathologist. Patient was seated for lateral fluoroscopic imaging for yaakov stion of thin liquids, pudding, solids and quantified amounts, followed by thin liquids in uncontroll ed amounts. This was recorded on tape. A single fluoroscopic spot image was also recorded. The DAP fo r this procedure was 1 Gycm2. The amount of fluoroscopy time used during this procedure was 1.3 minut es. FINDINGS: Incidentally noted is a C5-C6 anterior spinal fusion with anterior plate and screw fixation. Oral stage: Adequate function but with excessive time required to transit liquids posteriorly in the oral cavity to trigger the swallow. Pharyngeal stage: Adequate function. Cervical/esophageal stage: Adequate function. IMPRESSION: Patient tolerated regular consistency oral feedings in the upright position. Please sara elate with speech pathologist findings and specific feeding recommendations. Reviewed, dictated and finalized at location A. IMPRESSION: Patient tolerated regular consistency oral feedings in the upright position. Please correlate with speech pathologist findings and specific feedi ng recommendations.
--- NOTE | 2024-06-05 15:10 | REHSTMBS ---
Assessment and note entered by Kamini Wallace, SOCIAL INSURANCE ADVISER Modified Barium Swallow Evaluation ST Clinical Summary MODIFIED BARIUM SWALLOW STUDY This patient was seen for a Modified Barium Swallow study to further assess her complaints of a feeling of having to hold drinks in her mouth for a few seconds before swallowing. She reports a history of colon resection, Crohn's disease, and gastroesophageal reflux disease. She reports that she does cough occasionally when drinking and that she occasionally has difficulty swallowing pills. She also stated that occasionally when swallowing pills, her water and pills will come back up after reaching the throat area. Patient was viewed in the lateral position to the level of C5/C6. She was presented with thin liquid contrast medium per cup and per straw, pudding mixed with semi-solid contrast medium, and fruit cocktail coated with the pudding mixture. She was also presented with a large barium pill with water. Patient exhibited the slight hesitation with the liquid on her tongue however, swallows were elicited quickly and without difficulty. No signs of aspiration or risk for aspiration were observed on this evaluation. Results suggest patient's oral, pharyngeal, and cricopharyngeal stages of the swallows were within normal limits. She is referred back to her physician for further assessment of her complaints. Patient will be undergoing EGD soon. Thank you for this referral.
== END 2024-06-05 08:15 | disposition home or self-care (01) ==
PROVIDERS: PCP Family Medicine Adolescent Medicine; Visit Provider Nurse Practitioner Family
DX: R10.13 Epigastric pain (principal)
CPT/HCPCS: 92611

== ENCOUNTER 2024-06-26 00:39 | Day surgery (SDC) | payer MEDICARE, SELFPAY ==
[2024-06-08 14:49] VITALS: BMI 25.8
[2024-06-26 12:11] VITALS: BP 159/73; PULSE 69; RESP 18; TEMP 36.3; O2SAT 96; BMI 25.9
[2024-06-26] MEDS: LACTATED RINGERS 1,000 ML 150 ML IV CONT (12:29)
--- NOTE | 2024-06-26 12:35 | WPDANESEPPF ---
Anes - Initial Pre Proc Eval Procedure: Operation Date: 06/26/24 14:00 Proposed Procedures p Esophagogastroduodenoscopy - Jeferson Trejo MD Date/Time: 06/26/24 12:35 Surgeon: Jeferson Trejo MD Pre Op Diagnosis: Epigastric pain, TEE, GERD Patient Data Age: 59 Gender: F Height: 1.65 m Weight: 70.8 kg Last Vital Signs Temp 36.3 C L 06/26/24 12:11 Pulse 69 06/26/24 12:11 Resp 18 06/26/24 12:11 BP 159/73 H 06/26/24 12:11 Pulse Ox 96 06/26/24 12:11 O2 Del Method Room Air 06/26/24 12:11 Allergies Allergy/AdvReac Type Severity Reaction Status Date / Time Sulfa (Sulfonamide Allergy Severe Swelling Verified 06/26/24 12:09 Antibiotics) of Lip/Tongue/Throat prednisone AdvReac Unknown NOT TO Verified 06/26/24 12:09 TAKE R/T MEDS triamcinolone [From Kenalog] AdvReac Unknown Unknown Verified 06/26/24 12:09 Home Medications Medication Instructions Recorded Confirmed Type alendronate 70 mg tablet 70 mg PO WEEKLY 03/31/20 06/26/24 History apremilast 30 mg tablet (Otezla) 30 mg PO BID 04/12/20 06/26/24 History aspirin 325 mg tablet 325 mg PO DAILY 04/12/20 06/26/24 History vitamin B complex (B 1 tablet PO WEEKLY 02/20/22 06/26/24 History Complex-Vitamin B12 tablet) albuterol sulfate 90 mcg/actuation 2 inh inhalation Q4H PRN shortness 04/10/23 06/26/24 Rx aerosol inhaler of breath or wheezing #25.5 grams lansoprazole 30 mg capsule,delayed 30 mg PO QAM #90 caps 05/23/23 06/26/24 Rx release (Prevacid) sertraline 100 mg tablet 100 mg PO QAM #90 tabs 01/06/24 06/26/24 Rx atorvastatin 40 mg tablet 40 mg PO QHS #90 tabs 01/28/24 06/26/24 Rx ferrous sulfate 325 mg (65 mg 325 mg PO DAILY #30 tabs 04/09/24 06/26/24 Rx iron) tablet (Iron (ferrous sulfate)) omeprazole 40 mg capsule,delayed 40 mg PO BID #180 caps 04/13/24 06/26/24 Rx release atenolol 50 mg tablet 50 mg PO HS #90 tabs 05/20/24 06/26/24 Rx oxycodone-acetaminophen 10 mg-325 1 tablet PO Q4H PRN Pain #180 tabs 06/04/24 06/26/24 Rx mg tablet lorazepam 2 mg tablet 2 mg PO TID PRN anxiety #90 tabs 06/15/24 06/26/24 Rx ergocalciferol (vitamin D2) 1,250 See Rx Instructions .Route 06/23/24 06/26/24 Rx mcg (50,000 unit) capsule .COMPLEX #13 caps Patient hx anesthesia problems: none Family hx anesthesia problems: none Results Review: All pre-operative results and documents have been reviewed as part of the pre-operative evaluation. [facility] Past Medical History Medical History Anxiety Cervical cancer S/p hysterectomy 1996 COVID-19 CVA (cerebrovascular accident) 2016, no residual deficits DDD (degenerative disc disease) Depression DVT (deep venous thrombosis) 2006 GERD (gastroesophageal reflux disease) HLD (hyperlipidemia) Osteoporosis Pacemaker - 2012 Peptic ulcer Peripheral neuropathy Seasonal allergies Thyroid nodule Surgical History Surgical History H/O cervical spine surgery 2002 H/O inguinal hernia repair H/O resection of large bowel 1999 History of carpal tunnel release History of hysterectomy History of orthopedic surgery bilateral feet History of removal of ovarian cyst left 1997 History of spinal fusion 2000 & 2001. L5-S1 Hx of cholecystectomy (1999) Hx of tonsillectomy Family History Family History Grandparent Carcinoma of colon Father Diabetes mellitus Hypertension Lymphoma Mother Hypertension Hypercholesterolemia Grandparent Family history of lung cancer Social History Social History Social History: Ms. Robert lives at home with her sister, Radha, whom she designates as her surrogate decision maker. She would like to be a full code. She is and has step-children. She has been on disability for about 20 yea
--- NOTE | 2024-06-26 13:03 | PM.HPGS ---
History of Present Illness History of Present Illness Consent: Risks, benefits, and alternatives have been discussed and questions answered. Patient agrees to proceed with procedure. Chief complaint: Epigastric pain, TEE, GERD Narrative: Beronica Robert is a 59 year old female with intermittent epigastric pain and burning sensation despite prevacid, egd 2022 with normal duodenal bx, gastric bx mild inflammation. Review of Systems Review of Systems: All systems reviewed & are unremarkable except as noted in HPI and below PMFSH Past Medical History Medical History Anxiety Cervical cancer S/p hysterectomy 1996 COVID-19 CVA (cerebrovascular accident) 2017, no residual deficits DDD (degenerative disc disease) Depression DVT (deep venous thrombosis) 2006 GERD (gastroesophageal reflux disease) HLD (hyperlipidemia) Osteoporosis Pacemaker - 2013 Peptic ulcer Peripheral neuropathy Seasonal allergies Thyroid nodule Surgical History Surgical History H/O cervical spine surgery 2002 H/O inguinal hernia repair H/O resection of large bowel 1999 History of carpal tunnel release History of hysterectomy History of orthopedic surgery bilateral feet History of removal of ovarian cyst left 1997 History of spinal fusion 2000 & 2001. L5-S1 Hx of cholecystectomy (1999) Hx of tonsillectomy Family History Family History Grandparent Carcinoma of colon Father Diabetes mellitus Hypertension Lymphoma Mother Hypertension Hypercholesterolemia Grandparent Family history of lung cancer Social History Social History Social History: Ms. Robert lives at home with her sister, Radha, whom she designates as her surrogate decision maker. She would like to be a full code. She is and has step-children. She has been on disability for about 20 years. Years smoked: 30 Smoking status: Former smoker Tobacco type: cigarettes Second hand tobacco smoke exposure: Yes Smoking end date: 07/10/22 Additional smoking assessment comments: SMOKES OCCASIONALLY 1 CIGARETTE A DAY. Alcohol intake: current Alcohol use details: social Substance use: former Substance use type: marijuana Other substance usage details: She has infrequently used edible THC for pain management Last use: 06/23/2022 Lack of Transportation: No Lack of Food: Never True Current Housing: I Have Housing Concerned About Future Housing: No Difficulty Paying Gas/Electric Bills: No Difficulty Paying for Meds: No Currently Unemployed: No Education: High School Diploma/GED Difficulty w/ Childcare or Family Care: No Living arrangements: with family Additional living arrangements comments: LIVES WITH SIGNIFICANT OTHER Additional occupation/education comments: Disability Gender identity (if verbalized by the patient): Female Spiritual care concerns: No Agree to blood products: Yes Meds Home Medications and Allergies Home Medications Medication Instructions Recorded Confirmed Type alendronate 70 mg tablet 70 mg PO WEEKLY 03/31/20 06/26/24 History apremilast 30 mg tablet (Otezla) 30 mg PO BID 04/12/20 06/26/24 History aspirin 325 mg tablet 325 mg PO DAILY 04/12/20 06/26/24 History vitamin B complex (B 1 tablet PO WEEKLY 02/20/22 06/26/24 History Complex-Vitamin B12 tablet) albuterol sulfate 90 mcg/actuation 2 inh inhalation Q4H PRN shortness 04/10/23 06/26/24 Rx aerosol inhaler of breath or wheezing #25.5 grams lansoprazole 30 mg capsule,delayed 30 mg PO QAM #90 caps 05/23/23 06/26/24 Rx release (Prevacid) sertraline 100 mg tablet 100 mg PO QAM #90 tabs 01/06/24 06/26/24 Rx atorvastatin 40 mg tablet 40 mg PO QHS #90 tabs 01/28/24 06/26/24 Rx ferrous sulfate 325 mg (65 mg 325 mg PO DAILY #30 ta
[2024-06-26 13:15] VITALS: BP 120/77; PULSE 67; RESP 20; O2SAT 98
[2024-06-26 13:25] VITALS: BP 129/71; PULSE 64; RESP 21; O2SAT 96
[2024-06-26 13:35] VITALS: BP 154/96; PULSE 63; RESP 19; O2SAT 96
== END 2024-06-26 13:42 | disposition home or self-care (01) ==
PROVIDERS: PCP Family Medicine Adolescent Medicine; Referring Provider Nurse Practitioner Family; Visit Provider Internal Medicine Gastroenterology
PROC: 0DJ08ZZ Inspection of Upper Intestinal Tract, Via Natural or Artificial Opening Endoscopic (ICD-10-PCS; CPT 43235; principal; 2024-06-26 14:00)
DX: K29.50 Unspecified chronic gastritis without bleeding (principal); K21.9 Gastro-esophageal reflux disease without esophagitis; E78.5 Hyperlipidemia, unspecified; F41.9 Anxiety disorder, unspecified; F32.A Depression, unspecified; M81.0 Age-related osteoporosis without current pathological fracture; G62.9 Polyneuropathy, unspecified; F12.90 Cannabis use, unspecified, uncomplicated; Z79.83 Long term (current) use of bisphosphonates; Z79.82 Long term (current) use of aspirin; Z79.51 Long term (current) use of inhaled steroids; Z79.891 Long term (current) use of opiate analgesic; Z98.890 Other specified postprocedural states; Z98.1 Arthrodesis status; Z90.49 Acquired absence of other specified parts of digestive tract; Z95.0 Presence of cardiac pacemaker; Z87.891 Personal history of nicotine dependence; Z85.41 Personal history of malignant neoplasm of cervix uteri; Z86.79 Personal history of other diseases of the circulatory system; Z86.718 Personal history of other venous thrombosis and embolism; Z80.0 Family history of malignant neoplasm of digestive organs; Z80.1 Family history of malignant neoplasm of trachea, bronchus and lung
CPT/HCPCS: 43239; 88305; J2003; J2704; J7120

== ENCOUNTER 2024-08-03 12:55 | Outpatient (CLI) | payer MEDICARE, SELFPAY ==
--- NOTE | 2024-08-03 13:05 | ECG_ITS ---
Test Date: 2024-08-03 13:10:33 Measurements Intervals [place] Rate: 67 P: 28 SD: 189 QRS: 55 QRSD: 85 T: 50 QT: 388 QTc: 410 Interpretive Statements SINUS RHYTHM BORDERLINE ST ABNORMALITY- LATERAL LEADS BASELINE ARTIFACT- I, II, III, AVR, AVL, AVF, V1-V6 BORDERLINE ECG No previous ECG available for comparison Electronically Signed On 08-03-2024 13:31:32 RECYCLING ASSISTANT by Car Tirado D.O.
[2024-08-03 13:36] LABS: Hemoglobin 9.2 g/dL (12.0-15.0); Mean Corpuscular HGB Conc 29.7 g/dl (32-36); Mean Corpuscular Hemoglobin 25.7 pg (26-34); Mean Corpuscular Volume 86.6 fl (80-100); Mean Platelet Volume 9.3 fl (7.4-10.4); Platelet Count Result 297 k/mm3 (150-375); Red Blood Count 3.58 M/mm3 (4.2-5.4); Red Cell Distribution Width 15.9 % (11.5-14.5); White Blood Count 4.1 K/mm3 (4.5-10.0)
[2024-08-03 13:48] LABS: Anion Gap 10 mmol/L (4-12); Blood Urea Nitrogen 23 mg/dL (7-17); Calcium 9.3 mg/dL (8.4-10.2); Carbon Dioxide 22 mmol/L (22-30); Chloride 103 mmol/L (98-107); Estimated Glomerular Filt Rate 46; Glucose 105 mg/dL (65-110); Potassium 4.2 mmol/L (3.4-5.0); Sodium 135 mmol/L (137-145)
[2024-08-03 13:49] LABS: Add Urine Microscopic? YES; Appearance Urine Cloudy (Clear); Bacteria Urine 3+ /hpf; Bilirubin Urine Negative (Negative); Blood Urine Negative (Negative); Color Urine Yellow (Yellow); Glucose Urine UA Negative (Negative); Ketones Urine Negative (Negative); Leukocyte Esterase Ur 2+ LEU/UL (Negative); Nitrate Urine Negative (Negative); Protein Urine 1+ mg/dL (Negative); RBC Urine 0-2 /hpf (0-2); Squamous Epithelial Cell Urine Moderate /hpf (Few)
[2024-08-03 14:10] LABS: Prothrombin Time 13.9 Seconds (11.1-14.7)
[2024-08-03 14:11] LABS: Partial Thromboplastin Time 26.7 Seconds (22.3-36.8)
== END 2024-08-03 12:56 | disposition home or self-care (01) ==
LOC: ANHSURGERY 13:02
PROVIDERS: PCP Family Medicine Adolescent Medicine; Visit Provider Neurological Surgery
DX: Z01.818 Encounter for other preprocedural examination (principal); T85.192A Other mechanical complication of implanted electronic neurostimulator of spinal cord electrode (lead), initial encounter; R94.31 Abnormal electrocardiogram [ECG] [EKG]
CPT/HCPCS: 36415; 80048; 81001; 85027; 85610; 85730; 87086; 93005

== ENCOUNTER 2024-08-05 00:34 | Day surgery (SDC) | payer MEDICARE, SELFPAY ==
[2024-07-28 13:22] VITALS: BMI 25.7
--- NOTE | 2024-07-28 13:23 | PC.NURSE ---
Report to the Outpatient Waiting Room, entrance under the green pavilion located off [facility], at time _0600_ on date _[id number]_. Planned Procedure Time: _0730_.? Time changes happen often and if your time is changed the preop area will call you the afternoon before. - You and your visitor will be asked to self-screen and do not enter if you have any COVID symptoms. Please call surgeon if you need to reschedule. - A mask is optional within the hospital at this time. Patients may have clear liquids (water, carbonated beverages, clear teas, apple juice) until 3 hours prior to surgery with a maximum of 20 ounces. - No food from midnight until time of surgery and no smoking. This includes no chewing gum, candy or mints. Take only the following medications with a SIP of water on the morning of surgery: __Sertraline____ DO NOT STOP ANY OF YOUR OTHER PRESCRIPTION MEDICATIONS PRIOR TO SURGERY EXCEPT THE FOLLOWING Medications to discontinue per physician ___Vitamin stop 08-02-2024. Aspirin stop now. Please no make-up, nail cuban, hairspray, perfume, deodorant, or body powder the day of surgery.? No jewelry (including any body piercings) or valuables the day of surgery, leave them at home.? Please take a shower or bath the night before, or the morning of, surgery with an antibacterial soap.? Wear comfortable, loose fitting clothing.? - Jewelry must be removed prior to entering the operating room.? Rings and piercings that are not removed may be cut off. - The hospital will not accept responsibility for valuables.? - Please leave all valuables, including medications, at home the day of surgery. If you are going home after surgery, a licensed owner operator tanker truck driver must drive you home.? - NO public transportation without another adult if you receive anesthesia. - We recommend that an adult stay with you for 24 hours following discharge. - We also recommend that you do not drive, make important decision, drink alcoholic beverages, or take any drugs that were not prescribed by your health care provider for at least 24 hours after your discharge time. Follow any additional instructions given to you from your surgeon. Telephone instructions given to _Beronica__and asked if any additional questions and then verbalized understanding. Patient advised to call surgeon office or pre surgery nurse liaison [phone] if any additional questions.
[2024-08-05] VITALS (12 sets, daily range): BP systolic 131–169; BP diastolic 75–106; PULSE 62–85; RESP 12–18; TEMP 36.3–37; O2SAT 92–100
[2024-08-05] MEDS: LACTATED RINGERS 1,000 ML 30 ML IV CONT ×2 (07:00→09:17)
--- NOTE | 2024-08-05 07:09 | P.PNAN_ITS ---
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 Patient Data Age: 59 Gender: F Height: 1.65 m Weight: 70 kg Allergies Allergy/AdvReac Type Severity Reaction Status Date / Time Sulfa (Sulfonamide Allergy Severe Swelling Verified 07/30/24 13:39 Antibiotics) of Lip/Tongue/Throat prednisone AdvReac Unknown NOT TO Verified 07/30/24 13:39 TAKE R/T MEDS triamcinolone [From Kenalog] AdvReac Unknown Unknown Verified 07/30/24 13:39 Home Medications Medication Instructions Recorded Confirmed Type apremilast 30 mg tablet (Otezla) 30 mg PO BID 04/12/20 07/31/24 History aspirin 325 mg tablet 325 mg PO DAILY 04/12/20 07/31/24 History vitamin B complex (B 1 tablet PO WEEKLY 02/20/22 07/31/24 History Complex-Vitamin B12 tablet) albuterol sulfate 90 mcg/actuation 2 inh inhalation Q4H PRN shortness 04/10/23 07/31/24 Rx aerosol inhaler of breath or wheezing #25.5 grams lansoprazole 30 mg capsule,delayed 30 mg PO QAM #90 caps 05/23/23 07/31/24 Rx release (Prevacid) atenolol 50 mg tablet 50 mg PO HS #90 tabs 05/20/24 07/31/24 Rx lorazepam 2 mg tablet 2 mg PO TID PRN anxiety #90 tabs 06/15/24 07/31/24 Rx ergocalciferol (vitamin D2) 1,250 See Rx Instructions .Route 06/23/24 07/31/24 Rx mcg (50,000 unit) capsule .COMPLEX #13 caps ferrous sulfate 325 mg (65 mg See Rx Instructions .Route 07/07/24 07/31/24 Rx iron) tablet .COMPLEX #90 tabs atorvastatin 40 mg tablet 40 mg PO QHS #90 tabs 07/14/24 07/31/24 Rx sertraline 100 mg tablet 100 mg PO QAM #90 tabs 07/14/24 07/31/24 Rx omeprazole 40 mg capsule,delayed See Rx Instructions .Route 07/28/24 07/31/24 Rx release .COMPLEX #200 caps oxycodone-acetaminophen 10 mg-325 1 tablet PO Q4H PRN Pain #180 tabs 08/04/24 Rx mg tablet Patient hx anesthesia problems: none Family hx anesthesia problems: none Results Review: All pre-operative results and documents have been reviewed as part of the pre- operative evaluation. FOR[facility]LY [facility] Past Medical History Medical History Anxiety Cervical cancer S/p hysterectomy 1996 COVID-19 CVA (cerebrovascular accident) 2017, no residual deficits DDD (degenerative disc disease) Depression DVT (deep venous thrombosis) 2006 GERD (gastroesophageal reflux disease) HLD (hyperlipidemia) Osteoporosis Pacemaker - 2013 Peptic ulcer Peripheral neuropathy Seasonal allergies Thyroid nodule Surgical History Surgical History H/O cervical spine surgery 2002 H/O inguinal hernia repair H/O resection of large bowel 1999 History of carpal tunnel release History of hysterectomy History of orthopedic surgery bilateral feet History of removal of ovarian cyst left 1998 History of spinal fusion 2000 & 2001. L5-S1 Hx of cholecystectomy (1999) Hx of tonsillectomy Family History Family History Grandparent Carcinoma of colon Father Diabetes mellitus Hypertension Lymphoma Mother Hypertension Hypercholesterolemia Grandparent Family history of lung cancer Social History Social History Social History: Ms. Robert lives at home with her sister, Radha, whom she designates as her surrogate decision maker. She would like to be a full code. She is and has step-children. She has been on disability for about 20 years. Smoking packs per day: 1 Smoking cigarettes per day: 20.0 Years smoked: 40 Smoking pack-years: 40.00 Smoking status: Former smoker Tobacco type: cigarettes Second hand tobacco smoke exposure: Yes Smoking end date: 07/28/23 Additional smoking assessment comments: SMOKES OCCASIONALLY 1 CIGARETTE A DAY. Alcohol intake: current Drinks per week: 15 Alcohol use details: social Substance use: former Substance use type: marijuana Other substance usage details: She has infrequently used edible THC for pain management Last use: 06/23/2022 Lack of Transportation: No Lack of Food: Never True Current Housing: I Have Housing Concerned About Future Housing: No Difficulty Paying Gas/Electric Bills: No Difficulty Paying for Meds: No Currently Unemployed: No Education: High School Diploma/GED Difficulty w/ Childcare or Family Care: No Living arrangements: with family Additional living arrangements comments: LIVES WITH SIGNIFICANT OTHER Additional occupation/education comments: Disability Gender identity (if verbalized by the patient): Female Spiritual care concerns: No Agree to blood products: Yes Anes - Eval Final PreProcedure Day of Procedure 08/05/24 07:09 Patient weight: overweight Heart: regular rate and rhythm Lungs: clear to auscultation Airway: Mallampati scale class III and special considerations (s/p cervical fusion) Neurological: alert and oriented Last oral intake: >/= 8 hours ASA classification: III Emergent: no Anesthetic plan: proceed Anesthesia type and monitoring: general ETT and standard monitoring Results Review: All pre-operative results and documents have been reviewed as part of the pre- operative evaluation. Informed Consent: The patient's anesthetic plan and its attendant risks and benefits were discussed with the patient/family/POA. Questions were solicited and answers provided to the satisfaction of the patient/family/POA.
--- NOTE | 2024-08-05 07:18 | WPDHPUPDATE1 ---
History and Physical Update Update Date/Time: 08/05/24 07:18 History and Physical has been reviewed, including an updated exam of the patient. There are NO changes in the patient's condition. Risks, benefits, and alternatives have been discussed and questions answered. Patient agrees to proceed with procedure.
[2024-08-05] MEDS: ceFAZolin 2 GM/D5W 50 ML 2 GM/50 ML BAG IVPB (07:31)
[2024-08-05] MEDS: BUPIVACAINE/EPINEPHRINE 0.5% 50 ML VIAL 10 ML INFILTRATE (07:56)
--- NOTE | 2024-08-05 08:13 | PM.OP ---
Procedure Note - Brief Procedure Note - Brief Date of procedure: 08/05/24 spinal cord stimulator dysfunction Post-op diagnosis: Same Procedure performed: Removal of spinal cord stimulator - epidural paddle Surgeon: Radha Browne MD Anesthesia: GETA Findings: Paddle and retained leads removed easily Estimated blood loss (mL): 5 Drains: No Packing: No Pathology: None sent Complications: None Condition: Stable Disposition: PACU
--- NOTE | 2024-08-05 08:30 | W.PM.PROC2 ---
Procedure Note - Detailed Date of Procedure 08/05/24 Pre-op Diagnosis spinal cord stimulator dysfunction Post-op Diagnosis Same Procedure Performed Removal of epidural paddle spinal cord stimulator Surgeon Radha Browne MD Roving Weight Gauger Amanuel Anesthesia General Description of Procedure The patient was brought to the OR where general anesthesia was induced. The patient was turned prone onto the OR table with Danny frame. All pressure points were padded. The previous surgical site in the mid thoracic region was marked. The surgical sites were prepped and draped in usual sterile fashion. Perioperative antibiotics were given. Local anesthesia was injected into the planned incisions. A 10-blade scalpel was used to re-open the midline thoracic incision. Next, the thoracic leads were exposed and followed to the entry point into the spine. The proximal portion of the paddle was already visible, and the paddle was able to be removed in full with gentle traction with a hemostat. The retained leads and paddle were removed in full. The incision was irrigated copiously. Hemostasis was ensured in the thoracic incision with the bipolar and Surgiflo. The fascia was closed with 0 vicryl. The dermis was closed with 2-0 and 3-0 vicryl. The skin was closed with 4-0 monocryl. Dermabond was then placed. The patient was returned supine, extubated, and transferred to PACU. Billing codes: 22771 Drains No Packing No Pathology None sent Complications None Condition Stable Disposition PACU [facility] Billing Surgery - Charge Forward: Surgery Billing
[2024-08-05] MEDS: fentaNYL CITRATE INJ (*CRX) 100 MCG/2 ML VIAL 25 MCG IV PUSH ×8 (08:32→09:03)
[2024-08-05] MEDS: HYDROmorphone HCL INJ (*CRX) 1 MG/ML SYR 0.5 MG IV PUSH ×6 (09:08→10:00)
== END 2024-08-05 11:26 | disposition home or self-care (01) ==
PROVIDERS: PCP Family Medicine Adolescent Medicine; Visit Provider Neurological Surgery
PROC: (CPT 63662; principal; 2024-08-05 07:30)
DX: T85.192A Other mechanical complication of implanted electronic neurostimulator of spinal cord electrode (lead), initial encounter (principal); Y83.8 Other surgical procedures as the cause of abnormal reaction of the patient, or of later complication, without mention of misadventure at the time of the procedure; G62.9 Polyneuropathy, unspecified; E78.5 Hyperlipidemia, unspecified; K21.9 Gastro-esophageal reflux disease without esophagitis; M81.0 Age-related osteoporosis without current pathological fracture; F41.9 Anxiety disorder, unspecified; F32.A Depression, unspecified; Z95.0 Presence of cardiac pacemaker; Z86.73 Personal history of transient ischemic attack (TIA), and cerebral infarction without residual deficits; Z86.718 Personal history of other venous thrombosis and embolism; Z98.1 Arthrodesis status; Z72.0 Tobacco use; Z79.51 Long term (current) use of inhaled steroids; Z79.891 Long term (current) use of opiate analgesic
CPT/HCPCS: 63662; 36415; 80048; 81001; 85027; 85610; 85730; 87086; 93005; J0690; J1100; J1171; J2003; J2405; J2704; J3010; J3370; J7120

== ENCOUNTER 2024-09-17 09:59 | Observation (INO) | payer MEDICARE, SELFPAY ==
[2024-09-17] VITALS (28 sets, daily range): BP systolic 112–162; BP diastolic 64–89; PULSE 77–101; RESP 14–23; TEMP 36.6–36.9; O2SAT 95–100; BMI 24.6; BMI 26.7
--- NOTE | ~2024-09-17 | XR_ITS ---
CHEST RADIOGRAPH, PA AND LATERAL CLINICAL HISTORY: CP/SOB . COMPARISON: 09/04/2022 TECHNIQUE: PA and lateral views of the chest. FINDINGS The left mid lung is partially obscured due to pacemaker generator. Wires project over the right atrium and right ventricle. The remainder of the cardiomediastinal silhouette is otherwise unremarkable. The lungs are clear. Fixation hardware within the cervical spine. The previously identified thoracic spine catheter is no longer present current study. Remaining visualized osseous structures and soft tissues are otherwise normal no unremarkable. IMPRESSION: No focal infiltrate or effusion. Reviewed, dictated and finalized at location A. [facility] COUNCIL MEMBER
--- NOTE | 2024-09-17 10:00 | ECG_ITS ---
Test Date: 2024-09-17 10:07:30 Measurements Intervals [place] Rate: 95 P: 49 [place]: 177 QRS: 58 QRSD: 87 T: 60 QT: 335 QTc: 421 Interpretive Statements SINUS RHYTHM NONSPECIFIC ST & T-WAVE ABNORMALITY Compared to ECG 08/03/2024 13:10:33 NO SIGNIFICANT CHANGES Electronically Signed On 09-18-2024 16:30:37 OCEANOLOGIST by Jabier Witt M.D.
[2024-09-17 10:36] LABS: Basophils Percent Auto 0.5 % (0.2-1.2); Eosinophils Absolute Auto 0.1 K/mm3 (0-0.3); Eosinophils Percent Auto 1.1 % (0-4.4); Hematocrit 36.4 % (37.0-47.0); Hemoglobin 10.9 g/dL (12.0-15.0); Immature Granulocyte Absolute 0.03 K/mm3 (0.00-0.031); Immature Granulocyte Percent A 0.5 % (0-0.5); Lymphocytes Absolute Auto 0.56 K/mm3 (0.9-3.2); Mean Corpuscular HGB Conc 29.9 g/dl (32-36); Mean Corpuscular Hemoglobin 24.8 pg (26-34); Mean Corpuscular Volume 82.9 fl (80-100); Mean Platelet Volume 9.6 fl (7.4-10.4); Monocytes Absolute Auto 0.2 K/mm3 (0.1-0.6); Monocytes Percent Auto 2.9 % (2.6-8.5); Neutrophils Absolute Auto 4.8 K/mm3 (1.3-6.7); Platelet Count Result 342 k/mm3 (150-375); Red Blood Count 4.39 M/mm3 (4.2-5.4); Red Cell Distribution Width 18.8 % (11.5-14.5); White Blood Count 5.6 K/mm3 (4.5-10.0)
[2024-09-17 10:57] LABS: Alanine Aminotransferase 19 U/L (6-35); Albumin Level 4.5 g/dL (3.5-5.1); Alkaline Phosphatase 230 U/L (38-126); Anion Gap 15 mmol/L (4-12); Anisocytosis 1+; Aspartate Amino Transferase 49 U/L (14-36); Bilirubin,Total 0.9 mg/dL (0.2-1.3); Blood Urea Nitrogen 28 mg/dL (7-17); Calcium 10.4 mg/dL (8.4-10.2); Carbon Dioxide 14 mmol/L (22-30); Chloride 107 mmol/L (98-107); Estimated CRCL calculation 33 ml/min; Estimated Glomerular Filt Rate 35; Glucose 106 mg/dL (65-110); Hypochromasia 1+; Lipase 340 U/L (23-300); Platelet Estimate Adequate (Adequate); Potassium 4.4 mmol/L (3.4-5.0); Schistocytes None Seen; Sodium 136 mmol/L (137-145)
[2024-09-17 11:07] LABS: Troponin I < 0.012 ng/mL (0.000-0.034)
--- NOTE | 2024-09-17 11:38 | PC.NURSE ---
pt states they discontinued Aspirin 324mg that they usually take daily for scheduled procedure on 09/23/2024.
[2024-09-17 11:48] LABS: INR 1.1
[2024-09-17 11:49] LABS: Partial Thromboplastin Time 53.7 Seconds (22.3-36.8)
--- NOTE | 2024-09-17 11:58 | ED_ITS ---
HPI - General Adult General Chief complaint: Chest Pain Stated complaint: sick X1 week, CP,SOB Time Seen by Provider: 09/17/24 11:35 History of Present Illness HPI narrative: 59-year-old female present to the emergency department for evaluation worsening shortness of breath. Patient does have a prior history of smoking but was diagnosed with COPD approximately 1.5 years ago. Patient states she has quit smoking since that time. Patient reports over the last 3 days she has had increased exertional shortness breath and wheezing. Patient reports that she does have adverse reaction/allergy to prednisone patient declined prednisone and Solu-Medrol. Related Data Home Medications ?Medication ?Instructions ?Recorded ?Confirmed ?Last Taken ?Type apremilast 30 mg tablet (Otezla) 30 mg PO BID 04/12/20 09/17/24 1 Day Ago History ~06/25/24 aspirin 325 mg tablet 325 mg PO DAILY 04/12/20 09/17/24 1 Day Ago History ~06/25/24 vitamin B complex (B 1 tablet PO WEEKLY 02/20/22 09/17/24 1 Day Ago History Complex-Vitamin B12 tablet) ~06/25/24 Allergies Allergy/AdvReac Type Severity Reaction Status Date / Time Sulfa (Sulfonamide Allergy Severe Swelling Verified 09/15/24 13:23 Antibiotics) of Lip/Tongue/Throat prednisone AdvReac Unknown NOT TO Verified 09/15/24 13:23 TAKE R/T MEDS triamcinolone (From Kenalog) AdvReac Unknown Unknown Verified 09/15/24 13:23 Review of Systems 2 Review of Systems: All systems reviewed & are unremarkable except as noted in HPI and below PMFSH Past Medical History Medical History Anxiety Cervical cancer S/p hysterectomy 1996 COVID-19 CVA (cerebrovascular accident) 2017, no residual deficits DDD (degenerative disc disease) Depression DVT (deep venous thrombosis) 2006 GERD (gastroesophageal reflux disease) HLD (hyperlipidemia) Osteoporosis Pacemaker SSS - 2013 Peptic ulcer Peripheral neuropathy Seasonal allergies Thyroid nodule Surgical History Surgical History H/O cervical spine surgery 2002 H/O inguinal hernia repair H/O resection of large bowel 1999 History of carpal tunnel release History of hysterectomy History of orthopedic surgery bilateral feet History of removal of ovarian cyst left 1998 History of spinal fusion 2000 & 2001. L5-S1 Hx of cholecystectomy (1999) Hx of tonsillectomy Family History Family History Grandparent Carcinoma of colon Father Diabetes mellitus Hypertension Lymphoma Mother Hypertension Hypercholesterolemia Grandparent Family history of lung cancer Social History Social History Social History: Ms. Robert lives at home with her sister, Radha, whom she designates as her surrogate decision maker. She would like to be a full code. She is and has step-children. She has been on disability for about 20 years. Smoking packs per day: 1 Smoking cigarettes per day: 20.0 Years smoked: 40 Smoking pack-years: 40.00 Smoking status: Former smoker Tobacco type: cigarettes Second hand tobacco smoke exposure: Yes Smoking end date: 07/28/23 Additional smoking assessment comments: SMOKES OCCASIONALLY 1 CIGARETTE A DAY. Alcohol intake: never Drinks per week: 15 Alcohol use details: social Substance use: never Substance use type: marijuana Other substance usage details: She has infrequently used edible THC for pain management Last use: 06/23/2022 Do You Feel Safe in your Home?: Yes Lack of Transportation: No Lack of Food: Never True Current Housing: I Have Housing Concerned About Future Housing: No Difficulty Paying Gas/Electric Bills: No Difficulty Paying for Meds: No Currently Unemployed: No Education: High School Diploma/GED Difficulty w/ Childcare or Family Care: No Living arrangements: with family Additional living arrangements comments: LIVES WITH SIGNIFICANT OTHER Additional occupation/education comments: Disability Gender identity (if verbalized by the patient): Female Spiritual care concerns: No Agree to blood products: Yes Exam 2 Narrative: APPEARANCE: Appears short of breath with speaking HEAD: normocephalic, atraumatic. EYES: PERRLA/EOMI, conjunctivae clear. NOSE: Normal no drainage EARS:TMS clear with good light reflex. THROAT: Pharynx clear, no exudate. NECK: Supple. No adenopathy, no masses. RESPIRATORY: Extensive wheezing in all lung duenas CARDIOVASCULAR: Regular rate and rhythm without murmurs rubs or gallops. ABDOMINAL: Soft, nontender, nondistended, normal bowel sounds MUSCULOSKELETAL: Moves all extremities. Strength/ROM intact, No edema, No calf tenderness. NEURO: Alert. Cranial nerves II through XII intact. Good gait. Good coordination SKIN: Warm, dry. Normal Color Course Vital Signs Vital signs: Vital Signs Temperature 98.1 F 09/17/24 10:00 Pulse Rate 101 H 09/17/24 10:00 Respiratory Rate 19 09/17/24 10:00 Blood Pressure 134/87 09/17/24 10:00 Pulse Oximetry 98 09/17/24 10:00 Temperature 98.4 F 09/17/24 17:20 Pulse Rate 86 09/17/24 17:20 Respiratory Rate 18 09/17/24 17:20 Blood Pressure 158/78 H 09/17/24 17:20 Pulse Oximetry 98 09/17/24 17:20 Oxygen Delivery Room Air 09/17/24 17:53 Medical Decision Making MDM Narrative Medical decision making narrative: 59-year-old female history of COPD presenting to the emergency department for evaluation for sending shortness of breath. Patient was saturating well room air at rest but with ambulation her oxygenation dropped down to 84%. Patient did have extensive wheezing in all lung duenas full was treated with albuterol and did have some improvement of her symptoms and an auscultation. Patient did test positive for RSV. With patient's persistent hypoxia and COPD patient is being started on antibiotics. Initially patient was started on oral antibiotics with the anticipation that she was going to be discharged home. Due to her hypoxia patient was admitted. Patient reports an adverse reaction/allergy to prednisone and patient declined the prednisone. Case was discussed with hospitalist patient was accepted for admission Differential Diagnosis Differential Diagnosis: Pneumonia, COVID, RSV, influenza, COPD Vital Signs Vital Signs: Vital Signs Temperature 98.1 F 09/17/24 10:00 Pulse Rate 101 H 09/17/24 10:00 Respiratory Rate 19 09/17/24 10:00 Blood Pressure 134/87 09/17/24 10:00 Pulse Oximetry 98 09/17/24 10:00 Temperature 98.4 F 09/17/24 17:20 Pulse Rate 86 09/17/24 17:20 Respiratory Rate 18 09/17/24 17:20 Blood Pressure 158/78 H 09/17/24 17:20 Pulse Oximetry 98 09/17/24 17:20 Oxygen Delivery Room Air 09/17/24 17:53 Lab Data Lab results reviewed: Yes I reviewed the patient's lab results. 09/17/24 10:16 09/17/24 10:16 Labs: Lab Results 09/17/24 09/17/24 Range/Units 10:16 11:55 WBC 5.6 (4.5-10.0) K/mm3 RBC 4.39 (4.2-5.4) M/mm3 Hgb 10.9 L (12.0-15.0) g/dL Hct 36.4 L (37.0-47.0) % MCV 82.9 (80-100) fl MCH 24.8 L (26-34) pg MCHC 29.9 L (32-36) g/dl RDW 18.8 H (11.5-14.5) % Plt Count 342 (150-375) k/mm3 MPV 9.6 (7.4-10.4) fl Immature Gran % (Auto) 0.5 (0-0.5) % Neut % (Auto) 85.0 H (45.5-73.1) % Lymph % (Auto) 10.0 L (18.3-44.2) % [place] % (Auto) 2.9 (2.6-8.5) % Eos % (Auto) 1.1 (0-4.4) % Baso % (Auto) 0.5 (0.2-1.2) % Lymph # (Auto) 0.56 L (0.9-3.2) K/mm3 [place] # (Auto) 0.2 (0.1-0.6) K/mm3 Eos # (Auto) 0.1 (0-0.3) K/mm3 Baso # (Auto) 0.0 (0.0-0.1) K/mm3 Abs Immat Gran (auto) 0.03 (0.00-0.031) K/mm3 Absolute Neuts (auto) 4.8 (1.3-6.7) K/mm3 Absolute Nucleated RBC 0.000 (0.0-0.012) K/mm3 Nucleated RBC % 0.0 (0.0-0.2) % Platelet Estimate Adequate (Adequate) Hypochromasia 1+ Anisocytosis 1+ Schistocytes None seen PT 15.0 H (11.1-14.7) Seconds INR 1.1 APTT 53.7 H (22.3-36.8) Seconds Sodium 136 L (137-145) mmol/L Potassium 4.4 (3.4-5.0) mmol/L Chloride 107 (98-107) mmol/L Carbon Dioxide 14 L (22-30) mmol/L Anion Gap 15 H (4-12) mmol/L BUN 28 H (7-17) mg/dL Creatinine 1.51 H (0.7-1.0) mg/dL Estim Creat Clear Calc 33 ml/min Estimated GFR 35 L (59 - ) Glucose 106 (65-110) mg/dL Calcium 10.4 H (8.4-10.2) mg/dL Total Bilirubin 0.9 (0.2-1.3) mg/dL AST 49 H (14-36) U/L ALT 19 (6-35) U/L Alkaline Phosphatase 230 H (38-126) U/L Troponin I < 0.012 (0.000-0.034) ng/mL Total Protein 9.0 H (6.3-8.2) g/dL Albumin 4.5 (3.5-5.1) g/dL Lipase 340 H (23-300) U/L Influenza A (RT-PCR) Negative (Negative) Influenza B (RT-PCR) Negative (Negative) RSV (RT-PCR) Positive A (Negative) SARS-CoV-2 RNA (RT-PCR) Negative (Negative) Imaging Data Radiologist's impression: Impressions Chest X-Ray 09/17/24 10:25 IMPRESSION: No focal infiltrate or effusion. Discharge Plan Discharge Clinical Impression: Pneumonia, Hypoxia, RSV infection Patient Disposition: Still a Patient Condition: Serious
[2024-09-17 12:36] LABS: Influenza A QL RT-PCR Negative (Negative); Influenza B QL RT-PCR Negative (Negative); RSV RNA, RT-PCR Positive (Negative); SARS-CoV-2 RNA PCR Negative (Negative)
[2024-09-17] MEDS: SODIUM CHLORIDE 0.9% IV 1,000 ML 999 ML IV CONT (13:33)
[2024-09-17] MEDS: ALBUTEROL SULFATE NEB 2.5 MG/3 ML INH 5 MG INHALATION (14:46)
[2024-09-17] MEDS: AMOXICILLIN/CLAVULANATE K 875-125 MG TAB 1 TABLET PO (15:28)
[2024-09-17] MEDS: AZITHROMYCIN 250 MG TABLET 500 MG PO (15:28)
--- NOTE | 2024-09-17 15:36 | PC.NURSE ---
after breathing treatment attempted to do walking SpO2 to measure while ambulating. at rest pt O2 is 95-98% on room air. while ambulating short distance, pt O2 drops to 84-85% on room air and is unable to speak full sentences. pt oxygen rises again at rest.
--- NOTE | 2024-09-17 17:21 | ADMGEN ---
This patient, Dior Robert, was admitted to Medical Room 252-01. Patient/family oriented to hospital policies and general routines including ID bracelet, bed and alarms, visiting hours, pain management, procedures, bathroom and other care routines, personal items, smoking policy, room service/diet, and visiting hours. Information on how to activate the Rapid Response Team has been discussed. Patient/Family are encouraged to report perceived risks to care and to ask questions if they do not understand what they are told or what they should do.
[2024-09-17] MEDS: AZITHROMYCIN 500 MG/NS 250 ML 500 MG/250 ML BAG 250 MG IVPB (18:15)
[2024-09-17] MEDS: oxyCODONE/ACETAMINOPHEN (*CRX) 10-325 MG TABLET 1 TAB PO (21:16)
[2024-09-17] MEDS: ALBUTEROL SULFATE NEB 2.5 MG/3 ML INH INHALATION (21:30)
[2024-09-18] VITALS (19 sets, daily range): BP systolic 131–150; BP diastolic 71–83; PULSE 76–108; RESP 16–20; TEMP 36.4–36.7; O2SAT 93–97
[2024-09-18] MEDS: oxyCODONE/ACETAMINOPHEN (*CRX) 10-325 MG TABLET 1 TAB PO ×5 (01:46→21:24)
[2024-09-18] MEDS: ALBUTEROL SULFATE NEB 2.5 MG/3 ML INH INHALATION ×4 (03:12→20:26)
--- NOTE | 2024-09-18 09:56 | PM.IMHP ---
H&P: HPI History of Present Illness Date/Time: 09/18/24 09:56 Chief Complaint: Shortness of Breath Narrative: Patient presented to the ER with reports of SOB within the last 5 days prior to her presentation, with worsened symptoms within the last 3 days. She reports being unable to tolerate any activity within the last 3 days, getting really SOB just ambulating to the bathroom in her home. Patient only received one Covid vaccine and hasn't been vaccinated for RSV. She reports severe headache and nasal congestion, intermittent cough episodes with no sputum, throat pain, poor PO intake and feeling dehydrated. She denies any fever or chills, reports chronic diarrhea with Hx of colectomy related to Crohn's complications. Patient on chronic narcotic pain medications at home for chronic back pain. Review of Systems Review of Systems: All systems reviewed & are unremarkable except as noted in HPI and below PMFSH Past Medical History Medical History COVID-19 Osteoporosis HLD (hyperlipidemia) DVT (deep venous thrombosis) 2007 Anxiety Depression Thyroid nodule DDD (degenerative disc disease) Cervical cancer S/p hysterectomy 1996 GERD (gastroesophageal reflux disease) Peptic ulcer Pacemaker - 2013 Peripheral neuropathy CVA (cerebrovascular accident) 2017, no residual deficits Seasonal allergies Surgical History Surgical History History of spinal fusion 2000 & 2001. L5-S1 History of carpal tunnel release H/O cervical spine surgery 2003 History of orthopedic surgery bilateral feet History of removal of ovarian cyst left 1997 History of hysterectomy H/O inguinal hernia repair Hx of cholecystectomy (1999) H/O resection of large bowel 1999 Hx of tonsillectomy Family History Family History Grandparent Carcinoma of colon Father Diabetes mellitus Hypertension Lymphoma Mother Hypertension Hypercholesterolemia Grandparent Family history of lung cancer Social History Social History Social History: Ms. Robert lives at home with her sister, Radha, whom she designates as her surrogate decision maker. She would like to be a full code. She is and has step-children. She has been on disability for about 20 years. Smoking packs per day: 1 Smoking cigarettes per day: 20.0 Years smoked: 40 Smoking pack-years: 40.00 Smoking status: Former smoker Tobacco type: cigarettes Second hand tobacco smoke exposure: Yes Smoking end date: 07/28/23 Additional smoking assessment comments: SMOKES OCCASIONALLY 1 CIGARETTE A DAY. Alcohol intake: never Drinks per week: 15 Alcohol use details: social Substance use: never Substance use type: marijuana Other substance usage details: She has infrequently used edible THC for pain management Last use: 06/23/2022 Do You Feel Safe in your Home?: Yes Lack of Transportation: No Lack of Food: Never True Current Housing: I Have Housing Concerned About Future Housing: No Difficulty Paying Gas/Electric Bills: No Difficulty Paying for Meds: No Currently Unemployed: No Education: High School Diploma/GED Difficulty w/ Childcare or Family Care: No Living arrangements: with family Additional living arrangements comments: LIVES WITH SIGNIFICANT OTHER Additional occupation/education comments: Disability Gender identity (if verbalized by the patient): Female Spiritual care concerns: No Agree to blood products: Yes Meds Home Medications and Allergies Home Medications ?Medication ?Instructions ?Recorded ?Confirmed ?Type apremilast 30 mg tablet (Otezla) 30 mg PO BID 04/12/20 09/17/24 History aspirin 325 mg tablet 325 mg PO DAILY 04/12/20 09/17/24 History vitamin B complex (B 1 tablet PO WEEKLY 02/20/22 09/17/24 History Complex-Vitamin B12 tablet) albuterol sulfate 90 mcg/actuation 2 inh inhalation Q4H PRN shortness 04/10/23 09/17/24 Rx aerosol inhaler of breath or wheezing #25.5 grams lorazepam 2 mg tablet 2 mg PO TID PRN anxiety #90 tabs 06/15/24 09/17/24 Rx ergocalciferol (vitamin D2) 1,250 See Rx Instructions .Route 06/23/24 09/17/24 Rx mcg (50,000 unit) capsule .COMPLEX #13 caps ferrous sulfate 325 mg (65 mg See Rx Instructions .Route 07/07/24 09/17/24 Rx iron) tablet .COMPLEX #90 tabs atorvastatin 40 mg tablet 40 mg PO QHS #90 tabs 07/14/24 09/17/24 Rx sertraline 100 mg tablet 100 mg PO QAM #90 tabs 07/14/24 09/17/24 Rx omeprazole 40 mg capsule,delayed See Rx Instructions .Route 07/28/24 09/17/24 Rx release .COMPLEX #200 caps atenolol 50 mg tablet See Rx Instructions .Route 08/29/24 09/17/24 Rx .COMPLEX #100 tabs lansoprazole 30 mg capsule,delayed 30 mg PO QAM #90 caps 09/01/24 09/17/24 Rx release (Prevacid) oxycodone-acetaminophen 10 mg-325 1 tablet PO Q4H PRN Pain #180 tabs 09/03/24 09/17/24 Rx mg tablet Allergies Allergy/AdvReac Type Severity Reaction Status Date / Time Sulfa (Sulfonamide Allergy Severe Swelling Verified 09/15/24 13:23 Antibiotics) of Lip/Tongue/Throat prednisone AdvReac Unknown NOT TO Verified 09/15/24 13:23 TAKE R/T MEDS triamcinolone (From Kenalog) AdvReac Unknown Unknown Verified 09/15/24 13:23 Vital Signs Vital Signs - 24 hr 09/17/24 10:00 09/17/24 11:34 09/17/24 11:34 Temperature 98.1 F Pulse Rate 101 H 84 Respiratory Rate 19 14 Blood Pressure 134/87 129/79 Pulse Oximetry 98 97 98 Oxygen Delivery Room Air 09/17/24 12:01 09/17/24 12:16 09/17/24 12:31 Temperature Pulse Rate 83 82 85 Respiratory Rate 16 16 19 Blood Pressure 112/80 119/77 137/80 Pulse Oximetry 96 96 95 Oxygen Delivery 09/17/24 12:48 09/17/24 13:16 09/17/24 13:31 Temperature Pulse Rate 81 81 83 Respiratory Rate 15 19 21 H Blood Pressure 143/89 H 125/86 138/78 Pulse Oximetry 99 97 96 Oxygen Delivery 09/17/24 13:46 09/17/24 14:01 09/17/24 14:16 Temperature Pulse Rate 81 85 87 Respiratory Rate 17 21 H 20 Blood Pressure 131/64 129/70 142/70 H Pulse Oximetry 96 97 98 Oxygen Delivery 09/17/24 14:31 09/17/24 14:47 09/17/24 14:48 Temperature Pulse Rate 87 87 82 Respiratory Rate 17 23 H 20 Blood Pressure 150/87 H 142/73 H Pulse Oximetry 99 97 Oxygen Delivery 09/17/24 14:53 09/17/24 14:54 09/17/24 15:01 Temperature Pulse Rate 88 79 Respiratory Rate 20 17 Blood Pressure 137/88 Pulse Oximetry 98 100 Oxygen Delivery Room Air 09/17/24 15:17 09/17/24 15:30 09/17/24 16:24 Temperature Pulse Rate 88 88 Respiratory Rate 21 H 19 Blood Pressure 138/78 150/77 H Pulse Oximetry 100 96 Oxygen Delivery Room Air 09/17/24 16:31 09/17/24 17:01 09/17/24 17:20 Temperature 98.4 F Pulse Rate 86 85 86 Respiratory Rate 16 18 18 Blood Pressure 162/82 H 150/77 H 158/78 H Pulse Oximetry 96 100 98 Oxygen Delivery 09/17/24 17:53 09/17/24 20:00 09/17/24 20:00 Temperature Pulse Rate 77 Respiratory Rate Blood Pressure Pulse Oximetry Oxygen Delivery Room Air Room Air 09/17/24 21:08 09/17/24 21:31 09/17/24 21:41 Temperature 97.9 F Pulse Rate 83 80 88 Respiratory Rate 20 20 20 Blood Pressure 154/78 H Pulse Oximetry 100 Oxygen Delivery 09/17/24 21:42 09/18/24 00:00 09/18/24 03:05 Temperature Pulse Rate 88 83 86 Respiratory Rate 20 Blood Pressure Pulse Oximetry 96 Oxygen Delivery Room Air 09/18/24 03:25 09/18/24 04:00 09/18/24 06:00 Temperature 97.9 F Pulse Rate 88 76 76 Respiratory Rate 20 20 Blood Pressure 131/71 Pulse Oximetry 96 Oxygen Delivery Exam Narrative: General: Fair appearing, no acute distress. HEENT: Atraumatic, PERRL, EOMI, anicteric, moist mucosa. NECK: Supple. Lungs: Expiratory wheezes. Heart: RRR, no murmurs. Abdomen: Soft, non-tender, non-distended, +ve BS X4 Quadrants. Extremities: Acyanotic, no edema. Skin: Warm and dry. No lesions noted. Neuro: Well oriented. CN II-XII grossly intact. Psych: Pleasant and co-operative. H&P: Results Labs Labs: Short CBC 09/17/24 Range/Units 10:16 WBC 5.6 (4.5-10.0) K/mm3 Hgb 10.9 L (12.0-15.0) g/dL Hct 36.4 L (37.0-47.0) % Plt Count 342 (150-375) k/mm3 BMP 09/17/24 10:16 Sodium 136 L Potassium 4.4 Chloride 107 Carbon Dioxide 14 L BUN 28 H Creatinine 1.51 H Glucose 106 Calcium 10.4 H Cardiac Enzymes 09/17/24 Range/Units 10:16 Troponin I < 0.012 (0.000-0.034) ng/mL Liver Function 09/17/24 Range/Units 10:16 Total Bilirubin 0.9 (0.2-1.3) mg/dL AST 49 H (14-36) U/L ALT 19 (6-35) U/L Alkaline Phosphatase 230 H (38-126) U/L Albumin 4.5 (3.5-5.1) g/dL Assessment and Plan Assessment and plan (1) Acute hypoxic respiratory failure: Code(s): J96.01 - Acute respiratory failure with hypoxia Status: Acute (2) RSV infection: Code(s): B33.8 - Other specified viral diseases Status: Acute (3) Low back pain, unspecified: Code(s): M54.50 - Low back pain, unspecified Status: Acute (4) Spinal cord stimulator status: Code(s): Z96.89 - Presence of other specified functional implants Status: Acute (5) Chronic obstructive pulmonary disease, unspecified: Onset Date: ~08/2021 Qualifiers: COPD type: unspecified COPD Qualified Code(s): J44.9 - Chronic obstructive pulmonary disease, unspecified Code(s): J44.9 - Chronic obstructive pulmonary disease, unspecified Status: Chronic (6) Psoriasis: Code(s): L40.9 - Psoriasis, unspecified Status: Acute (7) Major depressive disorder, recurrent, moderate: Code(s): F33.1 - Major depressive disorder, recurrent, moderate Status: Acute (8) Essential (primary) hypertension: Code(s): I10 - Essential (primary) hypertension Status: Chronic (9) Anemia in chronic illness: Code(s): D63.8 - Anemia in other chronic diseases classified elsewhere Status: Acute (10) Anxiety: Code(s): F41.9 - Anxiety disorder, unspecified Status: Acute Quality VTE Prophylaxis VTE prophylaxis: mechanical ordered Hospitalist MIPS Advance Care Plan I have confirmed that the patient's Advanced Care Plan is present, code status is documented, or surrogate decision maker is listed in patient medical record.: Yes Medication Reconciliation I have utilized all available resources to obtain, update and review the patients current medications (includes all prescriptions, OTC, herbals, cannabis, and nutritional supplements).: Yes
[2024-09-18] MEDS: guaiFENesin/DEXTROMETHORPHAN 10 ML UDC PO ×3 (10:55→21:24)
[2024-09-18] MEDS: PANTOPRAZOLE 40 MG TABLET PO ×2 (10:56→21:25)
[2024-09-18] MEDS: SERTRALINE HCL 50 MG TABLET 100 MG PO (10:56)
[2024-09-18] MEDS: FERROUS SULFATE 325 MG TABLET DR PO (10:56)
[2024-09-18] MEDS: ASPIRIN 325 MG TABLET PO (10:56)
[2024-09-18] MEDS: SODIUM CHLORIDE 0.9% IV 1,000 ML 100 ML IV CONT ×2 (11:01→21:24)
[2024-09-18] MEDS: MORPHINE SULFATE (*CRX) 2 MG/ML INJ IV PUSH (11:02)
[2024-09-18] MEDS: methylPREDNISolone SOD SUCC 125 MG VIAL 60 MG IV PUSH (11:04)
[2024-09-18] MEDS: BENZONATATE 100 MG CAPSULE 200 MG PO ×2 (12:56→17:38)
[2024-09-18] MEDS: LORazepam (*CRX) 1 MG TABLET 2 MG PO ×2 (12:57→21:26)
[2024-09-18] MEDS: ATORVASTATIN 40 MG TABLET PO (21:25)
[2024-09-18] MEDS: atenoloL 50 MG TABLET BY MOUTH (21:25)
[2024-09-19] VITALS (16 sets, daily range): BP systolic 134–154; BP diastolic 71–88; PULSE 71–96; RESP 14–22; TEMP 36.1–36.7; O2SAT 94–97
[2024-09-19] MEDS: guaiFENesin/DEXTROMETHORPHAN 10 ML UDC PO ×4 (01:57→15:53)
[2024-09-19] MEDS: oxyCODONE/ACETAMINOPHEN (*CRX) 10-325 MG TABLET 1 TAB PO ×4 (01:57→18:19)
[2024-09-19] MEDS: ALBUTEROL SULFATE NEB 2.5 MG/3 ML INH INHALATION ×4 (02:11→21:36)
[2024-09-19] MEDS: ASPIRIN 325 MG TABLET PO (10:48)
[2024-09-19] MEDS: BENZONATATE 100 MG CAPSULE 200 MG PO ×4 (10:48→23:02)
[2024-09-19] MEDS: SERTRALINE HCL 50 MG TABLET 100 MG PO (10:48)
[2024-09-19] MEDS: MORPHINE SULFATE (*CRX) 2 MG/ML INJ IV PUSH (10:48)
[2024-09-19] MEDS: FERROUS SULFATE 325 MG TABLET DR PO (10:48)
[2024-09-19] MEDS: PANTOPRAZOLE 40 MG TABLET PO ×2 (10:48→21:37)
[2024-09-19] MEDS: SODIUM CHLORIDE 0.9% IV 1,000 ML 100 ML IV CONT ×2 (10:49→21:37)
[2024-09-19] MEDS: LORazepam (*CRX) 1 MG TABLET 2 MG PO ×3 (10:57→23:03)
--- NOTE | 2024-09-19 11:30 | P.PNIM_ITS ---
Progress Note: A&P Assessment and Plan (1) Acute hypoxic respiratory failure: Code(s): J96.01 - Acute respiratory failure with hypoxia Status: Acute Assessment and Plan: - Likely related to below vs COPD exacerbation vs other. - Symptoms improving. - Will give another dose of steroids. - Currently good O2 sats > 93 % on RA. (2) RSV infection: Code(s): B33.8 - Other specified viral diseases Status: Acute Assessment and Plan: - Supportive care. - Currently good O2 sats > 93 % on RA. (3) Low back pain, unspecified: Code(s): M54.50 - Low back pain, unspecified Status: Acute Assessment and Plan: - Continue chronic home pain meds. (4) Spinal cord stimulator status: Code(s): Z96.89 - Presence of other specified functional implants Status: Acute Assessment and Plan: - Chronic. - Stable and continued outpatient f/u with pain specialist recommended. (5) Chronic obstructive pulmonary disease, unspecified: Onset Date: ~08/2021 Qualifiers: COPD type: unspecified COPD Qualified Code(s): J44.9 - Chronic obstructive pulmonary disease, unspecified Code(s): J44.9 - Chronic obstructive pulmonary disease, unspecified Status: Chronic Assessment and Plan: - Appears stable. - Will be given a dose of PO steroids. - Monitor closely for decompensation. (6) Psoriasis: Code(s): L40.9 - Psoriasis, unspecified Status: Acute Assessment and Plan: - Chronic. - Continue Otezla. (7) Major depressive disorder, recurrent, moderate: Code(s): F33.1 - Major depressive disorder, recurrent, moderate Status: Acute Assessment and Plan: - Chronic and stable. - Continue sertraline. (8) Essential (primary) hypertension: Code(s): I10 - Essential (primary) hypertension Status: Chronic Assessment and Plan: - Bp reviewed and currently fairly well controlled. - Continue Atenolol. - Continue to adjust BP meds as needed for optimal control. (9) Anemia in chronic illness: Code(s): D63.8 - Anemia in other chronic diseases classified elsewhere Status: Acute Assessment and Plan: - Hgb stable and higher than previous baseline. - No overt signs of bleeding. - Continue to monitor levels closely. (10) Anxiety: Code(s): F41.9 - Anxiety disorder, unspecified Status: Acute (11) Chronic kidney disease, stage 3b: Code(s): N18.32 - Chronic kidney disease, stage 3b Status: Acute Assessment and Plan: - Cr slightly above previous baseline; 1.4>>1.2>>1.5. - Possibly affected by infection. - currently on gentle IVF hydration. - Avoid nephrotoxins. - Monitor renal panel closely. Plan - Continue supportive care for RSV with scheduled duoneb updrafts. Will be given 40 mg Prednisone X1. Continue to monitor kidney function closely with Hx of CKD. Time Spent With Patient Time with patient: 15 - 25 minutes Subjective Date/time seen: 09/19/24 09:30 Patient states she had a lot of pain overnight but they declined to give her IV pain meds, only gave her PO pain meds per home dose. Interval history: Patient calm on bedrest and looks to be in no acute distress. Review of Systems Review of Systems: All systems reviewed & are unremarkable except as noted in HPI and below Exam Narrative: General: Fair appearing, no acute distress. HEENT: Atraumatic, PERRL, EOMI, anicteric, moist mucosa. NECK: Supple. Lungs: Coarse with faint expiratory wheezes. Heart: RRR, no murmurs. Abdomen: Soft, non-tender, non-distended, +ve BS X4 Quadrants. Extremities: Acyanotic, no edema. Skin: Warm and dry. No lesions noted. Neuro: Well oriented. CN II-XII grossly intact. Psych: Pleasant and co-operative. Objective Data Vital Signs Vital Signs: Vital Signs - 24 hr 09/18/24 12:00 09/18/24 15:11 09/18/24 15:49 Temperature 98.1 F Pulse Rate 79 87 94 Respiratory Rate 16 20 Blood Pressure 139/83 Pulse Oximetry 97 Oxygen Delivery Fraction of Inspired Oxygen 09/18/24 16:00 09/18/24 16:00 09/18/24 20:00 Temperature Pulse Rate 95 96 106 H Respiratory Rate 20 20 Blood Pressure Pulse Oximetry 93 Oxygen Delivery Room Air Fraction of Inspired Oxygen 21 09/18/24 20:00 09/18/24 20:10 09/18/24 20:27 Temperature 97.6 F Pulse Rate 108 H 100 104 H Respiratory Rate 16 20 Blood Pressure 150/80 H Pulse Oximetry 97 Oxygen Delivery Fraction of Inspired Oxygen 09/18/24 20:29 09/18/24 20:36 09/18/24 21:25 Temperature Pulse Rate 104 H 103 H 106 H Respiratory Rate 20 Blood Pressure Pulse Oximetry 93 Oxygen Delivery Room Air Fraction of Inspired Oxygen 21 09/19/24 00:00 09/19/24 02:11 09/19/24 02:18 Temperature Pulse Rate 88 78 80 Respiratory Rate 20 20 Blood Pressure Pulse Oximetry Oxygen Delivery Fraction of Inspired Oxygen 09/19/24 04:00 09/19/24 06:00 09/19/24 07:25 Temperature 97.6 F Pulse Rate 73 71 84 Respiratory Rate 14 20 Blood Pressure 134/71 Pulse Oximetry 97 Oxygen Delivery Fraction of Inspired Oxygen 09/19/24 10:03 Temperature Pulse Rate 96 Respiratory Rate Blood Pressure Pulse Oximetry 94 Oxygen Delivery Room Air Fraction of Inspired Oxygen 21 Intake/Output Intake/Output: Intake & Output 09/16/24 09/17/24 09/18/24 09/19/24 23:59 23:59 23:59 23:59 Intake Total 1050 2160 1420 Balance 1050 2160 1420 Meds/Results Medications: Active Medications Generic Name Dose Route Start Last Admin Trade Name Freq PRN Reason Stop Dose Admin Albuterol 2.5 mg 09/17/24 20:00 09/19/24 07:25 Albuterol Sulfate Neb 2.5 Mg/3 Ml Inh INHALATION 2.5 mg Q6HRT BENJI Administration Aspirin 325 mg 09/18/24 10:25 09/19/24 10:48 Aspirin 325 Mg Tablet PO 325 mg DAILY BENJI Administration Atenolol 50 mg 09/18/24 21:00 09/18/24 21:25 Atenolol 50 Mg Tablet BY MOUTH 50 mg HS BENJI Administration Atorvastatin Calcium 40 mg 09/18/24 21:00 09/18/24 21:25 Atorvastatin 40 Mg Tablet PO 40 mg QHS BENJI Administration Benzonatate 200 mg 09/18/24 13:00 09/19/24 10:48 Benzonatate 100 Mg Capsule PO 200 mg TID BENJI Administration Ferrous Sulfate 325 mg 09/18/24 10:15 09/19/24 10:48 Ferrous Sulfate [address] PO 325 mg DAILY BENJI Administration Guaifenesin/Dextromethorphan 10 ml 09/18/24 10:14 09/19/24 10:48 Guaifenesin/Dextromethorphan 10 Ml Udc PO 10 ml Q4H PRN Administration Cough Sodium Chloride 1,000 mls @ 100 mls/hr 09/18/24 10:20 09/19/24 10:49 Normal Saline Iv IV CONT 100 mls/hr .Q10H BENJI Administration Lorazepam 2 mg 09/18/24 10:15 09/19/24 10:57 Lorazepam (*Crx) 1 Mg Tablet PO 2 mg TID PRN Administration anxiety Miscellaneous Information 0 each 09/18/24 00:01 Apremilast [Otezla] 30 Mg = Non Form XX 10/18/24 00:00 CLARIFY BENJI Non-Formulary Medication 30 mg 09/18/24 17:00 Apremilast [Otezla] PO 10/18/24 16:59 BID BENJI Oxycodone/Acetaminophen 1 tab 09/17/24 20:53 09/19/24 06:20 Oxycodone/Acetaminophen (*Crx) 10-325 Mg Tablet PO 1 tab Q4H PRN Administration PAIN RATED 7-10 Pantoprazole Sodium 40 mg 09/18/24 10:15 09/19/24 10:48 Pantoprazole 40 Mg Tablet PO 40 mg Q12HR BENJI Administration Sertraline HCl 100 mg 09/18/24 10:25 09/19/24 10:48 Sertraline Hcl 50 Mg Tablet PO 100 mg QAM BENJI Administration Vitamin B Complex 1 cap 09/24/24 09:00 Vitamin B Complex Capsule PO Th@0900 [facility] Radiology Results: ITS Impressions Chest X-Ray 09/17/24 10:25 IMPRESSION: No focal infiltrate or effusion. Quality VTE Prophylaxis VTE prophylaxis: mechanical ordered Hospitalist [facility] Advance Care Plan I have confirmed that the patient's Advanced Care Plan is present, code status is documented, or surrogate decision maker is listed in patient medical record.: Yes Medication Reconciliation I have utilized all available resources to obtain, update and review the patients current medications (includes all prescriptions, OTC, herbals, cannabis, and nutritional supplements).: Yes
[2024-09-19 12:32] LABS: Anion Gap 10 mmol/L (4-12); Blood Urea Nitrogen 25 mg/dL (7-17); Calcium 9.1 mg/dL (8.4-10.2); Carbon Dioxide 16 mmol/L (22-30); Chloride 115 mmol/L (98-107); Estimated CRCL calculation 42 ml/min; Estimated Glomerular Filt Rate 48; Glucose 105 mg/dL (65-110); Potassium 3.9 mmol/L (3.4-5.0); Sodium 141 mmol/L (137-145)
[2024-09-19] MEDS: predniSONE 20 MG TABLET 40 MG PO (13:29)
[2024-09-19] MEDS: ATORVASTATIN 40 MG TABLET PO (21:37)
[2024-09-19] MEDS: atenoloL 50 MG TABLET BY MOUTH (21:37)
[2024-09-19] MEDS: guaiFENesin 600 MG/DEXTROMETHORPHAN 30 MG SR TAB 12 HR 1 TAB PO (23:02)
[2024-09-19] MEDS: traZODone HCL 50 MG TABLET PO (23:03)
[2024-09-19] MEDS: KETOROLAC 15 MG/ML VIAL (*BKC) IV PUSH (23:03)
[2024-09-20] VITALS (16 sets, daily range): BP systolic 147–168; BP diastolic 81–87; PULSE 60–86; RESP 16–20; TEMP 36.6; O2SAT 90–98
[2024-09-20] MEDS: ALBUTEROL SULFATE NEB 2.5 MG/3 ML INH INHALATION ×3 (03:29→20:56)
[2024-09-20] MEDS: KETOROLAC 15 MG/ML VIAL (*BKC) IV PUSH ×4 (05:25→21:18)
[2024-09-20] MEDS: BENZONATATE 100 MG CAPSULE 200 MG PO ×3 (05:26→23:43)
[2024-09-20 06:07] LABS: Anion Gap 11 mmol/L (4-12); Blood Urea Nitrogen 27 mg/dL (7-17); Calcium 8.8 mg/dL (8.4-10.2); Carbon Dioxide 16 mmol/L (22-30); Chloride 115 mmol/L (98-107); Estimated CRCL calculation 45 ml/min; Estimated Glomerular Filt Rate 52; Glucose 123 mg/dL (65-110); Potassium 4.5 mmol/L (3.4-5.0); Sodium 142 mmol/L (137-145)
[2024-09-20] MEDS: oxyCODONE/ACETAMINOPHEN (*CRX) 10-325 MG TABLET 1 TAB PO ×3 (08:37→18:00)
[2024-09-20] MEDS: guaiFENesin 600 MG/DEXTROMETHORPHAN 30 MG SR TAB 12 HR 1 TAB PO ×2 (08:37→21:18)
[2024-09-20] MEDS: LORazepam (*CRX) 1 MG TABLET 2 MG PO ×3 (08:37→21:17)
[2024-09-20] MEDS: ASPIRIN 325 MG TABLET PO (08:37)
[2024-09-20] MEDS: FERROUS SULFATE 325 MG TABLET DR PO (08:38)
[2024-09-20] MEDS: SERTRALINE HCL 50 MG TABLET 100 MG PO (08:38)
[2024-09-20] MEDS: PANTOPRAZOLE 40 MG TABLET PO ×2 (08:38→21:18)
--- NOTE | 2024-09-20 16:19 | PM.IMPN ---
Progress Note: A&P Assessment and Plan (1) Acute hypoxic respiratory failure: Code(s): J96.01 - Acute respiratory failure with hypoxia Status: Acute Assessment and Plan: - Likely related to below vs COPD exacerbation vs other. - CXR negative for infiltrates. - Symptoms slowly improving. - Will give another dose of steroids. - Currently good O2 sats > 97-98 % on RA. - Continue scheduled DuoNeb updrafts. - Continue supportive care. - We'll perform desat. study to evaluate for possible home O2. (2) RSV infection: Code(s): B33.8 - Other specified viral diseases Status: Acute Assessment and Plan: - Supportive care. - Currently good O2 sats > 97-98 % on RA. (3) Low back pain, unspecified: Code(s): M54.50 - Low back pain, unspecified Status: Acute Assessment and Plan: - Continue chronic home pain meds. - Toradol added overnight. (4) Spinal cord stimulator status: Code(s): Z96.89 - Presence of other specified functional implants Status: Acute Assessment and Plan: - Chronic. - Stable and continued outpatient f/u with pain specialist recommended. (5) Chronic obstructive pulmonary disease, unspecified: Onset Date: ~08/2021 Qualifiers: COPD type: unspecified COPD Qualified Code(s): J44.9 - Chronic obstructive pulmonary disease, unspecified Code(s): J44.9 - Chronic obstructive pulmonary disease, unspecified Status: Chronic Assessment and Plan: - Appears stable. - Currently no indication for steroids. - Monitor closely for decompensation. (6) Psoriasis: Code(s): L40.9 - Psoriasis, unspecified Status: Acute Assessment and Plan: - Chronic. - Continue Otezla. (7) Major depressive disorder, recurrent, moderate: Code(s): F33.1 - Major depressive disorder, recurrent, moderate Status: Acute Assessment and Plan: - Chronic and stable. - Continue sertraline. (8) Essential (primary) hypertension: Code(s): I10 - Essential (primary) hypertension Status: Chronic Assessment and Plan: - Bp reviewed and currently fairly well controlled. - Continue Atenolol. - Continue to adjust BP meds as needed for optimal control. (9) Anemia in chronic illness: Code(s): D63.8 - Anemia in other chronic diseases classified elsewhere Status: Acute Assessment and Plan: - Hgb stable and higher than previous baseline. - No overt signs of bleeding. - Continue to monitor levels closely. (10) Anxiety: Code(s): F41.9 - Anxiety disorder, unspecified Status: Acute (11) KRISTEN (acute kidney injury): Code(s): N17.9 - Acute kidney failure, unspecified Status: Acute Assessment and Plan: - Possibly related to volume depletion secondary to poor PO intake vs other. - Cr much improved with IVF hydration; 1.5>>1.07. - IVF discontinued. - Encouraged with PO fluids. Plan - Respiratory therapist contacted for home O2 eval. Continue supportive care for now. Time Spent With Patient Time with patient: 15 - 25 minutes Subjective Date/time seen: 09/20/24 09:19 Patient states she still feels SOB when she ambulates to the bathroom. States doesn't feel like she's ready to go home yet. Interval history: Patient calm on bedrest and looks to be in no acute distress. Pt presented with worsening SOB and noted with RSV +ve PCR. Currently good O2 sats on RA and we'll continue supportive care. Review of Systems Review of Systems: All systems reviewed & are unremarkable except as noted in HPI and below Exam Narrative: General: Fair appearing, no acute distress. HEENT: Atraumatic, PERRL, EOMI, anicteric, moist mucosa. NECK: Supple. Lungs: Coarse with faint expiratory wheezes. Heart: RRR, no murmurs. Abdomen: Soft, non-tender, non-distended, +ve BS X4 Quadrants. Extremities: Acyanotic, no edema. Skin: Warm and dry. No lesions noted. Neuro: Well oriented. CN II-XII grossly intact. Psych: Pleasant and co-operative. Objective Data Vital Signs Vital Signs: Vital Signs - 24 hr 09/19/24 20:00 09/19/24 20:00 09/19/24 21:37 Temperature Pulse Rate 83 80 83 Respiratory Rate 16 Blood Pressure Pulse Oximetry 97 Oxygen Delivery Room Air Fraction of Inspired Oxygen 21 09/19/24 21:40 09/19/24 21:40 09/19/24 21:40 Temperature 96.9 F L Pulse Rate 83 83 Respiratory Rate 16 22 H Blood Pressure 154/88 H Pulse Oximetry 97 97 Oxygen Delivery Room Air Fraction of Inspired Oxygen 09/19/24 21:50 09/20/24 00:00 09/20/24 03:30 Temperature Pulse Rate 85 81 73 Respiratory Rate 20 20 Blood Pressure Pulse Oximetry Oxygen Delivery Fraction of Inspired Oxygen 09/20/24 04:00 09/20/24 05:34 09/20/24 06:34 Temperature 97.9 F Pulse Rate 75 78 74 Respiratory Rate 16 20 Blood Pressure 168/83 H Pulse Oximetry 98 Oxygen Delivery Fraction of Inspired Oxygen 09/20/24 08:00 09/20/24 08:00 09/20/24 11:40 Temperature Pulse Rate 74 74 74 Respiratory Rate 20 Blood Pressure Pulse Oximetry 98 Oxygen Delivery Room Air Fraction of Inspired Oxygen 21 09/20/24 14:00 09/20/24 14:04 Temperature 97.8 F Pulse Rate 76 77 Respiratory Rate 16 20 Blood Pressure 147/81 H Pulse Oximetry 97 Oxygen Delivery Fraction of Inspired Oxygen Intake/Output Intake/Output: Intake & Output 09/17/24 09/18/24 09/19/24 09/20/24 23:59 23:59 23:59 23:59 Intake Total 1050 2160 2900 660 Balance 1050 2160 2900 660 Meds/Results Medications: Active Medications Generic Name Dose Route Start Last Admin Trade Name Freq PRN Reason Stop Dose Admin Albuterol 2.5 mg 09/17/24 20:00 09/20/24 14:04 Albuterol Sulfate Neb 2.5 Mg/3 Ml Inh INHALATION 2.5 mg Q6HRT BENJI Administration Aspirin 325 mg 09/18/24 10:25 09/20/24 08:37 Aspirin 325 Mg Tablet PO 325 mg DAILY BENJI Administration Atenolol 50 mg 09/18/24 21:00 09/19/24 21:37 Atenolol 50 Mg Tablet BY MOUTH 50 mg HS BENJI Administration Atorvastatin Calcium 40 mg 09/18/24 21:00 09/19/24 21:37 Atorvastatin 40 Mg Tablet PO 40 mg QHS BENJI Administration Benzonatate 200 mg 09/20/24 00:00 09/20/24 15:52 Benzonatate 100 Mg Capsule PO Not Given Q6HR BENJI Ferrous Sulfate 325 mg 09/18/24 10:15 09/20/24 08:38 Ferrous Sulfate [address] PO 325 mg DAILY BENJI Administration Guaifenesin/Dextromethorphan 1 tab 09/19/24 22:05 09/20/24 08:37 Guaifenesin 600 Mg/Dextromethorphan 30 Mg Sr Tab 12 Hr PO 1 tab Q12HR BENJI Administration Ketorolac Tromethamine 15 mg 09/19/24 22:00 09/20/24 12:17 Ketorolac 15 Mg/Ml Vial (*Bkc) IV PUSH 15 mg Q6H BENJI Administration Lorazepam 2 mg 09/18/24 10:15 09/20/24 12:17 Lorazepam (*Crx) 1 Mg Tablet PO 2 mg TID PRN Administration anxiety Miscellaneous Information 0 each 09/18/24 00:01 Apremilast [Otezla] 30 Mg = Non Form XX 10/18/24 00:00 CLARIFY BENJI Non-Formulary Medication 30 mg 09/18/24 17:00 Apremilast [Otezla] PO 10/18/24 16:59 BID BENJI Oxycodone/Acetaminophen 1 tab 09/17/24 20:53 09/20/24 12:17 Oxycodone/Acetaminophen (*Crx) 10-325 Mg Tablet PO 1 tab Q4H PRN Administration PAIN RATED 7-10 Pantoprazole Sodium 40 mg 09/18/24 10:15 09/20/24 08:38 Pantoprazole 40 Mg Tablet PO 40 mg Q12HR BENJI Administration Sertraline HCl 100 mg 09/18/24 10:25 09/20/24 08:38 Sertraline Hcl 50 Mg Tablet PO 100 mg QAM BENJI Administration Trazodone HCl 50 mg 09/19/24 22:05 09/19/24 23:03 Trazodone Hcl 50 Mg Tablet PO 50 mg HS BENJI Administration Vitamin B Complex 1 cap 09/24/24 09:00 Vitamin B Complex Capsule PO Th@0900 [facility] Radiology Results: ITS Impressions Chest X-Ray 09/17/24 10:25 IMPRESSION: No focal infiltrate or effusion. Labs Labs: Laboratory Results - last 24 hr 09/20/24 05:45 Sodium 142 Potassium 4.5 Chloride 115 H Carbon Dioxide 16 L Anion Gap 11 BUN 27 H Creatinine 1.07 H Estim Creat Clear Calc 45 Estimated GFR 52 L Glucose 123 H Calcium 8.8 Quality VTE Prophylaxis VTE prophylaxis: mechanical ordered Hospitalist [facility] Advance Care Plan I have confirmed that the patient's Advanced Care Plan is present, code status is documented, or surrogate decision maker is listed in patient medical record.: Yes Medication Reconciliation I have utilized all available resources to obtain, update and review the patients current medications (includes all prescriptions, OTC, herbals, cannabis, and nutritional supplements).: Yes
[2024-09-20] MEDS: atenoloL 50 MG TABLET BY MOUTH (21:17)
[2024-09-20] MEDS: ATORVASTATIN 40 MG TABLET PO (21:18)
[2024-09-20] MEDS: traZODone HCL 50 MG TABLET PO (21:18)
[2024-09-21] VITALS (19 sets, daily range): BP systolic 138–167; BP diastolic 77–91; PULSE 63–97; RESP 16–20; TEMP 35.9–36.6; O2SAT 92–99
[2024-09-21] MEDS: ALBUTEROL SULFATE NEB 2.5 MG/3 ML INH INHALATION ×4 (02:21→21:26)
[2024-09-21] MEDS: KETOROLAC 15 MG/ML VIAL (*BKC) IV PUSH ×4 (03:09→21:17)
[2024-09-21] MEDS: BENZONATATE 100 MG CAPSULE 200 MG PO ×3 (05:12→23:23)
[2024-09-21] MEDS: oxyCODONE/ACETAMINOPHEN (*CRX) 10-325 MG TABLET 1 TAB PO ×3 (05:12→21:18)
[2024-09-21 06:12] LABS: Anion Gap 8 mmol/L (4-12); Blood Urea Nitrogen 26 mg/dL (7-17); Calcium 8.9 mg/dL (8.4-10.2); Carbon Dioxide 16 mmol/L (22-30); Chloride 118 mmol/L (98-107); Estimated CRCL calculation 41 ml/min; Estimated Glomerular Filt Rate 46; Glucose 86 mg/dL (65-110); Sodium 142 mmol/L (137-145)
[2024-09-21] MEDS: SERTRALINE HCL 50 MG TABLET 100 MG PO (08:51)
[2024-09-21] MEDS: FERROUS SULFATE 325 MG TABLET DR PO (08:52)
[2024-09-21] MEDS: PANTOPRAZOLE 40 MG TABLET PO ×2 (08:52→21:18)
[2024-09-21] MEDS: ASPIRIN 325 MG TABLET PO (08:52)
[2024-09-21] MEDS: guaiFENesin 600 MG/DEXTROMETHORPHAN 30 MG SR TAB 12 HR 1 TAB PO ×2 (08:52→21:18)
--- NOTE | 2024-09-21 13:45 | HOMEO2EVAL ---
Evaluation was performed at [facility] Home Oxygen Evaluation RC: Home Oxygen (O2) Evaluation Start: 09/20/24 13:55 Freq: ONCE Status: Active Protocol: RPE Activity Type Activity Date Activity User E-sign Co-sign Detail Recorded Client Recorded Date Recorded By Document 09/21/24 13:35 KRM [id number] 09/21/24 13:44 KRM Document 09/21/24 13:44 KRM [id number] 09/21/24 13:44 KRM 09/21/24 09/21/24 13:35 13:44 Home O2 Evaluation [Oxygen] -Test Phase Resting Exercise -Oxygen Delivery Room Air Room Air [Pulse Oximetry] -Pulse Oximetry (90-100 %) 98 94 [Pulse Rate] -Pulse Rate (60-100 beats/min) 78 84 [Evaluation] -Activity Tolerance Good [Exercise] -Ambulation Distance (feet) 25 -Ambulation Distance (meters) 7.61 [Charges] -Evaluation Charges O2 Evaluation by Pulmonary
[2024-09-21] MEDS: LORazepam (*CRX) 1 MG TABLET 2 MG PO ×2 (14:45→21:18)
--- NOTE | 2024-09-21 17:38 | P.PNIM_ITS ---
Progress Note: A&P Assessment and Plan (1) Acute hypoxic respiratory failure: Code(s): J96.01 - Acute respiratory failure with hypoxia Status: Acute Assessment and Plan: - Likely related to below vs COPD exacerbation vs other. - CXR negative for infiltrates. - Symptoms continue to slowly improve. - Hold steroids for now. - Currently good O2 sats > 97-98 % on RA. - Continue scheduled DuoNeb updrafts. - Continue supportive care. - Good PO2 on RA with activity per home O2 eval > 94%. - Consider discharge in AM if remains stable. (2) RSV infection: Code(s): B33.8 - Other specified viral diseases Status: Acute Assessment and Plan: - Supportive care. - Currently good O2 sats > 97-98 % on RA at rest and 94 % with activity. (3) Low back pain, unspecified: Code(s): M54.50 - Low back pain, unspecified Status: Acute Assessment and Plan: - Continue chronic home pain meds. - Toradol added. (4) Spinal cord stimulator status: Code(s): Z96.89 - Presence of other specified functional implants Status: Acute Assessment and Plan: - Chronic. - Stable and continued outpatient f/u with pain specialist recommended. (5) Chronic obstructive pulmonary disease, unspecified: Onset Date: ~08/2021 Qualifiers: COPD type: unspecified COPD Qualified Code(s): J44.9 - Chronic obstructive pulmonary disease, unspecified Code(s): J44.9 - Chronic obstructive pulmonary disease, unspecified Status: Chronic Assessment and Plan: - Appears stable. - Currently no indication for steroids. - Monitor closely for decompensation. (6) Psoriasis: Code(s): L40.9 - Psoriasis, unspecified Status: Acute Assessment and Plan: - Chronic. - Continue Otezla. (7) Major depressive disorder, recurrent, moderate: Code(s): F33.1 - Major depressive disorder, recurrent, moderate Status: Acute Assessment and Plan: - Chronic and stable. - Continue sertraline. (8) Essential (primary) hypertension: Code(s): I10 - Essential (primary) hypertension Status: Chronic Assessment and Plan: - Bp reviewed and currently fairly well controlled. - Continue Atenolol. - Continue to adjust BP meds as needed for optimal control. (9) Anemia in chronic illness: Code(s): D63.8 - Anemia in other chronic diseases classified elsewhere Status: Acute Assessment and Plan: - Hgb stable and higher than previous baseline. - No overt signs of bleeding. - Continue to monitor levels closely. (10) Anxiety: Code(s): F41.9 - Anxiety disorder, unspecified Status: Acute Assessment and Plan: - Continue Lorazepam PRN. (11) KRISTEN (acute kidney injury): Code(s): N17.9 - Acute kidney failure, unspecified Status: Acute Assessment and Plan: - Possibly related to volume depletion secondary to poor PO intake vs other. - Cr stable; 1.5>>1.07>>1.2 - IVF discontinued. - Encouraged with PO fluids. Plan - Consider d/c in AM if remains stable. - Diet: Heart Healthy. - DVT PPx: SCD's. Disposition: Home. Time Spent With Patient Time with patient: 15 - 25 minutes Subjective Date/time seen: 09/21/24 10:38 Patient states she's still getting really SOB with ambulation to the bathroom. Interval history: Patient calm on bedrest and looks to be in no acute distress. Review of Systems Review of Systems: All systems reviewed & are unremarkable except as noted in HPI and below Exam Narrative: General: Fair appearing, no acute distress. HEENT: Atraumatic, PERRL, EOMI, anicteric, moist mucosa. NECK: Supple. Lungs: Faint expiratory wheezes. Heart: RRR, no murmurs. Abdomen: Soft, non-tender, non-distended, +ve BS X4 Quadrants. Extremities: Acyanotic, no edema. Skin: Warm and dry. No lesions noted. Neuro: Well oriented. CN II-XII grossly intact. Psych: Pleasant and co-operative. Objective Data Vital Signs Vital Signs: Vital Signs - 24 hr 09/20/24 20:00 09/20/24 20:00 09/20/24 20:56 Temperature Pulse Rate 60 73 77 Respiratory Rate 20 20 Blood Pressure Pulse Oximetry 97 Oxygen Delivery Room Air Fraction of Inspired Oxygen 21 09/20/24 21:00 09/20/24 21:06 09/20/24 21:17 Temperature Pulse Rate 86 60 Respiratory Rate 20 Blood Pressure Pulse Oximetry 96 Oxygen Delivery Room Air Fraction of Inspired Oxygen 09/20/24 22:00 09/21/24 00:00 09/21/24 02:21 Temperature 97.9 F Pulse Rate 72 67 84 Respiratory Rate 18 19 Blood Pressure 151/87 H Pulse Oximetry 90 Oxygen Delivery Fraction of Inspired Oxygen 09/21/24 02:31 09/21/24 04:00 09/21/24 06:00 Temperature 97.9 F Pulse Rate 75 67 70 Respiratory Rate 19 18 Blood Pressure 167/91 H Pulse Oximetry 94 Oxygen Delivery Fraction of Inspired Oxygen 09/21/24 07:59 09/21/24 07:59 09/21/24 09:06 Temperature Pulse Rate 70 70 Respiratory Rate 18 Blood Pressure Pulse Oximetry 94 95 Oxygen Delivery Room Air Room Air Fraction of Inspired Oxygen 21 09/21/24 09:06 09/21/24 09:20 09/21/24 13:35 Temperature Pulse Rate 73 74 78 Respiratory Rate 20 20 Blood Pressure Pulse Oximetry 98 Oxygen Delivery Room Air Fraction of Inspired Oxygen 09/21/24 13:44 09/21/24 14:00 09/21/24 14:13 Temperature 96.7 F L Pulse Rate 84 83 97 Respiratory Rate 16 20 Blood Pressure 138/77 Pulse Oximetry 94 99 98 Oxygen Delivery Room Air Room Air Fraction of Inspired Oxygen 09/21/24 14:13 09/21/24 14:23 Temperature Pulse Rate 97 82 Respiratory Rate 20 20 Blood Pressure Pulse Oximetry Oxygen Delivery Fraction of Inspired Oxygen Intake/Output Intake/Output: Intake & Output 09/18/24 09/19/24 09/20/24 09/21/24 23:59 23:59 23:59 23:59 Intake Total 2160 2900 900 470 Balance 2160 2900 900 470 Meds/Results Medications: Active Medications Generic Name Dose Route Start Last Admin Trade Name Freq PRN Reason Stop Dose Admin Albuterol 2.5 mg 09/17/24 20:00 09/21/24 14:13 Albuterol Sulfate Neb 2.5 Mg/3 Ml Inh INHALATION 2.5 mg Q6HRT BENJI Administration Aspirin 325 mg 09/18/24 10:25 09/21/24 08:52 Aspirin 325 Mg Tablet PO 325 mg DAILY BENJI Administration Atenolol 50 mg 09/18/24 21:00 09/20/24 21:17 Atenolol 50 Mg Tablet BY MOUTH 50 mg HS BENJI Administration Atorvastatin Calcium 40 mg 09/18/24 21:00 09/20/24 21:18 Atorvastatin 40 Mg Tablet PO 40 mg QHS BENJI Administration Benzonatate 200 mg 09/20/24 00:00 09/21/24 14:45 Benzonatate 100 Mg Capsule PO 200 mg Q6HR BENJI Administration Ferrous Sulfate 325 mg 09/18/24 10:15 09/21/24 08:52 Ferrous Sulfate [address] PO 325 mg DAILY BENJI Administration Guaifenesin/Dextromethorphan 1 tab 09/19/24 22:05 09/21/24 08:52 Guaifenesin 600 Mg/Dextromethorphan 30 Mg Sr Tab 12 Hr PO 1 tab Q12HR BENJI Administration Ketorolac Tromethamine 15 mg 09/19/24 22:00 09/21/24 14:46 Ketorolac 15 Mg/Ml Vial (*Bkc) IV PUSH 15 mg Q6H BENJI Administration Lorazepam 2 mg 09/18/24 10:15 09/21/24 14:45 Lorazepam (*Crx) 1 Mg Tablet PO 2 mg TID PRN Administration anxiety Miscellaneous Information 0 each 09/18/24 00:01 Apremilast [Otezla] 30 Mg = Non Form XX 10/18/24 00:00 CLARIFY BEJNI Non-Formulary Medication 30 mg 09/18/24 17:00 Apremilast [Otezla] PO 10/18/24 16:59 BID BENJI Oxycodone/Acetaminophen 1 tab 09/17/24 20:53 09/21/24 14:45 Oxycodone/Acetaminophen (*Crx) 10-325 Mg Tablet PO 1 tab Q4H PRN Administration PAIN RATED 7-10 Pantoprazole Sodium 40 mg 09/18/24 10:15 09/21/24 08:52 Pantoprazole 40 Mg Tablet PO 40 mg Q12HR [facility] Administration Sertraline HCl 100 mg 09/18/24 10:25 09/21/24 08:51 Sertraline Hcl 50 Mg Tablet PO 100 mg QAM [facility] Administration Trazodone HCl 50 mg 09/19/24 22:05 09/20/24 21:18 Trazodone Hcl 50 Mg Tablet PO 50 mg HS BENJI Administration Vitamin B Complex 1 cap 09/24/24 09:00 Vitamin B Complex Capsule PO Th@0900 [facility] Radiology Results: ITS Impressions Chest X-Ray 01/09/25 10:25 IMPRESSION: No focal infiltrate or effusion. Labs Labs: Laboratory Results - last 24 hr 09/21/24 05:30 Sodium 142 Potassium 4.0 Chloride 118 H Carbon Dioxide 16 L Anion Gap 8 BUN 26 H Creatinine 1.20 H Estim Creat Clear Calc 41 Estimated GFR 46 L Glucose 86 Calcium 8.9 Quality VTE Prophylaxis VTE prophylaxis: mechanical ordered Hospitalist MIPS Advance Care Plan I have confirmed that the patient's Advanced Care Plan is present, code status is documented, or surrogate decision maker is listed in patient medical record.: Yes Medication Reconciliation I have utilized all available resources to obtain, update and review the patients current medications (includes all prescriptions, OTC, herbals, cannabis, and nutritional supplements).: Yes
[2024-09-21] MEDS: ATORVASTATIN 40 MG TABLET PO (21:18)
[2024-09-21] MEDS: traZODone HCL 50 MG TABLET PO (21:18)
[2024-09-21] MEDS: atenoloL 50 MG TABLET BY MOUTH (21:18)
[2024-09-22] VITALS (8 sets, daily range): BP systolic 155; BP diastolic 82; PULSE 72–78; RESP 16–20; TEMP 36.4; O2SAT 94–96
[2024-09-22] MEDS: ALBUTEROL SULFATE NEB 2.5 MG/3 ML INH INHALATION ×2 (02:26→08:48)
[2024-09-22] MEDS: KETOROLAC 15 MG/ML VIAL (*BKC) IV PUSH ×2 (03:20→10:32)
[2024-09-22] MEDS: BENZONATATE 100 MG CAPSULE 200 MG PO (05:24)
[2024-09-22] MEDS: oxyCODONE/ACETAMINOPHEN (*CRX) 10-325 MG TABLET 1 TAB PO (05:25)
[2024-09-22] MEDS: ASPIRIN 325 MG TABLET PO (10:31)
[2024-09-22] MEDS: guaiFENesin 600 MG/DEXTROMETHORPHAN 30 MG SR TAB 12 HR 1 TAB PO (10:31)
[2024-09-22] MEDS: FERROUS SULFATE 325 MG TABLET DR PO (10:31)
[2024-09-22] MEDS: SERTRALINE HCL 50 MG TABLET 100 MG PO (10:31)
[2024-09-22] MEDS: PANTOPRAZOLE 40 MG TABLET PO (10:31)
--- NOTE | 2024-09-22 10:33 | P.DS_ITS ---
DS: Admitting Diagnosis Discharge Date 09/22/24 Admitting Diagnosis Acute Hypoxic Respiratory Failure DS: Discharge Diagnosis Discharge Diagnosis (1) Acute hypoxic respiratory failure: Code(s): J96.01 - Acute respiratory failure with hypoxia Status: Acute Assessment and Plan: - Acute. (2) RSV infection: Code(s): B33.8 - Other specified viral diseases Status: Acute Assessment and Plan: - Acute. (3) Low back pain, unspecified: Code(s): M54.50 - Low back pain, unspecified Status: Acute Assessment and Plan: - Chronic. (4) Spinal cord stimulator status: Code(s): Z96.89 - Presence of other specified functional implants Status: Acute Assessment and Plan: Chronic. (5) Chronic obstructive pulmonary disease, unspecified: Onset Date: ~08/2021 Qualifiers: COPD type: unspecified COPD Qualified Code(s): J44.9 - Chronic obstructive pulmonary disease, unspecified Code(s): J44.9 - Chronic obstructive pulmonary disease, unspecified Status: Chronic Assessment and Plan: - Chronic. (6) Psoriasis: Code(s): L40.9 - Psoriasis, unspecified Status: Acute Assessment and Plan: - Chronic. (7) Major depressive disorder, recurrent, moderate: Code(s): F33.1 - Major depressive disorder, recurrent, moderate Status: Acute Assessment and Plan: - Chronic. (8) Essential (primary) hypertension: Code(s): I10 - Essential (primary) hypertension Status: Chronic Assessment and Plan: - Chronic. (9) Anemia in chronic illness: Code(s): D63.8 - Anemia in other chronic diseases classified elsewhere Status: Acute Assessment and Plan: - Chronic. (10) Anxiety: Code(s): F41.9 - Anxiety disorder, unspecified Status: Acute Assessment and Plan: - Chronic. (11) KRISTEN (acute kidney injury): Code(s): N17.9 - Acute kidney failure, unspecified Status: Acute Assessment and Plan: - Acute. Plan Discharge home on self care. DS: Summary Hospital Course Reason for hospitalization: Acute Hypoxic Respiratory Failure. Hospital Course: Patient presented to the ER with reports of worsening SOB at home. She reported getting really winded even with minimal activity. Initial work-up labs included a cute respiratory virus panel that was noted to be positive for RSV. Patient was admitted for stabilization od symptoms. 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 Patient was able to tolerate doses of IV and PO steroids without any effects, and was also treated with scheduled DuoNeb updrafts. Patient had oximetry study done with activity and maintained PO2 >94 % on RA, no home O2 requirements was noted. She was slightly dehydrated and this improved with IVF hydration, with her BP remaining well controlled on home medications. Patient was also continued on home chronic pain and anxiety medications, with the addition of scheduled Toradol IV from manufacturing project engineer, as pt reported overnight that her pain was not well controlled. All her other chronic conditions remained stable inpatient. Patient is medically stable for discharge with no acute distress noted or reported prior to discharge. Status at Discharge Functional status at discharge: independent ambulation Overall status at discharge: patient is progressing back to baseline Time Spent with Patient Time attestation: Total time spent providing and/or coordinating discharge services: Time spent: Greater than 30 minutes Exam Narrative: General: Fair appearing, no acute distress. HEENT: Atraumatic, PERRL, EOMI, anicteric, moist mucosa. NECK: Supple. Lungs: Faint expiratory wheezes. Heart: RRR, no murmurs. Abdomen: Soft, non-tender, non-distended, +ve BS X4 Quadrants. Extremities: Acyanotic, no edema. Skin: Warm and dry. No lesions noted. Neuro: Well oriented. CN II-XII grossly intact. Psych: Pleasant and co-operative. Discharge Plan Discharge Attending physician on discharge: Hung Bonilla Discharging Clinician: Miguel Ángel Lemon Anticipated Discharge Date/Time: 09/22/24 10:44 Patient Disposition: Home, Self-Care Activity: as tolerated Diet: heart healthy Patient Instructions: Antibiotic Form Patient Language: Cambodian Stand Alone Forms: General Discharge Information Follow-up/Referrals: Elton Chowdary MD [Primary Care Provider] - 1 Week Discharge Medications: New benzonatate 100 mg Capsule 200 mg PO BIDWM Qty: 14 0RF prednisone 20 mg tablet 20 mg PO DAILY Qty: 3 0RF Continued vitamin B complex [B Complex-Vitamin B12] Tablet 1 tablet PO WEEKLY Rx Instructions: take weekly on albuterol sulfate 90 mcg/actuation HFA aerosol inhaler 2 inh inhalation Q4H PRN (Reason: shortness of breath or wheezing) Qty: 25.5 3RF aspirin 325 mg Tablet 325 mg PO DAILY Otezla 30 mg Tablet 30 mg PO BID lorazepam 2 mg tablet 2 mg PO TID PRN (Reason: anxiety) Qty: 90 3RF ergocalciferol (vitamin D2) 1,250 mcg (50,000 unit) capsule See Rx Instructions .ROUTE .COMPLEX Qty: 13 1RF Dose Instruction: TAKE 1 CAPSULE BY MOUTH ONCE WEEKLY ON WEDNESDAYS Rx Instructions: TAKE 1 CAPSULE BY MOUTH ONCE WEEKLY ON WEDNESDAYS ferrous sulfate 325 mg (65 mg iron) tablet See Rx Instructions .ROUTE .COMPLEX Qty: 90 1RF Dose Instruction: TAKE 1 TABLET BY MOUTH EVERY DAY Rx Instructions: TAKE 1 TABLET BY MOUTH EVERY DAY atorvastatin 40 mg tablet 40 mg PO QHS Qty: 90 2RF sertraline 100 mg tablet 100 mg PO QAM Qty: 90 2RF Rx Instructions: TAKE 1 TABLET EVERY DAY omeprazole 40 mg capsule,delayed release(DR/EC) See Rx Instructions .ROUTE .COMPLEX Qty: 200 2RF Dose Instruction: TAKE 1 CAPSULE BY MOUTH TWICE DAILY Rx Instructions: TAKE 1 CAPSULE BY MOUTH TWICE DAILY atenolol 50 mg tablet See Rx Instructions .ROUTE .COMPLEX Qty: 100 1RF Dose Instruction: TAKE 1 TABLET BY MOUTH AT BEDTIME Rx Instructions: TAKE 1 TABLET BY MOUTH AT BEDTIME lansoprazole [Prevacid] 30 mg capsule,delayed release(DR/EC) 30 mg PO QAM Qty: 90 4RF Rx Instructions: Says takes in evening. oxycodone-acetaminophen 10-325 mg tablet 1 tablet PO Q4H PRN (Reason: Pain) Qty: 180 0RF Date of admission: 09/17/24 16:06 Primary Care Provider: Elton Chowdary Admitting Provider: Hung Bonilla Attending physician on admission: Hung Bonilla Condition: Serious Quality If No VTE Prophylaxis Answer both mechanical and pharmacologic: Reason no mechanical VTE proph: low risk/not indicated Reason no pharmacologic proph: low risk/not indicated Hospitalist MIPS Heart Failure (Exclusion) Patient has history of Heart Transplant or Left Ventricular Assistive Device?: No IF YES, STOP HERE Heart Failure (Qualifier) Patient has current or prior documentation of LVEF less than or equal to 40%, or mod/servere depressed LVSF?: No IF NO, STOP HERE
--- NOTE | 2024-09-22 11:23 | PC.NURSE ---
PRN EKG was not done because pt had no chs
--- NOTE | 2024-09-22 11:24 | PC.NURSE ---
EKG that was PRN was not done because pt had no chest pain complaints.
== END 2024-09-22 11:55 | disposition home or self-care (01) ==
LOC: ANHED 16:06 → ANH2MED 16:45
PROVIDERS: Nurse Practitioner Adult Health; Admitting Provider Hospitalist; Emergency Provider Emergency Medicine; PCP Family Medicine Adolescent Medicine; Visit Provider Hospitalist
DX: J96.01 Acute respiratory failure with hypoxia (principal); B33.8 Other specified viral diseases; B97.4 Respiratory syncytial virus as the cause of diseases classified elsewhere; J44.9 Chronic obstructive pulmonary disease, unspecified; M54.50 Low back pain, unspecified; I12.9 Hypertensive chronic kidney disease with stage 1 through stage 4 chronic kidney disease, or unspecified chronic kidney disease; N18.32 Chronic kidney disease, stage 3b; N17.9 Acute kidney failure, unspecified; E86.0 Dehydration; D63.8 Anemia in other chronic diseases classified elsewhere; L40.9 Psoriasis, unspecified; F33.1 Major depressive disorder, recurrent, moderate; M81.0 Age-related osteoporosis without current pathological fracture; E78.5 Hyperlipidemia, unspecified; F41.9 Anxiety disorder, unspecified; K21.9 Gastro-esophageal reflux disease without esophagitis; G62.9 Polyneuropathy, unspecified; Z87.891 Personal history of nicotine dependence; Z20.822 Contact with and (suspected) exposure to COVID-19; Z28.311 Partially vaccinated for COVID-19; Z86.16 Personal history of COVID-19; Z88.2 Allergy status to sulfonamides; Z88.8 Allergy status to other drugs, medicaments and biological substances; Z79.82 Long term (current) use of aspirin; Z79.51 Long term (current) use of inhaled steroids; Z79.899 Other long term (current) drug therapy; Z86.73 Personal history of transient ischemic attack (TIA), and cerebral infarction without residual deficits; Z85.41 Personal history of malignant neoplasm of cervix uteri; Z86.718 Personal history of other venous thrombosis and embolism; Z87.11 Personal history of peptic ulcer disease; Z90.49 Acquired absence of other specified parts of digestive tract; Z90.710 Acquired absence of both cervix and uterus; Z95.0 Presence of cardiac pacemaker; Z98.1 Arthrodesis status; Z96.82 Presence of neurostimulator
CPT/HCPCS: 36415; 71046; 80048; 80053; 83690; 84484; 85025; 85610; 85730; 87637; 93005; 94618; 94640; 96361; 96365; 96375; 96376; 99285; A9270; G0378; J0456; J0696; J1885; J2270; J2919; J7030; J7512

== ENCOUNTER 2024-10-30 06:54 | Outpatient (CLI) | payer MEDICARE, SELFPAY ==
--- NOTE | 2024-09-15 13:20 | PC.NURSE ---
Pre Radiology instructions Report to the outpatient brandon [facility] on date _[id number]_ at time _0700_ for procedure Time: _0900_ YOU MAY BE MONITORED AT HOSPITAL FOR UP TO 4 HOURS AFTER YOUR PROCEDURE. A visitor will be allowed to accompany the patient into the hospital. You and your visitor will be asked to self-screen and do not enter if you have any COVID symptoms. A mask is OPTIONAL within the hospital. Patients are to have no food or drink 6 hours prior to procedure time Driving will be restricted after the procedure, you must have a person to drive you home. Labs will be drawn in preop area and once reviewed, you will be taken to radiology area for procedure. When the procedure is completed, you will be taken to outpatient where you will be monitored for several hours. You may have one visitor in this area. Other than holding anti-coagulants, patient may take other medication(s) as scheduled. Prior to your appointment date patients are instructed to hold anti-coagulants after discussing with ordering provider to stop. If unable to discontinue anti-coagulants please notify radiologist. ? No aspirin or warfarin (Coumadin) for 7 days prior to the procedure. ? No clopidogrel (Plavix), ticagrelor (Brilinta), prasugrel (Effient) or dabigatran (Pradaxa) for 5 days prior to the procedure. ? No rivaroxaban (Xarelto), apixaban (Eliquis), dipyridamole (Aggrenox or Persantine) or cilostazol (Pletal) for 2 days prior to the procedure. Medications to discontinue per physician: ___Aspirin Date to take last dose: ___[id number] Please leave all valuables, including medications, at home the day of procedure. The hospital will not accept responsibility for valuables. Wear comfortable, loose fitting clothing.? Follow any additional instructions given to you from ordering provider. Telephone instructions given to __Beronica and asked if any additional questions and then verbalized understanding. Patient advised to call scheduling provider office or registration scheduling [phone] if any additional questions.
[2024-09-15 13:26] VITALS: BMI 26.6
--- NOTE | 2024-10-20 14:48 | PC.NURSE ---
Pre Radiology instructions Report to the outpatient brandon raymond on date _[id number]_ at time _0700_ for procedure Time: _0900_ YOU MAY BE MONITORED AT HOSPITAL FOR UP TO 4 HOURS AFTER YOUR PROCEDURE. A visitor will be allowed to accompany the patient into the hospital. You and your visitor will be asked to self-screen and do not enter if you have any COVID symptoms. A mask is OPTIONAL within the hospital. Patients are to have no food or drink 6 hours prior to procedure time Driving will be restricted after the procedure, you must have a person to drive you home. Labs will be drawn in preop area and once reviewed, you will be taken to radiology area for procedure. When the procedure is completed, you will be taken to outpatient where you will be monitored for several hours. You may have one visitor in this area. Other than holding anti-coagulants, patient may take other medication(s) as scheduled. Prior to your appointment date patients are instructed to hold anti-coagulants after discussing with ordering provider to stop. If unable to discontinue anti-coagulants please notify radiologist. ? No aspirin or warfarin (Coumadin) for 7 days prior to the procedure. ? No clopidogrel (Plavix), ticagrelor (Brilinta), prasugrel (Effient) or dabigatran (Pradaxa) for 5 days prior to the procedure. ? No rivaroxaban (Xarelto), apixaban (Eliquis), dipyridamole (Aggrenox or Persantine) or cilostazol (Pletal) for 2 days prior to the procedure. Medications to discontinue per physician: ___Aspirin Date to take last dose: [id number] Please leave all valuables, including medications, at home the day of procedure. The hospital will not accept responsibility for valuables. Wear comfortable, loose fitting clothing.? Follow any additional instructions given to you from ordering provider. Telephone instructions given to __Beronica__and asked if any additional questions and then verbalized understanding. Patient advised to call scheduling provider office or registration scheduling [phone] if any additional questions.
[2024-10-30] VITALS (7 sets, daily range): BP systolic 114–133; BP diastolic 64–73; PULSE 69–80; RESP 20; TEMP 36.6; O2SAT 96–100
--- NOTE | ~2024-10-30 | XR_ITS ---
EXAMINATION: XR myelogram spine cervical DATE: 10/30/2024 10:51 INDICATION: Arthrodesis status. Disease of spinal cord. TECHNIQUE: TECHNIQUE: Informed consent was obtained from the patient. Risks and benefits including bleeding, infection and nerve root injury were discussed with the patient. The patient agreed to pro ceed. Time out procedure was performed. Psychologist Engineering fluoroscopic image was reviewed and correlated with pr ior CT the abdomen pelvis. An entry site was chosen at the L5-S1 level. A central approach was used. Standard sterile prep was done with Betadine. Entry site was infiltrated with 5 cc 1% lidocaine. A 3.5 22G spinal needle was then inserted into the spinal canal utilizing fluoroscopic guidance. Spo ntaneous efflux of clear CSF observed at the needle hub. 10 mL Omnipaque 300 was then injected into the thecal sac with intrathecal demonstration confirmed with intermittent fluoroscopy. The prone patient was then placed in Trendelenburg position with cephalad movement of the contrast lucia aram observed with intermittent fluoroscopy. The patient was then transferred to CT scan for spiral C T of the cervical spine. Following this patient was transferred to the postop recovery area for 2 ho urs of observation. There were no immediate complications. FINDINGS: Real-time fluoroscopy demonstrates the needle projects over the central canal at L5-S1. Pos toperative changes of a combined instrumented L4-S1 anterior and posterior spinal fusion. Subsequent images demonstrate injected contrast opacifying the thecal sac the lumbar spine. There are disc bulge s in the upper lumbar spine which slowed down the advancement of contrast resulting in dilution contr ast limiting visualization of the thecal sac in the cervical spine with fluoroscopic imaging. See [facility] CT cervical spine myelogram report for further detail. IMPRESSION: 1. Successful intrathecal contrast injection for subsequent CT cervical myelogram which will be dicta meliza separately. Reviewed, dictated and finalized at location A. MACY SALES REPRESENTATIVE IMPRESSION: 1. Successful intrathecal contrast injection for subsequent CT cervical myelogr am which will be dictated separately.
--- NOTE | ~2024-10-30 | CT_ITS ---
EXAMINATION: CT cervical spine w con DATE: 10/30/2024 10:35 INDICATION: Disease of spinal cord. TECHNIQUE: Computed tomography (CT) myelogram of the cervical spine was performed with intrathecal co ntrast but without intravenous contrast. Details of the intrathecal contrast injection. Dictated sepa rately. The dose-length product was 279.62 mGy-cm. COMPARISON: 10/29/2022 FINDINGS: Mild to moderate osteoarthritis at the atlantoaxial articulation. 1 mm anterolisthesis C6 on C7. Alig nment is otherwise normal. C5-C6 anterior spinal fusion with solid osseous fusion across the disc spa ce and anterior plate and screw fixation. The right-sided screw at C6 extends beyond the inferior end plate with the tip projecting to cephalad aspect of the C6-C7 disc space. Unfused vertebral body heig hts are normal. Mild to moderate disc height loss at C4-C5 and C6-C7. Small amount of atherosclerotic calcification at the left carotid bulb. 1.6 cm hypodense right thyroid nodule. Cervical soft tissues are otherwise unremarkable. There is mild smooth septal line thickening at the apices of the lungs c onsistent with mild pulmonary edema. The following disc levels are specifically discussed: C2-C3: The disc does not extend beyond the endplate margin. There is minimal bilateral uncovertebral joint osteoarthritis. There is moderate right and moderate to severe left facet joint osteoarthritis. There is no neural foraminal stenosis. There is no central canal stenosis. C3-C4: Disc is minimally bulging. There is mild bilateral uncovertebral joint osteoarthritis. There i s mild left and severe right facet joint osteoarthritis. There is mild right neural foraminal stenosi s. There is negligible central canal stenosis. C4-C5: Disc is bulging. There is mild left and moderate right uncovertebral joint osteoarthritis. The re is moderate bilateral facet joint osteoarthritis. There is mild bilateral neural foraminal stenosi s. There is mild central canal stenosis with minimal flattening the ventral surface of the cord. C5-C6: The disc spaces fused without peripheral hypertrophic changes. There is moderate bilateral fac et joint osteoarthritis with suggestion of some developing fusion. There is no neural foraminal steno sis. There is no central canal stenosis. C6-C7: Disc is bulging. There is minimal bilateral uncovertebral joint osteoarthritis. There is mild left and moderate right facet joint osteoarthritis. There is minimal right neural foraminal stenosis. There is mild central canal stenosis. C7-T1: The disc does not extend beyond the endplate margin. There is no uncovertebral joint osteoarth ritis. There is severe bilateral facet joint osteoarthritis. There is mild left neural foraminal sten osis. There is no central canal stenosis. IMPRESSION: 1. Mild to moderate cervical spondylosis with instrumented C5-C6 anterior spinal fusion. 2. 1.6 cm right thyroid nodule. Consider thyroid ultrasound for risk stratification. 3. Minimal pulmonary edema at the apices of the lungs. Reviewed, dictated and finalized at location A. R SPOOLER IMPRESSION: 1. Mild to moderate cervical spondylosis with instrumented C5-C6 anterior spina l fusion. 2. 1.6 cm right thyroid nodule. Consider thyroid ultrasound for risk stratifica tion. 3. Minimal pulmonary edema at the apices of the lungs.
--- OUTSIDE RECORDS SUMMARY | 2024-10-30 06:59 | XMS_ITS | Referral Summary ---
Author Organization [facility] [place] Address [address] [place] [address] Care Team Providers Care [facility] Lab Technician Name Role Phone Elton Chowdary MD Primary Care Provider + Source Comments [facility],non-owned Affiliates and Associated Physician Practices is amultiple site organization consisting of ambulatory clinics and hospital sitesin [place], [place], [place] and [place]. This disclosure is being madepursuant to the Care Everywhere program and may not contain all information available regarding this patient. Last updated 18.[facility] [place] Social History Tobacco Use Types Packs/Day Years Used Date Smoking Tobacco: Never Assessed Sex and Gender Information Value Date Recorded Sex Assigned at Not on file Gender Identity Not on file Sexual Orientation Not on file Plan of Treatment Not on file Care Teams [facility] Technician Relationship Specialty Start Date End Date Elton Chowdary MD [address] [address] PCP - General 01/27/18
--- OUTSIDE RECORDS SUMMARY | 2024-10-30 06:59 | XMS_ITS | Encounter Summary ---
Author Organization [facility] Address [address] [place] [address] Phone Care Team Providers Care Independent Video Producer Name Role Phone Elton Chowdary MD Primary Care Prov ider Moody Ann MD Unavailable [phone] Zacarias Ferrell MD Unavailable [phone] Encounter Details Date Type Department Care Team (Latest Contact Info) Description 08/06/2017 Orders Only [facility] CONVERSION Scanning, Provider Social History Tobacco Use Types Packs/Day Years Used Date Smoking Tobacco: Every Day Comments:Smoking History Pac ks/day: 0.5 Packs Alcohol Use Standard Drinks/Week Comments Yes 0 (1 standard drink = 0.6 oz pur e alcohol) Comments Unknown Sex and Gender Information Value Date Recorded Sex Assigned at Not on file Legal Sex Female 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 Gender Identity Not on file Sexual Orientation Not on file documented as of this encounter Plan of Treatment Not on file documented as of this encounter Procedures Procedure Name Priority Date/Time Associated Diagnosis Comments VASCULAR LABORATORY REPORT 08/11/2017 1:14 PM NATURAL GAS PLANT TECHNICIAN VASCULAR LABORATORY REPORT 08/06/2017 9:27 PM NATURAL GAS PLANT TECHNICIAN documented in this encounter Results * VASCULAR LABORATORY REPORT (08/11/2017 1:14 PM NATURAL GAS PLANT TECHNICIAN) Anatomical Region Laterality Modality Ultrasound us Provider Scanning CV VASCULAR PROCEDURES Final R esult * VASCULAR LABORATORY REPORT (08/06/2017 9:27 PM NATURAL GAS PLANT TECHNICIAN) Anatomical Region Laterality Modality Ultrasound us Provider Scanning CV VASCULAR PROCEDURES Final R esult documented in this encounter Visit Diagnoses Not on filedocumented in this encounter Additional Health Concerns Infection Onset Date Last Indicated Resolved 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
--- OUTSIDE RECORDS SUMMARY | 2024-10-30 06:59 | XMS_ITS | Clinical Summary ---
Author Organization [facility] Address [address] [facility] [address] [place] [address] Phone Care Team Providers Care Carpet Jack Name Role Phone Elton Chowdary MD Primary Care Provider + Travis Mcgill DO Unavailable Jj Floyd MD Unavailable [phone] Allergies Active Allergy Reactions Criticality Noted Date Comments Prednisone Other (see Comments) 04/30/2019 Patient has psoriasis and states it will split her skin Sulfa Antibiotics Hives,Swelling 11/22/2016 Sulfasalazine Hives,Swelling Medium 11/22/2016 Medications atorvastatin (LIPITOR) 40 MG Tablet TAKE 1 TABLET BY MOUTH EVERY DAY (REPLACING SIMVASTATIN) 1 7 Active ergocalciferol (VITAMIN D) 16274 UNIT Capsule TAKE 1 CAPSULE BY MOUTH ONCE WEEKLY 2 7 Active CVS VITAMIN B12 1000 MCG Tablet Take 1,000 mcg by mouth once a week. 3 7 Active atenolol (TENORMIN) 25 MG Tablet Take 25 mg by mouth nightly. Active oxyCODONE-Acetam inophen (PERCOCET) 10-325 MG Tablet Take 1 Tab by mouth every 4 hours as needed. Active Apremilast 30 MG Tablet Take 30 mg by mouth 2 times daily. Otezla Active amLODIPine (NORVASC) 5 MG Tablet Take 5 mg by mouth every morning. 9 Active aspirin 325 MG Tablet Take 325 mg by mouth daily. Active LORazepam (ATIVAN) 2 MG Tablet Take 2 mg by mouth as needed. Active sertraline (ZOLOFT) 100 MG Tablet Take 100 mg by mouth daily. Active alendronate (FOSAMAX) 70 MG Tablet Take 70 mg by mouth every 7 days. Active inFLIXimab-dyyb (Inflectra) 100 MG Recon SolnIndications: Ulcerative colitis with rectal bleeding, unspecified location (HCC) 300 mg by Intravenous route See Admin Instructions. Every 8 weeks Pre meds: Tylenol 650mg and Benadryl 25mg for Post/rescue meds: are Benadryl 50mg and Solucortes 100 mg. 3 Each 6 2 Active Additional Information Patient not taking.Reported on 08/06/2022 Stiolto Respimat 2.5-2.5 MCG/ACT Aerosol Solution INHALE 2 PUFFS DAILY 2 Active lansoprazole (PREVACID) 30 MG CAPSULE DELAYED RELEASE Take 1 Capsule by mouth daily. 90 Capsule 1 3 Active Active Problems Problem Noted Date Diagnosed Date Pouchitis 03/17/2020 Ulcerative colitis with rectal bleeding 08/12/20 18 Hx of ulcerative colitis 11/22/2016 Chronic pancreatitis 11/22/2016 Immunizations Immunization Administration Dates Next Due Influenza Vaccine, Quadrivalent, PF 06/04/2022 Zoster Vaccine Recombinant 11/24/2020 Family History Medical History Relation Name Comments Cancer Father non hodgekins l ymphoma Colon Cancer Maternal Grandmother No Known Problems Mother Relation Name Status Comments Father Maternal Grandmother Mother Alive Social History Tobacco Use Types Packs/Day Years Used Date Smoking Tobacco: Former Cigarettes 0.5 30 Smokeless Tobacco: Never Tobacco Cessation:Counseling Given: No Comments: 1 a day Alcohol Use Standard Drinks/Week Comments Yes 0 (1 standard drink = 0.6 oz pur e alcohol) Rare AUDIT-C Answer Date Recorded Q1: How often do you have a drink containing alc ohol? Monthly or less 11/24/2019 Q2: How many drinks containi ng alcohol do you have on a typical day when you are drinking? 1 or 2 11/24/2019 Q3: How often do you have si x or more drinks on one occasion? Never 11/24/2019 Sexually Active Control Partners Comments Not Currently Comments No Sex and Gender Information Value Date Recorded Sex Assigned at Not on file Legal Sex Female 8:11 PM CDT Gender Identity Not on file Sexual Orientation Not on file Last Filed Vital Signs Vital Sign Reading Time Taken Comments Blood Pressure 128/84 08/06/2022 2:46 PM SNOWBOARD DESIGNER Pulse 78 08/06/2022 2:46 PM SNOWBOARD DESIGNER Temperature 36.7 C (98 F) 08/06/2022 2:46 PM SNOWBOARD DESIGNER Respiratory Rate 18 08/06/2022 2:46 PM SNOWBOARD DESIGNER Oxygen Saturation 98% 08/06/2022 2:46 PM SNOWBOARD DESIGNER Inhaled Oxygen Concentration - - Weight 73.6 kg (162 lb 3.2 oz) 08/06/2022 2:46 P M SNOWBOARD DESIGNER Height 167.6 cm (5' 6 ) 03/02/2022 11:00 AM CDT Body Mass Index 26.18 03/02/2022 11:00 AM CDT Plan of Treatment Health Maintenance Due Date Last Done Comments TdaP Immunization 1965 Hepatitis B Immunization (1 of 3 - 19+ 3-dose series) 1984 Cologuard 2015 Immunochemical Fecal Occult Blood 2015 Mammogram 2015 Pneumococcal Immunization (5 0+ years) (1 of 1 - PCV) 2015 Zoster Immunization (2 of 2) 01/19/2021 11/24/2020 Influenza Immunization (#1) 2024 06/04/2022 SARS-COV-2 Immunization ( - 2023- season) 2024 05/14/2021, 04/17/2021 Colonoscopy 04/10/2028 04/10/2018, 04/25/2017 Colorectal Cancer Screening 04/10/2028 Respiratory Syncytial Virus (RSV) Immunization (Adult) (1 - 1-dose 75+ series) 2040 04/10/2018, 04/25/2017 Hepatitis C Virus (HCV) Screening Completed 04/16/2019 Meningococcal Immunization (ACWY) Aged Out No longer eligible b ased on patient's age to complete this topic Rotavirus Immunization Aged Out No lo nger eligible based on patient's age to complete this topic Procedures Procedure Name Priority Date/Time Associated Diagnosis Comments HEPATITIS PANEL ACUTE (AHP) Routine 04/16/2019 Encounter for other specified special examinations High risk medication use Pouchitis (HCC) COLONOSCOPY Routine 04/10/2018 from Last 3 Months or Most Recently Relevant to Health Maintenance Results * HEPATITIS PANEL ACUTE (AHP) (04/16/2019) Blood specimen (specimen) Ning Peterson HUMAN SERVICES PROFESSIONAL, INTERNAL REVENUE SERVICE AGENT HEMATOLOGY ORDERA BLES Final Result * COLONOSCOPY (04/10/2018) Travis Mcgill DO PROCEDURE/MINOR SURGICAL ORDERA BLES Final Result from Last 3 Months or Most Recently Relevant to Health Maintenance Insurance [place], [place] [id number] MEDICARE C HUMANA Care Teams Carpet Jack Relationship Specialty Start Date End Date Elton Chowdary MD [address] [place] [address] PCP - General Family Medicine 10/15/16 Travis Mcgill DO [address] [place] [address] Gastroenterology 04/30/17 Jj Floyd MD [address] [place] [address] Consulting Physician Gastroenterology 11/30/21
--- OUTSIDE RECORDS SUMMARY | 2024-10-30 06:59 | XMS_ITS | Encounter Summary ---
Author Organization [facility] Address [address] [place] [address] Phone Care Team Providers Care Access Representative Name Role Phone Elton Chowdary MD Primary Care Provider + Travis Mcgill DO Unavailable [phone] Jj Floyd MD Unavailable [phone] Reason for Visit * Reason Comments Medication Refill Encounter Details Date Type Department Care Team (Late st Contact Info) Description 11/07/2021 Refill [facility] [address] [place] [address] Gladys Tapia, [facility] [address] [place] [address] Medication Refill Social History Tobacco Use Types Packs/Day Years Used Date Smoking Tobacco: Some Days Cigarettes 0.5 30 Smokeless Tobacco: Never Alcohol Use Standard Drinks/Week Comments Yes 0 (1 standard drink = 0.6 oz pur e alcohol) 1x monthly AUDIT-C Answer Date Recorded Q1: How often [...] on file Sexual Orientation Not on file COVID-19 Exposure Response Date Recorded In the last month, have you been in contact with someone who was confirmed or suspected to have Coronavirus / COVID-19? No / Unsure 10/10/2021 11:04 AM VIBRATION ANALYST documented as of this encounter Miscellaneous Notes * Telephone Encounter - Chayo Lee RN - 11/08/2021 10:49 AM VIBRATION ANALYST Medication refilled and signed per [facility] chronic medication standing order for pediatric and adult patients. ATION ANALYST documented in this encounter Plan of Treatment Not on file documented as of this encounter Visit Diagnoses Not on filedocumented in this encounter Care Teams Access Representative Relationship Specialty Start Date End Date Elton Chowdary MD [address] [place] [address] PCP - General Family Medicine 10/15/16 Travis Mcgill DO [address] [place] [address] Gastroenterology 04/30/17 Jj Floyd MD [address] [place] [address] Consulting Physician Gastroenterology 11/30/21 documented as of this encounter
--- OUTSIDE RECORDS SUMMARY | 2024-10-30 06:59 | XMS_ITS | Clinical Summary ---
Author Organization [facility] Address [address] [place] [address] Care Team Providers Care Compo Caster Name Role Phone Elton Chowdary MD Primary Care Prov ider Moody Ann MD Unavailable [phone] Zacarias Ferrell MD Unavailable [phone] Allergies Active Allergy Reactions Criticality Noted Date Comments Prednisone Other (See comments) Low 12/04/2018 Pt states cannot take steroids Sulfa (Sulfonamide Antibiotics) Anaphylaxis High Medications atorvastatin (LIPITOR) 40 mg tablet take 1 tablet by oral route every day 0 0 7 Active ergocalciferol (VITAMIN D) 50,000 unit capsule Take 1 capsule (50,000 Units total) by mouth once a week Active cyanocobalamin (Vitamin B-12) 1,000 mcg tabletIndicatio ns:Prevention of Vitamin B12 Deficiency Take 1 tablet (1,000 mcg total) by mouth every other day Active amLODIPine (NORVASC) 5 mg tablet Take 1 tablet (5 mg total) by mouth every morning 2 9 Active atenolol (TENORMIN) 50 mg tablet Take 1 tablet (50 mg total) by mouth daily Active lansoprazole (PREVACID) 30 mg capsule Take 1 capsule (30 mg total) by mouth daily Active sertraline (ZOLOFT) 100 mg tablet Take 1 tablet (100 mg total) by mouth daily Active alendronate (FOSAMAX) 70 mg tablet Take 1 tablet (70 mg total) by mouth once a week Active albuterol HFA (PROVENTIL HFA,VENTOLIN HFA,PROAIR HFA) 90 mcg/actuation inhaler Inhale 1 puff as needed for wheezing Following remicade infusions Active aspirin 325 mg tablet Take 1 tablet (325 mg total) by mouth daily 0 Active oxyCODONE-aceta minophen (PERCOCET) 10-325 mg per tabletIndicatio ns:Pain Take 1 tablet by mouth every 4 (four) hours as needed Active apremilast (Otezla) 30 mg tablet Take 1 tablet (30 mg total) by mouth 2 (two) times a day Active LORazepam (ATIVAN) 2 mg tablet 3 Active Active Problems Problem Noted Date Diagnosed Date Hypotension due to drugs 11/15/2023 Visit for wound check 07/23/2023 H/O syncope 11/20/2022 Contraindication to anticoagulation therapy 11/07 Mixed hyperlipidemia 06/06/2022 Chest pain on breathing 06/06/2022 Myalgia 06/06/2022 Spasm of sphincter of Oddi 12/12/2020 Overview (12/26/2020): Added automatically from request for surgery [id number] Abdominal pain 04/27/2020 Overview (05/03/2020): Added automatically from request for surgery [id number] Localized edema 01/06/2020 Ulcerative colitis with complication 12/19/2018 Overview (12/19/2018): Added automatically from request for surgery [id number] Pouchitis 12/04/2018 Overview (12/04/2018): Added automatically from request for surgery [id number] Inflammatory bowel disease 12/04/2018 Overview (12/04/2018): Added automatically from request for surgery [id number] Paroxysmal atrial fibrillation (CMS/HCC) 019 CVA, old, hemiparesis (CMS/HCC) 12/10/2017 Sick sinus syndrome (CMS/HCC) 12/10/2017 Pacemaker 12/10/2017 Overview (07/17/2023): Mcnamara Assurity Dual Pacemaker. Dx; SSS. DOI 07/15/2023-Fleissner. Su. Chronic leads 01/01/2013. [place] remote. Tobacco use 03/23/2016 Overview (12/15/2016): Tobacco abuse Ulcerative colitis 03/23/2016 Overview (12/15/2016): Ulcerative colitis with other complication, unspecified location Weight loss 03/23/2016 Overview (12/15/2016): Unintentional weight loss Chronic pancreatitis (CMS/HCC) 03/23/2016 Overview (12/15/2016): Chronic pancreatitis, unspecified pancreatitis type Simple chronic bronchitis 06/20/2015 Overview (12/15/2016): Bronchitis due to tobacco use Paroxysmal supraventricular tachycardia 04/07/20 14 Overview (12/15/2016): PSVT (paroxysmal supraventricular tachycardia) Resolved Problems Problem Noted Date Diagnosed Date Resolved Date Dyslipidemia 06/20/2015 06/06/2022 Overview (12/15/2016): Mixed dyslipidemia Encounters Date Type Department Care Team Description 10/20/2024 Orders Only [facility] Cardiology [address] [place] [address] [address] [facility] [place] [address] Bakari Ragsdale MD Pacemaker (Primary Dx); Sick sinus syndrome (CMS/HCC) (HCC) 08/04/2024 7:30 AM ACCOUNTS SUPERVISOR Ancillary Procedure [facility]iology [address] [place] [address] [place] [address] Pacemaker [Z95.0] (Primary Dx); Sick sinus syndrome (CMS/HCC) (HCC); Paroxysmal atrial fibrillation (CMS/HCC) (HCC); CVA, old, hemiparesis (CMS/HCC) (HCC) 08/04/2024 Orders Only [facility] Cardiology [address] [place] [address] [address] [place] [address] Bakari Ragsdale MD Sick sinus syndrome (CMS/HCC) (HCC) (Primary Dx); Paroxysmal atrial fibrillation (CMS/HCC) (HCC); CVA, old, hemiparesis (CMS/HCC) (HCC) 08/04/2024 Orders Only [facility] Cardiology [address] [place] [address] [address] [facility] [place] [id number] Bakari Ragsdale MD Sick sinus syndrome (CMS/HCC) (HCC) (Primary Dx); Paroxysmal atrial fibrillation (CMS/HCC) (HCC); CVA, old, hemiparesis (CMS/HCC) (HCC) from Last 3 Months Surgical History Surgery Date Site/Laterality Comments CARDIAC PACEMAKER PLACEMENT Cardiac pacemaker COLONOSCOPY SIGMOIDOSCOPY BACK SURGERY x2 CERVICAL SPINE SURGERY ruptured disc CHOLECYSTECTOMY ERCP COLON SURGERY colon removal Medical History Medical History Date Comments Anemia Ulcerative colitis (HCC) GERD (gastroesophageal reflux disease) Cervical cancer (CMS/HCC) (HCC) Pacemaker H/O sick sinus syndrome 2012 Arrhythm ias SSS 4.8 sec pause; recurrent syncope DJD (degenerative joint disease) Pancreatitis chronic Hyperlipidemia Hypertension Asthma History of DVT (deep vein thrombosis) left leg Kidney stone Stroke (HCC) 2017 Depression Anxiety Pacemaker Sick sinus syndrome (CMS/HCC) (HCC) Family History Medical History Relation Name Comments Diabetes Father Heart disease Father Heart failure Father Congestive Hea rt Failure; Hypertension Father Non-Hodgkin's Lymphoma Father Colon cancer Maternal Grandmother Hypertension Mother Relation Name Status Comments Father Alive Maternal Grandmother Mother Social History Tobacco Use Types Packs/Day Years Used Date Smoking Tobacco: Every Day Cigarettes Smokeless Tobacco: Never Tobacco Cessation:Ready to Q uit: Not Asked; Counseling Given: Not Answered Comments:Smoking History Packs/day: 0.5 Packs Alcohol Use Standard Drinks/Week Comments Yes 0 (1 standard drink = 0.6 oz pur e alcohol) socially Social Connection and Isolation Panel [NHANES] A nswer Date Recorded In a typical week, how many times do you talk on the phone with family, friends, or neighbors? Three times a week 12/26/2020 How often do you get togethe r with friends or relatives? Once a week 12/26/2020 How often do you attend chur ch or shinto services? Never 12/26/2020 Do you belong to any clubs o r organizations such as evangelical groups, unions, fraternal or athletic groups, or school groups? No 12/26/2020 How often do you attend meet ings of the clubs or organizations you belong to? Never 12/26/2020 Are you , , di vorced, , never , or living with a partner? 12/26/2020 AUDIT-C Answer Date Recorded Q1: How often do you have a drink containing alc ohol? Monthly or less 12/23/2020 Q2: How many drinks containi ng alcohol do you have on a typical day when you are drinking? 1 or 2 12/23/2020 Q3: How often do you have si x or more drinks on one occasion? Never 12/23/2020 Overall Financial Resource Strain (CARDIA) Answe r Date Recorded How hard is it for you to pa y for the very basics like food, housing, medical care, and heating? Somewhat hard 12/26/2020 PRAPARE - Transportation Answer Date Re corded In the past 12 months, has l ack of transportation kept you from medical appointments or from getting medications? No 12/08 In the past 12 months, has l ack of transportation kept you from meetings, work, or from getting things needed for daily living? No 12/26/2020 Comments No Sex and Gender Information Value Date Recorded Sex Assigned at Not on file Legal Sex Female 2:07 PM ACCOUNTS SUPERVISOR Gender Identity Not on file Sexual Orientation Not on file Obstetrics History Last Filed Vital Signs Vital Sign Reading Time Taken Comments Blood Pressure 98/62 11/15/2023 1:14 PM ACCOUNTS SUPERVISOR Pulse 76 11/15/2023 1:14 PM ACCOUNTS SUPERVISOR Temperature 36.3 C (97.3 F) 12/28/2020 12:18 PM CDT Respiratory Rate 14 12/28/2020 12:18 PM CDT Oxygen Saturation 93% 11/15/2023 1:14 PM ACCOUNTS SUPERVISOR Inhaled Oxygen Concentration - - Weight 75.9 kg (167 lb 4.8 oz) 11/15/2023 1:14 P M ACCOUNTS SUPERVISOR Height 165.1 cm (5' 5 ) 11/15/2023 1:14 PM ACCOUNTS SUPERVISOR Body Mass Index 27.84 11/15/2023 1:14 PM ACCOUNTS SUPERVISOR Plan of Treatment Health Maintenance Due Date Last Done Comments Breast Cancer Screening-Mammogram 1965 Colon Cancer Screening-Colonoscopy 1965 Depression Screening 1965 Hepatitis C Screening 1965 DTaP/Tdap/Td Vaccine (1 - Tdap) 1976 Hepatitis B Screening 1983 Regular Well Visit/Exam 18-64 1983 Pneumococcal vaccine <65 (1 of 2 - PCV) 1984 Zoster Vaccine (2 of 2) 01/19/2021 11/24/2020 Influenza Vaccine (#1) 2024 06/04/2022 Medical Devices Implanted Type Area Manager Science Device Identifier Shelf Expiration Date Model / Serial / Lot Pacemaker-01/01 Implanted:12/09 by Dalila Abdi (Quantity not on file) Pacemaker Chest [employer] SSS Explanted Type Area Manager Science Device Identifier Shelf Expiration Date Model / Serial / Lot [employer] 6575 Arguello Flexi-Stent 7fr 9cm Small Pigtail Flexible .035in Stent - [id number] Implanted:Qty : 1 on 05/02/2020 by Moody Ann MD at [facility] Explanted:Qty : 1 on 05/04/2020 by Moody Ann MD at [facility] Stent N/A: Pancreas [employer] 01/06/2025 [id number] / / [id number] Conmed Katarina [id number] Sanford Viabil 10mm 8.5fr 6cm 200cm Fully Covered Self Expand Pull - [id number] - [id number] Implanted:Qty : 1 on 05/02/2020 by Moody Ann MD at [facility] Explanted:Qty : 1 on 05/04/2020 by Moody Ann MD at [facility] Stent N/A: Bile Duct Conmed Katarina 12/21/2022 [id number] / [id number] / [employer] [id number] Cotton-Slaughter 8.5fr 9cm Taper Tip Proximal Distal Flap Position - [id number] Implanted:Qty : 1 on 12/23/2020 by Moody Ann MD at [facility] Explanted:Qty : 1 on 12/26/2020 by Moody Ann MD at [facility] N/A: Bile Duct [employer] 08/16/2023 [id number] / / [id number] Procedures Procedure Name Priority Date/Time Associated Diagnosis Comments DEVICE CHECK - REMOTE Routine 08/04/2024 2:29 PM ACCOUNTS SUPERVISOR Sick sinus syndrome (CMS/HCC) (HCC) Paroxysmal atrial fibrillation (CMS/HCC) (HCC) CVA, old, hemiparesis (CMS/HCC) (HCC) from Last 3 Months Results * DEVICE CHECK - REMOTE (08/04/2024 2:29 PM ACCOUNTS SUPERVISOR) Anatomical Region Laterality Modality Other Narrative 09/29/2024 12:31 PM ACCOUNTS SUPERVISOR Mcnamara Assurity Dual Pacemaker. Dx; SSS. DOI 07/15/2023-Lolly. Card-Allison. Chronic leads 01/01/2013. [place] remote. Routine DDD Pacemaker Remote. Transmission attached. Battery status: 3.02V, 7.3-11.0 years remaining battery life to LAURO. Stable lead impedances, pacing and sensing thresholds. Presenting rhythm: -VS. AP- 5.9%, INDIAN NANNY- <1%. No AT/AF episodes noted. No Ventricular high rate episodes detected. Medications: ASA, Atenolol. See scanned report. Office pacemaker follow up: 10/21/2024. [place] remote f/u due 6 months. Gretta Graham, RN Bakari Ragsdale MD [facility] CARDIAC SERVICES PROCEDURES F inal Result from Last [address] [place] [address] [employer] CHOICE MEDICARE PPO [address] CHOICE PLUS HUMANA CLAIMS OFFICE MEDICARE SOLUTIONS Advance Directives For more information, please contact: [phone] * Full Code (Latest Code Status on File) Date Activated Date Inactivated Comments 12/23/2020 11:51 AM 12/28/2020 6:18 PM * Full Code Date Activated Date Inactivated Comments 05/02/2020 6:20 PM 05/04/2020 6:16 PM Care Teams Compo Caster Relationship Specialty Start Date End Date Elton Chowdary MD [address] [place] [address] PCP - General 12/07/16 Moody Ann MD [address] [facility] [address] [place] [address] Consulting Physician Gastroenterology 05/04/20 Zacarias Ferrell MD [address] [facility] [address] [place] [address] Consulting Physician Surgical Critical Care 12/28/20
--- OUTSIDE RECORDS SUMMARY | 2024-10-30 06:59 | XMS_ITS | Clinical Summary ---
Author Organization [facility] Address [address] [place] [address] Care Team Providers Care Residential Service Technician Name Role Phone Elton Chowdary MD Primary Care Provider + Source Comments [facility],non-owned Affiliates and Associated Physician Practices is amultiple site organization consisting of ambulatory clinics and hospital sitesin [place], [place], [place] and [place]. This disclosure is being madepursuant to the Care Everywhere program and may not contain all information available regarding this patient. Last updated 18.[facility] Social History Tobacco Use Types Packs/Day Years Used Date Smoking Tobacco: Never Assessed Sex and Gender Information Value Date Recorded Sex Assigned at Not on file Gender Identity Not on file Sexual Orientation Not on file Plan of Treatment Health Maintenance Due Date Last Done Comments COLOGUARD (AGES 45-75) - COL ON CA SCREENING 1965 COLON MONITORING 1965 COLONOSCOPY - COLON CA SCREENING 1965 CT COLONOGRAPHY - COLON CA SCREENING 1965 Colorectal Cancer Screening 1965 FIT - COLON CA SCREENING 1965 FLEX SIG - COLON CA SCREENING 1965 LIPID TESTING 1965 MAMMOGRAM 1965 PAP SMEAR 1965 HIV SCREENING 1980 HEPATITIS C SCREENING 05/07/1983 DTAP/TDAP/TD VACCINES (1 - Tdap) 1984 HEPATITIS B VACCINE (1 of 3 - 19+ 3-dose series) 1984 PNEUMOCOCCAL VACCINE 50+ (1 of 1 - PCV) 2015 ZOSTER VACCINE (1 of 2) 2015 COVID-19 VACCINE (2023-2 5 season) 2024 INFLUENZA VACCINE (#1) 2024 DEPRESSION SCREENING 09/09/2024 MEDICARE AWV CALENDAR YEAR 2024 HIB VACCINE Aged Out No longer eligi ble based on patient's age to complete this topic HPV VACCINE Aged Out No longer eligi ble based on patient's age to complete this topic MENINGOCOCCAL (Group B) VACCINE Aged Out No longer eligible based on patient's age to complete this topic MENINGOCOCCAL VACCINE Aged Out No letty zack eligible based on patient's age to complete this topic PNEUMOCOCCAL VACCINE Aged Out No long er eligible based on patient's age to complete this topic Care Teams Residential Service Technician Relationship Specialty Start Date End Date Elton Chowdary MD [address] [facility] [address] [place] [address] PCP - General 01/27/18
--- OUTSIDE RECORDS SUMMARY | 2024-10-30 06:59 | XMS_ITS | Patient Health Summary ---
Author Organization [facility] [employer] Address [address] [place] [address] Care Team Providers Care Railroad Construction Director Name Role Phone Elton Chowdary MD Primary Care Provider + Note from [facility],non-owned Affiliates and Associated Physician Practices is amultiple site organization consisting of ambulatory clinics and hospital sitesin [place], [place], [place] and [place]. This disclosure is being madepursuant to the Care Everywhere program and may not contain all information available regarding this patient. Last updated 18.[facility] Social History Tobacco Use Types Packs/Day Years Used Date Smoking Tobacco: Never Assessed Sex and Gender Information Value Date Recorded Sex Assigned at Not on file Gender Identity Not on file Sexual Orientation Not on file Procedures * GROSS + MICRO EXAM(Performed 01/22/2001) Results * GROSS + MICRO EXAM (01/22/2001 12:00 AM CDT) Result CASE NUMBER [id number] Comment: ORDERING PHYSICIAN ROSY LYON SPECIMEN TYPE Ganglion Cyst-lt palm Surgeon ROSY FRAZIER M.D. Gross Exam Dr. Clifton Trejo M.D. Gross Report INDICATION FOR PROCEDURE GANGLION LT PALM OPERATION EXCISION GANGLION LT PALM SPECIMEN GANGLION LT PALM GROSS THE SPECIMEN IS RECEIVED IN A CONTAINER LABELED WITH THE PATIENT'S NAME IVIS ROBERT AND IDENTIFIED GANGLION LT PALM. THE SPECIMEN CONSISTS OF A WHITE FRAGMENT OF WHITE SOFT TISSUE MEASURING 3 X 2 MM. THE SURFACE APPEARS SLIGHTLY MUCOID. CUT SURFACE SHOWS A CYST CONTAINING MUCOID MATERIAL. THE SPECIMEN IS SUBMITTED IN ENTIRETY IN ONE CASSETTE. SL/DC MICROSCOPIC EXAM MICROSCOPIC MICROSCOPIC EXAMINATION CONFIRMS THE BELOW CAPTIONED DIAGNOSIS. DIAGNOSIS DIAGNOSIS [1] SOFT TISSUE, LEFT PALM, EXCISION -- GANGLION CYST EZC/KA [id number] Released By THELMA MCDOWELL MISCELLANEOUS SAMPLE S / Unknown 01/22/2001 01/23/2001 9:00 AM CDT Historical Provider LAB - PATHOLOGY/C YTOLOGY ORDERABLES Care Teams Railroad Construction Director Relationship Specialty Start Date End Date Elton Chowdary MD [address] [address] PCP - General 01/27/18
--- OUTSIDE RECORDS SUMMARY | 2024-10-30 06:59 | XMS_ITS | Encounter Summary ---
Author Organization [facility] Address [address] [place] [address] Phone Care Team Providers Care Shoe Repairer Name Role Phone Elton Chowdary MD Primary Care Provider + Travis Mcgill DO Unavailable [phone] Jj Floyd MD Unavailable [phone] Reason for Visit * Reason Comments Medication Refill Encounter Details Date Type Department Care Team (Late st Contact Info) Description 04/11/2022 Refill [facility] - Gastroenterology [facility] [address] [place] [address] Gladys Tapia, [facility] [address] [place] [address] Medication Refill Social History Tobacco Use Types Packs/Day Years Used Date Smoking Tobacco: Former Cigarettes 0.5 30 Smokeless Tobacco: Never Comments: 1 a day Alcohol Use Standard [...] Exposure Response Date Recorded In the last 10 days, have yo u been in contact with someone who was confirmed or suspected to have Coronavirus/COVID-19? No / Unsure 03/20/2022 12:20 PM CDT documented as of this encounter Miscellaneous Notes * Telephone Encounter - Chayo Lee RN - 04/11/2022 1:29 PM CDT Medication refilled and signed per [facility] chronic medication standing order for pediatric and adult patients. documented in this encounter Plan of Treatment Not on file documented as of this encounter Visit Diagnoses Not on filedocumented in this encounter Care Teams Shoe Repairer Relationship Specialty Start Date End Date Elton Chowdary MD [address] [place] [address] PCP - General Family Medicine 10/15/16 Travis Mcgill DO [address] [place] [address] Gastroenterology 04/30/17 Jj Floyd MD [address] [place] [address] Consulting Physician Gastroenterology 11/30/21 documented as of this encounter
--- OUTSIDE RECORDS SUMMARY | 2024-10-30 06:59 | XMS_ITS | Patient Health Record ---
Author Organization [facility] Address [address] [facility] [address] [place] [address] Care Team Providers Care Solutions Consultant Name Role Phone Epi BAILEY, Elton Primary Care Provider Tracy farrukh BLANK MD, ALLAN Unavailable Gladys Tapia PA-C Unavailable Unavailable ALLERGIES Allergen (clinical drug ingredient) Drug/Non Drug Allergy documented on EMR Reaction Allergy Type Onset Date Status PredniSONE Unknown Drug Allergy Active Sulfamethoxazole Unknown Drug Allergy Active REASON FOR REFERRAL No Information MEDICATIONS Medication SIG (Take, Route, Fr equency, Duration) Notes Start Date End Date Status Sertraline HCl Activ e Percocet Active Ativan Active Prevacid Active Atorvastatin Calcium Active Atenolol Active Aspirin 81 MG 1 tablet Orally Once a day Active amLODIPine Besylate Active Otezla Active Inflectra Active Vitamin D Active Vitamin B12 Active Topamax Active SOCIAL HISTORY Tobacco Use: Social History Observation Description Date Details (start date - stop date) Current Smoker NA - NA Sex Assigned At : Social History Observation Description Sex Assigned At Unknown Tobacco Use/Smoking Question Answer Notes Are you a current smoker How often do you smoke cigarettes? every day How many cigarettes a day do you smoke? 5 or les s PROBLEMS Problem Type ICD Code Onset Dates Problem Status W/U Status Risk SNOMED Code Notes Problem Crohn's disease, unspecified, without complications (K50.90) Active confirmed Crohn's disease (90430153) Problem Spasm of sphincter of Oddi (K83.4) Active confirmed Spasm of sphincter of Oddi (08548232) PLAN OF TREATMENT Pending Test Test Name Order Date Endoscopic Retrograde Cholangiopancreato graphy (ERCP) 04/25/2020 Endoscopic Retrograde Cholangiopancreato graphy (ERCP) 12/09/2020 Insurance Providers Payer Name Payer Address Payer Phone Subscriber Number Group Number Insured Name Patient Relationship to Insured Coverage Start Date Coverage End Date [employer] Medicare PPO [address] [address] [place], [place] [id number] Cover, Dior Self - patient is the insured MEDICAL (GENERAL) HISTORY Medical History History ICD Code Subtotal colectomy for UC 20 , sick sinus syndrome, s/p pacemaker placement, cervical cancer, anxiety/depression, glaucoma, GERD, anxiety, DVT 2007, chronic pain with pain pump and spinal cord stimulator, kidney stones SOD/papillary stenosis, recurrent acute pancreatitis ? pouchitis, ileitis Surgical History Surgery Date(Month/Year) Pacemaker 2012, lap Fercho f undoplication 2008, cholecystectomy 2006, total procto with ileal J pouh with loop ileostomy 2001, vaginal hysterectomy and BSO, bunionectomy lumbar disc surgery, cervica l disc surgery, tonsillectomy, carpal tunnel, pain stim and spinal cord stimulator EGD/EUS [facility] 02/2016 memb ranous esophagitis in distal esophagus, normal pancreas. Path- mild chronic inflammation ERCP 09/16/15 Marissa saenz callum stenosis, moderate recurrence, s/p extension of previous biliary/pancreatic sphincterotomies. PD stent removed 09/19/15. BD stent downsized and remov ed 11/23/15 at which time noted stent had migrated out. ERCP with Dr. Blank 10/14 with papillary stenosis s/p biliary/pancreatic sphincterotomies and short term stenting. Stents removed 10/16/13. EUS 08/2013 Normal pancreas. EUS 2006 an d 2007 Normal pancreas Pouchoscopy [facility] at [facility] 01/09/19 inflammation in the pre pouch ileum 2/2 Crohn???s disease with ileitis. Bx. Inflammation in ileoanal pouch 2/2 pouchitis. Bx. Path- superficial villous mu cosa with no underlying lamina propria. Mild active pouchitis Flex sig- Klucka 2020- no report ERCP 05/02/2020 Marissa hood stenosis s/p biliary/pancreatic sphincterotomies. Short term stenting. Stents removed 05/04/2020.
--- OUTSIDE RECORDS SUMMARY | 2024-10-30 06:59 | XMS_ITS | Continuity of Care Document ---
Author Organization [facility] Address [address] [place] [address] [place] [address] Phone Care Team Providers Care Chalk Molding Machine Operator Name Role Phone Philip Goncalves Unavailable Unavailable Procedures Procedure Date Visual Field Examination(s) Office/outpatient Visit, Est Office/outpatient Visit, Est Fundus Photography W/ Report Visual Field Examination(s) Office/outpatient Visit, Est Office/outpatient Visit, Est Optic Nerve Topography Optic Nerve Topography Office/outpatient Visit, Est Fundus Photography W/ Report Visual Field Examination(s) Advance Directives Directive Yes / No Effective Date File Name No Information Encounters Encounter Description Practice Location Reason(s) For Visit Diagnoses Date Provider Providers Copied on Encounter [facility], [address] [place] [address] [address], [place], [place], [id number], [place] tel:[phone] [facility] No Information 0 Ivanna Palacios. [address], [place], [address], [place]. tel:[phone] Referring Provider: Antoine [address] [employer] [address], [place], [address]. tel:[phone] Office/outpat ient Visit, Est [facility], [address] [place] [address] [address], [place], [place], [address], [place] tel:[phone] SEC [facility] No Information [phone] Ivanna Palacios. [address] , [address], [place], [place], [facility], . tel:[phone] Office/outpat ient Visit, [facility], [address] [place] [address] [address], [place], [place], [address], [place] tel:[phone] [facility] No Information 1-200 9 Ivanna Palacios. [facility] , [address], [place], [place], [facility], . tel:[phone] Referring Provider: Philip Ruiz, [address] [place], [place] [address], [place], [place], [facility]. tel:[phone] [facility], [address] [place] [address] [address], [place], [place], [id number], tel:[phone] SEC [facility] No Information 0 3-200 9 Ivanna Palacios. [facility] , [address], [place], [place], [facility], . tel:[phone] Referring Provider: Philip Ruiz, [facility] [address], [place], [place], [facility]. tel:[phone] Office/outpat ient Visit, [facility], [address] [place] [address] [address], [place], [place], [address], [place] tel:[phone] [facility] No Information 200 8 Ivanna Palacios. [address] [place], [place] [address] Center , [address], [place], [place], [facility], . tel:[phone] Office/outpat ient Visit, [facility], [address] [place] [address] [address], [place], [place], [address], [place] tel:[phone] [facility] No Information 2[address] Ivanna Palacios. [address] [employer] [address], [address], [place], [address], [place]. tel:[phone] [facility], [address] [place] [address] [address], [place], [place], [address], [place] tel:[phone] [facility] No Information 200 7 Ivanna Palacios. Antoine Veliz[address] Micaela [address]ale[address], [address], [place], [facility], [place]. tel:[phone] Referring Provider: [address] [address], [place], [facility]. tel:[phone] Office/outpat ient Visit, [facility] [address] [facility] [address], [place], [place], [address], [place] tel:[phone] [facility] No Information 7 Ivanna Palacios. Antoine [address] Micaela [address]ale[address], [address], [place], [address], [place]. tel:[phone] Referring Provider: Anto[address] [address], [place], [facility]. tel:[phone] [facility], [address] [facility] [address], [place], [place], [address], [place] tel:[phone] [facility] No Information [address] 7 Ivanna Palacios. Antoine Vel[address], [place], [address], [place]. tel:[phone] Referring Provider: Anto[address] [address], [place], [place], [facility]. tel:[phone] Family History Family Member Type Diagnosis Age At Onset No Information Payers Payer name Insurance type Covered democrat ID Authoriza tion(s) No Information Social History Type Description Quantity Date Captured Comments Sex Female Smoking Status No Information Chief Complaint And Reason For Visit No Information Reason For Referral Reason For Referral No Information History Of Present Illness Encounter Date Complaint History Of Prese nt Illness No Information Functional Status Date Functional Assessmen t No Information Instructions Date Instruction Additional Infor mation No Information Assessments Type Assessment Date No Information Patient Care Teams Name Effective Dates (start - stop) Status Members No Information
--- OUTSIDE RECORDS SUMMARY | 2024-10-30 06:59 | XMS_ITS | Referral Summary ---
Author Organization [facility] Address [address] [place] [address] Care Team Providers Care Spinning Bath Patroller Name Role Phone Elton Chowdary MD Primary Care Prov ider Moody Ann MD Unavailable [phone] Zacarias Ferrell MD Unavailable [phone] Encounters Date Type Department Care Team Description 10/20/2024 Orders Only [facility] Cardiology [address] [place] [phone] Bakari Ragsdale MD Pacemaker (Primary Dx); Sick sinus syndrome (CMS/HCC) (HCC) 08/04/2024 Orders Only [facility] Cardiology [address] [place] [phone] Bakari Ragsdale MD Sick sinus syndrome (CMS/HCC) (HCC) (Primary Dx); Paroxysmal atrial fibrillation (CMS/HCC) (HCC); CVA, old, hemiparesis (CMS/HCC) (HCC) 08/04/2024 Orders Only [facility] Cardiology [address] [place] [phone] Bakari Ragsdale MD Sick sinus syndrome (CMS/HCC) (HCC) (Primary Dx); Paroxysmal atrial fibrillation (CMS/HCC) (HCC); CVA, old, hemiparesis (CMS/HCC) (HCC) 08/04/2024 7:30 AM LINTER SAW SHARPENER Ancillary Procedure [facility] Cardiology [address] [facility] [address] [place] [phone] Pacemaker [Z95.0] (Primary Dx); Sick sinus syndrome (CMS/HCC) (HCC); Paroxysmal atrial fibrillation (CMS/HCC) (HCC); CVA, old, hemiparesis (CMS/HCC) (HCC) from Last 3 Months Allergies Active Allergy Reactions Criticality Noted Date [...] (12/26/2020): Added automatically from request for surgery [id number] Abdominal pain 04/27/2020 Overview (05/03/2020): Added automatically from request for surgery [id number] Localized edema 01/06/2020 Ulcerative colitis with complication 12/19/2018 Overview (12/19/2018): Added automatically from request for surgery [id number] Pouchitis 12/04/2018 Overview (12/04/2018): Added automatically from request for surgery [id number] Inflammatory bowel disease 12/04/2018 Overview (12/04/2018): Added automatically from request for surgery [id number] Paroxysmal atrial fibrillation (CMS/HCC) 019 CVA, old, hemiparesis (CMS/HCC) 12/10/2017 Sick sinus syndrome (CMS/HCC) 12/10/2017 Pacemaker 12/10/2017 Overview (07/17/2023): Mcnamara Assurity Dual Pacemaker. Dx; SSS. DOI 07/15/2023-Fleissner. Su. Chronic leads 01/01/2013. Morris remote. Tobacco use 03/23/2016 Overview (12/15/2016): Tobacco [...] Dyslipidemia 06/20/2015 06/06/2022 Overview (12/15/2016): Mixed dyslipidemia Social History Tobacco Use Types Packs/Day Years [...] week 12/26/2020 How often do you attend [facility] or yazidi services? Never 12/26/2020 Do you belong to any clubs o r organizations such as episcopal groups, unions, fraternal or athletic groups, or [...] on file Legal Sex Female 2:07 PM LINTER SAW SHARPENER Gender Identity Not on file Sexual Orientation Not on file Last Filed Vital Signs Vital Sign Reading Time Taken Comments Blood Pressure 98/62 11/15/2023 1:14 PM LINTER SAW SHARPENER Pulse 76 11/15/2023 1:14 PM LINTER SAW SHARPENER Temperature 36.3 C (97.3 F) 12/28/2020 12:18 PM CDT Respiratory Rate 14 12/28/2020 12:18 PM CDT Oxygen Saturation 93% 11/15/2023 1:14 PM LINTER SAW SHARPENER Inhaled Oxygen Concentration - - Weight 75.9 kg (167 lb 4.8 oz) 11/15/2023 1:14 P M LINTER SAW SHARPENER Height 165.1 cm (5' 5 ) 11/15/2023 1:14 PM LINTER SAW SHARPENER Body Mass Index 27.84 11/15/2023 1:14 PM LINTER SAW SHARPENER Plan of Treatment Not on file Medical Devices Implanted Type Area Embossing Unit Operator Device Identifier Shelf Expiration Date Model / Serial / Lot Pacemaker-01/01 Implanted:12/09 by Dalila Abdi (Quantity not on file) Pacemaker Chest [employer] SSS Explanted Type Area Embossing Unit Operator Device Identifier Shelf Expiration Date Model / Serial / Lot [employer] 6575 Arguello Flexi-Stent 7fr 9cm Small Pigtail Flexible .035in Stent - [id number] Implanted:Qty : 1 on 05/02/2020 by Moody Ann MD at [facility] Explanted:Qty : 1 on 05/04/2020 by Moody Ann MD at [facility] Stent N/A: Pancreas [employer] 01/06/2025 [id number] / / [id number] Conmed Katarina [id number] [place] Viabil 10mm 8.5fr 6cm 200cm Fully Covered Self Expand Pull - [id number] - [id number] Implanted:Qty : 1 on 05/02/2020 by Moody Ann MD at [facility] Explanted:Qty : 1 on 05/04/2020 by Moody Ann MD at [facility] Stent N/A: Bile Duct Conmed Katarina 12/21/2022 [id number] / [id number] / [employer] [id number] Cotton-Slaughter 8.5fr 9cm Taper Tip Proximal Distal Flap Position - [id number] Implanted:Qty : 1 on 12/23/2020 by Moody Ann MD at [facility] Explanted:Qty : 1 on 12/26/2020 by Moody Ann MD at [facility] N/A: Bile Duct [employer] 08/16/2023 [id number] / / [id number] Procedures Procedure Name Priority Date/Time Associated Diagnosis Comments DEVICE CHECK - REMOTE Routine 08/04/2024 2:29 PM LINTER SAW SHARPENER Sick sinus syndrome (CMS/HCC) (HCC) Paroxysmal atrial fibrillation (CMS/HCC) (HCC) CVA, old, hemiparesis (CMS/HCC) (HCC) from Last 3 Months Results * DEVICE CHECK - REMOTE (08/04/2024 2:29 PM LINTER SAW SHARPENER) Anatomical Region Laterality Modality Other Narrative 09/29/2024 12:31 PM LINTER SAW SHARPENER Mcnamara Assurity Dual Pacemaker. Dx; SSS. DOI 07/15/2023-Lolly. Luis Carlos-Baroda. Chronic leads 01/01/2013. Morris remote. Routine DDD Pacemaker Remote. Transmission attached. Battery status: 3.02V, 7.3-11.0 years remaining battery life to LAURO. Stable lead impedances, pacing and sensing thresholds. Presenting rhythm: -VS. AP- 5.9%, FISH CULTURIST- <1%. No AT/AF episodes noted. No Ventricular high rate episodes detected. Medications: ASA, Atenolol. See scanned report. Office pacemaker follow up: 10/21/2024. Morris remote f/u due 6 months. Gretta Graham, RN Bakari Ragsdale MD [facility] PROCEDURES F inal Result from Last [address] [place] [place] [address] [employer] MEDICARE PPO [facility] CHOICE PLUS [employer] CLAIMS OFFICE MEDICARE SOLUTIONS Advance Directives For more information, please contact: [phone] * Full Code (Latest Code Status on File) Date Activated Date Inactivated Comments 12/23/2020 11:51 AM 12/28/2020 6:18 PM * Full Code Date Activated Date Inactivated Comments 05/02/2020 6:20 PM 05/04/2020 6:16 PM Care Teams Spinning Bath Patroller Relationship Specialty Start Date End Date Elton Chowdary MD [address] [place] [address] PCP - General 12/07/16 Moody Ann MD [address] [facility] [address] [place] [address] Consulting Physician Gastroenterology 05/04/20 Zacarias Ferrell MD [address] [facility] [address] [place] [address] Consulting Physician Surgical Critical Care 12/28/20
[2024-10-30 07:55] LABS: Mean Platelet Volume 9.3 fl (7.4-10.4); Platelet Count Result 199 k/mm3 (150-375)
[2024-10-30 08:10] LABS: Prothrombin Time 13.4 Seconds (11.1-14.7)
[2024-10-30] MEDS: ACETAMINOPHEN 500 MG TABLET PO (11:03)
== END 2024-10-30 13:05 | disposition home or self-care (01) ==
PROVIDERS: PCP Family Medicine Adolescent Medicine; Referring Provider Neurological Surgery; Visit Provider Radiology Diagnostic Radiology
DX: G95.9 Disease of spinal cord, unspecified (principal); Z98.1 Arthrodesis status; M43.02 Spondylolysis, cervical region; E04.1 Nontoxic single thyroid nodule; J81.1 Chronic pulmonary edema
CPT/HCPCS: 36415; 62302; 72126; 85049; 85610; A9270; Q9967

== ENCOUNTER 2025-05-12 18:16 | Emergency (ER) | payer MEDICARE, SELFPAY ==
[2025-05-12] VITALS (15 sets, daily range): BP systolic 109–133; BP diastolic 65–87; PULSE 77–98; RESP 12–22; TEMP 36.4; O2SAT 96–100
--- NOTE | ~2025-05-12 | CT_ITS ---
EXAMINATION: CT brain wo con DATE: 05/12/2025 19:39 INDICATION: Status post fall. Trauma to the head. TECHNIQUE: Computed tomography (CT) of the head was performed without intravenous contrast. The dose-length product was 605.33 mGy-cm. Automated exposure control and iterative reconstruction technique were employed. COMPARISON: CT dated 10/29/2022 FINDINGS: Mild right frontal scalp hematoma. Focal left frontal subarachnoid hemorrhage. There is prominent soft tissue in the right nasopharynx, ethmoid air cells and maxillary sinus with associated loculated gas within the soft tissue, likely hemorrhage. There is a probable fracture medial wall of the right maxillary sinus. Mastoids are pneumatized. IMPRESSION: 1. Small focal left frontal subarachnoid hemorrhage. 2: Probable hemorrhage involving the nasopharynx, right ethmoid air cells and maxillary sinus. Probable fracture medial wall right maxillary sinus. Reviewed, dictated and finalized at location O.
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
--- NOTE | 2025-05-12 19:14 | ECG_ITS ---
Test Date: 2025-05-12 19:20:43 Measurements Intervals [place] Rate: 76 P: 20 [place]: 191 QRS: 50 QRSD: 88 T: 54 QT: 378 QTc: 426 Interpretive Statements SINUS RHYTHM Compared to ECG 09/17/2024 10:07:30 T-wave abnormality no longer present Electronically Signed On 05-13-2025 11:31:17 CDT by Sesar Lerma M.D.
--- OUTSIDE RECORDS SUMMARY | 2025-05-12 19:17 | XMS_ITS | Clinical Summary ---
Author Organization [facility] Address [address] [facility] [address] [place] [address] Phone Care Team Providers Care Director Game Name Role Phone Elton Chowdary MD Primary Care Provider + Travis Mcgill DO Unavailable [phone] Jj Floyd MD Unavailable [phone] Allergies Active Allergy Reactions Criticality Noted Date Comments Prednisone Other (see Comments) 04/30/2019 Patient has psoriasis and states it will split her skin Sulfa Antibiotics Hives,Swelling 11/22/2016 Sulfasalazine Hives,Swelling Medium 11/22/2016 Medications atorvastatin (LIPITOR) 40 MG Tablet TAKE 1 TABLET BY MOUTH EVERY DAY (REPLACING SIMVASTATIN) 1 7 Active ergocalciferol (VITAMIN D) 80709 UNIT Capsule TAKE 1 CAPSULE BY MOUTH [...] Smokeless Tobacco: Never Tobacco Cessation:Counseling Given: No Comments:1 a day Alcohol Use Standard Drinks/Week Comments [...] Comments Blood Pressure 128/84 08/06/2022 2:46 PM NUT SORTER Pulse 78 08/06/2022 2:46 PM NUT SORTER Temperature 36.7 C (98 F) 08/06/2022 2:46 PM NUT SORTER Respiratory Rate 18 08/06/2022 2:46 PM NUT SORTER Oxygen Saturation 98% 08/06/2022 2:46 PM NUT SORTER Inhaled Oxygen Concentration - - Weight 73.6 kg (162 lb 3.2 oz) 08/06/2022 2:46 P M NUT SORTER Height 167.6 cm (5' 6) 03/02/2022 11:00 AM CDT Body Mass Index 26.18 03/02/2022 11:00 AM CDT Plan of Treatment Health Maintenance Due Date Last Done Comments Mammogram 1965 TdaP Immunization 1965 Cologuard 2010 Immunochemical Fecal Occult Blood 2010 Pneumococcal Immunization (5 0+ years) (1 of 1 - PCV) 2015 Zoster Immunization (2 of 2) 01/19/2021 11/24/2020 Influenza Immunization (#1) 2025 06/04/2022 SARS-COV-2 Immunization (3 - season) 2025 05/14/2021, 04/17/2021 Colonoscopy 04/10/2028 04/10/2018, 04/25/2017 Colorectal Cancer Screening 04/10/2028 Respiratory Syncytial Virus (RSV) Immunization (Adult) (1 - 1-dose 75+ series) 2040 Hepatitis C Virus (HCV) Screening Completed 04/16/2019 Hepatitis B Immunization Aged Out No longer eligible based on patient's age to complete this topic Human Papillomavirus (HPV) Immunization Aged Out No longer eligible b ased on patient's age to complete this topic Meningococcal Immunization (ACWY) Aged Out No longer [...] (AHP) (04/16/2019) Blood specimen (specimen) Ning Peterson TRIMMER LOADER, SUPERVISOR TYPE PHOTOGRAPHY HEMATOLOGY ORDERA BLES Final Result * COLONOSCOPY (04/10/2018) Travis Mcgill DO PROCEDURE/MINOR SURGICAL ORDERA BLES Final Result from Last 3 Months or Most Recently Relevant to Health Maintenance [place] [address] MEDICARE C [employer] Care Teams Director Game Relationship Specialty Start Date End Date Elton Chowdary MD PCP - General Family Medicine 10/15/16 Travis Mcgill DO Gastroenterology 04/30/17 Jj Floyd MD [address] [place] [id number] Consulting Physician Gastroenterology 11/30/21
--- OUTSIDE RECORDS SUMMARY | 2025-05-12 19:18 | XMS_ITS | Encounter Summary ---
Author Organization [facility] Address [address] [place] [address] Care Team Providers Care Salon Sales Consultant Name Role Phone Elton Chowdary MD Primary Care Prov ider Moody Ann MD Unavailable [phone] Zacarias Ferrell MD Unavailable [phone] Encounter Details Date Type Department Care Team (Latest Contact Info) Description 03/28/2025 Results Follow-Up [facility] Cardiology [address] [facility] [address] [place] [id number] Bakari Ragsdale MD [address] [facility] [address] [place] [address] Transthoracic Echo (TTE) Complete W Doppler/CF Social History Tobacco Use Types Packs/Day Years Used Date Smoking Tobacco: Every Day Cigarettes Smokeless Tobacco: Never Comments:Smoking History Pac ks/day: 0.5 Packs Alcohol Use Standard Drinks/Week Comments Yes 0 (1 standard drink = 0.6 oz pur e alcohol) socially Social Connection and Isolation Panel Answer Date Recorded In a typical week, how many times do you talk on the phone with family, friends, or neighbors? Three times a week 12/26/2020 How often do you get togethe r with friends or relatives? Once a week 12/26/2020 How often do you attend chur ch or temple services? Never 12/26/2020 Do you belong to any clubs o r organizations such as muslim groups, unions, fraternal or athletic groups, or school groups? No 12/26/2020 How often do you attend meet ings of the clubs or organizations you belong to? Never 12/26/2020 Are you , , di vorced, , never , or living with a partner? 12/26/2020 AUDIT-C Answer Date Recorded Q1: How often do you have a drink containing alc ohol? 2-4 times a month 03/31/2025 Q2: How many drinks containi ng alcohol do you have on a typical day when you are drinking? 1 or 2 03/31/2025 Q3: How often do you have si x or more drinks on one occasion? 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 2-4 times a month 03/31/2025 1:27 PM Chayo Green RN Q2: How many drinks containing alcohol do you have on a typical day when you are drinking? 1 or 2 03/31/2025 1:27 PM Chayo Green RN Q3: How often do you have six or more drinks on one occasion? Never 03/31/2025 1:27 PM CDT Chayo Parrish RN documented as of this encounter Plan of Treatment Not on file documented as of this encounter Visit Diagnoses Not on filedocumented in this encounter Care Teams Salon Sales Consultant Relationship Specialty Start Date End Date Elton Chowdary MD PCP - General 12/07/16 Moody Ann MD [address] [place] [address] Consulting Physician Gastroenterology 05/04/20 Zacarias Ferrell MD [address] [facility] [address] [place] [address] Consulting Physician Surgical Critical Care 12/28/20 documented as of this encounter
--- OUTSIDE RECORDS SUMMARY | 2025-05-12 19:18 | XMS_ITS | Encounter Summary ---
Author Organization [facility] Address [address] [place] [address] Phone Care Team Providers Care Forming Press Operator Name Role Phone Elton Chowdary MD Primary Care Provider + Travis Mcgill DO Unavailable [phone] Jj Floyd MD Unavailable [phone] Reason for Visit * Reason Comments Medication Refill Encounter Details Date Type Department Care Team (Late st Contact Info) Description 11/07/2021 Refill [facility] - [facility]ology - [place] [address] [place] [id number] Gladys Tapia Lisa, PAC [address] [place] [address] Medication Refill Social History Tobacco Use Types [...] COVID-19? No / Unsure 10/10/2021 11:04 AM MASS SPECTROMETRY MANAGER documented as of this encounter Miscellaneous Notes * Telephone Encounter - Chayo Lee RN - 11/08/2021 10:49 AM MASS SPECTROMETRY MANAGER Medication refilled and signed per [facility] chronic medication standing order for pediatric and adult patients. SPECTROMETRY MANAGER documented in this encounter Plan of Treatment Not on file documented as of this encounter Visit Diagnoses Not on filedocumented in this encounter Care Teams Forming Press Operator Relationship Specialty Start Date End Date Elton Chowdary MD PCP - General Family Medicine 10/15/16 Travis Mcgill DO Gastroenterology 04/30/17 Jj Floyd MD [address] [place] [address] Consulting Physician Gastroenterology 11/30/21 documented as of this encounter
--- OUTSIDE RECORDS SUMMARY | 2025-05-12 19:18 | XMS_ITS | Encounter Summary ---
Author Organization [facility] Address [address] [place] [address] Phone Care Team Providers Care Cda Teacher Name Role Phone Elton Chowdary MD Primary Care Provider + Travis Mcgill DO Unavailable [phone] Jj Floyd MD Unavailable [phone] Reason for Visit * Reason Comments Medication Refill Encounter Details Date Type Department Care Team (Late st Contact Info) Description 04/11/2022 Refill [facility] - [facility]enterology - [place] [address] [place] [id number] Gladys Tapia Lisa, PAC [address] [place] [address] Medication Refill Social History Tobacco Use Types Packs/Day Years Used Date Smoking Tobacco: Former Cigarettes 0.5 30 Smokeless Tobacco: Never Comments:1 a day Alcohol Use Standard Drinks/Week [...] on filedocumented in this encounter Care Teams Cda Teacher Relationship Specialty Start Date End Date Elton Chowdary MD PCP - General Family Medicine 10/15/16 Travis Mcgill DO Gastroenterology 04/30/17 Jj Floyd MD [address] [place] [address] Consulting Physician Gastroenterology 11/30/21 documented as of this encounter
--- OUTSIDE RECORDS SUMMARY | 2025-05-12 19:18 | XMS_ITS | Encounter Summary ---
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 Gender Identity Female 05/05/2025 4:57 PM CDT Sexual Orientation Not on file documented as of this encounter Plan of Treatment Not on file documented as of this encounter Procedures Procedure Name Priority Date/Time Associated Diagnosis Comments VASCULAR LABORATORY REPORT 08/11/2017 1:14 PM GEOPHYSICAL MANAGER VASCULAR LABORATORY REPORT 08/06/2017 9:27 PM GEOPHYSICAL MANAGER documented in this encounter Results * VASCULAR LABORATORY REPORT (08/11/2017 1:14 PM GEOPHYSICAL MANAGER) Anatomical Region Laterality Modality Ultrasound us Provider Scanning CV VASCULAR PROCEDURES Final R esult * VASCULAR LABORATORY REPORT (08/06/2017 9:27 PM GEOPHYSICAL MANAGER) Anatomical Region Laterality Modality Ultrasound us Provider Scanning CV VASCULAR PROCEDURES Final R esult documented in this encounter Visit Diagnoses Not on filedocumented in this encounter Additional Health Concerns 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
--- OUTSIDE RECORDS SUMMARY | 2025-05-12 19:18 | XMS_ITS | Clinical Summary ---
Author Organization [facility] Address [address] [place] [address] Care Team Providers Care Telecommunications Engineer Name Role Phone Elton Chowdary MD Primary Care Prov ider Moody Ann MD Unavailable [phone] Zacarias Ferrell MD Unavailable [phone] Allergies Active Allergy Reactions Criticality Noted Date Comments Prednisone Other (See comments) Low 12/04/2018 Pt states cannot take steroids, per equipment washer Sulfa (Sulfonamide Antibiotics) Anaphylaxis High Medications atorvastatin (LIPITOR) 40 mg tablet take 1 tablet by oral route every day 0 0 11/10/19 17 Active ergocalciferol (VITAMIN D) 50,000 unit capsule Take 1 capsule (50,000 Units total) by mouth once a week Active cyanocobalamin (Vitamin B-12) 1,000 mcg tabletIndicati ons:Prevention of Vitamin B12 Deficiency Take 1 tablet (1,000 mcg total) by mouth once a week Active atenolol (TENORMIN) 50 mg tablet Take 1 tablet (50 mg total) by mouth nightly Active sertraline (ZOLOFT) 100 mg tablet Take 1 tablet (100 mg total) by mouth daily Active albuterol HFA (PROVENTIL HFA,VENTOLIN HFA,PROAIR HFA) 90 mcg/actuation inhaler Inhale 1 puff as needed for wheezing Following remicade infusions Active oxyCODONE-acet aminophen (PERCOCET) 10-325 mg per tabletIndicati ons:Pain Take 1 tablet by mouth every 4 (four) hours as needed Active apremilast (Otezla) 30 mg tablet Take 1 tablet (30 mg total) by mouth 2 (two) times a day Active LORazepam (ATIVAN) 2 mg tablet every 8 (eight) hours as needed 10/29/19 23 Active omeprazole (PriLOSEC) 40 mg capsule Take 1 capsule (40 mg total) by mouth 2 (two) times a day Active amLODIPine (NORVASC) 5 mg tablet Take 1 tablet (5 mg total) by mouth daily 30 tablet 11 01/21/20 25 026 Active Symbicort 160-4.5 mcg/actuation inhaler 2 (two) times a day 02/27/20 25 Active aspirin 81 mg chewable tabletIndicati ons:coronary artery disease Take 1 tablet (81 mg total) by mouth daily 04/14/20 25 026 Active clopidogreL (PLAVIX) 75 mg tablet TAKE 1 TABLET BY MOUTH EVERY DAY 90 tablet 1 05/11/20 25 Active aspirin 325 mg tablet Take 1 tablet (325 mg total) by mouth daily 05/04/20 20 025 Discontinued(St op Taking at Discharge) clopidogreL (PLAVIX) 75 mg tabletIndicati ons:coronary artery disease Take 1 tablet (75 mg total) by mouth daily 30 tablet 04/14/20 25 025 Discontinued clopidogreL (PLAVIX) 75 mg tabletIndicati ons:coronary artery disease Take 1 tablet (75 mg total) by mouth daily 30 tablet 04/14/20 25 025 Discontinued Active Problems Problem Noted Date Diagnosed Date History of left atrial appendage closure 025 Atrial fibrillation 03/17/2025 H/O: GI bleed 03/17/2025 Hypotension due to drugs 11/15/2023 Visit for wound check 07/23/2023 H/O syncope 11/20/2022 Contraindication to anticoagulation therapy 11/07 Mixed hyperlipidemia 06/06/2022 Chest pain on breathing 06/06/2022 Myalgia 06/06/2022 Spasm of sphincter of Oddi 12/12/2020 Overview (12/26/2020): Added automatically from request for surgery [id number] Abdominal pain 04/27/2020 Overview (05/03/2020): Added automatically from request for surgery [id number] Localized edema 01/06/2020 Ulcerative colitis with complication 12/19/2018 Overview (12/19/2018): Added automatically from request for surgery [id number] Pouchitis 12/04/2018 Overview (12/04/2018): Added automatically from request for surgery [id number] Inflammatory bowel disease 12/04/2018 Overview (12/04/2018): Added automatically from request for surgery [id number] PAF (paroxysmal atrial fibrillation) 11/12/2018 CVA, old, hemiparesis 12/10/2017 Sick sinus syndrome 12/10/2017 Pacemaker 12/10/2017 Overview (07/17/2023): Mcnamara Assurity Dual Pacemaker. Dx; SSS. DOI 07/15/2023-[place]. [place]. Chronic leads 01/01/2013. [employer] remote. Tobacco use 03/23/2016 Overview (12/15/2016): Tobacco abuse Ulcerative colitis 03/23/2016 Overview (12/15/2016): Ulcerative colitis with other complication, unspecified location Weight loss 03/23/2016 Overview (12/15/2016): Unintentional weight loss Chronic pancreatitis 03/23/2016 Overview (12/15/2016): Chronic pancreatitis, unspecified pancreatitis type Simple chronic bronchitis 06/20/2015 Overview (12/15/2016): Bronchitis due to tobacco use Paroxysmal supraventricular tachycardia 04/07/20 14 Overview (12/15/2016): PSVT (paroxysmal supraventricular tachycardia) Resolved Problems Problem Noted Date Diagnosed Date Resolved Date Dyslipidemia 06/20/2015 06/06/2022 Overview (12/15/2016): Mixed dyslipidemia Encounters Date Type Department Care Team Description 04/27/2025 7:00 AM CDT Ancillary Procedure [facility] Cardiology [address] [place] [phone] Pacemaker (Primary Dx); Sick sinus syndrome (HCC); Paroxysmal atrial fibrillation (HCC); CVA, old, hemiparesis (HCC) 04/13/2025 Documentation [facility] Case Management [address] [place] [address] Danika Feng RN 04/12/2025 10:37 AM CDT Anesthesia Event [facility] Electrophysiology Lab [address] [place] [address] Chris Woodward MD Stanley, Jacob David, AA 04/12/2025 10:35 AM CDT - 04/12/2025 1:00 PM CDT Surgery [facility]rophys[facility] [address] [place] [address] Bakari Hooper MD PERC SIA CLOSE W/IMPLANT [id number] 04/12/2025 8:10 AM CDT - 04/12/2025 11:59 PM CDT Hospital Encounter [facility] Cardiac Catheterization [facility] [address] [place] [address] Discharge Disposition: Discharge to home or self care 04/12/2025 7:53 AM CDT - 04/13/2025 12:45 PM CDT Hospital Encounter [address] [address] Bakari Hooper MD PAF (paroxysmal atrial fibrillation) (HCC) (Primary Dx); Atrial fibrillation (HCC); H/O: GI bleed; Contraindication to anticoagulation therapy Discharge Disposition: Discharge to home or self care 03/31/2025 1:15 PM CDT Pre-Admission Testing [facility] Pre Anesthesia Testing [address] [place] [id number] 03/28/2025 Results Follow-Up [facility] Cardiology [address] [place] [phone] Bakari Hooper MD Transthoracic Echo (TTE) Complete W Doppler/CF 03/17/2025 Orders Only [facility] Cardiac [facility]atheterization [facility] [address] [place] [address] Bakari Hooper MD Atrial fibrillation (HCC) (Primary Dx); H/O: GI bleed; Contraindication to anticoagulation therapy 03/10/2025 2:00 PM CDT Ancillary Procedure [facility] Cardiology [address] [place] [address] JOHNSON (dyspnea on exertion); PAF (paroxysmal atrial fibrillation) (HCC) from Last 3 Months Surgical History Surgery Date Site/Laterality Comments CARDIAC PACEMAKER PLACEMENT Cardiac pacemaker Mcnamara COLONOSCOPY SIGMOIDOSCOPY BACK SURGERY x2 CERVICAL SPINE SURGERY ruptured disc CHOLECYSTECTOMY ERCP TOTAL COLECTOMY with ileoanal pouch HYSTERECTOMY GASTRIC FUNDOPLICATION IMPLANTABLE CARDIAC DEVICE 04/12/2025 N/A Procedure: PERC SIA CLOSE W/IMPLANT [id number]; Surgeon: Bakari Hooper MD; Location: EP LAB; Service: Cardiovascular; Laterality: N/A; Medical devices from this surgery are in the Medical Devices section. Medical History Medical History Date Comments Anemia Ulcerative colitis GERD (gastroesophageal reflux disease) Cervical cancer (HCC) Pacemaker Mcnamara H/O sick sinus syndrome 2012 Arrhythm ias SSS 4.8 sec pause; recurrent syncope DJD (degenerative joint disease) Pancreatitis chronic Hyperlipidemia Hypertension Asthma History of DVT (deep vein thrombosis) left leg Kidney stone Stroke (HCC) 2017 Depression Anxiety Psoriasis Family History Medical History Relation Name Comments Diabetes Father Heart disease Father Heart failure Father Congestive Hea rt Failure; Hypertension Father Non-Hodgkin's Lymphoma Father Colon cancer Maternal Grandmother Hypertension Mother Relation Name Status Comments Father Alive Maternal Grandmother Mother Social History Tobacco Use Types Packs/Day Years Used Date Smoking Tobacco: Former Cigarettes 0.5 25 Q uit: 03/31/2023 Smokeless Tobacco: Never Tobacco Cessation:Counseling Given: Not Answered Comments:Smoking History Packs/day: 0.5 Packs Alcohol Use Standard Drinks/Week Comments Yes 0 (1 standard drink = 0.6 oz pur e alcohol) socially [facility] Utilities Answer Date Recorded In the past 12 months has e electric, gas, oil, or water videoNEXT threatened to shut off services in your home? No 04/13/2025 Social Connection and Isolation Panel Answer Date Recorded Frequency of Communication with Friends and Fami ly Not on file 04/13/2025 Frequency of Social Gatherings with Friends and Family Not on file 04/13/2025 Attends Orthodoxy Services Not on file 04/13 Active Member of Clubs or Organizations Not on f ile 04/13/2025 Attends Club or Organization Meetings Not on chary e 04/13/2025 Are you , , di vorced, , never , or living with a partner? Never 04/13/2025 AUDIT-C Answer Date Recorded Q1: How often [...] like food, housing, medical care, and heating? Not hard at all 04/13/2025 Hunger Vital Sign Answer Date Recorded Within the past 12 months, y ou worried that your food would run out before you got the money to buy more. Never true 04/13/20 25 Within the past 12 months, t he food you bought just didn't last and you didn't have money to get more. Never true 04/13/2025 PRAPARE - Transportation Answer Date Re corded In the past 12 months, has l ack of transportation kept you from medical appointments or from getting medications? No 01/2025 In the past 12 months, has l ack of transportation kept you from meetings, work, or from getting things needed for daily living? No 04/13/2025 Housing Stability Vital Sign Answer Harvey e Recorded In the last 12 months, was t here a time when you were not able to pay the mortgage or rent on time? No 04/13/2025 In the past 12 months, how m any times have you moved where you were living? 0 04/13/2025 At any time in the past 12 m [facility], were you homeless or living in a custodial (including now)? No 04/13/2025 Personal Safety Answer Date Recorded Have you ever been in or are you currently in a harmful physical or emotional relationship or is someone making you feel afraid or unsafe? 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 Gender Identity Female 05/05/2025 4:57 PM CDT Sexual Orientation Not on file Obstetrics History Last Filed Vital Signs Vital Sign Reading Time Taken Comments Blood Pressure 147/88 04/13/2025 8:02 AM CDT Pulse 70 04/13/2025 8:00 AM CDT Temperature 36.5 C (97.7 F) 04/13/2025 8:02 AM CDT Respiratory Rate 18 04/13/2025 8:02 AM CDT Oxygen Saturation 100% 04/13/2025 8:02 AM CDT Inhaled Oxygen Concentration - - Weight 71.7 kg (158 lb) 04/12/2025 2:46 PM CDT Height 165.1 cm (5' 5) 04/12/2025 2:46 PM CDT Body Mass Index 26.29 04/12/2025 2:46 PM CDT Plan of Treatment Health Maintenance Due Date Last Done Comments Breast Cancer Screening-Mammogram 1965 Colon Cancer Screening-Colonoscopy 1965 Depression Screening 1965 Hepatitis C Screening 1965 DTaP/Tdap/Td Vaccine (1 - Tdap) 1976 Hepatitis B Screening 1983 Regular Well Visit/Exam 18-64 1983 Pneumococcal vaccine <65 (1 of 2 - PCV) 1984 Zoster Vaccine (2 of 2) 01/19/2021 11/24/2020 Influenza Vaccine (#1) 2025 06/04/2022 Medical Devices Implanted Type Area Stock Analyst Device Identifier Shelf Expiration Date Model / Serial / Lot Pacemaker-01/01 Implanted:12/09 by Dalila Abdi (Quantity not on file) Pacemaker Chest [employer] SSS Mcnamara Vascular System Closure Repair Femoral Artery Suture Mediated Perclose Prostyle 22269-73 - [id number] Implanted:Qty: 1 on 04/12/2025 by Bakari Hooper MD at [facility] Mcnamara Vascular 02/06/2027 [id number] / / [id number] Mcnamara Vascular System Closure Repair Femoral Artery Suture Mediated Perclose Prostyle 73960-81 - [id number] Implanted:Qty: 1 on 04/12/2025 by Bakari Hooper MD at [facility] Vascular 02/06/2027 [id number] / / [id number] Mc[employer]ara Vascular Occluder Cvasc Sia Flexible Braided Amplatzer Amulet 18mm Nitinol [id number] - [id number] Implanted:Qty: 1 on 04/12/2025 by Bakari Hooper MD at [facility] Vascular 11/06/2029 [id number] / / [id number] Explanted Type Area Stock Analyst Device Identifier Shelf Expiration Date Model / Serial / Lot [employer] 6575 Arguello Flexi-Stent 7fr 9cm Small Pigtail Flexible .035in Stent - [id number] Implanted:Qty : 1 on 05/02/2020 by Moody Ann MD at [facility] Explanted:Qty : 1 on 05/04/2020 by Moody Ann MD at [facility] Stent N/A: Pancreas [employer] 01/06/2025 [id number] / / [id number] Conmed Katarina [id number] [place] Viabil 10mm 8.5fr 6cm 200cm Fully Covered Self Expand Pull - [id number] - [id number] Implanted:Qty : 1 on 05/02/2020 by Moody Ann MD at [facility] Explanted:Qty : 1 on 05/04/2020 by Moody Ann MD at [facility] Stent N/A: Bile Duct Conmed Katarina 12/21/2022 [id number] / [id number] / [employer] [id number] Cotton-Slaughter 8.5fr 9cm Taper Tip Proximal Distal Flap Position - [id number] Implanted:Qty : 1 on 12/23/2020 by Moody Ann MD at [facility] Explanted:Qty : 1 on 12/26/2020 by Moody Ann MD at [facility] N/A: Bile Duct [employer] 08/16/2023 [id number] / / [id number] Procedures Procedure Name Priority Date/Time Associated Diagnosis Comments EGFR Routine 04/13/2025 9:39 AM CDT DIFFERENTIAL AUTO Routine 04/13/2025 9:3 9 AM CDT CBC WITH AUTO DIFFERENTIAL Routine 04/13/2025 9:39 AM CDT MAGNESIUM Routine 04/13/2025 9:39 AM CDT BASIC METABOLIC PANEL Routine 04/13/2025 9:39 AM CDT TRANSTHORACIC ECHO (TTE) LIMITED/FOLLOW UP W LTD DOPPLER/CF WO CONTRAST Routine 04/13/2025 7:24 AM CDT ECG 12-LEAD Routine 04/13/2025 7:14 AM CDT APTT Routine 04/12/2025 3:09 PM CDT PROTIME-INR Routine 04/12/2025 3:09 PM CDT PERC SIA CLOSURE W/IMPLANT (WATCHMAN) [id number] Routine 04/12/2025 12:12 PM CDT Atrial fibrillation (HCC) H/O: GI bleed Contraindication to anticoagulation therapy POCT ACTIVATED CLOTTING TIME, HIGH RANGE Routine 04/12/2025 11:49 AM CDT POCT ACTIVATED CLOTTING TIME, HIGH RANGE Routine 04/12/2025 11:35 AM CDT ECG 12-LEAD Routine 03/31/2025 1:55 PM CDT EGFR Routine 03/31/2025 1:32 PM CDT DIFFERENTIAL AUTO Routine 03/31/2025 1:3 2 PM CDT APTT Routine 03/31/2025 1:32 PM CDT PROTIME-INR Routine 03/31/2025 1:32 PM CDT COMPREHENSIVE METABOLIC PANEL Routine 03/31/2025 1:32 PM CDT CBC WITH AUTO DIFFERENTIAL Routine 03/31/2025 1:32 PM CDT TYPE AND SCREEN Timed 03/31/2025 1:32 PM CDT PREPARE RBC STAT 03/31/2025 1:19 PM CDT TRANSTHORACIC ECHO (TTE) COMPLETE W DOPPLER/CF WO CONTRAST Routine 03/10/2025 3:01 PM CDT JOHNSON (dyspnea on exertion) PAF (paroxysmal atrial fibrillation) (HCC) from Last 3 Months Results * (ABNORMAL) eGFR (04/13/2025 9:39 AM CDT) eGFR 46(L) >=60 mL/min/1. 73 m2 Comment: Interpretive Data Reference Interval Normal >/= 90 mL/min/1.73m2 Mildly decreased* 60 - 89 mL/min/1.73m2 Mildly to moderately decreased 45 - 59 mL/min/1.73m2 Moderately to severely decreased 30 - 44 mL/min/1.73m2 Severely decreased 15 - 29 mL/min/1.73m2 Kidney Failure < 15 mL/min/1.73m2 *Relative to young adult level Estimated glomerular filtration rate is determined by the 2020 CKD-EPI equation recommended by the National Kidney Foundation (A Unifying Approach to GFR Estimation: Recommendations of the NKF-ASK Task Force on Reassessing the Inclusion of Race in Diagnosing Kidney Disease, JASN 202). The CKD-EPI equation should not be used for patients with unstable renal function and has not been validated in children and those over 70. Current interpretive data was last reviewed 2021. Blood 04/13/2025 9:39 AM CDT 04/13/2025 9:55 AM CDT us Bakari Hooper MD LAB BLOOD ORDERABLES Final Resul t [id number] Department [place] [address] * Differential, auto (04/13/2025 9:39 AM CDT) Neutrophil abs 2.03 1.50 - 6.50 K/cumm Imm gran abs 0.01 0.00 - 0.10 K/cumm [facility] Lymphocyte abs 0.96 0.80 - 3.30 K/cumm [facility] Monocyte abs 0.40 0.20 - 0.80 K/cumm [facility] Eosinophil abs 0.13 0.00 - 0.50 K/cumm [facility] Basophil abs 0.02 0.00 - 0.10 K/cumm [facility] Neutrophil pct 57.1 % [facility] Comment: Interpretive Data Percent cell count reference ranges are not reported, since discordance with absolute values may lead to misinterpretation of CBC data. Current Interpretive Data was last revised on 2017. Imm gran pct 0.3 % [facility] Comment: Interpretive Data Percent cell count reference ranges are not reported, since discordance with absolute values may lead to misinterpretation of CBC data. Current Interpretive Data was last revised on 2017. Lymphocyte pct 27.0 % [facility] Comment: Interpretive Data Percent cell count reference ranges are not reported, since discordance with absolute values may lead to misinterpretation of CBC data. Current Interpretive Data was last revised on 2017. Monocyte pct 11.3 % [facility] Comment: Interpretive Data Percent cell count reference ranges are not reported, since discordance with absolute values may lead to misinterpretation of CBC data. Current Interpretive Data was last revised on 2017. Eosinophil pct 3.7 % [facility] Comment: Interpretive Data Percent cell count reference ranges are not reported, since discordance with absolute values may lead to misinterpretation of CBC data. Current Interpretive Data was last revised on 2017. Basophil pct 0.6 % [facility] Comment: Interpretive Data Percent cell count reference ranges are not reported, since discordance with absolute values may lead to misinterpretation of CBC data. Current Interpretive Data was last revised on 2017. Blood 04/13/2025 9:39 AM CDT 04/13/2025 9:55 AM CDT Bakari Hooper MD LAB BLOOD ORDERABLES Final Resul t Performing Organization Address City/[facility]/ZIP Co de Phone Number [facility] [address] [address] Department [employer] [place] [address] * (ABNORMAL) CBC with auto differential (04/13/2025 9:39 AM CDT) WBC 3.55(L) 3.80 - 9.90 K/cumm Hgb 7.4(L) 11.9 - 15.5 g/dL [facility] Hct 27.1(L) 35.6 - 45.5 % [facility] Plt 183 150 - 400 K/cumm [facility] MPV 9.7 9.1 - 12.3 fL [facility] RBC 3.18(L) 3.90 - 5.20 M/cumm [facility] MCV 85.2 81.3 - 96.4 fL [facility] MCH 23.3(L) 27.1 - 33.3 pg [facility] MCHC 27.3(L) 32.3 - 35.7 g/dL [facility] RDW CV 20.1(H) 11.1 - 14.9 % [facility] RDW SD 62.3(H) 35.7 - 48.1 fL [facility] NRBC abs 0.00 0.00 - 0.01 K/cumm [facility] Blood 04/13/2025 9:39 AM CDT 04/13/2025 9:55 AM CDT Bakari Hooper MD LAB BLOOD ORDERABLES Final Resul t Performing Organization Address City/[facility]/ZIP Co de Phone Number TRINA [address] [place] [address] * Magnesium (04/13/2025 9:39 AM CDT) Magnesium 1.9 1.4 - 2.5 mg/dL Blood 04/13/2025 9:39 AM CDT 04/13/2025 9:55 AM CDT Bakari Hooper MD LAB BLOOD ORDERABLES Final Resul t [facility] [id number] Department [place] [address] * (ABNORMAL) Basic metabolic panel (04/13/2025 9:39 AM CDT) Sodium 138 135 - 145 mmol/L Potassium, pl 4.4 3.3 - 4.9 mmol/L [facility] Chloride 108 97 - 110 mmol/L [facility] CO2 20(L) 22 - 32 mmol/L [facility] Anion gap 10 2 - 15 mmol/L [facility] BUN 27(H) 6 - 25 mg/dL [facility] Creatinine 1.33(H) 0.60 - 1.10 mg/dL [facility] Glucose 90 70 - 199 mg/dL [facility] Comment: Interpretive Data Fasting glucose >/= 126 mg/dl is diagnostic for diabetes. Fasting is defined as no caloric intake for at least 8 hours. Fasting glucose between 100 mg/dl to 125 mg/dl is diagnostic of prediabetes. In a patient with classic symptoms of hyperglycemia or hyperglycemic crisis, a random glucose >/= 200 mg/dl is diagnostic for diabetes. In the absence of unequivocal hyperglycemia, results should be confirmed by repeat testing. The classification and Diagnosis of Diabetes Diabetes Care 2021; 46: S19-S40. Current interpretive data was last revised 2022. Calcium 8.9 8.5 - 10.3 mg/dL [facility] Blood 04/13/2025 9:39 AM CDT 04/13/2025 9:55 AM CDT Bakari Hooper MD LAB BLOOD ORDERABLES Final Resul t [facility] [id number] Department [place] [address] * TRANSTHORACIC ECHO (TTE) LIMITED/FOLLOW UP W LTD DOPPLER/CF WO CONTRAST (04/13/2025 7:24 AM CDT) EF Mod BP 60 % CONS SCIMAGE Anatomical Region Laterality Modality Ultrasound 04/13/2025 6:55 AM CDT Narrative 04/13/2025 9:[place] [address] Limited Echocardiogram Report Patient Name: DIOR TRENT L : 1965 Study Date: 04/13/2025 6:55:14 AM Gender: F Tech: Location: [id number] Ref Provider: BAKARI HOOPER Height(Cm): 165 BSA: 1.82 Weight(Kg): 72 Heart Rate: 67 BP: 136 / 76 Quality: Good Order Provider: BAKARI HOOPER PROCEDURES: Echocardiographic Report: Limited transthoracic echocardiogram with 2D and color Doppler. INDICATIONS: S/P LAAO 18mm. MEASUREMENTS: 2D/MM Value Range Doppler Value Range EF Mod BP 60 % [ 54 - 74 ] REJI 0.00 cm2 LVIDd 2D 5.12 cm [ 3.80 - 5.20 ] LVIDs 2D 3.62 cm [ 2.20 - 3.50 ] IVSd 2D 0.75 cm [ 0.60 - 0.90 ] 2D/MM Value Range Doppler Value Range - FINDINGS: Atrial Septum: Normal atrial septum. Aorta: Normal aortic root. Sinus of Valsalva is normal. Sinotubular junction is normal. Ascending aorta is normal. Aortic arch is normal. Descending aorta is normal. Left Ventricle: Ejection fraction is measured at 60 %. Left Atrium: The left atrium is normal in size. Normal left atrial pressure based on pulmonary vein inflow. Right Ventricle: Normal right ventricular size. Normal right ventricular systolic function. Right Atrium: The right atrium is normal in size. Aortic Valve: Normal structure of the aortic valve. Mitral Valve: Normal structure of the mitral valve. Pulmonic Valve: Normal structure of the pulmonic valve. No pulmonic stenosis. Tricuspid Valve: Normal structure of the tricuspid valve. Normal right ventricular systolic pressure. Pericardium: Normal pericardium with no significant pericardial effusion. CONCLUSIONS: Ejection fraction is measured at 60 %. Left atrial appendage occluder device noted. Electronically Signed By: Laila Aden MD 04/13/2025 9:46:19 AM CDT Procedure Note Sarah Aden MD - 04/13/2025 [place] [address] Limited Echocardiogram Report Patient Name: DIOR TRENT L : 1965 Study Date: 04/13/2025 6:55:14 AM Gender: F Tech: Location: [id number] Ref Provider: BAKARI HOOPER Height(Cm): 165 BSA: 1.82 Weight(Kg): 72 Heart Rate: 67 BP: 136 / 76 Quality: Good Order Provider: BAKARI HOOPER PROCEDURES: Echocardiographic Report: Limited transthoracic echocardiogram with 2D and color Doppler. INDICATIONS: S/P LAAO 18mm. MEASUREMENTS: 2D/MM Value Range Doppler Value Range EF Mod BP 60 % [ 54 - 74 ] REJI 0.00 cm2 LVIDd 2D 5.12 cm [ 3.80 - 5.20 ] LVIDs 2D 3.62 cm [ 2.20 - 3.50 ] IVSd 2D 0.75 cm [ 0.60 - 0.90 ] 2D/MM Value Range Doppler Value Range - FINDINGS: Atrial Septum: Normal atrial septum. Aorta: Normal aortic root. Sinus of Valsalva is normal. Sinotubular junction isnormal. Ascending aorta is normal. Aortic arch is normal. Descending aorta isnormal. Left Ventricle: Ejection fraction is measured at 60 %. Left Atrium: The left atrium is normal in size. Normal left atrial pressure based onpulmonary vein inflow. Right Ventricle: Normal right ventricular size. Normal right ventricular systolicfunction. Right Atrium: The right atrium is normal in size. Aortic Valve: Normal structure of the aortic valve. Mitral Valve: Normal structure of the mitral valve. Pulmonic Valve: Normal structure of the pulmonic valve. No pulmonic stenosis. Tricuspid Valve: Normal structure of the tricuspid valve. Normal right ventricular systolicpressure. Pericardium: Normal pericardium with no significant pericardial effusion. CONCLUSIONS: Ejection fraction is measured at 60 %. Left atrial appendage occluder device noted. Electronically Signed By: Laila Aden MD 04/13/2025 9:46:19 AM CDT Bakari Hooper MD CV ECHO PROCEDURES Final Result * ECG 12 lead (04/13/2025 7:14 AM CDT) 04/13/2025 7:14 AM CDT Narrative [facility] - 04/13/2025 8:07 AM CDT Vent Rate: 65 bpm RR Interval: 918 msec PA Interval: 207 msec QRS Duration: 88 msec QT Interval: 393 msec QTC Interval: 404 msec P-R-T [place]: 56 - 54 - 40 degrees IMPRESSION: SINUS RHYTHM NORMAL ECG NO CHANGE FROM PREVIOUS TRACING NOTED Electronically Signed By: Casey Hernandez MD Bakari Hooper MD ECG ORDERABLES Final Result [facility] * aPTT (04/12/2025 3:09 PM CDT) aPTT 28 28 - 38 sec Comment: Interpretive Data Heparin therapeutic range: 66.0 - 100.0 seconds. Range based on correlation with therapeutic heparin activity range of 0.3 - 0.7 Units/mL. Current interpretive data was last revised on 2023. Blood 04/12/2025 3:09 PM CDT 04/12/2025 3:15 PM CDT Bakari Hooper MD LAB BLOOD ORDERABLES Final Resul t Performing Organization Address [facility] de Phone Number [facility] [address] [place] [address] * Protime-INR (04/12/2025 3:09 PM CDT) PT 11.0 9.7 - 13.0 sec INR 1.02 0.90 - 1.20 [facility] Comment: Interpretive data Oral anticoagulant therapeutic ranges: Venous thromboembolism prophylaxis or treatment: 2.0-3.0 CARDIOLOGY Standard range: 2.0-3.0 High-intensity range: 2.5-3.5 Refer to indication-specific guidelines for appropriate target ranges for prosthetic heart valve replacement. Current interpretive data was last revised on 2019. Blood 04/12/2025 3:09 PM CDT 04/12/2025 3:15 PM CDT Result [facility] Bakari Hooper MD LAB BLOOD ORDERABLES Final Resul t Performing Organization Address [facility] de Phone Number TRINA [address] [place] [address] * PERC SIA CLOSURE W/IMPLANT (WATCHMAN) [id number] (04/12/2025 12:12 PM CDT) Anatomical Region Laterality Modality X-Ray Angiograph y Addenda Addendum by Bakari Hooper MD on 04/12/2025 1:09 PM CDT LEFT ATRIAL APPENDAGE OCCLUSION (LAAO) PROCEDURE REPORT DATE OF PROCEDURE: 04/12/25 INDICATION FOR PROCEDURE: Atrial fibrillation with contraindication for anticoagulation. BRIEF CLINICAL HISTORY: Dior Trent is a 59 y.o. female with hypertension, paroxysmal atrial fibrillation/ sick sinus syndrome s/p dual-chamber pacemaker placement on 07/15/2023; dyslipidemia, anxiety/depression, history of heavy tobacco abuse. Patient with paroxysmal atrial fibrillation/sick sinus syndrome status post permanent pacemaker placement on 07/15/2023. She has not been on anticoagulation due to history of GI bleed. Patient also has unsteady gait, uses cane for walking due to history of CVA. She is at fall risk. She wanted to pursue percutaneous left atrial appendage closure. Current CHADSVASc score is 5 , HASBLED score is 4. Preprocedure cardiac CT was performed for assessment of the left atrial appendage. Left atrial appendage thrombus was ruled out prior to the procedure. Patient was given IV hydration with normal saline prior to the procedure. Benefits and risks of the procedure were discussed with the patient in depth, and informed consent was taken prior to the procedure. Risks of the procedure include but are not limited to vascular complications like groin hematoma, retroperitoneal bleed, vessel perforation; pericardial effusion or tamponade; cardiac arrhythmias; device embolization, air embolization, device thrombosis or leak, contrast induced nephropathy, . After discussing all the benefits, risks and alternatives, patient was willing to proceed with the procedure. PROCEDURES PERFORMED: Successful implantation of 18 mm Mcnamara Amplatzer Amulet left atrial appendage occluder (CPT 95429) Intracardiac echocardiogram-3D/4D ICE (CPT 69835) Deployment of two Perclose suture mediated closure devices at the right common femoral venous access sites SEDATION: MAC - by anesthesiology team ACCESS SITES: Right common femoral vein PROCEDURE: After obtaining informed consent, patient was brought to the manufacturing laborer and prepped and draped in the usual sterile manner. Time-out and immediate reassessment of the patient was performed. Patient was placed under monitored anesthesia care by the anesthesiologist team. Two right common femoral venous accesses were taken under ultrasound guidance with micropuncture needle. Preclose suture mediated vascular closure device were placed. [place] [address] units of unfractionated heparin for procedural anticoagulation at different intervals during the procedure, to maintain ACT between 250-350 seconds. ACT was monitored throughout the procedure at regular intervals. Long 12 Chilean sheath was advanced over 035 wire from the inferior access site in the right common femoral vein. 3D/4D ICE catheter was advanced in to right atrium. Carson sheath was advanced over 035 wire from the superior access site in the right common femoral vein. Atrial septal puncture was performed using Carson transseptal needle under intracardiac echo and fluoroscopic guidance. The sheath was advanced to the left atrium towards the pulmonary vein over the pre shaped wire. The sheath was taken out and it was exchanged with a 12 Chilean amulet delivery sheath. The sheath was advanced into the left atrium, the atrial septum was dilated with the sheath, and then sheath was taken out over the wire and positioned in the right atrium/IVC junction. Preprocedure intracardiac echo showed trivial pericardial effusion. Next, ICE catheter was advanced into the left atrial cavity. Left atrial appendage measurement was performed. After this, the 14 Chilean sheath was reintroduced over Carson wire. A 5 Chilean pigtail catheter was advanced over the wire and the pre shaped wire was taken out. Left atrial pressure was measured at 16 mmHg. A 5 Chilean pigtail catheter was later positioned in the left atrial appendage. Left atrial appendage was visualized after injection of contrast in LO caudal projection. The tip of the sheath was advanced close to the left atrial appendage orifice over the pigtail catheter. Next, the delivery sheath of the Amplatzer amulet was thoroughly prepped and flushed with normal saline multiple times to remove any air from the device. Wet to wet connection was performed and the delivery sheath was advanced to the left atrial appendage orifice through the delivery sheath after removal of the pigtail catheter. 18 mm Amulet at device was deployed under 3D and 4D ICE and fluoroscopic guidance. Verification of proper Amulet device deployment was performed with CLOSE signs (Cx lobe at least 2/3 distal, lobe compression, orientation of lobe in line with axis of the SIA neck, separation between the disc lobe and the disc, elliptical -concave disc). TUG test was performed. Post-implant ICE did not show eda-device leak. Previously noted trivial pericardial effusion did not change postprocedure on intracardiac echo. After completion of successful procedure, hemostasis was achieved by deployment of 2 Perclose suture mediated vascular closure devices. Patient received 50 mg protamine at the conclusion of the procedure. Patient tolerated procedure well without any immediate procedural complications. Estimated blood loss minimal. All specimens removed. Patient was transferred to the telemetry bed in hemodynamically stable condition. Patient's family was updated about the procedure. CONCLUSIONS: Successful implantation of 18 Amplatzer Amulet left atrial appendage closure device. PLAN/RECOMMENDATIONS: Patient will be admitted to the telemetry unit and will be monitored for any potential postprocedure complications. Follow-up STELLA or CT heart in approximately 45 days for device surveillance to assess for any peridevice leak and device related thrombus. Dual antiplatelet therapy with aspirin and clopidogrel for 6 months, then single antiplatelet treatment. Endocarditis prophylaxis for 6 months. Outpatient cardiology follow-up. Voice recognition software was used to complete this document, therefore, production weigher variances may occur. Bakari Hooper MD, [facility] 04/12/25 Bakari Hooper MD CV ELECTROPHYSIOLOGY PROCS Edite d Result - Final * (ABNORMAL) POC Activated Clotting Time, High Range (04/12/2025 11:49 AM CDT) ACT 335(H) 87 - 138 sec Blood 04/12/2025 11:4 9 AM CDT 04/12/2025 11:49 AM CDT Bakari Hooper MD LAB BLOOD ORDERABLES Final Resul t Performing Organization Address City/[facility]/ZIP Co de Phone Number [facility] [address] [place] [address] * (ABNORMAL) POC Activated Clotting Time, High Range (04/12/2025 11:35 AM CDT) ACT 364(H) 87 - 138 sec Blood 04/12/2025 11:3 5 AM CDT 04/12/2025 11:35 AM CDT Bakari Hooper MD LAB BLOOD ORDERABLES Final Resul t Performing Organization Address City/[facility] [place] [address] [address] [place] [address] * ECG 12 lead (03/31/2025 1:55 PM CDT) 03/31/2025 1:55 PM CDT Narrative [facility] - 03/31/2025 7:02 PM CDT Vent Rate: 71 bpm RR Interval: 843 msec PA Interval: 194 msec QRS Duration: 99 msec QT Interval: 404 msec QTC Interval: 426 msec P-R-T [place]: 48 - 56 - 48 degrees IMPRESSION: SINUS RHYTHM NORMAL ECG Electronically Signed By: Bakari Hooper MD, [facility] Bakari Hooper MD ECG ORDERABLES Final Result [facility] * (ABNORMAL) eGFR (03/31/2025 1:32 PM CDT) eGFR 43(L) >=60 mL/min/1. 73 m2 Comment: Interpretive Data Reference Interval Normal >/= 90 mL/min/1.73m2 Mildly decreased* 60 - 89 mL/min/1.73m2 Mildly to moderately decreased 45 - 59 mL/min/1.73m2 Moderately to severely decreased 30 - 44 mL/min/1.73m2 Severely decreased 15 - 29 mL/min/1.73m2 Kidney Failure < 15 mL/min/1.73m2 *Relative to young adult level Estimated glomerular filtration rate is determined by the 2020 CKD-EPI equation recommended by the National Kidney Foundation (A Unifying Approach to GFR Estimation: Recommendations of the NKF-ASK Task Force on Reassessing the Inclusion of Race in Diagnosing Kidney Disease, JASN 2020). The CKD-EPI equation should not be used for patients with unstable renal function and has not been validated in children and those over 70. Current interpretive data was last reviewed 2021. Blood 03/31/2025 1:32 PM CDT 03/31/2025 1:52 PM CDT Bakari Hooper MD LAB BLOOD ORDERABLES Final Resul t [address] [place] [address] * Differential, auto (03/31/2025 1:32 PM CDT) Neutrophil abs 6.04 1.50 - 6.50 K/cumm Imm gran abs 0.03 0.00 - 0.10 K/cumm [facility] Lymphocyte abs 0.82 0.80 - 3.30 K/cumm [facility] Monocyte abs 0.33 0.20 - 0.80 K/cumm [facility] Eosinophil abs 0.08 0.00 - 0.50 K/cumm [facility] Basophil abs 0.06 0.00 - 0.10 K/cumm [facility] Neutrophil pct 82.1 % [facility] Comment: Interpretive Data Percent cell count reference ranges are not reported, since discordance with absolute values may lead to misinterpretation of CBC data. Current Interpretive Data was last revised on 2017. Imm gran pct 0.4 % [facility] Comment: Interpretive Data Percent cell count reference ranges are not reported, since discordance with absolute values may lead to misinterpretation of CBC data. Current Interpretive Data was last revised on 2017. Lymphocyte pct 11.1 % [facility] Comment: Interpretive Data Percent cell count reference ranges are not reported, since discordance with absolute values may lead to misinterpretation of CBC data. Current Interpretive Data was last revised on 2017. Monocyte pct 4.5 % [facility] Comment: Interpretive Data Percent cell count reference ranges are not reported, since discordance with absolute values may lead to misinterpretation of CBC data. Current Interpretive Data was last revised on 2017. Eosinophil pct 1.1 % [facility] Comment: Interpretive Data Percent cell count reference ranges are not reported, since discordance with absolute values may lead to misinterpretation of CBC data. Current Interpretive Data was last revised on 2017. Basophil pct 0.8 % [facility] Comment: Interpretive Data Percent cell count reference ranges are not reported, since discordance with absolute values may lead to misinterpretation of CBC data. Current Interpretive Data was last revised on 2017. Blood 03/31/2025 1:32 PM CDT 03/31/2025 1:53 PM CDT Bakari Hooper MD LAB BLOOD ORDERABLES Final Resul t Performing Organization Address [facility] de Phone Number [facility] [address] [place] [address] * (ABNORMAL) CBC with auto differential (03/31/2025 1:32 PM CDT) Pathologist [facility] WBC 7.36 3.80 - 9.90 K/cumm Hgb 8.3(L) 11.9 - 15.5 g/dL [facility] Hct 28.6(L) 35.6 - 45.5 % [facility] Plt 264 150 - 400 K/cumm [facility] MPV 8.6(L) 9.1 - 12.3 fL [facility] RBC 3.59(L) 3.90 - 5.20 M/cumm [facility] MCV 79.7(L) 81.3 - 96.4 fL [facility] MCH 23.1(L) 27.1 - 33.3 pg [facility] MCHC 29.0(L) 32.3 - 35.7 g/dL [facility] RDW CV 18.2(H) 11.1 - 14.9 % [facility] RDW SD 52.9(H) 35.7 - 48.1 fL [facility] NRBC abs 0.00 0.00 - 0.01 K/cumm [facility] Blood 03/31/2025 1:32 PM CDT 03/31/2025 1:53 PM CDT Bakari Hooper MD LAB BLOOD ORDERABLES Final Resul t Performing Organization Address [facility] Co de Phone Number TRINA [address] [place] [address] * aPTT (03/31/2025 1:32 PM CDT) Pathologist [facility] aPTT 30 28 - 38 sec Comment: Interpretive Data Heparin therapeutic range: 66.0 - 100.0 seconds. Range based on correlation with therapeutic heparin activity range of 0.3 - 0.7 Units/mL. Current interpretive data was last revised on 2023. Blood 03/31/2025 1:32 PM CDT 03/31/2025 1:53 PM CDT Bakari Hooper MD LAB BLOOD ORDERABLES Final Resul t Performing Organization Address [facility] Co de Phone Number TRINA [address] [facility] [employer] [place] [address] * Protime-INR (03/31/2025 1:32 PM CDT) PT 12.1 9.7 - 13.0 sec INR 1.12 0.90 - 1.20 [facility] Comment: Interpretive data Oral anticoagulant therapeutic ranges: Venous thromboembolism prophylaxis or treatment: 2.0-3.0 CARDIOLOGY Standard range: 2.0-3.0 High-intensity range: 2.5-3.5 Refer to indication-specific guidelines for appropriate target ranges for prosthetic heart valve replacement. Current interpretive data was last revised on 2019. Blood 03/31/2025 1:32 PM CDT 03/31/2025 1:53 PM CDT Bakari Hooper MD LAB BLOOD ORDERABLES Final Resul t Performing Organization Address [facility] de Phone Number LEIFER[place]MO [address] [place] [address] * Type and screen (03/31/2025 1:32 PM CDT) [place], indirect Negative ABO Rh A Positive [facility] Blood 03/31/2025 1:32 PM CDT 03/31/2025 1:55 PM CDT Narrative [facility] - 03/31/2025 2:37 PM CDT Has the patient had Daratumumab or Isatuximab in the past 6 months?->Unknown Result [facility] Bakari Hooper MD LAB BLOOD BANK TEST ORDERABLES F inal Result Performing Organization Address [facility] Co de Phone Number [place]INA [address] [place] [address] * (ABNORMAL) Comprehensive metabolic panel (03/31/2025 1:32 PM CDT) Sodium 139 135 - 145 mmol/L Potassium, pl 4.3 3.3 - 4.9 mmol/L [facility] Chloride 103 97 - 110 mmol/L [facility] CO2 18(L) 22 - 32 mmol/L [facility] Anion gap 18(H) 2 - 15 mmol/L [facility] BUN 42(H) 6 - 25 mg/dL [facility] Creatinine 1.42(H) 0.60 - 1.10 mg/dL [facility] Glucose 86 70 - 199 mg/dL [facility] Comment: Interpretive Data Fasting glucose >/= 126 mg/dl is diagnostic for diabetes. Fasting is defined as no caloric intake for at least 8 hours. Fasting glucose between 100 mg/dl to 125 mg/dl is diagnostic of prediabetes. In a patient with classic symptoms of hyperglycemia or hyperglycemic crisis, a random glucose >/= 200 mg/dl is diagnostic for diabetes. In the absence of unequivocal hyperglycemia, results should be confirmed by repeat testing. The classification and Diagnosis of Diabetes Diabetes Care 2021; 46: S19-S40. Current interpretive data was last revised 2022. Calcium 9.1 8.5 - 10.3 mg/dL [facility] Bilirubin, total 0.4 0.1 - 1.2 mg/dL [facility] Protein, pl 7.7 6.5 - 8.5 g/dL [facility] Albumin 4.2 3.5 - 5.0 g/dL [facility] Alk phos 147(H) 40 - 130 Units/L [facility] ALT 9 7 - 45 Units/L [facility] AST 40 10 - 45 Units/L [facility] Blood 03/31/2025 1:32 PM CDT 03/31/2025 1:52 PM CDT us Bakari Hopoer MD LAB BLOOD ORDERABLES Final Resul t [facility] [address] [place] [address] * Prepare RBC: 2 Units (03/31/2025 1:19 PM CDT) Pathologist [facility] Product code [id number] Unit Number [id number] 8-M [facility] Product Blood Type APOS [facility] Dispense Status RETURNED [facility] Product code [id number] [facility] Unit Number [id number] 3-N [facility] Product Blood Type APOS [facility] Dispense Status RETURNED [facility] Blood 03/31/2025 1:19 PM CDT Narrative [facility] - 04/13/2025 12:16 AM CDT Specify Procedure:->LAAO Are special requirements needed? (All products are leukoreduced and CMV- safe)- >No Date required:-[id number] LRRBC # of [id number] Reasons:-Hold for procedure (specify procedure)} us Bakari Hooper MD BLOOD BANK PRODUCT ORDERABLES Fi nal Result [facility] [address] [place] [address] * TRANSTHORACIC ECHO (TTE) COMPLETE W DOPPLER/CF WO CONTRAST (03/10/2025 3:01 PM CDT) EF Mod BP 64 % CONS SCIMAGE Anatomical Region Laterality Modality Ultrasound 03/10/2025 2:03 PM CDT Narrative 03/10/2025 11:16 PM CDT [facility] Cardiology [address] [facility] [place] [address], [place] [address] [address], [address], [place] [address] P:[phone] P:[phone] Echocardiographic Report Patient Name: DIOR TRENT L : 1965 Study Date: 03/10/2025 2:03:08 PM Gender: F Collections Director: Kindra Boo)(CT), RD Location: [place] Ref Provider: BAKARI HOOPER Height(Cm): 165 BSA: 1.79 Weight(Kg): 69.9 Heart Rate: 75 BP: 156 / 78 Quality: Good Order Provider: BAKARI HOOPER PROCEDURES: Echocardiographic Report: Transthoracic echocardiogram with complete 2D, M-Mode, and color Doppler examination. With Strain Analysis. INDICATIONS: R06.09 Other forms of dyspnea and I48.0 Paroxysmal atrial fibrillation. MEASUREMENTS: 2D/MM Value Range Doppler Value Range EF Mod BP 64 % [ 54 - 74 ] REJI Vmax 2.24 cm2 [ 2.00 - 4.00 ] LV GLS -20.92 % AV Mean PG 6 mmHg LVIDd 2D 4.82 cm [ 3.80 - 5.20 ] AV Peak Nakul 1.74 m/s [ 1.00 - 1.70 ] LVIDs 2D 3.25 cm [ 2.20 - 3.50 ] AV Peak PG 12 mmHg LVPWd 2D 0.85 cm [ 0.60 - 0.90 ] AV VTI 33.69 cm IVSd 2D 0.89 cm [ 0.60 - 0.90 ] LVOT Diam 2.03 cm [ 1.70 - 2.10 ] AoR Diam 2D 2.89 cm [ 2.70 - 3.70 ] LVOT Peak Nakul 1.21 m/s [ 0.70 - 1.10 ] LA Volume 47.60 ml [ 22.00 - 52.00 ] LVOT VTI 26.31 cm LA Volume Index 27 cc/m2 [ 16 - 28 ] MV E Peak Nakul 0.98 m/s [ 0.60 - 1.30 ] RA Volume 40.80 ml MV A Peak Nakul 1.30 m/s [ 1.00 - 1.20 ] MV Decel Time 167 msec [ 104 - 258 ] PV Peak Nakul 1.11 m/s [ 0.40 - 0.80 ] TR Peak Nakul 3.22 m/s [ 1.00 - 2.80 ] TR Peak PG 42 mmHg RVSP 49.00 mmHg [ 10.00 - 36.00 ] RV S` 14.21 mmHg Lateral E` 0.12 m/s [ 0.10 - 0.15 ] Septal E` 0.08 m/s [ 0.08 - 0.15 ] E` 0.10 m/s E/E` 10 Tapse 2.17 cm [ 1.71 - 5.00 ] 2D/MM Value Range Doppler Value Range - FINDINGS: Interpretation Site: Exam was interpreted at home. Left Ventricle: Normal left ventricular wall thickness. Left ventricle cavity is upper limits of normal in size. Normal global left ventricular systolic function. Impaired diastolic relaxation Grade I. Ejection fraction is measured at 64 %. Right Ventricle: Mild enlargement of right ventricle. Mild right ventricular hypokinesis. Pacemaker noted. Left Atrium: The left atrium is normal in size. Right Atrium: The right atrium is normal in size. Linear artifact in right atrium suggestive of catheter(s), pacemaker lead(s), or ICD lead(s). Atrial Septum: Normal atrial septum. Mitral Valve: Normal appearance of the mitral valve. No mitral valve regurgitation is seen. Aortic Valve: Mild aortic stenosis. Peak Velocity of 1.70 m/s. Mean gradient of 6.0 mmHg. Valve area of 2.3 cm2. Aortic cusps appear mildly sclerotic. Tricuspid Valve: Normal appearance of the tricuspid valve. Moderate pulmonary hypertension based on right ventricular systolic pressure. Estimated peak RVSP is 49 mmHg. Mild tricuspid regurgitation. Pulmonic Valve: Normal appearance of the pulmonic valve. Pericardium: Normal pericardium with no significant pericardial effusion. Aorta: Normal aortic root. IVC: Dilated IVC with respiratory collapse consistent with elevated right atrial pressure (10-15 mmHg). CONCLUSIONS: Normal left ventricular wall thickness. Left ventricle cavity is upper limits of normal in size. Normal global left ventricular systolic function. Impaired diastolic relaxation Grade I. Ejection fraction is measured at 64 %. Mild enlargement of right ventricle. Mild right ventricular hypokinesis. Pacemaker noted RA/RV. Normal appearance of the mitral valve. No significant MR. Mild aortic valve sclerosis with mild stenosis. Peak Velocity of 1.70 m/s. Mean gradient of 6.0 mmHg. Valve area of 2.3 cm2. Moderate pulmonary hypertension, estimated RVSP 49 mmHg. Mild tricuspid regurgitation. Electronically Signed By: Bakari Hooper MD, [facility] 03/10/2025 11:15:31 PM CDT Procedure Note Bakari Hooper MD - 03/10/2025 [facility] Cardiology [address], [place] [address] [address] [facility] [address], [place] [address] P:[phone] P:[phone] Echocardiographic Report Patient Name: DIOR TRENT L : 1965 Study Date: 03/10/2025 2:03:08 PM Gender: F Collections Director: Kindra Duron (R)(CT), [facility] Location: [facility] Provider: BAKARI HOOPER Height(Cm): 165 BSA: 1.79 Weight(Kg): 69.9 Heart Rate: 75 BP: 156 / 78 Quality: Good Order Provider: BAKARI HOOPER PROCEDURES: Echocardiographic Report: Transthoracic echocardiogram with complete 2D, M-Mode, and color Dopplerexamination. With Strain Analysis. INDICATIONS: R06.09 Other forms of dyspnea and I48.0 Paroxysmal atrial fibrillation. MEASUREMENTS: 2D/MM Value Range Doppler ValueRange EF Mod BP 64 % [ 54 - 74 ] REJI Vmax 2.24cm2 [ 2.00 - 4.00 ] LV GLS -20.92 % AV Mean PG 6mmHg LVIDd 2D 4.82 cm [ 3.80 - 5.20 ] AV Peak Nakul 1.74m/s [ 1.00 - 1.70 ] LVIDs 2D 3.25 cm [ 2.20 - 3.50 ] AV Peak PG 12mmHg LVPWd 2D 0.85 cm [ 0.60 - 0.90 ] AV VTI 33.69cm IVSd 2D 0.89 cm [ 0.60 - 0.90 ] LVOT Diam 2.03cm [ 1.70 - 2.10 ] AoR Diam 2D 2.89 cm [ 2.70 - 3.70 ] LVOT Peak Nakul 1.21m/s [ 0.70 - 1.10 ] LA Volume 47.60 ml [ 22.00 - 52.00 ] LVOT VTI 26.31cm LA Volume Index 27 cc/m2 [ 16 - 28 ] MV E Peak Nakul 0.98m/s [ 0.60 - 1.30 ] RA Volume 40.80 ml MV A Peak Nakul 1.30m/s [ 1.00 - 1.20 ] MV Decel Time 167 msec [ 104 - 258 ] PV Peak Nakul 1.11 m/s [ 0.40 - 0.80 ] TR Peak Nakul 3.22 m/s [ 1.00 - 2.80 ] TR Peak PG 42 mmHg RVSP 49.00 mmHg [ 10.00 - 36.00 ] RV S` 14.21 mmHg Lateral E` 0.12 m/s [ 0.10 - 0.15 ] Septal E` 0.08 m/s [ 0.08 - 0.15 ] E` 0.10 m/s E/E` 10 Tapse 2.17 cm [ 1.71 - 5.00 ] 2D/MM Value Range Doppler ValueRange - FINDINGS: Interpretation Site: Exam was interpreted at home. Left Ventricle: Normal left ventricular wall thickness. Left ventricle cavity is upperlimits of normal in size. Normal global left ventricular systolic function. Impaireddiastolic relaxation Grade I. Ejection fraction is measured at 64 %. Right Ventricle: Mild enlargement of right ventricle. Mild right ventricular hypokinesis.Pacemaker noted. Left Atrium: The left atrium is normal in size. Right Atrium: The right atrium is normal in size. Linear artifact in right atriumsuggestive of catheter(s), pacemaker lead(s), or ICD lead(s). Atrial Septum: Normal atrial septum. Mitral Valve: Normal appearance of the mitral valve. No mitral valve regurgitation isseen. Aortic Valve: Mild aortic stenosis. Peak Velocity of 1.70 m/s. Mean gradient of 6.0mmHg. Valve area of 2.3 cm2. Aortic cusps appear mildly sclerotic. Tricuspid Valve: Normal appearance of the tricuspid valve. Moderate pulmonary hypertensionbased on right ventricular systolic pressure. Estimated peak RVSP is 49 mmHg. Mildtricuspid regurgitation. Pulmonic Valve: Normal appearance of the pulmonic valve. Pericardium: Normal pericardium with no significant pericardial effusion. Aorta: Normal aortic root. IVC: Dilated IVC with respiratory collapse consistent with elevated rightatrial pressure (10-15 mmHg). CONCLUSIONS: Normal left ventricular wall thickness. Left ventricle cavity is upperlimits of normal in size. Normal global left ventricular systolic function. Impaireddiastolic relaxation Grade I. Ejection fraction is measured at 64 %. Mild enlargement of right ventricle. Mild right ventricular hypokinesis.Pacemaker noted RA/RV. Normal appearance of the mitral valve. No significant MR. Mild aortic valve sclerosis with mild stenosis. Peak Velocity of 1.70 m/s.Mean gradient of 6.0 mmHg. Valve area of 2.3 cm2. Moderate pulmonary hypertension, estimated RVSP 49 mmHg. Mild tricuspidregurgitation. Electronically Signed By: Bakari Hooper MD, [facility] 03/10/2025 11:15:31 PM CDT Bakari Hooper MD CV ECHO PROCEDURES Final Result from Last 3 Months Insurance UHC MEDICARE ADVANTAGE UHC MEDICARE ADVANTAGE Advance Directives For more information, please contact: [phone] * Full Code (Latest Code Status on File) Date Activated Date Inactivated Comments 12/23/2020 11:51 AM 12/28/2020 6:18 PM * Full Code Date Activated Date Inactivated Comments 05/02/2020 6:20 PM 05/04/2020 6:16 PM Care Teams Telecommunications Engineer Relationship Specialty Start Date End Date Elton Chowdary MD PCP - General 12/07/16 Moody Ann MD [address] [facility] [address] [place] [address] Consulting Physician Gastroenterology 05/04/20 Zacarias Ferrell MD [address] [facility] [address] [place] [address] Consulting Physician Surgical Critical Care 12/28/20
--- OUTSIDE RECORDS SUMMARY | 2025-05-12 19:18 | XMS_ITS | Encounter Summary ---
Author Organization [facility] Address [address] [place] [address] Care Team Providers Care Ent Surgeon Name Role Phone Elton Chowdary MD Primary Care Prov ider Moody Ann MD Unavailable [phone] Zacarias Ferrell MD Unavailable [phone] Encounter Details Date Type Department Care Team (Late st Contact Info) Description 04/13/2025 Documentation [facility] Case Management [address] [place] [address] Danika Feng RN Social History Tobacco Use Types Packs/Day Years Used Date Smoking Tobacco: Former Cigarettes 0.5 25 Q uit: 03/31/2023 Smokeless Tobacco: Never Comments:Smoking History Pac ks/day: 0.5 Packs Alcohol Use Standard Drinks/Week Comments Yes 0 (1 standard drink = 0.6 oz pur e alcohol) socially [facility] Utilities Answer Date Recorded In the past 12 months has th e electric, gas, oil, or water company threatened to shut off services in your home? No 04/13/2025 Social Connection and Isolation Panel Answer Date Recorded Frequency of Communication with Friends and Fami ly Not on file 04/13/2025 Frequency of Social Gatherings with Friends and Family Not on file 04/13/2025 Attends J[employer] Services Not on file 04/13 Active Member [...] any time in the past 12 m [facility], were you homeless or living in a intermediate (including now)? No 04/13/2025 Personal Safety Answer Date Recorded Have you ever been in or are you currently in a harmful physical or emotional relationship or is someone making you feel afraid or unsafe? Denies 04/12/2025 Comments No Sex and Gender Information Value Date Recorded Sex Assigned at Not on file Legal Sex Female 2:07 PM TELEVISION SPECIALIST Gender Identity Female 05/05/2025 4:57 PM CDT Sexual Orientation Not on file documented as of this encounter Miscellaneous Notes * Plan of Care - Danika Feng RN - 04/13/2025 12:53 PM CDT 04/13/25 1252 Discharge Summary Discharge Disposition Private residence Recommended Discharge Level of Care Private residence Actual Discharge Level of Care Private residence Does Actual Level of Care Match Care Team Recommendation? Yes Post Acute Care Plan Post Acute Care Needs Identified No Discharge Additional Assistance Does the patient need discharge transport arranged? Yes Type of Transportation Private vehicle Private Vehicle Information Family Has discharge transport been arranged? Yes Patient d/c home w/no needs. Sister to transport. Code 01 * Initial Assessments - Danika Feng RN - 04/13/2025 12:46 PM CDT CM Initial Assessment Interview Note Information Obtained From: Patient (04/13/25 1112) Admission Source: Patient admitted from home for scheduled surgeryPERC SIA Closure implant for Afib. Completed 04/12/25. Hx: hypertension, paroxysmal atrial fibrillation/ sick sinus syndrome s/p dual- chamber pacemaker placement on 07/15/2023; dyslipidemia, anxiety/depression, history of heavy tobacco abuse. Impression: AOx4, appropriate, cooperative. Patient resides alone in a ground floor apartment in [place], [place]. Independent of ADLs/IADLs, ambulation. DME: heart monitor for [employer]. Patient drives SUV. Patient is disabled on SSDI. Patient reports will d/c home w/no needs. Sister will transport home. Plan Includes: JOE: 04/13/2025 Discharge plan: home w/no needs, sister transport Barriers: labs Additional Information: Cardiology following Primary Source of Transportation: Does the patient need discharge transport arranged?: Yes Type of Transportation: Private vehicle Has discharge transport been arranged?: Yes (04/13/25 1112) Health Insurance Coverage: [facility] Medicare Prescription Coverage: yes Pharmacy: [id number] [place], [place] - [address] [address] [facility] [address] Primary Care Provider: Elton Chowdary MD Prior to Admission: Functional Status: Independent with ADLs Primary Caregiver: Self Support System: Family members When was the last time you have seen your PCP?: Within last 6 months Outpatient Services: No Durable Medical Equipment: None Living Arrangements: Alone Type of Residence: Apartment Medication management: Independent (04/13/251111) SDOH: Transportation: In the past 12 months, has lack of transportation kept you from medical appointments or from getting medications?: No In the past 12 months, has lack of transportation kept you from meetings, work, or from getting things needed for daily living?: No (04/13/251247) Financial Resource: How hard is it for you to pay for the very basics like food, housing, medical care, and heating?: Not hard at all (04/13/251247) Housing: In the last 12 months, was there a time when you were not able to pay the mortgage or rent on time?: No In the past 12 months, how many times have you moved where you were living?: 0 At any time in the past 12 months, were you homeless or living in a intermediate (including now)?: No (04/13/251247) Utilities: No, (04/13/251247) Social Connections: Are you , , , , never , or living with a partner?: Never (04/13/251247) Food Insecurity: Within the past 12 months, you worried that your food would run out before you got the money to buymore.: Never true Within the past 12 months, the food you bought just didn't last and you didn't have money to get more.: Never true (04/13/251247) Behavioral Health Services: Anticipated Level of Care: Anticipated discharge level of care: Private residence Pt/Family agrees with Anticipated Level of Care: Yes (04/13/251111) Patient expects to be Discharged to: Private residence, (04/13/251111) Patient's Identified Problem/Goal Problem: Ensure acute medical needs are met and that patient has a safe discharge plan. Goal: Secure a discharge plan that patient/family are agreeable with and ensure patient has continuum of care. Case management will follow for discharge planning and send referrals as needed. Danika Feng RN documented in this encounter Plan of Treatment Not on file documented as of this encounter Visit Diagnoses Not on filedocumented in this encounter Care Teams Ent Surgeon Relationship Specialty Start Date End Date Elton Chowdary MD PCP - General 12/07/16 Moody Ann MD [address] [address] [place] [address] Consulting Physician Gastroenterology 05/04/20 Zacarias Ferrell MD [address] [facility] [address] [place] [address] Consulting Physician Surgical Critical Care 12/28/20 documented as of this encounter
--- OUTSIDE RECORDS SUMMARY | 2025-05-12 19:18 | XMS_ITS | Clinical Summary ---
Author Organization [facility] [employer] Address [address] [place] [address] Care Team Providers Care Ham Rolling Machine Operator Name Role Phone Elton Chowdary MD Primary Care Provider + Source Comments [facility] [employer],non-owned Affiliates and Associated Physician Practices is amultiple site organization consisting of ambulatory clinics and hospital sitesin [place], [place], [place] and [place]. This disclosure is being madepursuant to the Care Everywhere program and may not contain all information available regarding this patient. Last updated 18.[facility] [employer] Social History Tobacco Use Types Packs/Day Years Used Date Smoking Tobacco: Never Assessed Comments Unknown Sex and Gender Information Value Date Recorded Sex Assigned at Not on file Legal Sex Female 2:21 PM CDT Gender Identity Not on file [...] SCREENING 1965 LIPID TESTING 1965 MAMMOGRAM 1965 HIV SCREENING 1980 HEPATITIS C SCREENING 05/07/1983 DTAP/TDAP/TD VACCINES (1 - Tdap) 1984 HEPATITIS B VACCINE (1 of 3 - 19+ 3-dose series) 1984 PAP SMEAR 1986 PNEUMOCOCCAL VACCINE 50+ (1 of 1 - PCV) 2015 ZOSTER VACCINE (1 of 2) 2015 COVID-19 VACCINE ( - 2023-2 5 season) 2024 DEPRESSION SCREENING 09/09/2024 MEDICARE AWV CALENDAR YEAR 2024 INFLUENZA VACCINE (#1) 2025 HIB VACCINE Aged Out No longer eligi ble based on patient's age to complete this topic HPV VACCINE Aged Out No longer eligi ble based on patient's age to complete this topic MENINGOCOCCAL (Group B) VACC INE SHARED DECISION-MAKING Aged Out No longer eligibl e based on patient's age to complete this topic MENINGOCOCCAL GROUPS A/C/Y/W VACCINE Aged Out No longer eligible b ased on patient's age to complete this topic Insurance SELF PAY NO INSURANCE Member Subscriber Plan / Payer (Ef fective for All Dates) Name:Joshua Robert Member ID:Not on file Relation to Subscriber:Not on file Name:JOSHUA ROBERT Subscriber ID:Not on file (Home) Address: [address] [place] [address] Payer ID:Not on file Group ID:Not on file Type:Self Pay Address: [facility] MANAGED MEDICARE ADV Care Teams Ham Rolling Machine Operator Relationship Specialty Start Date End Date Elton Chowdary MD [address] [place] [id number] PCP - General 01/27/18
--- OUTSIDE RECORDS SUMMARY | 2025-05-12 19:18 | XMS_ITS | Patient Health Record ---
Author Organization [facility] Address [address] [facility] [address] [place] [address] Care Team Providers Care Drawer In Name Role Phone Epi BAILEY, Elton Primary Care Provider Tracy farrukh BLANK MD, ALLAN Unavailable Gladys Tapia PA-C Unavailable Unavailable Allergies Allergen (clinical drug ingredient) Drug/Non Drug Allergy documented on EMR Reaction Allergy Type Onset Date Status PredniSONE Unknown Drug Allergy Active Sulfamethoxazole Unknown Drug Allergy Active Reason For Referral No Information Medications Medication SIG (Take, Route, Fr equency, Duration) Notes Start Date End Date Status Sertraline HCl Activ e Percocet Active Ativan Active Prevacid Active Atorvastatin Calcium Active Atenolol Active Aspirin 81 MG 1 tablet Orally Once a day Active amLODIPine Besylate Active Otezla Active Inflectra Active Vitamin D Active Vitamin B12 Active Topamax Active Social History Tobacco Use: Social History Observation Description Date Details (start date - stop date) Current Smoker NA - NA Tobacco Use/Smoking Question Answer Notes Are you a current smoker How often do you smoke cigarettes? every day How many cigarettes a day do you smoke? 5 or les s Problems Problem Type SNOMED Code ICD Code Onset Dates Problem Status W/U Status Risk Notes Problem Crohn's disease (25819515) Crohn's disease, unspecified, without complications (K50.90) Active confirmed Problem Spasm of sphincter of Oddi (87105348) Spasm of sphincter of Oddi (K83.4) Active confirmed Plan Of Treatment Pending Test Test Name Order Date Endoscopic Retrograde Cholangiopancreato graphy (ERCP) 04/25/2020 Endoscopic Retrograde Cholangiopancreato graphy (ERCP) 12/09/2020 Insurance Providers Payer Name Payer Address Payer Phone Subscriber Number Group Number Insured Name Patient Relationship to Insured Coverage Start Date Coverage End Date [employer] Medicare PPO [address] [address] [place], [place] [id number] Cover, Dior Self - patient is the insured Medical (General) History Medical History History ICD Code Subtotal colectomy [...] pain stim and spinal cord stimulator EGD/EUS [facility] 02/2016 memb ranous esophagitis in distal esophagus, normal pancreas. Path- mild chronic inflammation ERCP 09/16/15 Marissa zengy stenosis, moderate recurrence, s/p extension of previous biliary/pancreatic sphincterotomies. PD stent removed 09/19/15. BD stent downsized and remov ed 11/23/15 at which time noted stent had migrated out. ERCP with Dr. Blank 10/14 with papillary stenosis s/p biliary/pancreatic sphincterotomies and short term stenting. Stents removed 10/16/13. EUS 08/2013 Normal pancreas. EUS 2006 an d 2007 Normal pancreas Pouchoscopy [facility] at [facility] 01/09/19 inflammation in the pre pouch ileum 2/2 Crohn???s disease with ileitis. Bx. Inflammation in ileoanal pouch 2/2 pouchitis. Bx. Path- superficial villous mu cosa with no underlying lamina propria. Mild active pouchitis Flex sig- Klucka 2020- no report ERCP 05/02/2020 Marissa hood stenosis s/p biliary/pancreatic sphincterotomies. Short term stenting. Stents removed 05/04/2020.
[2025-05-12 19:33] LABS: Hematocrit 23.5 % (37.0-47.0); Immature Granulocyte Percent A 0.4 % (0-0.5); Lymphocytes Absolute Auto 1.03 K/mm3 (0.9-3.2); Mean Corpuscular HGB Conc 29.4 g/dl (32-36); Mean Corpuscular Hemoglobin 23.3 pg (26-34); Mean Corpuscular Volume 79.4 fl (80-100); Nucleated Red Blood Cells Absolute Auto 0.000 K/mm3 (0.0-0.012); Nucleated Red Blood Cells Perc 0.0 % (0.0-0.2); Platelet Count Result 228 k/mm3 (150-375); Red Blood Count 2.96 M/mm3 (4.2-5.4); White Blood Count 7.1 K/mm3 (4.5-10.0)
[2025-05-12 19:42] LABS: Alanine Aminotransferase 13 U/L (6-35); Albumin Level 4.2 g/dL (3.5-5.1); Alkaline Phosphatase 141 U/L (38-126); Anion Gap 12 mmol/L (4-12); Aspartate Amino Transferase 53 U/L (14-36); Bilirubin,Total 0.8 mg/dL (0.2-1.3); Blood Urea Nitrogen 42 mg/dL (7-17); Calcium 9.3 mg/dL (8.4-10.2); Carbon Dioxide 17 mmol/L (22-30); Chloride 105 mmol/L (98-107); Estimated CRCL calculation 27 ml/min; Estimated Glomerular Filt Rate 28; Glucose 90 mg/dL (65-110); Potassium 4.6 mmol/L (3.4-5.0); Sodium 134 mmol/L (137-145); Total Protein 7.7 g/dL (6.3-8.2)
[2025-05-12 19:44] LABS: INR 1.1; Prothrombin Time 13.8 Seconds (11.1-14.7)
[2025-05-12 19:45] LABS: Partial Thromboplastin Time 24.8 Seconds (22.3-36.8)
--- NOTE | 2025-05-12 19:51 | ED.SYNCOPE ---
HPI - Syncope General Chief Complaint: Syncope Stated Complaint: syncopal event Time Seen by Provider: 05/12/25 19:00 History of Present Illness HPI narrative: This is a 60-year-old female with history of GERD, CKD, chronicity, hyperlipidemia, sick sinus syndrome status post pacemaker placement and recent cardiac procedure now on Plavix who presents to the ED for a fall. Patient states that she began having nosebleed last night and got up to go to the bathroom to try to control it when she became lightheaded and passed out. She struck her right head and right shoulder. She has continued to have worsening weakness and fatigue and since then. She reports right-sided headache. Denies changes in vision. Related Data Home Medications ?Medication ?Instructions ?Recorded ?Confirmed ?Last Taken ?Type apremilast 30 mg tablet (Otezla) 30 mg PO BID 04/12/20 03/08/25 10/30/24 History aspirin 325 mg tablet 325 mg PO DAILY 04/12/20 03/08/25 10/22/24 History vitamin B complex (B 1 tablet PO WEEKLY 02/20/22 03/08/25 1 Day Ago History Complex-Vitamin B12 tablet) ~06/25/24 amlodipine 5 mg tablet 5 mg PO DAILY 01/21/25 03/08/25 Unknown History Allergies Allergy/AdvReac Type Severity Reaction Status Date / Time Sulfa (Sulfonamide Allergy Severe Swelling Verified 03/05/25 15:29 Antibiotics) of Lip/Tongue/Throat prednisone AdvReac Unknown NOT TO Verified 03/05/25 15:29 TAKE R/T MEDS triamcinolone (From Kenalog) AdvReac Unknown Unknown Verified 03/05/25 15:29 Review of Systems Review of Systems: Gen.: Denies fevers or chills Eyes: Denies eye pain or visual change ENT: Denies congestion Respiratory: Denies shortness of breath or cough CV: Denies chest pain or palpitations GI: Denies abdominal pain nausea, emesis or diarrhea denies burning, urgency, frequency or hematuria Musculoskeletal: Denies back pain or muscle pain Neuro: Denies numbness, tingling, weakness or focal weakness Skin: Denies rash Except as documented, all other systems reviewed and negative PMFSH Past Medical History Medical History RSV infection (09/2024) Spinal cord stimulator dysfunction Spinal cord stimulator status COVID-19 Osteoporosis HLD (hyperlipidemia) DVT (deep venous thrombosis) 2007 Anxiety Depression Thyroid nodule DDD (degenerative disc disease) Cervical cancer S/p hysterectomy 1996 GERD (gastroesophageal reflux disease) Peptic ulcer Pacemaker - 2012 Peripheral neuropathy CVA (cerebrovascular accident) 2017, no residual deficits Seasonal allergies Surgical History Surgical History History of spinal fusion 2000 & 2001. L5-S1 History of carpal tunnel release H/O cervical spine surgery 2002 History of orthopedic surgery bilateral feet History of removal of ovarian cyst left 1997 History of hysterectomy H/O inguinal hernia repair Hx of cholecystectomy (1999) H/O resection of large bowel 1999 Hx of tonsillectomy Family History Family History Grandparent Carcinoma of colon Father Diabetes mellitus Hypertension Lymphoma Mother Hypertension Hypercholesterolemia Grandparent Family history of lung cancer Social History Social History Social History: Ms. Robert lives at home with her sister, Radha, whom she designates as her surrogate decision maker. She would like to be a full code. She is and has step-children. She has been on disability for about 20 years. Smoking packs per day: 1 Smoking cigarettes per day: 20.0 Years smoked: 40 Smoking pack-years: 40.00 Smoking status: Former smoker (Quit 2 years ago) Tobacco type: cigarettes Second hand tobacco smoke exposure: Yes Smoking end date: 07/28/23 Additional smoking assessment comments: SMOKES OCCASIONALLY 1 CIGARETTE A DAY. Alcohol intake: never Drinks per week: 15 Alcohol use details: social Substance use: never Substance use type: marijuana Other substance usage details: She has infrequently used edible THC for pain management Last use: 06/23/2022 Do You Feel Safe in your Home?: Yes Lack of Transportation: No Lack of Food: Never True Current Housing: I Have Housing Concerned About Future Housing: No Difficulty Paying Gas/Electric Bills: No Difficulty Paying for Meds: No Currently Unemployed: No Education: High School Diploma/GED Difficulty w/ Childcare or Family Care: No Living arrangements: with family Additional living arrangements comments: LIVES WITH SIGNIFICANT OTHER Additional occupation/education comments: Disability Gender identity (if verbalized by the patient): Female Spiritual care concerns: No Agree to blood products: Yes Exam Narrative: APPEARANCE: No acute distress, nontoxic, resting in bed EYES: EOMI , PERRL HEENT: Significant ecchymosis to the right side of the face and hematoma to the right forehead. No nasal septal hematoma. Unable to visualize right TM due to cerumen impaction. No Mckeon sign, raccoon eyes. dried blood to the bilateral nares. RESPIRATORY: No respiratory distress Clear to auscultation bilaterally with no rhonchi wheezing or rales. CARDIOVASCULAR: Regular rate and rhythm without murmurs rubs or gallops. ABDOMINAL: Soft, nontender, nondistended, no rebound or guarding MUSCULOSKELETAl: tenderness over the right posterior aspect of the proximal humerus into the midshaft right humerus. Neurovascularly intact distally. No C/ T/L-spine tenderness to palpation, step-offs, deformities NEURO: Awake and alert. Following commands, speech normal, no focal deficits SKIN:: Warm, dry. No rashes lesions or abrasions PSYCHIATRIC: Normal affect/mood, Course Vital Signs Vital signs: Vital Signs Temperature 97.6 F 05/12/25 18:17 Pulse Rate 98 05/12/25 18:17 Respiratory Rate 16 05/12/25 18:17 Blood Pressure 115/87 05/12/25 18:17 Pulse Oximetry 97 05/12/25 18:17 Temperature 97.5 F L 05/12/25 20:24 Pulse Rate 78 05/12/25 20:31 Respiratory Rate 12 05/12/25 20:31 Blood Pressure 133/65 05/12/25 20:31 Pulse Oximetry 100 05/12/25 20:31 Oxygen Delivery Room Air 05/12/25 19:25 MDM - Syncope MDM Narrative Medical decision making narrative: 60-year-old female who presents to the ED for Epistaxis and syncope with fall. On initial evaluation, patient was in no acute distress, afebrile and hemodynamically stable. She had multiple areas of ecchymosis or hematomas to her right face. Neurologically intact. CT head did reveal a left-sided frontal subarachnoid hemorrhage As well as a likely right maxillary sinus fracture. She was also found to be anemic to 6.9. Type and screen was obtained. Patient will require transfer for further trauma evaluation and neurosurgical evaluation. Spoke with JEREMY Hurtado, who will accept the patient in the ED to ED transfer. Patient was transferred in otherwise stable condition. Medical Records Attestation: I reviewed the patient's medical records. Lab Data Attestation: I reviewed the patient's lab results. 05/12/25 19:24 05/12/25 19:24 Labs: Lab Results 05/12/25 05/12/25 05/12/25 Range/Units 19:24 19:24 20:11 WBC 7.1 (4.5-10.0) K/mm3 RBC 2.96 L (4.2-5.4) M/mm3 Hgb 6.9 L* D (12.0-15.0) g/dL Hct 23.5 L (37.0-47.0) % MCV 79.4 L (80-100) fl MCH 23.3 L (26-34) pg MCHC 29.4 L (32-36) g/dl RDW 19.5 H (11.5-14.5) % Plt Count 228 (150-375) k/mm3 MPV 9.7 (7.4-10.4) fl Immature Gran % (Auto) 0.4 (0-0.5) % Neut % (Auto) 74.7 H (45.5-73.1) % Lymph % (Auto) 14.5 L (18.3-44.2) % Early % (Auto) 9.2 H (2.6-8.5) % Eos % (Auto) 0.6 (0-4.4) % Baso % (Auto) 0.6 (0.2-1.2) % Lymph # (Auto) 1.03 (0.9-3.2) K/mm3 Early # (Auto) 0.7 H (0.1-0.6) K/mm3 Eos # (Auto) 0.0 (0-0.3) K/mm3 Baso # (Auto) 0.0 (0.0-0.1) K/mm3 Abs Immat Gran (auto) 0.03 (0.00-0.031) K/mm3 Absolute Neuts (auto) 5.3 (1.3-6.7) K/mm3 Absolute Nucleated RBC 0.000 (0.0-0.012) K/mm3 Band Neutrophils % 0 (0-6) % Nucleated RBC % 0.0 (0.0-0.2) % Platelet Estimate Adequate (Adequate) Hypochromasia 1+ Anisocytosis 3+ Schistocytes None seen PT 13.8 (11.1-14.7) Seconds INR 1.1 APTT 24.8 Cancelled (22.3-36.8) Seconds Sodium 134 L (137-145) mmol/L Potassium 4.6 (3.4-5.0) mmol/L Chloride 105 (98-107) mmol/L Carbon Dioxide 17 L (22-30) mmol/L Anion Gap 12 (4-12) mmol/L BUN 42 H D (7-17) mg/dL Creatinine 1.82 H (0.7-1.0) mg/dL Estim Creat Clear Calc 27 ml/min Estimated GFR 28 L (59 - ) Glucose 90 (65-110) mg/dL Calcium 9.3 (8.4-10.2) mg/dL Total Bilirubin 0.8 (0.2-1.3) mg/dL AST 53 H (14-36) U/L ALT 13 (6-35) U/L Alkaline Phosphatase 141 H (38-126) U/L Troponin I < 0.012 (0.000-0.034) ng/mL Total Protein 7.7 (6.3-8.2) g/dL Albumin 4.2 (3.5-5.1) g/dL Blood Type A Positive Antibody Screen Negative Crossmatch See Detail Imaging Data Radiologist's impression: Impressions Head CT 05/12/25 19:44 IMPRESSION: 1. Small focal left frontal subarachnoid hemorrhage. 2: Probable hemorrhage involving the nasopharynx, right ethmoid air cells and maxillary sinus. Probable fracture medial wall right maxillary sinus. Head/Cervical Spine/Facial Bones CT 05/12/25 19:50 IMPRESSION: 1. Prominent soft tissue involving the right nasopharynx, ethmoid air cells and maxillary sinus with associated soft tissue gas, likely represent hemorrhage. Probable fracture medial wall right maxillary sinus. 2: No acute abnormality of the cervical spine Discharge Plan Discharge Clinical Impression: Subarachnoid hemorrhage, Epistaxis Closed fracture of maxillary sinus Qualifiers: Encounter type: initial encounter Laterality: right Qualified Code(s): S02.40CA - Maxillary fracture, right side, initial encounter for closed fracture Fall Qualifiers: Encounter type: initial encounter Qualified Code(s): W19.XXXA - Unspecified fall, initial encounter Syncope Qualifiers: Syncope type: unspecified Qualified Code(s): R55 - Syncope and collapse Anemia Qualifiers: Anemia type: unspecified type Qualified Code(s): D64.9 - Anemia, unspecified Patient Disposition: Acute Care Hospital Condition: Serious Patient Language: Bangladeshi Prescriptions: No Action budesonide-formoterol 160-4.5 mcg/actuation HFA aerosol inhaler 2 puff inhalation Q12H Qty: 30.6 3RF vitamin B complex [B Complex-Vitamin B12] Tablet 1 tablet PO WEEKLY Rx Instructions: take weekly on albuterol sulfate 90 mcg/actuation HFA aerosol inhaler 2 inh inhalation Q4H PRN (Reason: shortness of breath or wheezing) Qty: 25.5 3RF amlodipine 5 mg tablet 5 mg PO DAILY aspirin 325 mg Tablet 325 mg PO DAILY Otezla 30 mg Tablet 30 mg PO BID ferrous sulfate 325 mg (65 mg iron) tablet See Rx Instructions .ROUTE .COMPLEX Qty: 90 1RF Dose Instruction: TAKE 1 TABLET BY MOUTH EVERY DAY Rx Instructions: TAKE 1 TABLET BY MOUTH EVERY DAY atorvastatin 40 mg tablet 40 mg PO QHS Qty: 90 3RF ergocalciferol (vitamin D2) 1,250 mcg (50,000 unit) capsule See Rx Instructions .ROUTE .COMPLEX Qty: 13 1RF Dose Instruction: TAKE 1 CAPSULE BY MOUTH ONCE WEEKLY ON WEDNESDAYS Rx Instructions: TAKE 1 CAPSULE BY MOUTH ONCE WEEKLY ON WEDNESDAYS omeprazole 40 mg capsule,delayed release(DR/EC) 40 mg PO BID Qty: 180 2RF atenolol 50 mg tablet See Rx Instructions .ROUTE .COMPLEX Qty: 100 3RF Dose Instruction: TAKE 1 TABLET BY MOUTH AT BEDTIME Rx Instructions: TAKE 1 TABLET BY MOUTH AT BEDTIME lorazepam 2 mg tablet 2 mg PO TID PRN (Reason: anxiety) Qty: 90 5RF sertraline 100 mg tablet 100 mg PO QAM Qty: 90 3RF Rx Instructions: TAKE 1 TABLET EVERY DAY oxycodone-acetaminophen 10-325 mg tablet 1 tablet PO Q4H PRN (Reason: Pain) Qty: 180 0RF Follow-up/Referrals: Elton Chowdary MD [Primary Care Provider, Family Practice]
[2025-05-12 19:53] LABS: Hemoglobin 6.9 g/dL (12.0-15.0)
[2025-05-12 19:56] LABS: Band Neutrophils Percent 0 % (0-6); Schistocytes None Seen; Troponin I < 0.012 ng/mL (0.000-0.034)
[2025-05-12 19:57] LABS: Anisocytosis 3+; Hypochromasia 1+
--- NOTE | 2025-05-12 20:23 | PC.NURSE ---
PT aware and offered that she should take EMS and/or fluight to [facility], pt agrees.
== END 2025-05-12 20:47 | disposition short-term general hospital (02) ==
PROVIDERS: Emergency Provider Student in an Organized Health Care Education/Training Program; PCP Family Medicine Adolescent Medicine
DX: S06.6X0A Traumatic subarachnoid hemorrhage without loss of consciousness, initial encounter (principal); S02.40CA Maxillary fracture, right side, initial encounter for closed fracture; R55 Syncope and collapse; R04.0 Epistaxis; D64.9 Anemia, unspecified; I49.5 Sick sinus syndrome; N18.9 Chronic kidney disease, unspecified; E78.5 Hyperlipidemia, unspecified; G62.9 Polyneuropathy, unspecified; M81.0 Age-related osteoporosis without current pathological fracture; K21.9 Gastro-esophageal reflux disease without esophagitis; F41.9 Anxiety disorder, unspecified; F32.A Depression, unspecified; Z98.1 Arthrodesis status; Z95.0 Presence of cardiac pacemaker; Z86.718 Personal history of other venous thrombosis and embolism; Z85.41 Personal history of malignant neoplasm of cervix uteri; Z86.16 Personal history of COVID-19; Z87.11 Personal history of peptic ulcer disease; Z87.891 Personal history of nicotine dependence; Z90.710 Acquired absence of both cervix and uterus; Z90.49 Acquired absence of other specified parts of digestive tract; Z79.02 Long term (current) use of antithrombotics/antiplatelets; Z79.82 Long term (current) use of aspirin; Z79.899 Other long term (current) drug therapy; W18.39XA Other fall on same level, initial encounter
CPT/HCPCS: 36415; 70450; 70486; 72125; 80053; 84484; 85025; 85610; 85730; 86850; 86900; 86901; 86923; 93005; 96360; 99285

== ENCOUNTER 2025-06-28 14:04 | Outpatient (CLI) | payer MEDICARE, SELFPAY ==
--- NOTE | ~2025-06-28 | CT_ITS ---
CT HEAD NON-CONTRAST Clinical History: Recheck left frontal subarachnoid hemorrhage Comparison: 05/12/2025 Technique: Unenhanced axial images skull base to vertex Coronal, sagittal reformats CT images acquired with automatic exposure control for dose reduction DLP: 681 mGy-cm Findings: White matter changes, typically chronic microvascular ischemic disease. Basal ganglia lacunae. Sulci, ventricles: Unremarkable. No intracerebral hemorrhage. No evidence acute territorial infarct. No mass effect, midline shift. Bony calvarium intact. Visualized paranasal sinuses: Right maxillary retention cysts or fluid. Mastoid air cells: Clear. IMPRESSION: 1. No acute intracranial findings. 2. Previous left frontal subarachnoid hemorrhage resolved. Reviewed, dictated and finalized at location R.
== END 2025-06-28 14:05 | disposition home or self-care (01) ==
PROVIDERS: PCP Family Medicine Adolescent Medicine; Visit Provider Family Medicine Adolescent Medicine
DX: S06.6XAA Traumatic subarachnoid hemorrhage with loss of consciousness status unknown, initial encounter (principal)
CPT/HCPCS: 70450

== ENCOUNTER 2025-08-17 00:29 | Day surgery (SDC) | payer MEDICARE, SELFPAY ==
[2025-08-12 14:35] VITALS: BMI 25.7
--- OUTSIDE RECORDS SUMMARY | 2025-08-17 00:32 | XMS_ITS | Encounter Summary ---
Author Organization [facility] Address [address] [place] [address] Phone Care Team Providers Care Dampproofer Name Role Phone Elton Chowdary MD Primary Care Provider + Travis Mcgill DO Unavailable [phone] Jj Floyd MD Unavailable [phone] Reason for Visit * Reason Comments Medication Refill Encounter Details Date Type Department Care Team (Late st Contact Info) Description 04/11/2022 Refill [facility] - Gastroenterology - [place] [address] [place] [id number] Gladys Tapia Lisa, PAC [address] [place] [address] Medication Refill Social History Tobacco Use Types [...] on filedocumented in this encounter Care Teams Dampproofer Relationship Specialty Start Date End Date Elton Chowdary MD PCP - General Family Medicine 10/15/16 Travis Mcgill DO Gastroenterology 04/30/17 Jj Floyd MD [address] [place] [address] Consulting Physician Gastroenterology 11/30/21 documented as of this encounter
--- OUTSIDE RECORDS SUMMARY | 2025-08-17 00:32 | XMS_ITS | Encounter Summary ---
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 Gender Identity Female 05/05/2025 4:57 PM CDT Sexual Orientation Not on file documented as of this encounter Plan of Treatment Not on file documented as of this encounter Procedures Procedure Name Priority Date/Time Associated Diagnosis Comments VASCULAR LABORATORY REPORT 08/11/2017 1:14 PM DRY PLACER MACHINE OPERATOR VASCULAR LABORATORY REPORT 08/06/2017 9:27 PM DRY PLACER MACHINE OPERATOR documented in this encounter Results * VASCULAR LABORATORY REPORT (08/11/2017 1:14 PM DRY PLACER MACHINE OPERATOR) Anatomical Region Laterality Modality Ultrasound us Provider Scanning CV VASCULAR PROCEDURES Final R esult * VASCULAR LABORATORY REPORT (08/06/2017 9:27 PM DRY PLACER MACHINE OPERATOR) Anatomical Region Laterality Modality Ultrasound us Provider Scanning CV VASCULAR PROCEDURES Final R esult documented in this encounter Visit Diagnoses Not on filedocumented in this encounter Additional Health Concerns Infection Onset Date Last Indicated Resolved Time 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 auris Comment:44icu Negative 05/13/25 05/13/2025 05/13/2025 05/14/2025 8:40 AM C DT documented as of this encounter Care Teams Services Executive Relationship Specialty Start Date End Date Elton Chowdary MD PCP - General 12/07/16 Moody Ann MD [address] [facility] [address] [place] [address] Consulting Physician Gastroenterology 05/04/20 Zacarias Ferrell MD [address] [facility] [address] [place] [address] Consulting Physician Surgical Critical Care 12/28/20 documented as of this encounter
--- OUTSIDE RECORDS SUMMARY | 2025-08-17 00:32 | XMS_ITS | Encounter Summary ---
Author Organization [facility] Address [address] [place] [address] Care Team Providers Care Herpetologist Name Role Phone Elton Chowdary MD Primary Care Prov ider Elton Chowdary MD Primary Care Prov ider Elton Chowdary MD Primary Care Prov ider Moody Ann MD Unavailable [phone] Zacarias Ferrell MD Unavailable [phone] Encounter Details Date Type Department Care Team (Late st Contact Info) Description 11/29/2016 Orders Only [facility] [address] [place] [id number] Scanning, Provider Social History Tobacco Use Types Packs/Day Years Used Date Smoking Tobacco: Every Day Comments:Smoking History Pac ks/day: 0.5 Packs Alcohol Use Standard Drinks/Week Comments Yes 0 (1 standard drink = 0.6 oz pur e alcohol) Comments Unknown Sex and Gender Information Value Date Recorded Sex Assigned at Not on file 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 aurstephanie Comment:44icu Negative 05/13/25 05/13/2025 05/13/2025 05/14/2025 8:40 AM C DT documented as of this encounter Care Teams Herpetologist Relationship Specialty Start Date End Date Elton Chowdary MD PCP - General 12/07/16 Elton Chowdary MD PCP - General 11/30/16 12/06/16 Elton Chowdary MD PCP - General 07/20/15 11/29/16 Moody Ann MD [address] [facility] [address] [place] [address] Consulting Physician Gastroenterology 05/04/20 Zacarias Ferrell MD [address] [address] [place] [address] Consulting Physician Surgical Critical Care 12/28/20 documented as of this encounter
--- OUTSIDE RECORDS SUMMARY | 2025-08-17 00:32 | XMS_ITS | Encounter Summary ---
Author Organization [facility] Healthcare Address [address] [place] [address] Care Team Providers Care Sole Skiver Name Role Phone Elton Chowdary MD Primary Care Prov ider Moody Ann MD Unavailable [phone] Zacarias Ferrell MD Unavailable [phone] Encounter Details Date Type Department Care Team (Late st Contact Info) Description 04/13/2025 Documentation [facility] Case Management [id number] [place] [address] Danika Feng RN Social History Tobacco Use Types Packs/Day Years Used Date Smoking Tobacco: Former Cigarettes 0.5 25 Q uit: 03/31/2023 Smokeless Tobacco: Never Comments:Smoking History Pac ks/day: 0.5 Packs Alcohol Use Standard Drinks/Week Comments Yes 0 (1 standard drink = 0.6 oz pur e alcohol) socially [facility] Utilities Answer Date Recorded In the past 12 months has th e electric, gas, oil, or water company threatened to shut off services in your home? No 04/13/2025 Social Connection and Isolation Panel Answer Date Recorded Frequency of Communication with Friends and Fami ly Not on file 04/13/2025 Frequency of Social Gatherings with Friends and Family Not on file 04/13/2025 Attends Sikh Services Not on file 04/13 Active Member [...] time in the past 12 m [facility], were you homeless or living in a jail (including now)? No 04/13/2025 Personal Safety Answer Date Recorded Have you ever been in or are you currently in a harmful physical or emotional relationship or is someone making you feel afraid or unsafe? 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 Gender Identity Female 05/05/2025 4:57 PM CDT Sexual Orientation Not on file documented as of this encounter Functional Status * Difference in Last Two Alfredo Scores Answer Date of Assessment Author 0 04/13/2025 8:14 AM CDT January Gomez RN * Pedro Luis Fall Risk Question Answer Date of Assessment Author History of Falling 0 04/13/2025 8:14 AM CDT January Gomez RN Secondary Diagnosis 0 04/13/2025 8:14 AM CD T January Gomez RN Ambulatory Aids 15 04/13/2025 8:14 AM CDT Ca aktiodyJanuary RN Intravenous Therapy/Heparin/Saline Lock 20 04/13/2025 8:14 AM CDT January Gomez RN Gait/Transferring 0 04/13/2025 8:14 AM CDT January Gomez RN Mental Status 0 04/13/2025 8:14 AM CDT January Chi RN Morse Fall Risk Score (Score >= 45 places fall precaution order) 35 04/13/2025 8:14 AM CDT January Gomez RN Prior Fall Event (Autopopulated from EMR) None found 04/13/2025 8:14 AM CDT Logan Gomez RN * Alfredo Scale Question Answer Date of Assessment Author Sensory Perceptions 4 04/13/2025 8:14 AM CD January Powers RN Moisture 4 04/13/2025 8:14 AM CDT January Mtz RN Activity 3 04/13/2025 8:14 AM CDT January Mtz RN Mobility 3 04/13/2025 8:14 AM CDT January Mtz RN Nutrition 3 04/13/2025 8:14 AM CDT January Mtz RN Friction and Shear 3 04/13/2025 8:14 AM TATUMT January Gomez RN Alfredo Scale Score 20 04/13/2025 8:14 AM CDT January Gomez RN * Question Answer Date of Assessment Author BP Location Right arm 04/13/2025 8:02 AM CDT Shaun Claudio BP Method Automatic 04/13/2025 8:02 AM CDT Shaun Claudio MAP (mmHg) 105 04/13/2025 8:02 AM CDT Shaun Claudio * Fall Risk Interventions Question Answer Date of Assessment Author All Low Fall Interventions Applied Yes 04/13/2025 8:14 AM January Hoffman RN All Moderate Fall Interventions Applied Yes 04/13/2025 8:14 AM TATUMT Nancy Gomez RN All High Fall Risk Interventions Applied No 04/13/2025 8:14 AM TATUMT Nancy Gomez RN All High Risk Interventions EXCEPT: Bed alarm;Chair alarm 04/13/2025 8:14 AM January Hoffman RN Reason For Exception(s) pt refused/educated 04/13/2025 8:14 AM January Hoffman RN * B.M.A.T. - Bedside Mobility Assessment Tool for Nurses Question Answer Date of Assessment Author Is patient able to participate in the BMAT? Yes 04/13/2025 8:14 AM January Hoffman RN BMAT Level Level 3 - Yellow 04/13/2025 8:14 AM January Tabor RN Level 3 Equipment Use assistive device such as cane/walker 04/13/2025 8:14 AM January Hoffman RN * Question Answer Date of Assessment Author 2 Nurse Skin Assessment Maria R 04/13/2025 7:00 AM January Hoffman RN * Integumentary Question Answer Date of Assessment Author Skin Color Appropriate for ethnicity 04/13/2025 8:14 AM January Hoffman RN Skin Condition/Temp Warm;Dry 04/13/2025 8:14 AM TATUM T January Gomez RN Skin Integrity Puncture 04/13/2025 8:14 AM TATUMT January Chowdary RN Skin Turgor Non-tenting 04/13/2025 8:14 AM TATUMT January Mtz RN Integumentary (WDL) X 04/13/2025 8:14 AM January Weller RN Skin Location R/groin 04/13/2025 8:14 AM CDT January Chi RN * Question Answer Date of Assessment Author Percent Meal Eaten (%) 0 04/13/2025 9:33 AM CDT Shaun Claudio Feeding Level of Assistance Able to feed self 04/13/20 9:33 AM CDT Shaun Claudio Appetite Refused meal 04/13/2025 9:33 AM CDT Shaun Claudio * Question Answer Date of Assessment Author BP Location Right arm 04/13/2025 8:02 AM CDT Shaun Claudio BP Method Automatic 04/13/2025 8:02 AM CDT Shaun Claudio * Fall Risk Interventions Question Answer Date of Assessment Author All Low Fall Interventions Applied Yes 04/13/2025 8:14 AM January Hoffman RN All Moderate Fall Interventions Applied Yes 04/13/2025 8:14 AM Nancy Hoffman RN All High Fall Risk Interventions Applied No 04/13/2025 8:14 AM Nancy Hoffman RN All High Risk Interventions EXCEPT: Bed alarm;Chair alarm 04/13/2025 8:14 AM January Hoffman RN Reason For Exception(s) pt refused/educated 04/13/2025 8:14 AM January Hoffman RN * Hygiene Question Answer Date of Assessment Author Hygiene Level of Assistance Patient refused 04/13/2025 7:00 AM Lilliam Moore Bath Not bathed/showered 04/13/2025 7:00 AM CD T Lilliam Mena documented as of this encounter Mental Status * Question Answer Entry Date Author Neuro (WDL) WDL 04/13/2025 8:14 AM CDT January Mtz RN documented in this encounter Miscellaneous Notes * Plan of [...] Interview Note Information Obtained From: Patient (04/13/25 111) Admission Source: Patient admitted from home for scheduled surgeryPERC SIA Closure implant for Afib. Completed 04/12/25. Hx: hypertension, paroxysmal atrial fibrillation/ sick sinus syndrome s/p dual- chamber pacemaker placement on 07/15/2023; dyslipidemia, anxiety/depression, history of heavy tobacco abuse. Impression: AOx4, appropriate, cooperative. Patient resides alone in a ground floor apartment in [place], [place]. Independent of ADLs/IADLs, ambulation. DME: heart monitor for [employer]. Patient drives [employer]. Patient is disabled on SSDI. Patient reports will d/c home w/no needs. Sister will transport home. Plan Includes: JOE: 04/13/2025 Discharge plan: home w/no needs, sister transport Barriers: labs Additional Information: Cardiology following Primary Source of Transportation: Does the patient need discharge transport arranged?: Yes Type of Transportation: Private vehicle Has discharge transport been arranged?: Yes (04/13/25 1112) Health Insurance Coverage: [facility] Medicare Prescription Coverage: yes Pharmacy: [id number] [place] [address] - [address] [place] [address] [address] [facility] [id number] Primary Care Provider: Elton Chowdary MD Prior [...] were you homeless or living in a jail (including now)?: No (04/13/251247) Utilities: No, (04/13/251247) [...] Infection Onset Date Last Indicated Resolved Time Ring Surveillance: [place] Comment:44icu Negative 05/13/25 05/13/2025 05/13/2025 05/14/2025 8:40 AM C DT documented as of this encounter Care Teams Sole Skiver Relationship Specialty Start Date End Date Elton Chowdary MD PCP - General 12/07/16 Moody Ann MD [address] [facility] [address] [place] [address] Consulting Physician Gastroenterology 05/04/20 Zacarias Ferrell MD [address] [facility] [address] [place] [address] Consulting Physician Surgical Critical Care 12/28/20 documented as of this encounter
--- OUTSIDE RECORDS SUMMARY | 2025-08-17 00:32 | XMS_ITS | Encounter Summary ---
Author Organization [facility] Address [address] [place] [address] Phone Care Team Providers Care Dry Starch Operator Name Role Phone Elton Chowdary MD Primary Care Provider + Travis Mcgill DO Unavailable [phone] Jj Floyd MD Unavailable [phone] Reason for Visit * Reason Comments Medication Refill Encounter Details Date Type Department Care Team (Late st Contact Info) Description 11/07/2021 Refill [facility] - Gastroenterology - [place] [address] [place] [id number] Gladys Tapia Lisa, PAC [address] [place] [address] Medication Refill Social History Tobacco Use Types [...] COVID-19? No / Unsure 10/10/2021 11:04 AM SENIOR QUALITY ENGINEER documented as of this encounter Miscellaneous Notes * Telephone Encounter - Chayo Lee RN - 11/08/2021 10:49 AM SENIOR QUALITY ENGINEER Medication refilled and signed per [facility] chronic medication standing order for pediatric and adult patients. OR QUALITY ENGINEER documented in this encounter Plan of Treatment Not on file documented as of this encounter Visit Diagnoses Not on filedocumented in this encounter Care Teams Dry Starch Operator Relationship Specialty Start Date End Date Elton Chowdary MD PCP - General Family Medicine 10/15/16 Travis Mcgill DO Gastroenterology 04/30/17 Jj Floyd MD [address] [place] [address] Consulting Physician Gastroenterology 11/30/21 documented as of this encounter
--- OUTSIDE RECORDS SUMMARY | 2025-08-17 00:32 | XMS_ITS | Clinical Summary ---
Author Organization [facility] Address [address] [facility] [address] [place] [address] Phone Care Team Providers Care Cider Press Operator Name Role Phone Elton Chowdary MD Primary Care Provider + Travis Mcgill DO Unavailable Jj Floyd MD Unavailable [phone] Allergies Active Allergy Reactions Criticality Noted Date Comments Prednisone Other (see Comments) 04/30/2019 Patient has psoriasis and states it will split her skin Sulfa Antibiotics Hives,Swelling 11/22/2016 Sulfasalazine Hives,Swelling Medium 11/22/2016 Medications atorvastatin (LIPITOR) 40 MG Tablet TAKE 1 TABLET BY MOUTH EVERY DAY (REPLACING SIMVASTATIN) 1 7 Active ergocalciferol (VITAMIN D) 65604 UNIT Capsule TAKE 1 CAPSULE BY MOUTH [...] Ulcerative colitis with rectal bleeding, unspecified location 300 mg by Intravenous route See Admin [...] Comments Blood Pressure 128/84 08/06/2022 2:46 PM INTELLIGENCE APPLICATIONS Pulse 78 08/06/2022 2:46 PM INTELLIGENCE APPLICATIONS Temperature 36.7 C (98 F) 08/06/2022 2:46 PM INTELLIGENCE APPLICATIONS Respiratory Rate 18 08/06/2022 2:46 PM INTELLIGENCE APPLICATIONS Oxygen Saturation 98% 08/06/2022 2:46 PM INTELLIGENCE APPLICATIONS Inhaled Oxygen Concentration - - Weight 73.6 kg (162 lb 3.2 oz) 08/06/2022 2:46 P M INTELLIGENCE APPLICATIONS Height 167.6 cm (5' 6) 03/02/2022 11:00 AM CDT Body Mass Index 26.18 03/02/2022 11:00 AM CDT Plan of Treatment Health Maintenance Due Date Last Done Comments TdaP Immunization 1965 Cologuard 2010 Immunochemical Fecal Occult Blood 2010 Pneumococcal Immunization (5 0+ years) (1 of 1 - PCV) 2015 Medicare Initial AWV G0438 09/09/2019 Zoster Immunization (2 of 2) 01/19/2021 11/24/2020 [...] (AHP) (04/16/2019) Blood specimen (specimen) Ning Peterson STEVEDORING SUPERVISOR, SHIP OFFICER HEMATOLOGY ORDERA BLES Final Result * COLONOSCOPY (04/10/2018) Travis Mcgill DO PROCEDURE/MINOR SURGICAL ORDERA BLES Final Result from Last 3 Months or Most Recently Relevant to Health Maintenance [place] [address] [place] [address] MEDICARE C [employer] Care Teams Cider Press Operator Relationship Specialty Start Date End Date Elton Chowdary MD PCP - General Family Medicine 10/15/16 Travis Mcgill DO Gastroenterology 04/30/17 Jj Floyd MD [address] [place] [id number] Consulting Physician Gastroenterology 11/30/21
--- OUTSIDE RECORDS SUMMARY | 2025-08-17 00:32 | XMS_ITS | Clinical Summary ---
Author Organization [facility] Address [address] [place] [address] Care Team Providers Care Filler Shredding Machine Loader Name Role Phone Elton Chowdary MD Primary Care Provider + Source Comments [facility],non-owned Affiliates and Associated Physician Practices is amultiple site organization consisting of ambulatory clinics and hospital sitesin [place], [place], [place] and [place]. This disclosure is being madepursuant to the Care Everywhere program and may not contain all informatio navailable regarding this patient. Last updated 18.[facility] Social History Tobacco Use Types Packs/Day Years [...] 05/07/1983 DTAP/TDAP/TD VACCINES (1 - Tdap) 1984 PAP SMEAR 1986 PNEUMOCOCCAL VACCINE 50+ (1 of 1 - PCV) 2015 ZOSTER VACCINE (1 of 2) 2015 DEPRESSION SCREENING 09/09/2024 MEDICARE AWV CALENDAR YEAR 2024 COVID-19 VACCINE (1 - 2024-2 6 season) 2025 INFLUENZA VACCINE (#1) 2025 Respiratory Syncytial Virus (RSV) Vaccine Pt: or over 60 yrs (1 - 1-dose 75+ series) 2040 HEPATITIS B VACCINE Aged Out No longe r eligible based on patient's age to complete this topic HIB VACCINE Aged Out No longer eligi [...] ROBERT Subscriber ID:Not on file (Home) Address: [place] [address] Payer ID:Not on file Group ID:Not on file Type:Self Pay Address: [place], [place] UHC MANAGED MEDICARE ADV Care Teams Filler Shredding Machine Loader Relationship Specialty Start Date End Date Elton Chowdary MD [address] [facility] [address] [place] [address] PCP - General 01/27/18
--- OUTSIDE RECORDS SUMMARY | 2025-08-17 00:32 | XMS_ITS | Clinical Summary ---
Author Organization [facility] Address [address] [place] [address] Care Team Providers Care Director Manufacturing Engineering Name Role Phone Elton Chowdary MD Primary Care Prov ider Moody Ann MD Unavailable [phone] Zacarias Ferrell MD Unavailable [phone] Allergies Active Allergy Reactions Criticality Noted Date Comments Prednisone Other (See comments) Low 12/04/2018 Pt states cannot take steroids, per communications programmer Sulfa (Sulfonamide Antibiotics) Anaphylaxis High Medications atorvastatin [...] total) by mouth once a week Active sertraline (ZOLOFT) 100 mg tablet Take 1 tablet (100 mg total) by mouth daily Active albuterol HFA (PROVENTIL HFA,VENTOLIN HFA,PROAIR HFA) 90 mcg/actuation inhaler Inhale 1 puff as needed for wheezing Following remicade infusions Active apremilast (Otezla) 30 mg tablet Take 1 tablet (30 mg total) by mouth 2 (two) times a day Active amLODIPine (NORVASC) 5 mg tablet Take 1 tablet (5 mg total) by mouth daily 30 tablet 11 5 01/21/20 26 Active Symbicort 160-4.5 mcg/actuation inhaler 2 (two) times a day 5 Active aspirin 81 mg chewable tabletIndicatio ns:coronary artery disease Take 1 tablet (81 mg total) by mouth daily 5 04/14/20 26 Active acetaminophen 500 mg capsule Take 2 capsules (1,000 mg total) by mouth every 6 (six) hours 30 tablet 5 Active Additional Information Patient not taking.Reported on 06/08/2025 atenoloL (TENORMIN) 50 mg tablet Take 1 tablet (50 mg total) by mouth daily Active omeprazole (PriLOSEC) 40 mg capsule Take 1 capsule (40 mg total) by mouth daily Active oxyCODONE-aceta minophen (PERCOCET) 10-325 mg per tablet Take 1 tablet by mouth every 4 (four) hours as needed for pain 5 Active LORazepam (ATIVAN) 2 mg tablet Take 1 tablet (2 mg total) by mouth every 6 (six) hours as needed for anxiety Active Active Problems Problem Noted Date Diagnosed Date At risk for malnutrition 05/21/2025 Assessment & Plan (05/22/2025 11:47 AM CDT): -05/20 albumin 3.4, Prealbumin 17 -05/21 advanced to soft diet, will consider TPN if failed diet advancement -05/22: full liquids, self regulate Scalp laceration 05/21/2025 Assessment & Plan (05/21/2025 12:56 PM CDT): -R scalp lac, repaired 1 staple in ED on 05/12, removed on 05/21 with no issues, pic uploaded. IBD (inflammatory bowel disease) 05/15/2025 Assessment & Plan (05/24/2025 8:48 AM CDT): - Hx of IBD s/p colonic resection > 20 years ago Follow up with Dr. Trejo at [facility] on 05/28/2025 at 11 am Anxiety 05/14/2025 Assessment & Plan (05/21/2025 12:59 PM CDT): - Continue home sertraline - Holding home lorazepam 2 mg every 8 hours as needed, last 05/03 for 30 day supply, regular fill history Follow up with previously established provider for ongoing evaluation. Cerebral atherosclerosis 05/14/2025 Chronic kidney disease, stage 3b 05/14/2025 Assessment & Plan (05/23/2025 9:49 AM CDT): - Baseline sCr 1.3-1.4 - Continue hydration and oral fluid intake - Renal dosing all medications - 05/17: Cr 1.76 (1.89), urine output 3 unmeasured occurrences in last 24 hours. Continue IVF and encourage adequate intake. - 05/18: Cr 1.53 (1.76), AG 16 (16), bicarb 19 (20). Encourage PO intake. - 05/19: Cr 1.28, Urine op 3 unmeasured occurrences - 05/20: Cr 1.12 - 05/21: sCr 1 - 05/22: 500 cc LR bolus Follow up with previously established provider for ongoing evaluation. Essential (primary) hypertension 05/14/2025 Assessment & Plan (05/21/2025 12:59 PM CDT): Home atenolol and amlodipine holding at this time Follow up with previously established provider for ongoing evaluation. GERD (gastroesophageal reflux disease) Assessment & Plan (05/21/2025 1:00 PM CDT): Home omeprazole-- hospital surrogate protonix -05/20 switched to IV protonix and simethicone BID Follow up with previously established provider for ongoing evaluation. Pure hypercholesterolemia, unspecified Discharge planning issues 05/14/2025 Assessment & Plan (05/23/2025 9:46 AM CDT): - 05/14 therapy pending, continue to hold Plavix and aspirin - 05/17: pending tolerance of diet and adequate oral intake - 05/18: regular diet, monitor head ache - 05/19: CT r/o obstruction, ADD tomorrow. - 05/20: GI c/s for scope, ADD weekend. - 05/21: diet advancement, ADD weekend - 05/22: not tolerating diet, full liquids, GI re-engaged - 05/23: poor PO intake, abdominal distension Treatment Plan Note completed [x] as progress note on 05/14. Anemia 05/14/2025 Assessment & Plan (05/18/2025 9:32 AM CDT): - Takes iron supplements at home - 05/12 hgb 6.6, transfused 1 pRBC - 05/14 hgb 8.3, CTM - 05/17: Hgb 8.3 (9.0), no active signs/symptoms of bleeding - 05/18: Hgb 7.8 - Transfuse for Hgb <7.0 or symptomatic - CBC as indicated Right arm pain 05/14/2025 Assessment & Plan (05/15/2025 2:19 PM CDT): 05/14 patient unable to bear weight with right upper extremity, imaging, humerus, and forearm, and elbow pending 05/15: R arm xray neg for acute fracture Subarachnoid hemorrhage 05/12/2025 Assessment & Plan (05/18/2025 9:29 AM CDT): - Appreciated NSGY recs - Keppra 500mg BID - Q4 neuro checks - Head CT, repeat stable - F/u NSGY outpatient in 3w - BI consult - ongoing discussions with cardiology about when to resume DAPT vs single antiplatelet agent - recommend resuming aspirin 81 mg daily as soon as acceptable from neurosurgery standpoint at minimum, but recommend resuming DAPT as soon as feasible. Also recommend close follow up with Dr. Ragsdale at [facility] within 2-4 weeks of discharge for follow up of her device/holding DAPT - 05/[address] Lopez, okay to resume aspirin if patient needs it, does not require repeat head CT-- aspirin resumed 05/18 - Follow up with Neurosurgery scheduled for 07/02 Assessment & Plan (05/13/2025 5:55 AM CDT): Q1NC Repeat HCT am Keppra 500 BID Hold DVT History of left atrial appendage closure 025 Assessment & Plan (05/24/2025 8:49 AM CDT): Echo 04/13 Ejection fraction is measured at 60 %. Left atrial appendage occluder device noted. - Cardiology c/s for recent surgery and plavix: Recommend resuming aspirin and clopidogrel (DAPT) as soon as it is safe from a neurosurgical standpoint. If DAPT must be held for several weeks, resumption of a single antiplatelet agent prior to that point would still be beneficial from a cardiac standpoint - 05/16: awaiting structural cardiology recs on benefit of ASA only, pending this can have risk-benefit conversation with patient regarding bleeding, thromboembolic events - Cardiology recommendations- no studies evaluating aspirin single agent antiplatelet therapy with LAAO placement, but the risk of device related thrombus would likely be lower on aspirin 81 mg daily than on no antiplatelet agents- recommend resuming aspirin 81 mg daily when acceptable from a neurosurgical perspective and DAPT when feasible -- Recommend close follow up with Dr. Ragsdale within 2-4 weeks --follow up scheduled for 07/27/2025 -- Aspirin resumed 05/18 after discussion with NSGY regarding Cardiology risk evalution --Clopidogrel may be held for now due to the risk of worsening intracranial bleeding-- Ngsy will discuss when to resume at follow up Atrial fibrillation 03/17/2025 Assessment & Plan (05/21/2025 12:58 PM CDT): - Home plavix and aspirin held. Aspirin resumed 05/18 - No rate controlling medications. Beta leon atenolol for hypertension on hold. Follow up with previously established provider for ongoing evaluation. H/O: GI bleed 03/17/2025 Hypotension due to drugs 11/15/2023 Visit for wound check 07/23/2023 H/O syncope 11/20/2022 Contraindication to anticoagulation therapy 11/07 Mixed hyperlipidemia 06/06/2022 Assessment & Plan (05/21/2025 12:58 PM CDT): Continue home atorvastatin Follow up with previously established provider for ongoing evaluation. Chest pain on breathing 06/06/2022 Myalgia 06/06/2022 Spasm of sphincter of Oddi 12/12/2020 Overview (12/26/2020): Added automatically from request for surgery [id number] Abdominal pain 04/27/2020 Overview (05/03/2020): Added automatically from request for surgery [id number] Assessment & Plan (05/24/2025 9:00 AM CDT): - 05/15 began having RLQ abdominal pain. Still having bowel function. KUB w unchanged mild bowel dilation. Amylase 314, lipase 186. WBC wnl. Does have a history of chronic pancreatitis and UC. - Advance to clears today, ordered Ensure clears - Dc mIVF when taking enough PO - 05/17: continues to report RLQ abdominal pain on palpation and epigastric pain with PO intake. Encouraged PO intake including supplements, full liquids ordered, continue IVF. - Abdominal XR in AM (05/18): Increased in the number of air-filled dilated small bowel loops in mid abdomen with unchanged or slightly decreased in caliber compared to 05/15/2025 radiograph there is air in the ilial pouch. These overall findings can represent ileus or small bowel obstruction and appropriate clinical setting. - 05/18: BM x2 /24 hrs. Patient reports bloating with water intake. Patient reports few bites of jello and half an ensure in last 24 hours. Encouraged regular diet today, PO intake, stop IVF - 05/19: BMx1, unchanged KUB, reports bloating with fluid intake. NPO sips with meds, ordered CT AP w/ contrast to rule out obstruction. CT (05/19): 1. Postsurgical changes of colectomy with J-pouch creation, with mild diffuse small bowel dilation to the level of the small bowel J-pouch anastomosis, where there is circumferential thickening and luminal narrowing. Findings are suspicious for a functionally significant stricture and partial small bowel obstruction. Pouchoscopy or contrast enema may be performed for further evaluation if clinically indicated 2. Mild thickening of the distal small bowel extending to the small bowel to J- pouch anastomosis likely reflecting enteritis, possibly from involvement by inflammatory bowel disease. Small volume free fluid, likely reactive. 3. Changes of Fercho fundoplication with findings of transdiaphragmatic wrap herniation, increased from the prior exam. - 05/20 GI c/s, will do scopy today, will f/u GI recs--> GI CRE balloon dilation, start CLD - 05/21 tolerated CLD, improving bloating, advanced to soft diet, per GI, will MRI enterography if can't tolerated soft. --> tolerating soft diet, GI signed off. - 05/22: patient reported tolerating breakfast and lunch yesterday, but unable to eat dinner due to return of symptoms. This morning she is only able to eat a bite of breakfast and is having difficulty swallowing medications. Started carafate BID. Re-engaged GI, recommend returning to full liquid diet to see if patient is able to tolerate. - 05/23: patient able to take sips of water yesterday. Abdominal distension and fullness. Continue to encourage full liquids as able. Reglan 10 mg q6h x3 doses, repeat labs - Abdominal xr (05/23): pending Follow up with GI doctor at [facility] Localized edema 01/06/2020 Ulcerative colitis with complication 12/19/2018 Overview (12/19/2018): Added automatically from request for surgery [id number] Pouchitis 12/04/2018 Overview (12/04/2018): Added automatically from request for surgery [id number] Inflammatory bowel disease 12/04/2018 Overview (12/04/2018): Added automatically from request for surgery [id number] PAF (paroxysmal atrial fibrillation) 11/12/2018 CVA, old, hemiparesis 12/10/2017 Sick sinus syndrome 12/10/2017 Pacemaker 12/10/2017 Overview (07/17/2023): Mcnamara Assurity Dual Pacemaker. Dx; SSS. DOI 07/15/2023-Lolly. Sharlene. Chronic leads 01/01/2013. Morris carter. Assessment & Plan (05/21/2025 12:58 PM CDT): Mcnamara Assurity Dual Pacemaker. Dx; SSS. DOI 07/15/2023-Lolly. Follow up with previously established provider for ongoing evaluation. Tobacco use 03/23/2016 Overview (12/15/2016): Tobacco abuse Ulcerative colitis 03/23/2016 Overview (12/15/2016): Ulcerative colitis with other complication, unspecified location Weight loss 03/23/2016 Overview (12/15/2016): Unintentional weight loss Simple chronic bronchitis 06/20/2015 Overview (12/15/2016): Bronchitis due to tobacco use Paroxysmal supraventricular tachycardia 04/07/20 14 Overview (12/15/2016): PSVT (paroxysmal supraventricular tachycardia) Resolved Problems Problem Noted Date Diagnosed Date Resolved Date Dyslipidemia 06/20/2015 06/06/2022 Overview (12/15/2016): Mixed dyslipidemia Encounters Date Type Department Care Team Description 07/29/2025 7:00 AM CEMENT FINISHER Ancillary Procedure [facility] Medical [facility] Cardiology [address] [place] [id number] Sick sinus syndrome (HCC); Paroxysmal atrial fibrillation (HCC); CVA, old, hemiparesis (HCC) 06/08/2025 1:30 PM CDT Office Visit [facility] Medical Group Cardiology [address] [place] [phone] Brooklynn Fisher NP History of left atrial appendage closure (Primary Dx); Subarachnoid hemorrhage (HCC); Hospital discharge follow-up 05/20/2025 4:29 PM CDT - 05/20/2025 4:49 PM CDT Surgery [facility] [place] [address] [facility] [address] [facility] [address] [place] [address] Kj Le MD POUCHOSCOPY WITH DILATION 05/20/2025 3:52 PM CDT Anesthesia Event [facility] [place] [address] [place] [address] Matheus Flores MD 05/12/2025 9:08 PM CDT - 05/24/2025 1:55 PM CDT Hospital Encounter [facility] [address] [place] [address] Melody Palacios MD [place], MD David Vidal, Felipa Vaughn MD Subarachnoid hemorrhage (HCC) (Primary Dx); Fall from standing, initial encounter; Facial contusion, initial encounter; Severe anemia; IBD (inflammatory bowel disease) Discharge Disposition: Discharge to home or self care from Last 3 Months Immunizations Immunization Administration Dates Next Due Tdap 05/12/2025 Surgical History Surgery Date Site/Laterality Comments CARDIAC PACEMAKER PLACEMENT Cardiac pacemaker Mcnamara COLONOSCOPY SIGMOIDOSCOPY BACK SURGERY x2 CERVICAL SPINE SURGERY ruptured disc CHOLECYSTECTOMY ERCP TOTAL COLECTOMY with ileoanal pouch HYSTERECTOMY GASTRIC FUNDOPLICATION IMPLANTABLE CARDIAC DEVICE 04/12/2025 N/A Procedure: PERC SIA CLOSE W/IMPLANT [id number]; Surgeon: Bakari Ragsdale MD; Location: [facility] LAB; Service: Cardiovascular; Laterality: N/A; Medical devices from this surgery are in the Medical Devices section. Medical History Medical History Date Comments Anemia Ulcerative colitis GERD (gastroesophageal reflux disease) Cervical cancer (HCC) Pacemaker Mcnamara H/O sick sinus syndrome 2013 Arrhythm ias SSS 4.8 sec pause; recurrent [...] Packs Alcohol Use Standard Drinks/Week Comments Yes 1 (1 standard drink = 0.6 oz pur e alcohol) socially Social Connection and Isolation Panel Answer Date Recorded Frequency of Communication with Friends and Fami ly Not on file 04/13/2025 Frequency of Social Gatherings with Friends and Family Not on file 04/13/2025 Attends Judaism Services Not on file 04/13 Active Member of Clubs or Organizations Not on f ile 04/13/2025 Attends Club or Organization Meetings Not on chary e 04/13/2025 Are you , , di vorced, , never , or living with a partner? Never 04/13/2025 Overall Financial Resource Strain (CARDIA) Answe r Date Recorded How hard is it for you to pa y for the very basics like food, housing, medical care, and heating? Not hard at all 04/13/2025 PHQ-2 Answer Date Recorded PHQ-2 Total Score 0 05/13/2025 PRAPARE - Transportation Answer Date Re corded [...] any time in the past 12 m [facility], were you homeless or living in a long-term (including now)? No 04/13/2025 Social Connection and Isolation Panel Answer Date Recorded In a typical week, how many times do you talk on the phone with family, friends, or neighbors? More than three times a week 05/13/2025 How often do you get togethe r with friends or relatives? More than three times a week 05/13/2025 How often do you attend chur ch or hinduism services? Never 05/13/2025 Do you belong to any clubs o r organizations such as roman catholic groups, unions, fraternal or athletic groups, or school groups? No 05/13/2025 How often do you attend meet ings of the clubs or organizations you belong to? Never 05/13/2025 Are you , , di vorced, , never , or living with a partner? 05/13/2025 AUDIT-C Answer Date Recorded Q1: How often do you have a drink containing alc ohol? 2-4 times a month 05/20/2025 Q2: How many drinks containi ng alcohol do you have on a typical day when you are drinking? 1 or 2 05/20/2025 Q3: How often do you have si x or more drinks on one occasion? Never 05/20/2025 Overall Financial Resource Strain (CARDIA) Answe r Date Recorded How hard is it for you to pa y for the very basics like food, housing, medical care, and heating? Somewhat hard 05/13/2025 Hunger Vital Sign Answer Date Recorded Within the past 12 months, y ou worried that your food would run out before you got the money to buy more. Never true 05/13/20 25 Within the past 12 months, t he food you bought just didn't last and you didn't have money to get more. Never true 05/13/2025 PRAPARE - Transportation Answer Date Re corded In the past 12 months, has l ack of transportation kept you from medical appointments or from getting medications? No 12/2024 In the past 12 months, has l ack of transportation kept you from meetings, work, or from getting things needed for daily living? No 05/13/2025 Housing Stability Vital Sign Answer Harvey e Recorded In the last 12 months, was t here a time when you were not able to pay the mortgage or rent on time? Yes 05/13/2025 In the past 12 months, how m any times have you moved where you were living? 0 05/13/2025 At any time in the past 12 m [facility], were you homeless or living in a long-term (including now)? No 05/13/2025 [facility] Utilities Answer Date Recorded In the past 12 months has th e [employer], gas, oil, or water company threatened to shut off services in your home? No 05/13/2025 Personal Safety Answer Date Recorded Have you ever been in or are you currently in a harmful physical or emotional relationship or is someone making you feel afraid or unsafe? Denies 05/20/2025 Comments No Sex and Gender Information Value Date Recorded Sex Assigned at Not on file Legal Sex Female 2:07 PM CEMENT FINISHER Gender Identity Female 05/05/2025 4:57 PM CDT Sexual Orientation Not on file Last Filed Vital Signs Vital Sign Reading Time Taken Comments Blood Pressure 118/70 06/08/2025 1:40 PM CDT Pulse 118 06/08/2025 1:40 PM CDT Temperature 36.3 C (97.3 F) 05/24/2025 11:37 AM CDT Respiratory Rate 16 05/24/2025 11:37 AM CDT Oxygen Saturation 98% 06/08/2025 1:40 PM CDT Inhaled Oxygen Concentration - - Weight 67.6 kg (149 lb) 06/08/2025 1:40 PM CDT Height 165.1 cm (5' 5) 06/08/2025 1:40 PM CDT Body Mass Index 24.79 06/08/2025 1:40 PM CDT Plan of Treatment Health Maintenance Due Date Last Done Comments Breast Cancer Screening-Mammogram 1965 Colon Cancer Screening-Colonoscopy 1965 Hepatitis C Screening 1965 Hepatitis B Screening 1983 Regular Well Visit/Exam 18-64 1983 Zoster Vaccine (3 of 3) 01/19/2021 11/24/2020, 08/10 Influenza Vaccine (#1) 2025 06/04/2022, 2020 Pneumococcal vaccine <65 (3 of 3 - PCV20 or PCV21) 08/10/2025 08/10/2020, 05/08/2019 Depression Screening 05/12/2026 05/12/2025 DTaP/Tdap/Td Vaccine (2 - Td or Tdap) 05/12/203511/2024 Medical Devices Implanted Type Area Nurses Medical Assistants Phlebotomists Device Identifier Shelf Expiration Date Model / Serial / Lot Pacemaker-01/01 Implanted:12/09 by Dalila Abdi (Quantity not on file) Pacemaker Chest [employer] SSS [employer]ara Vascular System Closure Repair Femoral Artery Suture Mediated Perclose Prostyle 14888-86 - [id number] Implanted:Qty: 1 on 04/12/2025 by Bakari Ragsdale MD at [facility] 02/06/2027 [id number] / / [id number] Mc[employer]ara Vascular System Closure Repair Femoral Artery Suture Mediated Perclose Prostyle 24979-14 - [id number] Implanted:Qty: 1 on 04/12/2025 by Bakari Ragsdale MD at [facility] 02/06/2027 [id number] / / [id number] [employer]ara Vascular Occluder Cvasc Sia Flexible Braided Amplatzer Amulet 18mm Nitinol [id number] - [id number] Implanted:Qty: 1 on 04/12/2025 by Bakari Ragsdale MD at [facility] [employer] 11/06/2029 [id number] / / [id number] Explanted Type Area Nurses Medical Assistants Phlebotomists Device Identifier Shelf Expiration Date Model / Serial / Lot Monitor Backlinks [id number] Arguello Flexi-Stent 7fr 9cm Small Pigtail Flexible .035in Stent - [id number] Implanted:Qty : 1 on 05/02/2020 by Moody Ann MD at [facility] Explanted:Qty : 1 on 05/04/2020 by Moody Ann MD at [facility] Stent N/A: Pancreas [employer] 01/06/2025 [id number] / / [id number] Conmed Katarina [id number] [place] Viabil 10mm 8.5fr 6cm 200cm Fully Covered Self Expand Pull - [id number] - [id number] Implanted:Qty : 1 on 05/02/2020 by Moody Ann MD at [facility] Explanted:Qty : 1 on 05/04/2020 by Moody Ann MD at [facility] Stent N/A: Bile Duct Conmed Katarina 12/21/2022 [id number] / [id number] / [employer] [id number] Cotton-Slaughter 8.5fr 9cm Taper Tip Proximal Distal Flap Position - [id number] Implanted:Qty : 1 on 12/23/2020 by Moody Ann MD at [facility] Explanted:Qty : 1 on 12/26/2020 by Moody Ann MD at [facility] N/A: Bile Duct [employer] 08/16/2023 [id number] / / [id number] Procedures Procedure Name Priority Date/Time Associated Diagnosis Comments EGFR Routine 05/23/2025 8:48 PM CDT BASIC METABOLIC PANEL Routine 05/23/2025 8:48 PM CDT XR ABDOMEN AP 1 VIEW ED Urgent/IP Urgent 05/23/2025 9:55 AM CDT EGFR STAT 05/23/2025 9:01 AM CDT CBC WITHOUT DIFFERENTIAL STAT 05/23/2025 9:01 AM CDT COMPREHENSIVE METABOLIC PANEL STAT 05/23/2025 9:01 AM CDT LIPASE Routine 05/23/2025 9:01 AM CDT AMYLASE Routine 05/23/2025 9:01 AM CDT POCT GLUCOSE DEVICE Routine 05/22/2025 8 :01 PM CDT EGFR Routine 05/20/2025 8:17 PM CDT PREALBUMIN Routine 05/20/2025 8:17 PM CDT ALBUMIN Routine 05/20/2025 8:17 PM CDT BASIC METABOLIC PANEL Routine 05/20/2025 8:17 PM CDT ND AN PROCEDURE PLACEHOLDER Routine 05/20/2025 4:08 PM CDT POUCHOSCOPY WITH DILATION 05/20/2025 3:53 PM CDT IBD (inflammatory bowel disease) POUCHOSCOPY 05/20/2025 3:49 PM CDT HEMOGLOBIN AND HEMATOCRIT STAT 05/20/2025 1:28 PM CDT EGFR Routine 05/19/2025 10:15 PM CDT BASIC METABOLIC PANEL Routine 05/19/2025 10:15 PM CDT RADIOLOGY EVENT IP Routine 05/19/2025 11:[address] ABDOMEN PELVIS W CONTRAST ED Urgent/IP Urgent 05/19/2025 9:56 AM CDT XR ABDOMEN AP 1 VIEW Timed 05/19/2025 4:36 AM CDT EGFR Routine 05/18/2025 10:26 PM CDT CBC WITHOUT DIFFERENTIAL Routine 05/18/2025 10:26 PM CDT BASIC METABOLIC PANEL Routine 05/18/2025 10:26 PM CDT XR ABDOMEN AP 1 VIEW Timed 05/18/2025 4:09 AM CDT from Last 3 Months Results * (ABNORMAL) eGFR (05/23/2025 8:48 PM CDT) eGFR 57(L) >=60 mL/min/1. 73 m2 Comment: Interpretive Data [...] interpretive data was last reviewed 2021. Blood 05/23/2025 8:48 PM CDT 05/23/2025 9:30 PM CDT Makenzie Quevedo BUNCH MAKER LAB BLOOD ORDERABLES Shana l Result [facility] [place] [place] [address] * (ABNORMAL) Basic metabolic panel (05/23/2025 8:48 PM CDT) Pathologist [facility] Sodium 140 135 - 145 mmol/L Potassium, pl 3.4 3.3 - 4.9 mmol/L [facility] Chloride 102 97 - 110 mmol/L [facility] CO2 24 22 - 32 mmol/L [facility] Anion gap 14 2 - 15 mmol/L [facility] BUN 18 6 - 25 mg/dL [facility] Creatinine 1.11(H) 0.60 - 1.10 mg/dL [facility] Glucose 98 70 - 199 mg/dL [facility] Comment: Interpretive Data Fasting glucose >/= 126 [...] 2022. Calcium 8.9 8.5 - 10.3 mg/dL [facility] Blood 05/23/2025 8:48 PM CDT 05/23/2025 9:30 PM CDT Makenzie Quevedo NP LAB BLOOD ORDERABLES Shana l Result Performing Organization Address [facility]/ZIP Co de Phone Number [facility] Department [place] [address] * XR Abdomen 1 View AP (05/23/2025 9:55 AM CDT) Anatomical Region Laterality Modality Body, Abdomen N/A Computed Radiogr aphy 05/24/2025 7:25 AM CDT Impressions 05/24/2025 7:25 AM CDT Changes of colectomy and J-pouch creation with no significant change in diffuse gaseous distention of small bowel in keeping with known small bowel obstruction which is better evaluated on recent CT. Cholecystectomy clips in the right upper quadrant. Partially imaged pacemaker leads in the right atrium and right ventricle. Lumbar spinal fusion. Electronically signed by: Yael Fletcher M.D. Narrative 05/24/2025 7:25 AM CDT EXAMINATION: Abdomen, one view. HISTORY: Abdominal distension. COMPARISON: CT dated 05/19/2025 Procedure Note Yael Fletcher MD - 05/24/2025 EXAMINATION: Abdomen, one view. HISTORY: Abdominal distension. COMPARISON: CT dated 05/19/2025 IMPRESSION: Changes of colectomy and J-pouch creation with no significant change in diffuse gaseous distention of small bowel in keeping with known small bowel obstruction which is better evaluated on recent CT. Cholecystectomy clips in the right upper quadrant. Partially imaged pacemaker leads in the right atrium and right ventricle. Lumbar spinal fusion. Electronically signed by: Yael Fletcher M.D. Makenzie Quevedo BUNCH MAKER IMG XR PROCEDURES Final R esult * (ABNORMAL) eGFR (05/23/2025 9:01 AM CDT) eGFR 58(L) >=60 mL/min/1. 73 m2 Comment: Interpretive Data [...] interpretive data was last reviewed 2021. Blood 05/23/2025 9:01 AM CDT 05/23/2025 10:26 AM CDT Makenzie Quevedo NP LAB BLOOD ORDERABLES Shana l Result [facility] Department [place] [address] * (ABNORMAL) CBC without differential (05/23/2025 9:01 AM CDT) WBC 6.42 3.80 - 9.90 K/cumm Hgb 8.2(L) 11.9 - 15.5 g/dL [facility] Hct 28.0(L) 35.6 - 45.5 % [facility] Plt 374 150 - 400 K/cumm [facility] MPV 10.1 9.1 - 12.3 fL [facility] RBC 3.40(L) 3.90 - 5.20 M/cumm [facility] MCV 82.4 81.3 - 96.4 fL [facility] MCH 24.1(L) 27.1 - 33.3 pg [facility] MCHC 29.3(L) 32.3 - 35.7 g/dL [facility] RDW CV 20.5(H) 11.1 - 14.9 % [facility] RDW SD 61.9(H) 35.7 - 48.1 fL [facility] NRBC abs 0.00 0.00 - 0.01 K/cumm [facility] Blood 05/23/2025 9:01 AM CDT 05/23/2025 10:26 AM CDT Makenzie Quevedo NP LAB BLOOD ORDERABLES Shana l Result Performing Organization Address [facility]/State/ZIP Co de Phone Number [facility] [place] [address] * (ABNORMAL) Lipase (05/23/2025 9:01 AM CDT) [facility] Lipase 104(H) 10 - 99 Units/L Blood 05/23/2025 9:01 AM CDT 05/23/2025 10:26 AM CDT Makenzie Quevedo BUNCH MAKER LAB BLOOD ORDERABLES Shana l Result Performing Organization Address [facility] [place] [address] * Amylase (05/23/2025 9:01 AM CDT) [facility] Amylase 79 30 - 99 Units/L Blood 05/23/2025 9:01 AM CDT 05/23/2025 10:26 AM CDT Makenzie Quevedo BUNCH MAKER LAB BLOOD ORDERABLES Shana l Result Performing Organization Address [facility] de Phone Number [facility] [place] [address] * (ABNORMAL) Comprehensive metabolic panel (05/23/2025 9:01 AM CDT) [facility] Sodium 140 135 - 145 mmol/L Potassium, pl 3.6 3.3 - 4.9 mmol/L [facility] Chloride 102 97 - 110 mmol/L [facility] CO2 17(L) 22 - 32 mmol/L [facility] Anion gap 21(H) 2 - 15 mmol/L [facility] BUN 18 6 - 25 mg/dL [facility] Creatinine 1.09 0.60 - 1.10 mg/dL [facility] Glucose 95 70 - 199 mg/dL [facility] Comment: Interpretive Data Fasting glucose >/= 126 [...] interpretive data was last revised 2022. Calcium 8.5 8.5 - 10.3 mg/dL [facility] Bilirubin, total 0.5 0.1 - 1.2 mg/dL [facility] Protein, pl 7.0 6.5 - 8.5 g/dL [facility] Albumin 3.2(L) 3.5 - 5.0 g/dL [facility] Alk phos 150(H) 40 - 130 Units/L [facility] ALT 16 7 - 45 Units/L [facility] AST 67(H) 10 - 45 Units/L [facility] Blood 05/23/2025 9:01 AM CDT 05/23/2025 10:26 AM CDT Makenzie Quevedo BUNCH MAKER LAB BLOOD ORDERABLES Shana l Result [facility] [place] [place] [address] * POCT glucose (05/22/2025 8:01 PM CDT) Pathologist [facility] Glucose, POC 77 70 - 199 mg/dL Blood 05/22/2025 8:01 PM CDT 05/22/2025 8:01 PM CDT us Felipa Hernandez MD LAB POCT ORDERABLES - DEVICE Final Result [facility] [place] [place] [address] * eGFR (05/20/2025 8:17 PM CDT) eGFR 64 >=60 mL/min/1. 73 m2 Comment: Interpretive Data [...] interpretive data was last reviewed 2021. Blood 05/20/2025 8:17 PM CDT 05/20/2025 8:50 PM CDT us Makenzie Quevedo BUNCH MAKER LAB BLOOD ORDERABLES Shana l Result [facility] Department [place] [address] * (ABNORMAL) Prealbumin (05/20/2025 8:17 PM CDT) Prealbumin 17.0(L) 20.0 - 40.0 mg/dL Comment:Repeated and Verifie d Blood 05/20/2025 8:17 PM CDT 05/20/2025 8:51 PM CDT us Joelle Banegas PhD LAB BLOOD ORDERABLES Final Resul t [facility] Department [place] [address] * (ABNORMAL) Albumin (05/20/2025 8:17 PM CDT) Albumin 3.4(L) 3.5 - 5.0 g/dL Blood 05/20/2025 8:17 PM CDT 05/20/2025 8:50 PM CDT us Joelle Banegas PhD LAB BLOOD ORDERABLES Final Resul t [facility] [place] [address] * Basic metabolic panel (05/20/2025 8:17 PM CDT) Pathologist [facility] Sodium 142 135 - 145 mmol/L Potassium, pl 3.3 3.3 - 4.9 mmol/L [facility] Chloride 105 97 - 110 mmol/L [facility] CO2 26 22 - 32 mmol/L [facility] Anion gap 11 2 - 15 mmol/L [facility] BUN 15 6 - 25 mg/dL [facility] Creatinine 1.00 0.60 - 1.10 mg/dL [facility] Glucose 89 70 - 199 mg/dL [facility] Comment: Interpretive Data Fasting glucose >/= 126 [...] classification and Diagnosis of Diabetes Diabetes Care 202; 46: S19-S40. Current interpretive data was last revised 2022. Calcium 9.1 8.5 - 10.3 mg/dL [facility] Blood 05/20/2025 8:17 PM CDT 05/20/2025 8:50 PM CDT us Makenzie Quevedo BUNCH MAKER LAB BLOOD ORDERABLES Shana l Result Performing Organization Address City/[facility]/ZIP Co de Phone Number [facility] [place] [place] [address] * ND AN PROCEDURE PLACEHOLDER (05/20/2025 4:08 PM CDT) Narrative Adalberto Mohr CRNA - 05/20/2025 4:08 PM CDT Adalberto Mohr CRNA 05/20/2025 4:09 PM Peripheral IV Catheter Patient location: OR End time: 05/20/2025 4:08 PM Staff: Supervising provider: Matheus Flores MD Placed by: RAILROAD CAR INSPECTOR: Adalberto Mohr CRNA Preprocedure prep: Prep solution: chlorhexadine PPE: gloves PIV line: Laterality: right Site: hand Catheter size: 22 g Technique: direct visualization Procedure details: good blood return and occlusive dressing applied Number of attempts: 1 Assessment: Events: patient tolerated procedure well with no complications us Matheus Flores MD ANESTHESIA ORDERABLES Final Resu lt * Pouchoscopy (05/20/2025 3:49 PM CDT) Anatomical Region Laterality Modality Other Narrative Procedure Note Kj Le MD - 05/20/2025 3:49 PM CDT [facility] ENDOS[facility] Patient Name: Dior Trent Procedure Date: 05/20/2025 3:49 PM Date of : 1965 Admit Type: Inpatient Age: 60 Gender: Female Attending MD: Kj Le M.D., Room: [facility] ENDOSCOPY ROOM 8 Note Status: Finalized Procedure: Pouchoscopy Indications: , Abnormal CT of the GI tract, therapeuticprocedure for dilation of small bowel stricture Referring MD: Funmi Mares Providers: Kj Le M.D. Complications: No immediate complications. Estimated Blood Loss: Estimated blood loss: none. Procedure: After obtaining informed consent, the endoscope was passed under direct vision. Throughout theprocedure, the patient's blood pressure, pulse, and oxygen saturations were monitored continuously. Theflexible sigmoidoscopy was accomplished without difficulty.The patient tolerated the procedure well. The GIF [id number] endoscope was introduced through the anusand advanced to the the ileoanal pouch and into the elisha-terminal ileum. Findings: Cuff: short normal looking cuff Ileal pouch: normal size and configuration. No evidence ofpouchitis Efferent limb: normal mucosa The pouch inlet contained a benign-appearing ulcerated, intrinsicsevere stenosis measuring less than one cm (in length) x 9 mm (innerdiameter) that was traversed. A TTS dilator was passed through the scope.Dilation with a 12-13.5-15 mm anastomotic balloon dilator was performed. The dilation site was examined following endoscope reinsertion and showed moderate mucosal disruption. The pre pouch ileum was examined up to 25 cm and it looked normal. Impression: - Severe stenosis at the pouch inlet dilated usingCRE balloon dilator - Normal pouch and pre pouch ileum Recommendation: - Liquid diet then advance as tolerated - If unable to advance, consider MRE Attending Participation: I was present and participated during the entire procedure, including non-carranza portions. Electronically Signed by Kj Le M.D. Kj Le M.D. 05/20/2025 4:30:13 PM . Number of Addenda: 0 Note Initiated On: 05/20/2025 3:49 PM us Kj Le MD ENDOSCOPY PROCEDURES F inal Result * (ABNORMAL) Hemoglobin and hematocrit (05/20/2025 1:28 PM CDT) Hgb 7.7(L) 11.9 - 15.5 g/dL Hct 25.0(L) 35.6 - 45.5 % [facility] Blood 05/20/2025 1:28 PM CDT 05/20/2025 1:38 PM CDT us Joelle Banegas PhD LAB BLOOD ORDERABLES Final Resul t [facility] Department [place] [address] * (ABNORMAL) eGFR (05/19/2025 10:15 PM CDT) eGFR 56(L) >=60 mL/min/1. 73 m2 Comment: Interpretive Data [...] interpretive data was last reviewed 2021. Blood 05/19/2025 10:1 5 PM CDT 05/19/2025 10:40 PM CDT Makenzie Quevedo NP LAB BLOOD ORDERABLES Shana l Result Performing Organization Address [facility]/ZIP Co de Phone Number [facility] Department [place] [address] * (ABNORMAL) Basic metabolic panel (05/19/2025 10:15 PM CDT) Sodium 143 135 - 145 mmol/L Potassium, pl 3.6 3.3 - 4.9 mmol/L [facility] Chloride 106 97 - 110 mmol/L [facility] CO2 26 22 - 32 mmol/L [facility] Anion gap 11 2 - 15 mmol/L [facility] BUN 17 6 - 25 mg/dL [facility] Creatinine 1.12(H) 0.60 - 1.10 mg/dL [facility] Glucose 95 70 - 199 mg/dL [facility] Comment: Interpretive Data Fasting glucose >/= 126 [...] classification and Diagnosis of Diabetes Diabetes Care 202; 46: S19-S40. Current interpretive data was last revised 2022. Calcium 9.6 8.5 - 10.3 mg/dL [facility] Blood 05/19/2025 10:1 5 PM CDT 05/19/2025 10:40 PM CDT Makenzie Quevedo NP LAB BLOOD ORDERABLES Shana l Result Performing Organization Address [facility]/ZIP Co de Phone Number [facility] [place] [address] * Radiology Event (05/19/2025 11:08 AM CDT) Anatomical Region Laterality Modality Computed Tomogra phy 05/19/2025 11:3 1 AM CDT Impressions 05/19/2025 11:31 AM CDT Intravenous contrast infiltration in the right upper arm as detailed above. Instructions given to patient regarding event: yes Electronically signed by: Kassy Brunson M.D. Narrative 05/19/2025 11:31 AM CDT EXAMINATION: General Radiology Event Report DATE of EVENT:05/19/2025 11:19 AM I was asked to see DIOR TRENT regarding extravasation of intravenous contrast. Event: This was a IV Infiltration in the right upper arm of approximately 30 mL of intravenous contrast Actions: Performed physical exam, including neurovascular and musculoskeletal exam. On evaluation, a small amount of swelling is associated with the area of extravasation without evidence of discoloration. There was decrease in swelling while patient was awaiting transport in the CT department. Normal pulses and strength were observed. No concerning significant findings within the affected extremity. Patient was advised to apply either cold or hot compresses and to keep the arm elevated above the level of the heart. Instructions were also discussed with patient's provider, Mariajose Asher NP and advised in case of worsening symptoms to consult the surgical team if indicated. Procedure Note Kassy Brunson MD - 05/19/2025 EXAMINATION: General Radiology Event Report DATE of EVENT:05/19/2025 11:19 AM I was asked to see DIOR TRENT regarding extravasation of intravenous contrast. Event: This was a IV Infiltration in the right upper arm of approximately 30 mL of intravenous contrast Actions: Performed physical exam, including neurovascular and musculoskeletal exam. On evaluation, a small amount of swelling is associated with the area of extravasation without evidence of discoloration. There was decrease in swelling while patient was awaiting transport in the CT department. Normal pulses and strength were observed. No concerning significant findings within the affected extremity. Patient was advised to apply either cold or hot compresses and to keep the arm elevated above the level of the heart. Instructions were also discussed with patient's provider, Mariajose Asher NP and advised in case of worsening symptoms to consult the surgical team if indicated. IMPRESSION: Intravenous contrast infiltration in the right upper arm as detailed above. Instructions given to patient regarding event: yes Electronically signed by: Kassy Brunson M.D. Joelle Banegas PhD IMG CT PROCEDURES Final Result * CT Abdomen Pelvis W Contrast (05/19/2025 9:56 AM CDT) Anatomical Region Laterality Modality Body N/A Computed Tomogra phy 05/19/2025 10:5 7 AM CDT Impressions 05/19/2025 11:39 AM CDT 1. Postsurgical changes of colectomy with J-pouch creation, with mild diffuse small bowel dilation to the level of the small bowel J-pouch anastomosis, where there is circumferential thickening and luminal narrowing. Findings are suspicious for a functionally significant stricture and partial small bowel obstruction. Pouchoscopy or contrast enema may be performed for further evaluation if clinically indicated 2. Mild thickening of the distal small bowel extending to the small bowel to J-pouch anastomosis likely reflecting enteritis, possibly from involvement by inflammatory bowel disease. Small volume free fluid, likely reactive. 3. Changes of Fercho fundoplication with findings of transdiaphragmatic wrap herniation, increased from the prior exam. Dictated by: Dashawn Marino MD The radiology attending physician has personally reviewed this study, and had reviewed and/or edited this written report and agrees with it. Electronically signed by: Franky Ramsey M.D. Narrative 05/19/2025 11:39 AM CDT EXAMINATION: Computed tomography of the abdomen and pelvis with intravenous contrast HISTORY: Concern for bowel obstruction, patient with history of ulcerative colitis status post total colectomy and J-pouch. TECHNIQUE: Transaxial computed tomographic images of the abdomen and pelvis were obtained with intravenous contrast according to the standard protocol after the administration of 93 mL Opti-Ray 350 intravenous contrast. COMPARISON: CT from 05/12/2025 FINDINGS: Imaged portion of the chest shows normal heart size without pericardial effusion. Partially imaged pacemakers leads. Hiatal hernia present. This is small. No suspicious nodule lung bases. No effusion or pneumothorax. No suspicious hepatic mass. Scattered hypoattenuating lesions are likely cysts but are too small to characterize. Gallbladder is absent. Spleen, pancreas, adrenal glands within normal limits. Kidneys without hydronephrosis. Fluid-filled right mid pole cyst present. Surgical changes of colectomy with J-pouch in the pelvis. Multiple dilated loops of bowel throughout the abdomen. The stomach and proximal duodenum are nondilated and there is a small loop of nondilated small bowel in the central abdomen as well as left hemiabdomen however, no discrete transition point is identified. There is thickening at the anastomosis in the pelvis on series 2 slice 160, this appears similar to the most recent prior exam. There is small volume free fluid and mild mesenteric edema. Bladder within normal limits. Mildly prominent mesenteric lymph nodes are likely reactive. Normal caliber of the abdominal aorta. Surgical changes of spinal fusion from L4 to S1. No aggressive osseous lesion. Procedure Note Franky Ramsey MD - 05/19/2025 EXAMINATION: Computed tomography of the abdomen and pelvis with intravenous contrast HISTORY: Concern for bowel obstruction, patient with history of ulcerative colitis status post total colectomy and J-pouch. TECHNIQUE: Transaxial computed tomographic images of the abdomen and pelvis were obtained with intravenous contrast according to the standard protocol after the administration of 93 mL Opti-Ray 350 intravenous contrast. COMPARISON: CT from 05/12/2025 FINDINGS: Imaged portion of the chest shows normal heart size without pericardial effusion. Partially imaged pacemakers leads. Hiatal hernia present. This is small. No suspicious nodule lung bases. No effusion or pneumothorax. No suspicious hepatic mass. Scattered hypoattenuating lesions are likely cysts but are too small to characterize. Gallbladder is absent. Spleen, pancreas, adrenal glands within normal limits. Kidneys without hydronephrosis. Fluid-filled right mid pole cyst present. Surgical changes of colectomy with J-pouch in the pelvis. Multiple dilated loops of bowel throughout the abdomen. The stomach and proximal duodenum are nondilated and there is a small loop of nondilated small bowel in the central abdomen as well as left hemiabdomen however, no discrete transition point is identified. There is thickening at the anastomosis in the pelvis on series 2 slice 160, this appears similar to the most recent prior exam. There is small volume free fluid and mild mesenteric edema. Bladder within normal limits. Mildly prominent mesenteric lymph nodes are likely reactive. Normal caliber of the abdominal aorta. Surgical changes of spinal fusion from L4 to S1. No aggressive osseous lesion. IMPRESSION: 1. Postsurgical changes of colectomy with J-pouch creation, with mild diffuse small bowel dilation to the level of the small bowel J-pouch anastomosis, where there is circumferential thickening and luminal narrowing. Findings are suspicious for a functionally significant stricture and partial small bowel obstruction. Pouchoscopy or contrast enema may be performed for further evaluation if clinically indicated 2. Mild thickening of the distal small bowel extending to the small bowel to J-pouch anastomosis likely reflecting enteritis, possibly from involvement by inflammatory bowel disease. Small volume free fluid, likely reactive. 3. Changes of Fercho fundoplication with findings of transdiaphragmatic wrap herniation, increased from the prior exam. Dictated by: Dashawn Marino MD The radiology attending physician has personally reviewed this study, and had reviewed and/or edited this written report and agrees with it. Electronically signed by: Franky Ramsey M.D. Joelle Banegas PhD IMG CT PROCEDURES Final Result * XR Abdomen 1 View AP (05/19/2025 4:36 AM CDT) Anatomical Region Laterality Modality Body, Abdomen N/A Digital Radiogra phy 05/19/2025 8:47 AM CDT Impressions 05/19/2025 9:28 AM CDT Partially imaged cardiac pacer defibrillator leads, lumbar instrumented fusion and left atrial appendage closure device projecting over heart, multiple surgical clips and cholecystectomy clips projecting over abdomen. Unchanged appearance of air filled dilated small bowel loops in mid abdomen which can represent ileus versus small bowel obstruction. Dictated by: Sabi Geller M.D. The radiology attending physician has personally reviewed this study, and had reviewed and/or edited this written report and agrees with it. Electronically signed by: Rito Perdomo M.D. Narrative 05/19/2025 9:28 AM CDT EXAMINATION: Abdomen, one view. HISTORY: 60-year-old, admitted after fall, history of inflammatory bowel disease status post colectomy, abdominal pain. COMPARISON: Radiograph 05/28/2025. Procedure Note Rito Perdomo MD PhD - 05/19/2025 EXAMINATION: Abdomen, one view. HISTORY: 60-year-old, admitted after fall, history of inflammatory bowel disease status post colectomy, abdominal pain. COMPARISON: Radiograph 05/28/2025. IMPRESSION: Partially imaged cardiac pacer defibrillator leads, lumbar instrumented fusion and left atrial appendage closure device projecting over heart, multiple surgical clips and cholecystectomy clips projecting over abdomen. Unchanged appearance of air filled dilated small bowel loops in mid abdomen which can represent ileus versus small bowel obstruction. Dictated by: Sabi Geller M.D. The radiology attending physician has personally reviewed this study, and had reviewed and/or edited this written report and agrees with it. Electronically signed by: Rito Perdomo M.D. Makenzie Quevedo NP IMG XR PROCEDURES Final R esult * (ABNORMAL) eGFR (05/18/2025 10:26 PM CDT) eGFR 48(L) >=60 mL/min/1. 73 m2 Comment: Interpretive Data [...] interpretive data was last reviewed 2021. Blood 05/18/2025 10:2 6 PM CDT 05/18/2025 10:51 PM CDT Makenzie Quevedo NP LAB BLOOD ORDERABLES Shana mark Result [facility] Department [place] [address] * (ABNORMAL) CBC without differential (05/18/2025 10:26 PM CDT) [facility] WBC 4.23 3.80 - 9.90 K/cumm Hgb 7.5(L) 11.9 - 15.5 g/dL [facility] Hct 25.6(L) 35.6 - 45.5 % [facility] Plt 246 150 - 400 K/cumm [facility] MPV 10.6 9.1 - 12.3 fL [facility] RBC 3.06(L) 3.90 - 5.20 M/cumm [facility] MCV 83.7 81.3 - 96.4 fL [facility] MCH 24.5(L) 27.1 - 33.3 pg [facility] MCHC 29.3(L) 32.3 - 35.7 g/dL [facility] RDW CV 20.3(H) 11.1 - 14.9 % [facility] RDW SD 61.1(H) 35.7 - 48.1 fL [facility] NRBC abs 0.00 0.00 - 0.01 K/cumm [facility] Blood 05/18/2025 10:2 6 PM CDT 05/18/2025 10:51 PM CDT Makenzie Quevedo NP LAB BLOOD ORDERABLES Shana l Result [facility] Department [place] [address] * (ABNORMAL) Basic metabolic panel (05/18/2025 10:26 PM CDT) [facility] Sodium 139 135 - 145 mmol/L Potassium, pl 3.5 3.3 - 4.9 mmol/L [facility] Chloride 104 97 - 110 mmol/L [facility] CO2 20(L) 22 - 32 mmol/L [facility] Anion gap 15 2 - 15 mmol/L [facility] BUN 22 6 - 25 mg/dL [facility] Creatinine 1.28(H) 0.60 - 1.10 mg/dL [facility] Glucose 79 70 - 199 mg/dL [facility] Comment: Interpretive Data Fasting glucose >/= 126 [...] classification and Diagnosis of Diabetes Diabetes Care 202; 46: S19-S40. Current interpretive data was last revised 2022. Calcium 9.0 8.5 - 10.3 mg/dL [facility] Blood 05/18/2025 10:2 6 PM CDT 05/18/2025 10:51 PM CDT us Makenzie Quevedo NP LAB BLOOD ORDERABLES Shana mark Result [facility] Department [place] [address] * XR Abdomen 1 View AP (05/18/2025 4:09 AM CDT) Anatomical Region Laterality Modality Body, Abdomen N/A Digital Radiogra phy 05/18/2025 9:20 AM CDT Impressions 05/18/2025 10:04 AM CDT Partially imaged cardiac pacer leads projecting over right atrium and right ventricle. Cholecystectomy clips in place. Partially imaged thoracolumbar instrumented fusion. Increased in the number of air-filled dilated small bowel loops in mid abdomen with unchanged or slightly decreased in caliber compared to 05/15/2025 radiograph there is air in the ilial pouch. These overall findings can represent ileus or small bowel obstruction and appropriate clinical setting. Dictated by: Sabi Geller M.D. The radiology attending physician has personally reviewed this study, and had reviewed and/or edited this written report and agrees with it. Electronically signed by: Franky Ramsey M.D. Narrative 05/18/2025 10:04 AM CDT EXAMINATION: Abdomen, one view. HISTORY: 60-year-old, presented after fall, also history of inflammatory bowel disease status post colectomy. Abdominal pain. COMPARISON: Radiograph 05/15/2025. Procedure Note Franky Ramsey MD - 05/18/2025 EXAMINATION: Abdomen, one view. HISTORY: 60-year-old, presented after fall, also history of inflammatory bowel disease status post colectomy. Abdominal pain. COMPARISON: Radiograph 05/15/2025. IMPRESSION: Partially imaged cardiac pacer leads projecting over right atrium and right ventricle. Cholecystectomy clips in place. Partially imaged thoracolumbar instrumented fusion. Increased in the number of air-filled dilated small bowel loops in mid abdomen with unchanged or slightly decreased in caliber compared to 05/15/2025 radiograph there is air in the ilial pouch. These overall findings can represent ileus or small bowel obstruction and appropriate clinical setting. Dictated by: Sabi Geller M.D. The radiology attending physician has personally reviewed this study, and had reviewed and/or edited this written report and agrees with it. Electronically signed by: Franky Ramsey M.D. Makenzie Quevedo NP IMG XR PROCEDURES Final R esult from Last 3 Months Insurance [facility] MED[facility] Address: [facility] [address] [place] [address] [facility] MED[facility] Address: [id number] [place] [address] Advance Directives For more information, please contact: [phone] * Full Code (Latest Code Status on File) Date Activated Date Inactivated Comments 05/13/2025 2:45 AM 05/24/2025 6:40 PM * Full Code Date Activated Date Inactivated Comments 12/23/2020 11:51 AM 12/28/2020 6:18 PM * Full Code Date Activated Date Inactivated Comments 05/02/2020 6:20 PM 05/04/2020 6:16 PM Care Teams Director Manufacturing Engineering Relationship Specialty Start Date End Date Elton Chowdary MD PCP - General 12/07/16 Moody Ann MD [address] [place] [address] Consulting Physician Gastroenterology 05/04/20 Zacarias Ferrell MD [address] [place] [address] Consulting Physician Surgical Critical Care 12/28/20
[2025-08-17 10:09] VITALS: BP 145/71; PULSE 77; RESP 18; TEMP 36.1; O2SAT 98; BMI 25.4
[2025-08-17] MEDS: LACTATED RINGERS 1,000 ML 150 ML IV CONT (10:20)
--- NOTE | 2025-08-17 10:25 | WPDANESEPPF ---
Anes - Initial Pre Proc Eval Procedure: Operation Date: 08/17/25 11:30 Proposed Procedures p EGD and Flexible Sigmoidoscopy - Jeferson Trejo MD Date/Time: 08/17/25 10:25 Surgeon: Jeferson Trejo MD Pre Op Diagnosis: GERD,J pouch anatamosis stricture Patient Data Age: 60 Gender: F Height: 1.65 m Weight: 69.5 kg Last Vital Signs Temp 36.1 C L 08/17/25 10:09 Pulse 77 08/17/25 10:09 Resp 18 08/17/25 10:09 BP 145/71 H 08/17/25 10:09 Pulse Ox 98 08/17/25 10:09 O2 Del Method Room Air 08/17/25 10:09 Allergies Allergy/AdvReac Type Severity Reaction Status Date / Time Sulfa (Sulfonamide Allergy Severe Swelling Verified 08/17/25 10:08 Antibiotics) of Lip/Tongue/Throat prednisone AdvReac Unknown NOT TO Verified 08/17/25 10:08 TAKE R/T MEDS triamcinolone (From Kenalog) AdvReac Unknown Unknown Verified 08/17/25 10:08 Home Medications ?Medication ?Instructions ?Recorded ?Confirmed ?Type apremilast 30 mg tablet (Otezla) 30 mg PO BID 04/12/20 08/17/25 History aspirin 325 mg tablet 325 mg PO DAILY 04/12/20 08/12/25 History vitamin B complex (B 1 tablet PO WEEKLY 02/20/22 08/17/25 History Complex-Vitamin B12 tablet) albuterol sulfate 90 mcg/actuation 2 inh inhalation Q4H PRN shortness 04/10/23 08/12/25 Rx aerosol inhaler of breath or wheezing #25.5 grams ferrous sulfate 325 mg (65 mg See Rx Instructions .Route 07/07/24 08/12/25 Rx iron) tablet .COMPLEX #90 tabs amlodipine 5 mg tablet 5 mg PO DAILY 01/21/25 08/17/25 History atenolol 50 mg tablet See Rx Instructions .Route 02/10/25 08/17/25 Rx .COMPLEX #100 tabs sertraline 100 mg tablet 100 mg PO QAM #90 tabs 02/10/25 08/17/25 Rx tizanidine 4 mg tablet 4 mg PO TID PRN headache #30 tabs 10/01/25 12/04/25 Rx omeprazole 40 mg capsule,delayed See Rx Instructions .Route 06/23/25 08/17/25 Rx release .COMPLEX #200 caps ergocalciferol (vitamin D2) 1,250 See Rx Instructions .Route 07/12/25 08/17/25 Rx mcg (50,000 unit) capsule .COMPLEX #13 caps oxycodone-acetaminophen 10 mg-325 1 tablet PO Q4H PRN Pain #180 tabs 07/26/25 08/17/25 Rx mg tablet lorazepam 2 mg tablet 2 mg PO TID PRN anxiety #90 tabs 07/27/25 08/12/25 Rx atorvastatin 40 mg tablet 40 mg PO QHS #100 tabs 08/03/25 08/17/25 Rx aspirin 81 mg tablet,delayed 81 mg PO DAILY 08/12/25 08/17/25 History release (Adult Aspirin Regimen) budesonide-formoterol HFA 160 2 puff inhalation Q12H PRN SOB 08/12/25 08/12/25 History mcg-4.5 mcg/actuation aerosol inhaler Patient hx anesthesia problems: none Family hx anesthesia problems: none Results Review: All pre-operative results and documents have been reviewed as part of the pre-operative evaluation. [facility] Past Medical History Medical History RSV infection (09/2024) Spinal cord stimulator dysfunction Spinal cord stimulator status COVID-19 Osteoporosis HLD (hyperlipidemia) DVT (deep venous thrombosis) 2007 Anxiety Depression Thyroid nodule DDD (degenerative disc disease) Cervical cancer S/p hysterectomy 1996 GERD (gastroesophageal reflux disease) Peptic ulcer Pacemaker - 2013 Peripheral neuropathy CVA (cerebrovascular accident) 2017, no residual deficits Seasonal allergies Surgical History Surgical History History of spinal fusion 2000 & 2001. L5-S1 History of carpal tunnel release H/O cervical spine surgery 2003 History of orthopedic surgery bilateral feet History of removal of ovarian cyst left 1998 History of hysterectomy H/O inguinal hernia repair Hx of cholecystectomy (1999) H/O resection of large bowel 1999 Hx of tonsillectomy Family History Family History Grandparent Carcinoma of colon Father Diabetes mellitus Hypertension Lymphoma Mother Hypertension Hypercholesterolemia Grandparent Family history of lung cancer Social History Social History Social History: Ms. Robert lives at home with her sister, Radha, whom she designates as her surrogate decision maker. She would like to be a full code. She is and has step-children. She has been on disability for about 20 years. Smoking packs per day: 1 Smoking cigarettes per day: 20.0 Years smoked: 40 Smoking pack-years: 40.00 Smoking status: Former smoker (Quit 2 years ago) Tobacco type: cigarettes Second hand tobacco smoke exposure: Yes Smoking end date: 07/28/23 Additional smoking assessment comments: SMOKES OCCASIONALLY 1 CIGARETTE A DAY. Alcohol intake: never Drinks per week: 15 Alcohol use details: social Substance use: never Substance use type: marijuana Other substance usage details: She has infrequently used edible THC for pain management Last use: 06/23/2022 Lack of Transportation: No Lack of Food: Never True Current Housing: I Have Housing Concerned About Future Housing: No Difficulty Paying Gas/Electric Bills: No Difficulty Paying for Meds: No Currently Unemployed: No Education: High School Diploma/GED Difficulty w/ Childcare or Family Care: No Living arrangements: with family Additional living arrangements comments: LIVES WITH SIGNIFICANT OTHER Additional occupation/education comments: Disability Gender identity (if verbalized by the patient): Female Spiritual care concerns: No Agree to blood products: Yes Anes - Eval Final PreProcedure Day of Procedure 08/17/25 10:25 Patient weight: overweight Heart: regular rate and rhythm Lungs: clear to auscultation Airway: Mallampati scale class II Neurological: alert and oriented Last oral intake: >/= 8 hours ASA classification: III Emergent: no Anesthetic plan: proceed Anesthesia type and monitoring: general GIVS and standard monitoring Results Review: All pre-operative results and documents have been reviewed as part of the pre-operative evaluation. Informed Consent: The patient's anesthetic plan and its attendant risks and benefits were discussed with the patient/family/POA. Questions were solicited and answers provided to the satisfaction of the patient/family/POA.
--- NOTE | 2025-08-17 10:53 | PM.HPGS ---
History of Present Illness History of Present Illness Consent: Risks, benefits, and alternatives have been discussed and questions answered. Patient agrees to proceed with procedure. Chief complaint: GERD,J pouch anatamosis stricture Narrative: Dior Robert is a 60 year old female here for egd and sigmoidoscopy, history of ulcerative colitis and status post colectomy with ileal anal pouch but then apparently diagnosed with crohn's, recent scope showed stricture j pouch and this has been dilated. Also nausea, bloating. Last egd 2023 with gastritis. she is not taking any biologics. Review of Systems Review of Systems: All systems reviewed & are unremarkable except as noted in HPI and below PMFSH Past Medical History Medical History RSV infection (09/2024) Spinal cord stimulator dysfunction Spinal cord stimulator status COVID-19 Osteoporosis HLD (hyperlipidemia) DVT (deep venous thrombosis) 2006 Anxiety Depression Thyroid nodule DDD (degenerative disc disease) Cervical cancer S/p hysterectomy 1996 GERD (gastroesophageal reflux disease) Peptic ulcer Pacemaker - 2012 Peripheral neuropathy CVA (cerebrovascular accident) 2016, no residual deficits Seasonal allergies Surgical History Surgical History History of spinal fusion 2000 & 2001. L5-S1 History of carpal tunnel release H/O cervical spine surgery 2002 History of orthopedic surgery bilateral feet History of removal of ovarian cyst left 1997 History of hysterectomy H/O inguinal hernia repair Hx of cholecystectomy (1999) H/O resection of large bowel 1999 Hx of tonsillectomy Family History Family History Grandparent Carcinoma of colon Father Diabetes mellitus Hypertension Lymphoma Mother Hypertension Hypercholesterolemia Grandparent Family history of lung cancer Social History Social History Social History: Ms. Robert lives at home with her sister, Radha, whom she designates as her surrogate decision maker. She would like to be a full code. She is and has step-children. She has been on disability for about 20 years. Smoking packs per day: 1 Smoking cigarettes per day: 20.0 Years smoked: 40 Smoking pack-years: 40.00 Smoking status: Former smoker (Quit 2 years ago) Tobacco type: cigarettes Second hand tobacco smoke exposure: Yes Smoking end date: 07/28/23 Additional smoking assessment comments: SMOKES OCCASIONALLY 1 CIGARETTE A DAY. Alcohol intake: never Drinks per week: 15 Alcohol use details: social Substance use: never Substance use type: marijuana Other substance usage details: She has infrequently used edible THC for pain management Last use: 06/23/2022 Lack of Transportation: No Lack of Food: Never True Current Housing: I Have Housing Concerned About Future Housing: No Difficulty Paying Gas/Electric Bills: No Difficulty Paying for Meds: No Currently Unemployed: No Education: High School Diploma/GED Difficulty w/ Childcare or Family Care: No Living arrangements: with family Additional living arrangements comments: LIVES WITH SIGNIFICANT OTHER Additional occupation/education comments: Disability Gender identity (if verbalized by the patient): Female Spiritual care concerns: No Agree to blood products: Yes Meds Home Medications and Allergies Home Medications ?Medication ?Instructions ?Recorded ?Confirmed ?Type apremilast 30 mg tablet (Otezla) 30 mg PO BID 04/12/20 08/17/25 History aspirin 325 mg tablet 325 mg PO DAILY 04/12/20 08/12/25 History vitamin B complex (B 1 tablet PO WEEKLY 02/20/22 08/17/25 History Complex-Vitamin B12 tablet) albuterol sulfate 90 mcg/actuation 2 inh inhalation Q4H PRN shortness 04/10/23 08/12/25 Rx aerosol inhaler of breath or wheezing #25.5 grams ferrous sulfate 325 mg (65 mg See Rx Instructions .Route 07/07/24 08/12/25 Rx iron) tablet .COMPLEX #90 tabs amlodipine 5 mg tablet 5 mg PO DAILY 01/21/25 08/17/25 History atenolol 50 mg tablet See Rx Instructions .Route 02/10/25 08/17/25 Rx .COMPLEX #100 tabs sertraline 100 mg tablet 100 mg PO QAM #90 tabs 02/10/25 08/17/25 Rx tizanidine 4 mg tablet 4 mg PO TID PRN headache #30 tabs 06/09/25 08/12/25 Rx omeprazole 40 mg capsule,delayed See Rx Instructions .Route 06/23/25 08/17/25 Rx release .COMPLEX #200 caps ergocalciferol (vitamin D2) 1,250 See Rx Instructions .Route 07/12/25 08/17/25 Rx mcg (50,000 unit) capsule .COMPLEX #13 caps oxycodone-acetaminophen 10 mg-325 1 tablet PO Q4H PRN Pain #180 tabs 07/26/25 08/17/25 Rx mg tablet lorazepam 2 mg tablet 2 mg PO TID PRN anxiety #90 tabs 07/27/25 08/12/25 Rx atorvastatin 40 mg tablet 40 mg PO QHS #100 tabs 08/03/25 08/17/25 Rx aspirin 81 mg tablet,delayed 81 mg PO DAILY 08/12/25 08/17/25 History release (Adult Aspirin Regimen) budesonide-formoterol HFA 160 2 puff inhalation Q12H PRN SOB 08/12/25 08/12/25 History mcg-4.5 mcg/actuation aerosol inhaler Allergies Allergy/AdvReac Type Severity Reaction Status Date / Time Sulfa (Sulfonamide Allergy Severe Swelling Verified 08/17/25 10:08 Antibiotics) of Lip/Tongue/Throat prednisone AdvReac Unknown NOT TO Verified 08/17/25 10:08 TAKE R/T MEDS triamcinolone (From Kenalog) AdvReac Unknown Unknown Verified 08/17/25 10:08 Vital Signs Vital Signs - 24 hr 08/17/25 10:09 Temperature 97 F L Pulse Rate 77 Respiratory Rate 18 Blood Pressure 145/71 H Pulse Oximetry 98 Oxygen Delivery Room Air Exam Const: General: comfortable and no acute distress HENMT: Face/Nose/Sinus: Normal nares present Resp: Auscultation: clear to auscultation bilaterally Cardio: Rate: regular rate Rhythm: regular rhythm GI: Inspection: non-distended GI Palp: Yes Soft to palpation Skin: General skin exam: normal color Extrem: General: normal to inspection Psych: Mental Status: mental status grossly normal Assessment and Plan Assessment and plan (1) Generalized abdominal pain: Code(s): R10.84 - Generalized abdominal pain Status: Acute Assessment and Plan: sigmoidoscopy and egd, will assess if j pouch needs dilation (2) Nausea: Code(s): R11.0 - Nausea Status: Acute
--- NOTE | 2025-08-17 10:58 | S_PTH ---
PATIENT: Dior Robert LOC: [facility]#:[id number] AGE/SX: 60/F ROOM: RE08/17/[address]: Jeferson Trejo MD : 1965 BED: DIS: 08/17/2025 SPEC #: [id number] RECD: 08/17/25 12:57 STATUS: MAULIK REBrian #: [id number] ADA: 08/17/25 10:[address]: Jeferson Trejo DEPT: [facility] Surgical RECD BY: Tamy Osborne MLT, ([facility]) ENTERED: 08/17/25 12:58 SP TYPE: Surgical OTHR DR: Elton Chowdary MD Tissues: A - Small Bowel Bx B - Gastric Biopsy C - Colon Biopsy Procedures: Hematoxylin and Eosin Stain Gross and Microscopic Level 4
--- NOTE | 2025-08-17 11:04 | SUR.OPER ---
EGD stop time 1101. Colonoscopy start time 1104
[2025-08-17 11:14] VITALS: BP 90/67; PULSE 69; RESP 16; O2SAT 100
[2025-08-17 11:24] VITALS: BP 108/64; PULSE 69; RESP 15; O2SAT 100
[2025-08-17 11:34] VITALS: BP 132/68; PULSE 69; RESP 17; O2SAT 100
== END 2025-08-17 11:41 | disposition home or self-care (01) ==
PROVIDERS: PCP Family Medicine Adolescent Medicine; Referring Provider Nurse Practitioner Family; Visit Provider Internal Medicine Gastroenterology
PROC: 0DJ08ZZ Inspection of Upper Intestinal Tract, Via Natural or Artificial Opening Endoscopic (ICD-10-PCS; CPT 45378; principal; 2025-08-17 11:30)
DX: K52.82 Eosinophilic colitis (principal); K29.50 Unspecified chronic gastritis without bleeding; K21.9 Gastro-esophageal reflux disease without esophagitis; M81.0 Age-related osteoporosis without current pathological fracture; E78.5 Hyperlipidemia, unspecified; F41.9 Anxiety disorder, unspecified; F32.A Depression, unspecified; M51.9 Unspecified thoracic, thoracolumbar and lumbosacral intervertebral disc disorder; G62.9 Polyneuropathy, unspecified; F17.210 Nicotine dependence, cigarettes, uncomplicated; F12.90 Cannabis use, unspecified, uncomplicated; Z79.82 Long term (current) use of aspirin; Z79.51 Long term (current) use of inhaled steroids; Z79.891 Long term (current) use of opiate analgesic; Z98.890 Other specified postprocedural states; Z98.1 Arthrodesis status; Z90.49 Acquired absence of other specified parts of digestive tract; Z98.84 Bariatric surgery status; Z95.0 Presence of cardiac pacemaker; Z96.82 Presence of neurostimulator; Z87.11 Personal history of peptic ulcer disease; Z85.41 Personal history of malignant neoplasm of cervix uteri; Z86.718 Personal history of other venous thrombosis and embolism; Z86.79 Personal history of other diseases of the circulatory system; Z80.0 Family history of malignant neoplasm of digestive organs; Z80.7 Family history of other malignant neoplasms of lymphoid, hematopoietic and related tissues; Z80.1 Family history of malignant neoplasm of trachea, bronchus and lung
CPT/HCPCS: 43239; 88305; C1726; J2003; J2704; J7120